=== PATIENT | male | born 1980 | race Caucasian/White ===

== ENCOUNTER 2023-04-17 13:14 | Emergency (ER) | payer SELFPAY ==
[2023-04-17 13:20] VITALS: BP 140/96; PULSE 94; RESP 18; TEMP 36.6; O2SAT 96; BMI 48.3
--- NOTE | 2023-04-17 13:26 | ED.EXTPRO1 ---
HPI - Extremity Problem General Chief complaint: Extremity Injury, Lower Stated complaint: LOWER EXTREMITY PAIN RIGHT FOOT Time Seen by Provider: 04/17/23 13:25 Source: patient Mode of arrival: walk-in Limitations: no limitations History of Present Illness HPI Narrative: 42-year-old male presents for left foot pain for the past couple of days without injury. He took Advil 5 hours ago. He states that he has a history of gout. Denies swelling, temp or sensation changes Related Data Previous Rx's Medication Instructions Recorded prednisone 20 mg tablet See Rx Instructions .Route 04/17/23 .COMPLEX #18 tabs Allergies Allergy/AdvReac Type Severity Reaction Status Date / Time No Known Drug Allergies Allergy Verified 04/17/23 13:20 Review of Systems ROS Status of ROS 10 or more systems reviewed and unremarkable except as noted in history and below Exam Narrative Exam Narrative: General: A&Ox3, no distress, talking in full an complete sentences skin: warm, dry, intact head: normocephalic, atraumatic eyes: EOMI nose: nares patent neck: supple, trachea midline respiratory: non-labored extremities: FROM x 4, strength +5/5, no swelling, tender to the plantar aspect to the proximal metatarsals neuro: A&Ox3 psych: appropriate mood and affect, cooperative Constitutional Vital Signs, click to edit/add: Last Vital Signs Temp 97.9 F 04/17/23 13:20 Pulse 94 H 04/17/23 13:20 Resp 18 04/17/23 13:20 BP 140/96 H 04/17/23 13:20 Pulse Ox 96 04/17/23 13:20 O2 Del Method Room Air 04/17/23 13:20 Course Vital Signs Vital signs: Vital Signs Temperature 97.9 F 04/17/23 13:20 Pulse Rate 94 H 04/17/23 13:20 Respiratory Rate 18 04/17/23 13:20 Blood Pressure 140/96 H 04/17/23 13:20 Pulse Oximetry 96 04/17/23 13:20 Oxygen Delivery Method Room Air 04/17/23 13:20 Temperature 97.9 F 04/17/23 13:20 Pulse Rate 94 H 04/17/23 13:20 Respiratory Rate 18 04/17/23 13:20 Blood Pressure 140/96 H 04/17/23 13:20 Pulse Oximetry 96 04/17/23 13:20 Oxygen Delivery Method Room Air 04/17/23 13:20 MDM - Extremity (Nontraumatic) MDM Narrative Medical decision making narrative: No injury and likely inflammatory and with his history of gout we will give him a prednisone taper and medicate with Toradol today. He denies having any kidney issues or diabetes. He is to follow-up with family doctor. afebrile, not tachycardic, not tachypneic, not hypoxic, non toxic appearing and ambulating at baseline and hemodynamically stable to be d/c. eucated on SE of meds. answered all questions. pt in agreement with tx. educated when to return to ER. Discharge Plan Discharge Chief Complaint: Extremity Injury, Lower Clinical Impression: Acute pain of left foot Patient Disposition: Home, Self-Care Time of Disposition Decision: 13:26 Condition: Good Mode of Transportation: Private Vehicle Prescriptions / Home Meds: New prednisone 20 mg tablet See Rx Instructions .ROUTE .COMPLEX Qty: 18 0RF Rx Instructions: take 3 PO x 3 days then 2 PO x 3 days then 1 PO x 3 days Instructions: Arthralgia (ED) Stand Alone Forms: Portal Instructions Referrals: Alley Cruz [Primary Care Provider] - 1 week
[2023-04-17] MEDS: KETOROLAC TROMETHAMINE 30 MG/ML VIAL 15 MG IM (13:35)
== END 2023-04-17 13:37 | disposition home or self-care (01) ==
PROVIDERS: Emergency Provider Emergency Medicine; PCP Nurse Practitioner
DX: M79.672 Pain in left foot (principal)
CPT/HCPCS: 96372; 99284

== ENCOUNTER 2023-04-30 20:54 | Emergency (ER) | payer SELFPAY ==
[2023-04-30 21:09] VITALS: BP 160/90; PULSE 90; RESP 18; TEMP 36.5; O2SAT 97; BMI 54.8
--- NOTE | 2023-04-30 21:19 | ED_ITS ---
HPI - Extremity Injury (Lower) General Chief Complaint: Extremity Problem, Nontraumatic Stated Complaint: RT FOOT SWELLING/PAIN Time Seen by Provider: 04/30/23 21:17 History of Present Illness HPI Narrative: Patient To the emergency department complaining of right foot pain and swelling. Patient states his foot is throbbing. He had the symptoms intermittently for months. He was given steroid and he finished it last week and now the pain has returned. Patient has a history of gout.He denies any fever, chills, cough, chest pain, shortness of breath. He denies any paresthesias, or weakness. States this feels just like his gout. Related Data Home Medications Medication Instructions Recorded Confirmed bumetanide 2 mg tablet 2 mg PO DAILY 04/30/23 04/30/23 carvedilol 3.125 mg tablet 3.125 mg PO Q12H 04/30/23 04/30/23 losartan 100 mg tablet 100 mg PO DAILY 04/30/23 04/30/23 spironolactone 50 mg tablet 50 mg PO DAILY 04/30/23 04/30/23 Previous Rx's Medication Instructions Recorded colchicine (gout) 0.6 mg capsule 0.6 mg PO DAILY #7 caps 04/30/23 hydrocodone 5 mg-acetaminophen 325 1 tab PO Q6H PRN pain 5 days #5 04/30/23 mg tablet tabs methylprednisolone 4 mg tablets in 4 mg PO DAILY #21 ea 04/30/23 a dose pack (Medrol (Corey)) Allergies Allergy/AdvReac Type Severity Reaction Status Date / Time No Known Drug Allergies Allergy Verified 04/30/23 21:12 Review of Systems ROS Status of ROS 10 or more systems reviewed and unremarkable except as noted in history and below [employer] [facility] Social History Smoking status: Current every day smoker Exam Narrative Exam Narrative: Nurses notes and vital signs reviewed and patient is not hypoxic. General: Nontoxic, Well-appearing and in no apparent distress. Skin: Warm, dry, no pallor noted. No Rash Head: Normocephalic, atraumatic. Neck: Supple, non-tender. Eye: Pupils are equal, round and EOMI. No scleral icterus. Ears, Nose, Mouth, and Throat: TM clear, no posterior oropharynx erythema or nasal mucosal hypertrophy, uvula is mid-line Oral mucosa is moist Cardiovascular: Regular Rate and Rhythm without murmur, gallop or rub. Respiratory: No accessory muscle use or respiratory distress. Lungs are clear to auscultation, no wheezing, rales or rhonchi Chest Wall: no tenderness Back: No midline thoracic or lumbar vertebral tenderness. No CVA tenderness Musculoskeletal: normal ROM, no calf or popliteal tenderness,+2 bilateral ankle and foot edema noted. DT +2, tp +2, capillary refill is brisk. GI: obese, ,Abdomen is soft, non-distended. Normal bowel sounds. No masses appreciated. No tenderness to palpation. No rebound, guarding, or rigidity noted. Neurological: A&O x4. No cranial nerve dysfunction observed. No truncal ataxia. Moves all extremities. Sensation intact. Psychiatric: Cooperative and interactive. Normal mood and affect. Constitutional Vital Signs, click to edit/add: Last Vital Signs Temp 97.7 F 04/30/23 21:09 Pulse 90 04/30/23 21:09 Resp 18 04/30/23 21:09 BP 160/90 H 04/30/23 21:09 Pulse Ox 97 04/30/23 21:09 O2 Del Method Room Air 04/30/23 21:09 Course Vital Signs Vital signs: Vital Signs Temperature 97.7 F 04/30/23 21:09 Pulse Rate 90 04/30/23 21:09 Respiratory Rate 18 04/30/23 21:09 Blood Pressure 160/90 H 04/30/23 21:09 Pulse Oximetry 97 04/30/23 21:09 Oxygen Delivery Method Room Air 04/30/23 21:09 Temperature 97.7 F 04/30/23 21:09 Pulse Rate 90 04/30/23 21:09 Respiratory Rate 18 04/30/23 21:09 Blood Pressure 160/90 H 04/30/23 21:09 Pulse Oximetry 97 04/30/23 21:09 Oxygen Delivery Method Room Air 04/30/23 21:09 MDM - Extremity Injury (Lower) MDM Narrative Medical decision making narrative: Previous records reviewed. Discussed with the patient steroid, colchicine, and NSAIDs for pain control. Oarrs was checked and is appropriate.The patient was given a prescription for [place]. At this time the patient is without objective evidence of an acute process requiring hospitalization or inpatient management. The patient has remained hemodynamically stable. No additional indication for emergent studies at this time. I answered all questions. Discussed discharge instructions including standard anticipatory guidance and what should prompt a return to the emergency department, including if they get worse are not getting better or develops any new or concerning symptoms. I've given them specific time frame in which to follow-up, and who to follow-up with. The patient demonstrates understanding. Patient is nontoxic and stable for discharge with outpatient follow-up. This note was created with the assistance of a speech recognition program. Although the intention is to generate documents that actually reflects the content of the visit, no guarantees can be provided that every mistake has been identified and corrected by editing. Discharge Plan Discharge Chief Complaint: Extremity Problem, Nontraumatic Clinical Impression: Gout attack Patient Disposition: Home, Self-Care Time of Disposition Decision: 21:36 Condition: Good Mode of Transportation: Private Vehicle Prescriptions / Home Meds: New methylprednisolone [Medrol (Corey)] 4 mg tablets,dose pack 4 mg PO DAILY Qty: 21 0RF colchicine (gout) 0.6 mg capsule 0.6 mg PO DAILY Qty: 7 0RF hydrocodone-acetaminophen 5-325 mg tablet 1 tab PO Q6H PRN (Reason: pain) 5 Days Qty: 5 0RF No Action bumetanide 2 mg tablet 2 mg PO DAILY carvedilol 3.125 mg tablet 3.125 mg PO Q12H losartan 100 mg tablet 100 mg PO DAILY spironolactone 50 mg tablet 50 mg PO DAILY Instructions: Gout (ED) Stand Alone Forms: Portal Instructions Referrals: Alley Cruz [Primary Care Provider] - 1 week Discharge Date/Time: 04/30/23 22:02
[2023-04-30] MEDS: COLCHICINE 0.6 MG TABLET PO (21:50)
[2023-04-30] MEDS: PREDNISONE 20 MG TABLET 60 MG PO (21:51)
== END 2023-04-30 22:02 | disposition home or self-care (01) ==
PROVIDERS: Emergency Provider Emergency Medicine; PCP Nurse Practitioner
DX: M10.071 Idiopathic gout, right ankle and foot (principal); Z79.899 Other long term (current) drug therapy; F17.210 Nicotine dependence, cigarettes, uncomplicated
CPT/HCPCS: 99283

== ENCOUNTER 2023-08-01 17:17 | Emergency (ER) | payer SELFPAY ==
[2023-08-01 17:25] VITALS: BP 126/82; PULSE 93; RESP 20; TEMP 36.6; O2SAT 97; BMI 56.0
--- NOTE | 2023-08-01 17:31 | XR_ITS ---
The [address] [address] Patient Name: RAFAEL WINKLER MRN: [id number] date: 1980 Sex: M Assigned Patient Location: ER Current Patient Location: ER Accession/Order Number: [id number] Exam Date: 08/01/2023 17:50 Report Date: 08/01/2023 18:32 At the request of: JARVIS CELIS Procedure: XR knee RT 3V EXAM: XR knee RT 3V HISTORY: atraumatic pain COMPARISON: None. TECHNIQUE: 3 views of the right knee. FINDINGS: Bones: No acute fracture or aggressive appearing bony lesion. Joints: Normal alignment. There is small to moderate joint effusion. No significant degenerative findings. Soft tissues: Unremarkable. XR/XR knee RT 3V IMPRESSION: small to moderate joint effusion. Electronically authenticated by: BROWN FRANCOIS Date: 08/01/2023 18:32
--- NOTE | 2023-08-01 17:32 | ED.EXTPRO1 ---
HPI - Extremity Problem General Chief complaint: Extremity Problem, Nontraumatic Stated complaint: Lower Extremity Pain Time Seen by Provider: 08/01/23 17:22 Source: patient Mode of arrival: Wheelchair Limitations: no limitations History of Present Illness HPI Narrative: 43-year-old male presents for right knee pain. It's been hurting for a few days. He thinks it might be due to compensation because his left knee was hurting before this and he thinks he may been walking on it in an unusual fashion. There is no direct injury to the right knee. He points to the anterior surface. His left knee is feeling much better now. Related Data Home Medications Medication Instructions Recorded Confirmed bumetanide 2 mg tablet 2 mg PO DAILY 04/30/23 04/30/23 carvedilol 3.125 mg tablet 3.125 mg PO Q12H 04/30/23 04/30/23 losartan 100 mg tablet 100 mg PO DAILY 04/30/23 04/30/23 spironolactone 50 mg tablet 50 mg PO DAILY 04/30/23 04/30/23 Previous Rx's Medication Instructions Recorded colchicine 0.6 mg capsule 0.6 mg PO DAILY #7 caps 04/30/23 hydrocodone 5 mg-acetaminophen 325 1 tab PO Q6H PRN pain 5 days #5 04/30/23 mg tablet tabs methylprednisolone 4 mg tablets in 4 mg PO DAILY #21 ea 04/30/23 a dose pack (Medrol (Corey)) ibuprofen 800 mg tablet 800 mg PO Q8H PRN pain #20 tabs 08/01/23 Allergies Allergy/AdvReac Type Severity Reaction Status Date / Time No Known Drug Allergies Allergy Verified 04/30/23 21:12 Review of Systems ROS Narrative A ten point review of systems is negative except as noted above. PFSH PFS Social History Smoking status: Current every day smoker Exam Narrative Exam Narrative: Nurses note and vital signs reviewed and patient is not hypoxic. General: The patient appears well and in no apparent distress. Patient is sitting on the edge of the cart Skin: Warm, dry, no pallor noted. There is no rash noted. Head: Normocephalic, atraumatic Eye: Normal conjunctiva, no drainage Ears, Nose, Mouth, and Throat: oral mucosa is moist. Nares patent. Cardiovascular: Regular Rate and Rhythm Respiratory: Patient is in no distress, no accessory muscle use, lungs are clear to auscultation, no wheezing, rales or rhonchi Back: non-tender GI: obese and nontender Musculoskeletal: the right knee is not bruised or swollen or erythematous and the knee joint is stable. Neurological: A&O, normal speech Psychiatric: Cooperative Constitutional Vital Signs, click to edit/add: Last Vital Signs Temp 97.8 F 08/01/23 17:25 Pulse 93 H 08/01/23 17:25 Resp 20 08/01/23 17:25 BP 126/82 08/01/23 17:25 Pulse Ox 97 08/01/23 17:25 O2 Del Method Room Air 08/01/23 17:25 Course Vital Signs Vital signs: Vital Signs Temperature 97.8 F 08/01/23 17:25 Pulse Rate 93 H 08/01/23 17:25 Respiratory Rate 20 08/01/23 17:25 Blood Pressure 126/82 08/01/23 17:25 Pulse Oximetry 97 08/01/23 17:25 Oxygen Delivery Method Room Air 08/01/23 17:25 Temperature 97.8 F 08/01/23 17:25 Pulse Rate 93 H 08/01/23 17:25 Respiratory Rate 20 08/01/23 17:25 Blood Pressure 126/82 08/01/23 17:25 Pulse Oximetry 97 08/01/23 17:25 Oxygen Delivery Method Room Air 08/01/23 17:25 MDM - Extremity (Nontraumatic) MDM Narrative Medical decision making narrative: x-ray findings are discussed with the patient and he is referred to orthopedics. Scar wrap applied, application checked by me and found to be appropriate, he is neurovascular intact. Treatment diagnosis and follow-up were discussed with the patient. Differential Diagnosis Differential diagnosis: Likely other (knee sprain, arthritis, fracture) Imaging Data knee x-ray: Radiologist's impression: Procedure: XR knee RT 3V EXAM: XR knee RT 3V HISTORY: atraumatic pain COMPARISON: None. TECHNIQUE: 3 views of the right knee. FINDINGS: Bones: No acute fracture or aggressive appearing bony lesion. Joints: Normal alignment. There is small to moderate joint effusion. No significant degenerative findings. Soft tissues: Unremarkable. IMPRESSION: small to moderate joint effusion. Electronically authenticated by: BROWN FRANCOIS Date: 08/01/2023 18:32 Discharge Plan Discharge Chief Complaint: Extremity Problem, Nontraumatic Clinical Impression: Acute pain of right knee Patient Disposition: Home, Self-Care Time of Disposition Decision: 18:41 Condition: Good Mode of Transportation: Private Vehicle Prescriptions / Home Meds: New ibuprofen 800 mg tablet 800 mg PO Q8H PRN (Reason: pain) Qty: 20 0RF No Action bumetanide 2 mg tablet 2 mg PO DAILY carvedilol 3.125 mg tablet 3.125 mg PO Q12H losartan 100 mg tablet 100 mg PO DAILY spironolactone 50 mg tablet 50 mg PO DAILY methylprednisolone [Medrol (Corey)] 4 mg tablets,dose pack 4 mg PO DAILY Qty: 21 0RF colchicine 0.6 mg capsule 0.6 mg PO DAILY Qty: 7 0RF hydrocodone-acetaminophen 5-325 mg tablet 1 tab PO Q6H PRN (Reason: pain) 5 Days Qty: 5 0RF Instructions: Knee Pain (ED) Additional Instructions: Follow-up with Dr. Canales. Stand Alone Forms: Portal Instructions Referrals: Alley Cruz NP [Primary Care Provider] - 1 week
== END 2023-08-01 19:04 | disposition home or self-care (01) ==
PROVIDERS: Emergency Provider Emergency Medicine; PCP Nurse Practitioner
DX: M25.561 Pain in right knee (principal); Z79.899 Other long term (current) drug therapy; F17.200 Nicotine dependence, unspecified, uncomplicated; E66.9 Obesity, unspecified; M25.461 Effusion, right knee; Z68.43 Body mass index [BMI] 50.0-59.9, adult
CPT/HCPCS: 73562; 99283

== ENCOUNTER 2024-03-03 19:45 | Emergency (ER) | payer OTHER, SELFPAY ==
--- OUTSIDE RECORDS SUMMARY | 2024-03-03 19:56 | XMS_ITS | CCD ---
Author Organization [facility] Care Team Providers Care Dice Spotter Name Role Phone DR RADHA LANDEROS Admitting Unavailable LETI, DR GARCIA Consulting Unavailable LETI, DR GARCIA Attending Unavailable AICHHOLZ, VENDING SUPERVISOR ELIAZAR Primary Care Unavailable AICHHOLZ, VENDING SUPERVISOR ELIAZAR Admitting Unavailable AICHHOLZ, VENDING SUPERVISOR ELIAZAR Primary Care Unavailable AICHHOLZ, VENDING SUPERVISOR ELIAZAR Consulting Unavailable AICHHOLZ, VENDING SUPERVISOR ELIAZAR Attending Unavailable WILLEM, DR RACQUEL Luis Consulting Unavailable AICHHOLZ, VENDING SUPERVISOR ELIAZAR Primary Care Unavailable SURI, DR JEANNETTE Fuchs Admitting Unavailable SURI, DR JEANNETTE Fuchs Attending Unavailable SURI, DR JEANNETTE Fuchs Procedure Practitioner Unavaila cristina MCCORD, DR JEANNETTE Fuchs Consulting Unavailable PAPITO, DR HERON Milligan Consulting Unavailabl e SAM, KENNETH Consulting Unavailable STRAWSER, ELIAZAR Consulting Unavailable SHAZIA WELLINGTON Consulting Unavailable DIANNA SCHULTZ Consulting Unavailable LAMAR, LUCERO Consulting Unavailable SISTER, GOPI Consulting Unavailable JACK MCCORMACK Consulting Unavailable Problems Problem Classification Problem Date Documented Da te Episodic/Chronic Congestive heart failure; nonhypertensive (5 sources) Unspecified diastolic (congestive) heart failure; Translations: [Acute diastolic (congestive) heart failure] Onset: 07-19-2022 Chronic Fluid and electrolyte disorders (1 source) Hypokalemia; Translations: [HYPOKALEMIA] Onset: 09-13-2022 Episodic Hypertension with complications and secondary hypertension (4 sources) Hypertensive heart disease with heart failure; Translations: [Hypertensive emergency] Onset: 07-12-2022 Chronic Mycoses (1 source) Tinea unguium; Translations: [TINEA UNGUIUM] Onset: 09-13-2022 Episodic Nutritional deficiencies (1 source) Mild protein-calorie malnutrition; Translations: [MILD PROTEIN-CALORIE MALNUTRITION] Onset: 09-13-2022 Chronic Other aftercare (1 source) 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; 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 ASPIRIN] Onset: 09-26-2022 Episodic Other aftercare (1 source) 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; Translations: [OTH MCC CURRENT DRUG THERAPY] Onset: 09-26-2022 Episodic Other connective tissue disease (3 sources) Other specified soft tissue disorders; Translations: [OTHER SPEC SOFT TISSUE DISORDERS] Onset: 09-24-2022 Episodic Other diseases of veins and lymphatics (1 source) Other specified disorders of veins; Translations: [OTHER SPECIFIED DISORDERS OF VEINS] Onset: 09-13-2022 Episodic Other male genital disorders (1 source) Other specified disorders of the male genital organs; Translations: [OTHER SPEC D/O MALE GENITAL ORGANS] Onset: 09-13-2022 Episodic Other male genital disorders (1 source) Hydrocele, unspecified; Translations: [HYDROCELE UNSPECIFIED] Onset: 09-13-2022 Episodic Other nutritional; endocrine; and metabolic disorders (1 source) Morbid (severe) obesity due to excess calories; Translations: [MORBID SEVERE OBES D/T EXCESS LUCIE] Onset: 09-26-2022 Chronic Other nutritional; endocrine; and metabolic disorders (1 source) Body mass index (BMI) 50.0-59.9, adult; Translations: [BODY MASS INDEX BMI 50.0-59.9 ADULT] Onset: 09-26-2022 Chronic Other nutritional; endocrine; and metabolic disorders (1 source) Morbid (severe) obesity with alveolar hypoventilation; Translations: [MORBID SEV OBESITY ALVEOLR HYPOVENT] Onset: 09-13-2022 Chronic Other nutritional; endocrine; and metabolic disorders (1 source) Body mass index (BMI) 60.0-69.9, adult; Translations: [BODY MASS INDEX BMI 60.0-69.9 ADULT] Onset: 09-13-2022 Chronic Other skin disorders (1 source) Xerosis cutis; Translations: [XEROSIS CUTIS] Onset: 09-13-2022 Episodic Pulmonary heart disease (1 source) Pulmonary hypertension, unspecified; Translations: [PULMONARY HYPERTENSION UNSPECIFIED] Onset: 09-13-2022 Chronic Residual codes; unclassified (1 source) Obstructive sleep apnea (adult) (pediatric); Translations: [OBSTRUCTIVE SLEEP APNEA] Onset: 09-26-2022 Chronic Residual codes; unclassified (1 source) Patient's other noncompliance with medication regimen; Translations: [PT OTH NONCOMPLIANCE W/ MED REGIMEN] Onset: 09-13-2022 Episodic Respiratory failure; insufficiency; arrest (adult) (2 sources) Chronic respiratory failure with hypoxia; Translations: [Dependence on supplemental oxygen] Onset: 09-13-2022 Chronic Screening and history of mental health and substance abuse codes (1 source) Personal history of nicotine dependence; Translations: [PERSONAL HISTORY OF NICOTINE DEPEND] Onset: 09-26-2022 Episodic Skin and subcutaneous tissue infections (3 sources) Cellulitis of left lower limb; Translations: [Cutaneous abscess of left lower limb] Onset: 09-13-2022 Episodic Substance-related disorders (1 source) Nicotine dependence, cigarettes, uncomplicated; Translations: [NICOTINE DEPEND CIGARETTES UNCOMP] Onset: 09-13-2022 Chronic Unclassified (1 source) PT NONCOMP OTH MED TX/REG UNS REASN; Translations: [PT NONCOMP OTH MED TX/REG UNS REASN] Onset: 09-13-2022 Results Test Name Value Interpretation Reference Range Facil ity PROF CHEM 8 (BAS METB)on Anion gap [Moles/Vol] 8.8 mmol/L Normal [facility] Comment on above: Performed By: #### C VDTBH #### [facility] [address] [place] [address] Dr. Gloria Gonzalez Calcium [Mass/Vol] 10.1 mg/dL Normal 8.5-10.1 [facility] Comment on above: Performed By: #### C VDTBH #### [facility] [address] [place] [address] Dr. Gloria Gonzalez Chloride [Moles/Vol] 97 mmol/L Critically low 98-107 [facility] Comment on above: Performed By: #### C VDTBH #### [facility] [address] [place] [address] Dr. Gloria Gonzalez CO2 [Moles/Vol] 35.4 mmol/L Critically high 21.0-32.0 [facility] Comment on above: Performed By: #### C VDTBH #### [facility] [address] [place] [address] Dr. Gloria Gonzalez Creatinine [Mass/Vol] 0.98 mg/dL Normal 0.70-1.30 [facility] Comment on above: Performed By: #### C VDTBH #### [facility] [address] [place] [address] Dr. Gloria Gonzalez EGFR-AF MACANESE >60 Normal >=60 [facility] Comment on above: Performed By: #### C VDTBH #### [facility] [address] [place] [address] Dr. Gloria Gonzalez EGFR-NON AF MACANESE >60 Normal >=60 [facility] Comment on above: Performed By: #### C VDTBH #### [facility] [address] [place] [address] Dr. Gloria Gonzalez Glucose [Mass/Vol] 102 mg/dL Normal 74-106 [facility] Comment on above: Performed By: #### C VDTBH #### [facility] [address] [place] [address] Dr. Gloria Gonzalez Potassium [Moles/Vol] 4.2 mmol/L Normal 3.5-5.1 [facility] Comment on above: Performed By: #### C VDTBH #### [facility] [address] [place] [address] Dr. Gloria Gonzalez Sodium [Moles/Vol] 137 mmol/L Normal 136-145 [facility] Comment on above: Performed By: #### C VDTBH #### [facility] [address] [place] [address] Dr. Gloria Gonzalez Urea nitrogen [Mass/Vol] 24.0 mg/dL Critically high 7.0-18.0 [facility] Comment on above: Performed By: #### C VDTBH #### [facility] [address] [place] [address] Dr. Gloria Gonzalez Urea nitrogen/Creatinine [Mass ratio] 24.5 mg/mg Normal [facility] Comment on above: Performed By: #### C VDTBH #### [facility] [address] [place] [address] Dr. Gloria Gonzalez CBC AUTO DIFFon 07-15-2022 BASO # 0.0 103/ul Normal 0.0-0.[address] [facility] Comment on above: Performed By: #### B GUEST SERVICE AIDE, HSTROPN #### [facility] [address] [place] [address] Dr. Gloria Gonzalez Basophils/100 WBC (Bld) 0.3 % Normal 0.2-2.0 [facility] Comment on above: Performed By: #### B GUEST SERVICE AIDE, HSTROPN #### [facility] [address] [place] [address] Dr. Gloria Gonzalez EO # 0.3 103/ul Normal 0.0-0.7 [facility] Comment on above: Performed By: #### B GUEST SERVICE AIDE, HSTROPN #### [facility] [address] [place] [address] Dr. Gloria Gonzalez Eosinophils/100 WBC (Bld) 3.1 % Normal 0.9-7.0 [facility] Comment on above: Performed By: #### B GUEST SERVICE AIDE, HSTROPN #### [facility] [address] [place] [address] Dr. Gloria Gonzalez Erythrocyte distribution width (RBC) [Ratio] 15.6 % Critically high 11.0-15.0 [facility] Comment on above: Performed By: #### B GUEST SERVICE AIDE, HSTROPN #### [facility] [address] [place] [address] Dr. Gloria Gonzalez Hematocrit (Bld) [Volume fraction] 54.8 % Critically high 42.0-54.0 [facility] Comment on above: Performed By: #### B GUEST SERVICE AIDE, HSTROPN #### [facility] [address] [place] [address] Dr. Gloria Gonzalez Hemoglobin (Bld) [Mass/Vol] 17.1 g/dL Normal 14.0-18.[address] [facility] Comment on above: Performed By: #### B GUEST SERVICE AIDE, HSTROPN #### [facility] [address] [place] [address] Dr. Gloria Gonzalez IG # 0.02 10e3/ul Normal 0.00-0.03 [facility] Comment on above: Performed By: #### B GUEST SERVICE AIDE, HSTROPN #### [facility] [address] [address] [address] Gloria Gonzalez IG % 0.2 % Normal 0.0-0.5 [facility] Comment on above: Performed By: #### B GUEST SERVICE AIDE, HSTROPN #### [facility] [address] [place] [address] Dr. Gloria Gonzalez LYMPH # 1.2 103/ul Normal 1.2-3.[address] [facility] Comment on above: Performed By: #### B GUEST SERVICE AIDE, HSTROPN #### [facility] [address] [place] [address] Dr. Gloria Gonzalez Lymphocytes/100 WBC (Bld) 11.9 % Critically low 20.5-60.0 [facility] Comment on above: Performed By: #### B GUEST SERVICE AIDE, HSTROPN #### [facility] [address] [place] [address] Dr. Gloria Gonzalez MANUAL DIFF REQ NO Normal [facility] Comment on above: Performed By: #### B GUEST SERVICE AIDE, HSTROPN #### [facility] [address] [place] [address] Dr. Gloria Gonzalez MCH (RBC) [Entitic mass] 28.8 pg Normal 25.9-34.0 [facility] Comment on above: Performed By: #### B GUEST SERVICE AIDE, HSTROPN #### [facility] [address] [place] [address] Dr. Gloria Gonzalez MCHC (RBC) [Mass/Vol] 31.2 g/dL Normal 29.9-35.2 [facility] Comment on above: Performed By: #### B GUEST SERVICE AIDE, HSTROPN #### [facility] [address] [place] [address] Dr. Gloria Gonzalez MCV (RBC) [Entitic vol] 92.4 fL Normal 80.0-94.0 [facility] Comment on above: Performed By: #### B GUEST SERVICE AIDE, HSTROPN #### [facility] [address] [place] [address] Dr. Gloira Gonzalez MONO # 1.3 103/ul Critically high 0.3-0.8 [facility] Comment on above: Performed By: #### B GUEST SERVICE AIDE, HSTROPN #### [facility] [address] [place] [address] Dr. Gloria Gonzalez Monocytes/100 WBC (Bld) 12.1 % Critically high 1.7-12.[address] [facility] Comment on above: Performed By: #### B GUEST SERVICE AIDE, HSTROPN #### [facility] [address] [place] [address] Dr. Gloria Gonzalez NEUT # 7.5 103/ul Critically high 1.4-6.5 [facility] Comment on above: Performed By: #### B GUEST SERVICE AIDE, HSTROPN #### [facility] [address] [place] [address] Dr. Gloria Gonzalez Neutrophils/100 WBC (Bld) 72.4 % Normal 43.0-75.[address] [facility] Comment on above: Performed By: #### B GUEST SERVICE AIDE, HSTROPN #### [facility] [address] [place] [address] Dr. Gloria Gonzalez Platelet mean volume (Bld) [Entitic vol] 9.9 fL Normal 9.5-13.[address] [facility] Comment on above: Performed By: #### B GUEST SERVICE AIDE, HSTROPN #### [facility] [address] [place] [address] Dr. Gloria Gonzalez PLT 181 103/ul Normal 150-[address] [facility] Comment on above: Performed By: #### B GUEST SERVICE AIDE, HSTROPN #### [facility] [address] [place] [address] Dr. Gloria Gonzalez RBC 5.93 106/ul Normal 4.70-6.[address] [facility] Comment on above: Performed By: #### B GUEST SERVICE AIDE, HSTROPN #### [facility] [address] [place] [address] Dr. Gloria Gonzalez WBC 10.4 103/ul Normal 4.0-11.[address] [facility] Comment on above: Performed By: #### B GUEST SERVICE AIDE, HSTROPN #### [facility] [address] [place] [address] Dr. Gloria Gonzalez CULTURE WOUNDon 07-15-2022 CULTURE WOUND Culture Observations : NO GROWTH OF ANAEROBES AT 72 HOURS. Isolate 1 Staphylococcus aureus Light growth of ORGANISM 1 Staphylococcus aureus ANTIBIOTIC M.I.C RX STATUS Beta-Lactamase Pos POS F Cefoxitin Screen Neg NEG F Benzylpenicillin >=0.5 R F Gentamicin <=0.5 S F Ciprofloxacin <=0.5 S F Levofloxacin <=0.12 S F Moxifloxacin <=0.25 S F Inducible Clindamycin Resistance Neg NEG F Erythromycin <=0.25 S F Clindamycin <=0.25 S F Quinupristin/Dalfopris tin <=0.25 S F Linezolid 2 S F Vancomycin 1 S F Tetracycline <=1 S F Rifampicin <=0.5 S F Trimethoprim/Sulfameth oxazole <=10 S F Oxacillin <=0.25 S F Normal [facility] Comment on above: Performed By: #### B GUEST SERVICE AIDE, HSTROPN #### [facility] [address] [place] [address] Dr. Gloria Gonzalez PROF 14(COMP METB)on 022 Albumin [Mass/Vol] 2.8 g/dL Critically low 3.4-5.0 [facility] Comment on above: Performed By: #### C VDTBH #### [facility] [address] [place] [address] Dr. Gloria Gonzalez Albumin/Globulin [Mass ratio] 0.6 {ratio} Normal [facility] Comment on above: Performed By: #### C VDTBH #### [facility] [address] [place] [address] Dr. Gloria Gonzalez ALP [Catalytic activity/Vol] 86 U/L Normal 46-116 [facility] Comment on above: Performed By: #### C VDTBH #### [facility] [address] [place] [address] Dr. Gloria Gonzalez ALT [Catalytic activity/Vol] 16 U/L Normal 16-63 [facility] Comment on above: Performed By: #### C VDTBH #### [facility] [address] [address] [address] Gloria Gonzalez Anion gap [Moles/Vol] 1.4 mmol/L Normal [facility] Comment on above: Performed By: #### C VDTBH #### [facility] [address] [address] [address] Gloria Gonzalez AST [Catalytic activity/Vol] 22 U/L Normal 15-37 [facility] Comment on above: Performed By: #### C VDTBH #### [facility] [address] [place] [address] Dr. Gloria Gonzalez Bilirubin [Mass/Vol] 1.2 mg/dL Critically high 0.2-1.0 [facility] Comment on above: Performed By: #### C VDTBH #### [facility] [address] [place] [address] Dr. Gloria Gonzalez Calcium [Mass/Vol] 8.9 mg/dL Normal 8.5-10.1 [facility] Comment on above: Performed By: #### C VDTBH #### [facility] [address] [place] [address] Dr. Gloria Gonzalez Chloride [Moles/Vol] 95 mmol/L Critically low 98-107 [facility] Comment on above: Performed By: #### C VDTBH #### [facility] [address] [place] [address] Dr. Gloria Gonzalez CO2 [Moles/Vol] 41.1 mmol/L Critically high 21.0-32.0 [facility] Comment on above: Performed By: #### C VDTBH #### [facility] [address] [place] [address] Dr. Gloria Gonzalez Creatinine [Mass/Vol] 0.92 mg/dL Normal 0.70-1.30 [facility] Comment on above: Performed By: #### C VDTBH #### [facility] [address] [place] [address] Dr. Gloria Gonzalez EGFR-AF MACANESE >60 Normal >=60 [facility] Comment on above: Performed By: #### C VDTBH #### [facility] [address] [address] [address] Gloria Gonzalez EGFR-NON AF MACANESE >60 Normal >=60 [facility] Comment on above: Performed By: #### C VDTBH #### [facility] [address] [address] [address] Gloria Gonzalez Globulin (S) [Mass/Vol] 5.0 g/dL Normal [facility] Comment on above: Performed By: #### C VDTBH #### [facility] [address] [address] [address] Gloria Gonzalez Glucose [Mass/Vol] 97 mg/dL Normal 74-106 [facility] Comment on above: Performed By: #### C VDTBH #### [facility] [address] [address] [address] Gloria Gonzalez Potassium [Moles/Vol] 3.5 mmol/L Normal 3.5-5.1 [facility] Comment on above: Performed By: #### C VDTBH #### [facility] [address] [address] [address] Gloria Gonzalez Protein [Mass/Vol] 7.8 g/dL Normal 6.4-8.2 [facility] Comment on above: Performed By: #### C VDTBH #### [facility] [address] [address] [address] Gloria Gonzalez Sodium [Moles/Vol] 134 mmol/L Critically low 136-145 [facility] Comment on above: Performed By: #### C VDTBH #### [facility] [address] [address] [address] Gloria Gonzalez Urea nitrogen [Mass/Vol] 18.0 mg/dL Normal 7.0-18.0 [facility] Comment on above: Performed By: #### C VDTBH #### [facility] [address] [address] [address] Gloria Gonzalez Urea nitrogen/Creatinine [Mass ratio] 19.6 mg/mg Normal [facility] Comment on above: Performed By: #### C VDTBH #### [facility] [address] [place] [address] Dr. Gloria Gonzalez CBC AUTO DIFFon 07-14-2022 BASO # 0.0 103/ul Normal 0.0-0.1 [facility] Comment on above: Performed By: #### C BC #### [facility] [address] [place] [address] Dr. Gloria Gonzalez Basophils/100 WBC (Bld) 0.2 % Normal 0.2-2.0 [facility] Comment on above: Performed By: #### C BC #### [facility] [address] [place] [address] Dr. Gloria Gonzalez EO # 0.2 103/ul Normal 0.0-0.7 [facility] Comment on above: Performed By: #### C BC #### [facility] [address] [place] [address] Dr. Gloria Gonzalez Eosinophils/100 WBC (Bld) 2.2 % Normal 0.9-7.0 [facility] Comment on above: Performed By: #### C BC #### [facility] [address] [place] [address] Dr. Gloria Gonzalez Erythrocyte distribution width (RBC) [Ratio] 15.5 % Critically high 11.0-15.0 [facility] Comment on above: Performed By: #### C BC #### [facility] [address] [place] [address] Dr. Gloria Gonzalez Hematocrit (Bld) [Volume fraction] 57.2 % Critically high 42.0-54.0 [facility] Comment on above: Performed By: #### C BC #### [facility] [address] [place] [address] Dr. Gloria Gonzalez Hemoglobin (Bld) [Mass/Vol] 17.3 g/dL Normal 14.0-18.0 [facility] Comment on above: Performed By: #### C BC #### [facility] [address] [place] [address] Dr. Gloria Gonzalez IG # 0.02 10e3/ul Normal 0.00-0.03 [facility] Comment on above: Performed By: #### C BC #### [facility] [address] [place] [address] Dr. Gloria Gonzalez IG % 0.2 % Normal 0.0-0.5 [facility] Comment on above: Performed By: #### C BC #### [facility] [address] [place] [address] Dr. Gloria Gonzalez LYMPH # 0.9 103/ul Critically low 1.2-3.8 [facility] Comment on above: Performed By: #### C BC #### [facility] [address] [place] [address] Dr. Gloria Gonzalez Lymphocytes/100 WBC (Bld) 10.8 % Critically low 20.5-60.0 [facility] Comment on above: Performed By: #### C BC #### [facility] [address] [place] [address] Dr. Gloria Gonzalez MANUAL DIFF REQ NO Normal [facility] Comment on above: Performed By: #### C BC #### [facility] [address] [place] [address] Dr. Gloria Gonzalez MCH (RBC) [Entitic mass] 28.4 pg Normal 25.9-34.0 [facility] Comment on above: Performed By: #### C BC #### [facility] [address] [place] [address] Dr. Gloria Gonzalez MCHC (RBC) [Mass/Vol] 30.2 g/dL Normal 29.9-35.2 [facility] Comment on above: Performed By: #### C BC #### [facility] [address] [place] [address] Dr. Gloria Gonzalez MCV (RBC) [Entitic vol] 93.9 fL Normal 80.0-94.0 [facility] Comment on above: Performed By: #### C BC #### [facility] [address] [place] [address] Dr. Gloria Gonzalez MONO # 0.8 103/ul Normal 0.3-0.8 [facility] Comment on above: Performed By: #### C BC #### [facility] [address] [address] [address] Gloria Gonzalez Monocytes/100 WBC (Bld) 9.6 % Normal 1.7-12.0 [facility] Comment on above: Performed By: #### C BC #### [facility] [address] [address] [address] Gloria Gonzalez NEUT # 6.7 103/ul Critically high 1.4-6.5 [facility] Comment on above: Performed By: #### C BC #### [facility] [address] [address] [address] Gloria Gonzalez Neutrophils/100 WBC (Bld) 77.0 % Critically high 43.0-75.0 [facility] Comment on above: Performed By: #### C BC #### [facility] [address] [place] [address] Dr. Gloria Gonzalez Platelet mean volume (Bld) [Entitic vol] 10.0 fL Normal 9.5-13.5 [facility] Comment on above: Performed By: #### C BC #### [facility] [address] [place] [address] Dr. Gloria Gonzalez PLT 179 103/ul Normal 150-450 [facility] Comment on above: Performed By: #### C BC #### [facility] [address] [place] [address] Dr. Gloria Gonzalez RBC 6.09 106/ul Normal 4.70-6.[address] [facility] Comment on above: Performed By: #### C BC #### [facility] [address] [place] [address] Dr. Gloria Gonzalez WBC 8.7 103/ul Normal 4.0-11.0 [facility] Comment on above: Performed By: #### C BC #### [facility] [address] [place] [address] Dr. Gloria Gonzalez PROF 14(COMP METB)on 022 Albumin [Mass/Vol] 3.0 g/dL Critically low 3.4-5.0 [facility] Comment on above: Performed By: #### C VDTBH #### [facility] [address] [address] [address] Gloria Gonzalez Albumin/Globulin [Mass ratio] 0.6 {ratio} Normal [facility] Comment on above: Performed By: #### C VDTBH #### [facility] [address] [address] [address] Gloria Gonzalez ALP [Catalytic activity/Vol] 92 U/L Normal 46-116 [facility] Comment on above: Performed By: #### C VDTBH #### [facility] Laboratory [address] [address] [address] Gloria Gonzalez ALT [Catalytic activity/Vol] 13 U/L Critically low 16-63 [facility] Comment on above: Performed By: #### C VDTBH #### [facility] [address] [place] [address] Dr. Gloria Gonzalez Anion gap [Moles/Vol] 2.0 mmol/L Normal [facility] Comment on above: Performed By: #### C VDTBH #### [facility] [address] [place] [address] Dr. Gloria Gonzalez AST [Catalytic activity/Vol] 18 U/L Normal 15-37 [facility] Comment on above: Performed By: #### C VDTBH #### [facility] [address] [place] [address] Dr. Gloria Gonzalez Bilirubin [Mass/Vol] 1.2 mg/dL Critically high 0.2-1.0 [facility] Comment on above: Performed By: #### C VDTBH #### [facility] [address] [place] [address] Dr. Gloria Gonzalez Calcium [Mass/Vol] 8.9 mg/dL Normal 8.5-10.1 [facility] Comment on above: Performed By: #### C VDTBH #### [facility] [address] [place] [address] Dr. Gloria Gonzalez Chloride [Moles/Vol] 96 mmol/L Critically low 98-107 [facility] Comment on above: Performed By: #### C VDTBH #### [facility] [address] [address] [address] Gloria Gonzalez CO2 [Moles/Vol] 43.4 mmol/L Critically high 21.0-32.0 [facility] Comment on above: Performed By: #### C VDTBH #### [facility] [address] [address] [address] Gloria Gonzalez Creatinine [Mass/Vol] 0.86 mg/dL Normal 0.70-1.30 [facility] Comment on above: Performed By: #### C VDTBH #### [facility] [address] [address] [address] Gloria Gonzalez EGFR-AF MACANESE >60 Normal >=60 [facility] Comment on above: Performed By: #### C VDTBH #### [facility] [address] [place] [address] Dr. Gloria Gonzalez EGFR-NON AF MACANESE >60 Normal >=60 [facility] Comment on above: Performed By: #### C VDTBH #### [facility] [address] [place] [address] Dr. Gloria Gonzalez Globulin (S) [Mass/Vol] 5.0 g/dL Normal [facility] Comment on above: Performed By: #### C VDTBH #### [facility] [address] [place] [address] Dr. Gloria Gonzalez Glucose [Mass/Vol] 108 mg/dL Critically high 74-106 [facility] Comment on above: Performed By: #### C VDTBH #### [facility] [address] [address] [address] Gloria Gonzalez Potassium [Moles/Vol] 3.4 mmol/L Critically low 3.5-5.1 [facility] Comment on above: Performed By: #### C VDTBH #### [facility] [address] [address] [address] Gloria Gonzalez Protein [Mass/Vol] 8.0 g/dL Normal 6.4-8.2 [facility] Comment on above: Performed By: #### C VDTBH #### [facility] [address] [place] [address] Dr. Gloria Gonzalez Sodium [Moles/Vol] 138 mmol/L Normal 136-145 [facility] Comment on above: Performed By: #### C VDTBH #### [facility] [address] [place] [address] Dr. Gloria Gonzalez Urea nitrogen [Mass/Vol] 12.0 mg/dL Normal 7.0-18.0 [facility] Comment on above: Performed By: #### C VDTBH #### [facility] [address] [place] [address] Dr. Gloria Gonzalez Urea nitrogen/Creatinine [Mass ratio] 14.0 mg/mg Normal [facility] Comment on above: Performed By: #### C VDTBH #### [facility] [address] [place] [address] Dr. Gloria Gonzalez CBC AUTO DIFFon 07-13-2022 BASO # 0.0 103/ul Normal 0.0-0.1 [facility] Comment on above: Performed By: #### C VDTBH #### [facility] [address] [place] [address] Dr. Gloria Gonzalez Basophils/100 WBC (Bld) 0.4 % Normal 0.2-2.0 [facility] Comment on above: Performed By: #### C VDTBH #### [facility] [address] [place] [address] Dr. Gloria Gonzalez EO # 0.2 103/ul Normal 0.0-0.7 [facility] Comment on above: Performed By: #### C VDTBH #### [facility] [address] [place] [address] Dr. Gloria Gonzalez Eosinophils/100 WBC (Bld) 2.2 % Normal 0.9-7.0 [facility] Comment on above: Performed By: #### C VDTBH #### [facility] [address] [place] [address] Dr. Gloria Gonzalez Erythrocyte distribution width (RBC) [Ratio] 15.9 % Critically high 11.0-15.0 [facility] Comment on above: Performed By: #### C VDTBH #### [facility] [address] [place] [address] Dr. Gloria Gonzalez Hematocrit (Bld) [Volume fraction] 55.7 % Critically high 42.0-54.0 [facility] Comment on above: Performed By: #### C VDTBH #### [facility] [address] [place] [address] Dr. Gloria Gonzalez Hemoglobin (Bld) [Mass/Vol] 17.2 g/dL Normal 14.0-18.0 [facility] Comment on above: Performed By: #### C VDTBH #### [facility] [address] [place] [address] Dr. Gloria Gonzalez IG # 0.02 10e3/ul Normal 0.00-0.03 [facility] Comment on above: Performed By: #### C VDTBH #### [facility] [address] [place] [address] Dr. Gloria Gonzalez IG % 0.2 % Normal 0.0-0.5 [facility] Comment on above: Performed By: #### C VDTBH #### [facility] [address] [place] [address] Dr. Gloria Gonzalez LYMPH # 1.1 103/ul Critically low 1.2-3.8 [facility] Comment on above: Performed By: #### C VDTBH #### [facility] [address] [place] [address] Dr. Gloria Gonzalez Lymphocytes/100 WBC (Bld) 11.0 % Critically low 20.5-60.0 [facility] Comment on above: Performed By: #### C VDTBH #### [facility] [address] [place] [address] Dr. Gloria Gonzalez MANUAL DIFF REQ NO Normal [facility] Comment on above: Performed By: #### C VDTBH #### [facility] [address] [place] [address] Dr. Gloria Gonzalez MCH (RBC) [Entitic mass] 28.9 pg Normal 25.9-34.0 [facility] Comment on above: Performed By: #### C VDTBH #### [facility] [address] [place] [address] Dr. Gloria Gonzalez MCHC (RBC) [Mass/Vol] 30.9 g/dL Normal 29.9-35.2 [facility] Comment on above: Performed By: #### C VDTBH #### [facility] [address] [place] [address] Dr. Gloria Gonzalez MCV (RBC) [Entitic vol] 93.6 fL Normal 80.0-94.0 [facility] Comment on above: Performed By: #### C VDTBH #### [facility] [address] [place] [address] Dr. Gloria Gonzalez MONO # 1.1 103/ul Critically high 0.3-0.8 [facility] Comment on above: Performed By: #### C VDTBH #### [facility] [address] [place] [address] Dr. Gloria Gonzalez Monocytes/100 WBC (Bld) 11.0 % Normal 1.7-12.0 [facility] Comment on above: Performed By: #### C VDTBH #### [facility] [address] [place] [address] Dr. Gloria Gonzalez NEUT # 7.2 103/ul Critically high 1.4-6.5 [facility] Comment on above: Performed By: #### C VDTBH #### [facility] [address] [place] [address] Dr. Gloria Gonzalez Neutrophils/100 WBC (Bld) 75.2 % Critically high 43.0-75.0 [facility] Comment on above: Performed By: #### C VDTBH #### [facility] [address] [place] [address] Dr. Gloria Gonzalez Platelet mean volume (Bld) [Entitic vol] 9.9 fL Normal 9.5-13.5 [facility] Comment on above: Performed By: #### C VDTBH #### [facility] [address] [place] [address] Dr. Gloria Gonzalez PLT 160 103/ul Normal 150-450 [facility] Comment on above: Performed By: #### C VDTBH #### [facility] [address] [place] [address] Dr. Gloria Gonzalez RBC 5.95 106/ul Normal 4.70-6.10 [facility] Comment on above: Performed By: #### C VDTBH #### [facility] [address] [place] [address] Dr. Gloria Gonzalez WBC 9.6 103/ul Normal 4.0-11.0 [facility] Comment on above: Performed By: #### C VDTBH #### [facility] [address] [place] [address] Dr. Gloria Gonzalez PROF 14(COMP METB)on 022 Albumin [Mass/Vol] 2.9 g/dL Critically low 3.4-5.0 [facility] Comment on above: Performed By: #### C MP #### [facility] [address] [place] [address] Dr. Gloria Gonzalez Albumin/Globulin [Mass ratio] 0.6 {ratio} Normal [facility] Comment on above: Performed By: #### C MP #### [facility] [address] [place] [address] Dr. Gloria Gonzalez ALP [Catalytic activity/Vol] 85 U/L Normal 46-116 [facility] Comment on above: Performed By: #### C MP #### [facility] [address] [place] [address] Dr. Gloria Gonzalez ALT [Catalytic activity/Vol] 15 U/L Critically low 16-63 [facility] Comment on above: Performed By: #### C MP #### [facility] [address] [place] [address] Dr. Gloria Gonzalez Anion gap [Moles/Vol] 4.5 mmol/L Normal [facility] Comment on above: Performed By: #### C MP #### [facility] [address] [place] [address] Dr. Gloria Gonzalez AST [Catalytic activity/Vol] 20 U/L Normal 15-37 [facility] Comment on above: Performed By: #### C MP #### [facility] [address] [address] [address] Gloria Gonzalez Bilirubin [Mass/Vol] 0.9 mg/dL Normal 0.2-1.0 [facility] Comment on above: Performed By: #### C MP #### [facility] [address] [address] [address] Gloria Gonzalez Calcium [Mass/Vol] 8.7 mg/dL Normal 8.5-10.1 [facility] Comment on above: Performed By: #### C MP #### [facility] [address] [address] [address] Gloria Gonzalez Chloride [Moles/Vol] 100 mmol/L Normal 98-107 [facility] Comment on above: Performed By: #### C MP #### [facility] [address] [address] [address] Gloria Gonzalez CO2 [Moles/Vol] 39.0 mmol/L Critically high 21.0-32.0 [facility] Comment on above: Performed By: #### C MP #### [facility] [address] [address] [address] Gloria Gonzalez Creatinine [Mass/Vol] 0.81 mg/dL Normal 0.70-1.30 [facility] Comment on above: Performed By: #### C MP #### [facility] [address] [address] [address] Gloria Gonzalez EGFR-AF MACANESE >60 Normal >=60 [facility] Comment on above: Performed By: #### C MP #### [facility] [address] [address] [address] Gloria Gonzalez EGFR-NON AF MACANESE >60 Normal >=60 [facility] Comment on above: Performed By: #### C MP #### [facility] [address] [address] [address] Gloria Gonzalez Globulin (S) [Mass/Vol] 4.5 g/dL Normal [facility] Comment on above: Performed By: #### C MP #### [facility] [address] [address] [address] Gloria Gonzalez Glucose [Mass/Vol] 102 mg/dL Normal 74-106 [facility] Comment on above: Performed By: #### C MP #### [facility] [address] [place] [address] Dr. Gloria Gonzalez Potassium [Moles/Vol] 3.5 mmol/L Normal 3.5-5.1 [facility] Comment on above: Performed By: #### C MP #### [facility] [address] [place] [address] Dr. Gloria Gonzalez Protein [Mass/Vol] 7.4 g/dL Normal 6.4-8.2 [facility] Comment on above: Performed By: #### C MP #### [facility] [address] [place] [address] Dr. Gloria Gonzalez Sodium [Moles/Vol] 140 mmol/L Normal 136-145 [facility] Comment on above: Performed By: #### C MP #### [facility] [address] [place] [address] Dr. Gloria Gonzalez Urea nitrogen [Mass/Vol] 13.0 mg/dL Normal 7.0-18.0 [facility] Comment on above: Performed By: #### C MP #### [facility] [address] [place] [address] Dr. Gloria Gonzalez Urea nitrogen/Creatinine [Mass ratio] 16.0 mg/mg Normal [facility] Comment on above: Performed By: #### C MP #### [facility] [address] [place] [address] Dr. Gloria Gonzalez BNPon 07-12-2022 Natriuretic peptide B (Bld) [Mass/Vol] 760.0 pg/mL Critically high <=450.[address] [facility] Comment on above: Performed By: #### B GUEST SERVICE AIDE, BMP, LIPID #### [facility] [address] [place] [address] Dr. Gloria Gonzalez CBC AUTO DIFFon 07-12-2022 BASO # 0.0 103/ul Normal 0.0-0.1 [facility] Comment on above: Performed By: #### B GUEST SERVICE AIDE, HSTROPN #### [facility] [address] [place] [address] Dr. Gloria Gonzalez Basophils/100 WBC (Bld) 0.2 % Normal 0.2-2.0 [facility] Comment on above: Performed By: #### B GUEST SERVICE AIDE, HSTROPN #### [facility] [address] [place] [address] Dr. Gloria Gonzalez EO # 0.2 103/ul Normal 0.0-0.7 [facility] Comment on above: Performed By: #### B GUEST SERVICE AIDE, HSTROPN #### [facility] [address] [place] [address] Dr. Gloria Gonzalez Eosinophils/100 WBC (Bld) 2.0 % Normal 0.9-7.0 [facility] Comment on above: Performed By: #### B GUEST SERVICE AIDE, HSTROPN #### [facility] [address] [place] [address] Dr. Gloria Gonzalez Erythrocyte distribution width (RBC) [Ratio] 15.6 % Critically high 11.0-15.0 [facility] Comment on above: Performed By: #### B GUEST SERVICE AIDE, HSTROPN #### [facility] [address] [place] [address] Dr. Gloria Gonzalez Hematocrit (Bld) [Volume fraction] 56.2 % Critically high 42.0-54.0 [facility] Comment on above: Performed By: #### B GUEST SERVICE AIDE, HSTROPN #### [facility] [address] [place] [address] Dr. Gloria Gonzalez Hemoglobin (Bld) [Mass/Vol] 17.1 g/dL Normal 14.0-18.[address] [facility] Comment on above: Performed By: #### B GUEST SERVICE AIDE, HSTROPN #### [facility] [address] [place] [address] Dr. Gloria Gonzalez IG # 0.03 10e3/ul Normal 0.00-0.03 [facility] Comment on above: Performed By: #### B GUEST SERVICE AIDE, HSTROPN #### [facility] [address] [address] [address] Gloria Gonzalez IG % 0.3 % Normal 0.0-0.[address] [facility] Comment on above: Performed By: #### B GUEST SERVICE AIDE, HSTROPN #### [facility] [address] [place] [address] Dr. Gloria Gonzalez LYMPH # 1.3 103/ul Normal 1.2-3.[address] [facility] Comment on above: Performed By: #### B GUEST SERVICE AIDE, HSTROPN #### [facility] [address] [place] [address] Dr. Gloria Gonzalez Lymphocytes/100 WBC (Bld) 14.9 % Critically low 20.5-60.[address] [facility] Comment on above: Performed By: #### B GUEST SERVICE AIDE, HSTROPN #### [facility] [address] [place] [address] Dr. Gloria Gonzalez MANUAL DIFF REQ NO Normal [facility] Comment on above: Performed By: #### B GUEST SERVICE AIDE, HSTROPN #### [facility] [address] [place] [address] Dr. Gloria Gonzalez MCH (RBC) [Entitic mass] 28.9 pg Normal 25.9-34.[address] [facility] Comment on above: Performed By: #### B GUEST SERVICE AIDE, HSTROPN #### [facility] [address] [place] [address] Dr. Gloria Gonzalez MCHC (RBC) [Mass/Vol] 30.4 g/dL Normal 29.9-35.[address] [facility] Comment on above: Performed By: #### B GUEST SERVICE AIDE, HSTROPN #### [facility] [address] [place] [address] Dr. Gloria Gonzalez MCV (RBC) [Entitic vol] 95.1 fL Critically high 80.0-94.[address] [facility] Comment on above: Performed By: #### B GUEST SERVICE AIDE, HSTROPN #### [facility] [address] [place] [address] Dr. Gloria Gonzalez MONO # 0.9 103/ul Critically high 0.3-0.8 [facility] Comment on above: Performed By: #### B GUEST SERVICE AIDE, HSTROPN #### [facility] [address] [place] [address] Dr. Gloria Gonzalez Monocytes/100 WBC (Bld) 9.7 % Normal 1.7-12.[address] [facility] Comment on above: Performed By: #### B GUEST SERVICE AIDE, HSTROPN #### [facility] [address] [place] [address] Dr. Gloria Gonzalez NEUT # 6.4 103/ul Normal 1.4-6.[address] [facility] Comment on above: Performed By: #### B GUEST SERVICE AIDE, HSTROPN #### [facility] [address] [place] [address] Dr. Gloria Gonzalez Neutrophils/100 WBC (Bld) 72.9 % Normal 43.0-75.[address] [facility] Comment on above: Performed By: #### B GUEST SERVICE AIDE, HSTROPN #### [facility] [address] [place] [address] Dr. Gloria Gonzalez Platelet mean volume (Bld) [Entitic vol] 10.1 fL Normal 9.5-13.[address] [facility] Comment on above: Performed By: #### B GUEST SERVICE AIDE, HSTROPN #### [facility] [address] [place] [address] Dr. Gloria Gonzalez PLT 176 103/ul Normal 150-[address] [facility] Comment on above: Performed By: #### B GUEST SERVICE AIDE, HSTROPN #### [facility] [address] [place] [address] Dr. Gloria Gonzalez RBC 5.91 106/ul Normal 4.70-6.[address] [facility] Comment on above: Performed By: #### B GUEST SERVICE AIDE, HSTROPN #### [facility] [address] [place] [address] Dr. Gloria Gonzalez WBC 8.8 103/ul Normal 4.0-11.[address] [facility] Comment on above: Performed By: #### B GUEST SERVICE AIDE, HSTROPN #### [facility] [address] [place] [address] ABD/PELVIS WO CONon 07-12 CT ABD/PELVIS WO CON EXAMINATION: CT ABD/PELVIS WO CON, 07/11/2022 10:09 PM EST HISTORY: Pain COMPARISON: None. TECHNIQUE: CT scan of the abdomen and pelvis was performed without IV contrast. Multiplanar reformats were generated. CT dose reduction technique was used, including Automated Exposure Control. FINDINGS: Exam is limited by lack of contrast. Exam is also limited by patient body habitus. Lower thorax: Mild lingular atelectasis. No acute pulmonary infiltrate, pleural or pericardial effusion. The heart is mildly enlarged. Liver: Mild diminished attenuation suggesting hepatic steatosis, otherwise unremarkable. Biliary: The gallbladder is unremarkable. Spleen: Unremarkable Pancreas: Unremarkable. Adrenals: Unremarkable. Kidneys and bladder: No calculus, hydronephrosis or finding to suggest a cyst or mass in the unenhanced kidneys. Unremarkable bladder. GI Tract: No evidence of obstruction. Appendix appears within normal limits. Lymph Nodes: Multiple mildly enlarged nodes in the inguinal regions and bilateral iliac chains. Mesentery/peritoneum: No free fluid or free air. Retroperitoneum: No mass or fluid collection. Vasculature: No visible abdominal aortic or iliac artery aneurysm. Pelvis: No mass visible. Unremarkable prostate. Bones/Soft Tissues: Mild degenerative changes of the spine and hips. No clearly acute bony abnormality. Mild skin thickening over the visualized abdomen with some subcutaneous stranding, correlate for possible cellulitis. Scrotal wall edema. IMPRESSION: Limited unenhanced study shows no acute inflammatory or obstructive process in the abdomen or pelvis. Possible cellulitis over the abdomen. Scrotal wall edema. Multiple mildly enlarged nodes in the inguinal regions and bilateral iliac chains, may be reactive. Electronically authenticated by: JACK MCCORMACK Date: 2022-07-11 23:[address] [facility] Covid-19 PCR (CVDTBH)on 06-28 SARS-CoV-2 (COVID-19) RNA SADA+probe Ql (Unsp spec) Not detected Normal NOT DETECTED [facility] Comment on above: Result Comment: When diagnostic testing is negative, the possibility of a false negative should be considered in the context of a patient's recent exposures and the presence of clinical signs and symptoms consistent with SARS-CoV-2. This test is not yet approved or cleared by the [place] FDA. When there are no FDA-approved or cleared tests available, and other criteria are met, FDA can make tests available under an emergency access mechanism called an Emergency Use Authorization (EUA). The EUA for this test is supported by the [place] of Health and Human Service's declaration that circumstances exist to justify the emergency use of in vitro diagnostics for the detection and/or diagnosis of the virus that causes COVID-19. This EUA will remain in effect for the duration of the COVID-19 declaration justifying emergency of IVDs, unless it is terminated or revoked by the FDA (after which the test may no longer be used). Performed By: #### [facility] #### [facility] [address] [place] [address] Dr. Gloria Gonzalez ECHOCARDIO M/2D COMPLETEon 1 09-11-2021 ECHOCARDIO M/2D COMPLETE Patient: RAFAEL WINKLER Exam Date: 07/12/2022 : 1980 Gender:M Ordering : DR JEANNETTE MCCORD . Admission #: [id number] Family : LUMA OCONNELL [facility] Order #: [id number] CLICK HERE TO VIEW EXAM ECHOCARDIOGRAM REPORT PROCEDURE: CARDIO PULMONARY ECHOCARDIO M/2D COMP INDICATIONS: Uncontrolled hypertension, Elevated BNP COMPARISON: None. DESCRIPTION: COMPLETE ECHOCARDIOGRAM Real-time transthoracic echocardiography with 2D, M-mode, spectral and color flow Doppler performed. QUALITY: Technical quality was limited with poor sound transmission due to body habitus. LEFT VENTRICLE: Normal chamber size. Moderate to severe concentric left ventricular hypertrophy. Systolic function is difficult to assess due to poor sound transmission but appears normal. The septum is abnormal in motion, possibly due to bundle branch block. LV EF: Normal left ventricular ejection fraction, (55%). DIASTOLIC: Grade II diastolic dysfunction. ATRIAL SEPTUM: LEFT ATRIUM: Normal chamber size. RIGHT ATRIUM: Moderate dilatation. RIGHT VENTRICLE: Moderate dilatation. Moderately decreased right ventricular systolic function. TRICUSPID VALVE: Normal mobility and thickness. No stenosis with mild regurgitation. Moderate pulmonary hypertension. RVSP 51mmHg MITRAL VALVE: Normal mobility and thickness. No mitral valve prolapse. No evidence of mitral valve stenosis. No mitral regurgitation. AORTIC VALVE: Normal trileaflet appearance. No visible sclerosis. Normal leaflet mobility. No evidence of aortic valve stenosis. No aortic regurgitation. AORTIC ROOT: Normal diameter and appearance. PULMONIC VALVE: Grossly normal. No stenosis. Trivial regurgitation. PERICARDIUM: No evidence of pericardial effusion. IVC: Severe dilatation, measuring 3.2 cm with no inspiratory collapse. PLEURA: CONCLUSION: 1. Moderate to severe concentric left ventricular hypertrophy. Normal left ventricular systolic function. LVEF is 55%. 2. Grade 2 diastolic dysfunction. 3. Moderately dilated right ventricle with moderately reduced systolic function. 4. Moderately dilated right atrium. 5. No significant valvular dysfunction. 6. Moderately elevated right-sided pressures. Adult Echocardiography Procedure Report Left Ventricle LVEDD (3.7 - 5.6 cm): 4.94 cm LVESD (2.2 - 4.0 cm): 3.61 cm LVIVS thickness (0.6 - 1.2 cm): 2.20 cm LVPW thickness (0.5 - 1.0 cm): 1.70 cm e': 0.10 m/s E - e': 9.19 LVOT Max Gradient: 2.18 mm[Hg] Peak Velocity (LVOT): 0.74 m/s LVOT Diameter 2.36 cm Left Ventricular Ejection Fraction: 55% Left Atrium LA Volume Index (2D A2C): 174.08 ml, 174.08 ml Left Atrium Systolic Dimension: 5.68 cm Mitral Valve MV E to A Ratio: 1.31, 1.41 Mitral Valve A-Wave Peak Velocity: 0.70 m/s, 0.68 m/s Mitral Valve E-Wave Peak Velocity: 0.92 m/s, 0.96 m/s Right Ventricle RV Internal Diastolic Dimension: 5.24 cm, 6.48 cm Aorta AO Root Diam: 3.18 cm Aortic Valve AoV Area (Peak Matt): 2.74 cm2, 2.74 cm2 Peak Velocity(Antegrade Flow): 1.18 m/s Peak Gradient(Antegrade Flow): 5.59 mm[Hg] Tricuspid Valve Peak Velocity (Regurgitant Flow): 1.65 m/s, 3.01 m/s, 2.76 m/s Peak Velocity: 0.93 m/s Pulmonic Valve Mean Gradient: 2.63 mm[Hg] Mean Velocity: 0.77 m/s Peak Velocity: 1.06 m/s, 0.99 m/s Peak Gradient: 4.49 mm[Hg], 3.90 mm[Hg] Right Atrium Right Atrium Systolic Pressure: 167.07 ml, 167.07 ml Dictated by: Alex Nicolas M.D. on 07/13/2022 at 19:51 Approved by: Alex Nicolas M.D. on 07/13/2022 at 20:00 Normal [facility] LIPID PROFILEon 07-12-2022 CHOL-HDL RATIO NORM SEE BELOW Normal [facility] Comment on above: Result Comment: 3.3 - 4.4 LOW RISK 4.4 - 7.1 AVERAGE RISK 7.1 - 11.0 MODERATE RISK >11.0 HIGH RISK Performed By: #### B GUEST SERVICE AIDE, BMP, LIPID #### [facility] [address] [address] [address] Gloria Gonzalez Cholesterol [Mass/Vol] 119 mg/dL Normal <=200 [facility] Comment on above: Performed By: #### B GUEST SERVICE AIDE, BMP, LIPID #### [facility] [address] [address] [address] Gloria Gonzalez Cholesterol in HDL [Mass/Vol] 46 mg/dL Normal 40-60 [facility] Comment on above: Performed By: #### B GUEST SERVICE AIDE, BMP, LIPID #### [facility] [address] [address] [address] Gloria Gonzalez Cholesterol in LDL [Mass/Vol] 59.2 mg/dL Normal [facility] Comment on above: Performed By: #### B GUEST SERVICE AIDE, BMP, LIPID #### [facility] [address] [place], [place] [address] Dr. Gloria Gonzalez Cholesterol.total/C holesterol in HDL [Mass ratio] 2.6 {ratio} Normal [facility] Comment on above: Performed By: #### B GUEST SERVICE AIDE, BMP, LIPID #### [facility] [address] [place], [place] [address] Dr. Gloria Gonzalez HDL NORMAL > or = 60 mg/dl - LO W CARDIOVASCULAR RISK <40 mg/dl - HIGH CARDIOVASCULAR RISK Normal [facility] Comment on above: Performed By: #### B GUEST SERVICE AIDE, BMP, LIPID #### [facility] [address] [place], [place] [address] Dr. Gloria Gonzalez LDL CALC NORMAL SEE BELOW Normal [facility] Comment on above: Result Comment: <100 mg/dl OPTIMAL 100 - 129 mg/dl NEAR OR ABOVE OPTIMAL 130 - 159 mg/dl BORDERLINE HIGH 160 - 189 mg/dl HIGH >190 mg/dl VERY HIGH Performed By: #### B GUEST SERVICE AIDE, BMP, LIPID #### [facility] [address] [address] [address] Gloria Gonzalez Triglyceride [Mass/Vol] 69 mg/dL Normal <=150 [facility] Comment on above: Performed By: #### B GUEST SERVICE AIDE, BMP, LIPID #### [facility] [address] [address] [address] Gloria Gonzalez VLDL CALC 13.8 mg/dL Normal [facility] Comment on above: Performed By: #### B GUEST SERVICE AIDE, BMP, LIPID #### [facility] [address] [address] [address] Gloria Gonzalez PROF CHEM 8 (BAS METB)on Anion gap [Moles/Vol] 5.0 mmol/L Normal [facility] Comment on above: Performed By: #### B GUEST SERVICE AIDE, BMP, LIPID #### [facility] [address] [address] [address] Gloria Gonzalez Calcium [Mass/Vol] 8.7 mg/dL Normal 8.5-10.1 [facility] Comment on above: Performed By: #### B GUEST SERVICE AIDE, BMP, LIPID #### [facility] [address] [address] [address] Gloria Gonzalez Chloride [Moles/Vol] 104 mmol/L Normal 98-107 [facility] Comment on above: Performed By: #### B GUEST SERVICE AIDE, BMP, LIPID #### [facility] [address] [address] [address] Gloria Gonzalez CO2 [Moles/Vol] 35.1 mmol/L Critically high 21.0-32.0 [facility] Comment on above: Performed By: #### B GUEST SERVICE AIDE, BMP, LIPID #### [facility] [address] [address] [address] Gloria Gonzalez Creatinine [Mass/Vol] 0.77 mg/dL Normal 0.70-1.30 [facility] Comment on above: Performed By: #### B GUEST SERVICE AIDE, BMP, LIPID #### [facility] [address] [address] [address] Gloria Gonzalez EGFR-AF MACANESE >60 Normal >=60 [facility] Comment on above: Performed By: #### B GUEST SERVICE AIDE, BMP, LIPID #### [facility] [address] [address] [address] Gloria Gonzalez EGFR-NON AF MACANESE >60 Normal >=60 [facility] Comment on above: Performed By: #### B GUEST SERVICE AIDE, BMP, LIPID #### [facility] [address] [address] [address] Gloria Gonzalez Glucose [Mass/Vol] 124 mg/dL Critically high 74-106 [facility] Comment on above: Performed By: #### B GUEST SERVICE AIDE, BMP, LIPID #### [facility] [address] [place] [address] Dr. Gloria Gonzalez Potassium [Moles/Vol] 4.1 mmol/L Normal 3.5-5.1 [facility] Comment on above: Performed By: #### B GUEST SERVICE AIDE, BMP, LIPID #### [facility] [address] [address] [address] Gloria Gonzalez Sodium [Moles/Vol] 140 mmol/L Normal 136-145 [facility] Comment on above: Performed By: #### B GUEST SERVICE AIDE, BMP, LIPID #### [facility] [address] [place] [address] Dr. Gloria Gonzalez Urea nitrogen [Mass/Vol] 12.0 mg/dL Normal 7.0-18.0 [facility] Comment on above: Performed By: #### B GUEST SERVICE AIDE, BMP, LIPID #### [facility] [address] [address] [address] Gloria Gonzalez Urea nitrogen/Creatinine [Mass ratio] 15.6 mg/mg Normal [facility] Comment on above: Performed By: #### B GUEST SERVICE AIDE, BMP, LIPID #### [facility] [address] [address] [address] Gloria Gonzalez BNPon 07-11-2022 Natriuretic peptide B (Bld) [Mass/Vol] 858.0 pg/mL Critically high <=450.0 [facility] Comment on above: Performed By: #### B GUEST SERVICE AIDE, HSTROPN #### [facility] [address] [place] [address] Dr. Gloria Gonzalez CBC AUTO DIFFon 07-11-2022 BASO # 0.0 103/ul Normal 0.0-0.1 [facility] Comment on above: Performed By: #### C BC #### [facility] [address] [place] [address] Dr. Gloria Gonzalez Basophils/100 WBC (Bld) 0.4 % Normal 0.2-2.[address] [facility] Comment on above: Performed By: #### C BC #### [facility] [address] [place] [address] Dr. Gloria Gonzalez EO # 0.2 103/ul Normal 0.0-0.7 [facility] Comment on above: Performed By: #### C BC #### [facility] [address] [place] [address] Dr. Gloria Gonzalez Eosinophils/100 WBC (Bld) 2.3 % Normal 0.9-7.0 [facility] Comment on above: Performed By: #### C BC #### [facility] [address] [place] [address] Dr. Gloria Gonzalez Erythrocyte distribution width (RBC) [Ratio] 15.9 % Critically high 11.0-15.0 [facility] Comment on above: Performed By: #### C BC #### [facility] [address] [place] [address] Dr. Gloria Gonzalez Hematocrit (Bld) [Volume fraction] 57.5 % Critically high 42.0-54.[address] [facility] Comment on above: Performed By: #### C BC #### [facility] [address] [place] [address] Dr. Gloria Gonzalez Hemoglobin (Bld) [Mass/Vol] 17.8 g/dL Normal 14.0-18.[address] [facility] Comment on above: Performed By: #### C BC #### [facility] [address] [place] [address] Dr. Gloria Gonzalez IG # 0.02 10e3/ul Normal 0.00-0.03 [facility] Comment on above: Performed By: #### C BC #### [facility] [address] [place] [address] Dr. Gloria Gonzalez IG % 0.2 % Normal 0.0-0.5 [facility] Comment on above: Performed By: #### C BC #### [facility] [address] [place] [address] Dr. Gloria Gonzalez LYMPH # 2.0 103/ul Normal 1.2-3.8 [facility] Comment on above: Performed By: #### C BC #### [facility] [address] [place] [address] Dr. Gloria Gonzalez Lymphocytes/100 WBC (Bld) 21.2 % Normal 20.5-60.0 [facility] Comment on above: Performed By: #### C BC #### [facility] [address] [place] [address] Dr. Gloria Gonzalez MANUAL DIFF REQ NO Normal [facility] Comment on above: Performed By: #### C BC #### [facility] [address] [place] [address] Dr. Gloria Gonzalez MCH (RBC) [Entitic mass] 28.7 pg Normal 25.9-34.0 [facility] Comment on above: Performed By: #### C BC #### [facility] [address] [place] [address] Dr. Gloria Gonzalez MCHC (RBC) [Mass/Vol] 31.0 g/dL Normal 29.9-35.[address] [facility] Comment on above: Performed By: #### C BC #### [facility] [address] [place] [address] Dr. Gloria Gonzalez MCV (RBC) [Entitic vol] 92.7 fL Normal 80.0-94.0 [facility] Comment on above: Performed By: #### C BC #### [facility] [address] [place] [address] Dr. Gloria Gonzalez MONO # 0.8 103/ul Normal 0.3-0.8 [facility] Comment on above: Performed By: #### C BC #### [facility] [address] [place] [address] Dr. Gloria Gonzalez Monocytes/100 WBC (Bld) 8.9 % Normal 1.7-12.0 [facility] Comment on above: Performed By: #### C BC #### [facility] [address] [place] [address] Dr. Gloria Gonzalez NEUT # 6.2 103/ul Normal 1.4-6.5 [facility] Comment on above: Performed By: #### C BC #### [facility] [address] [place] [address] Dr. Gloria Gonzalez Neutrophils/100 WBC (Bld) 67.0 % Normal 43.0-75.0 [facility] Comment on above: Performed By: #### C BC #### [facility] [address] [place] [address] Dr. Gloria Gonzalez Platelet mean volume (Bld) [Entitic vol] 10.6 fL Normal 9.5-13.[address] [facility] Comment on above: Performed By: #### C BC #### [facility] [address] [place] [address] Dr. Gloria Gonzalez PLT 179 103/ul Normal 150-[address] [facility] Comment on above: Performed By: #### C BC #### [facility] [address] [place] [address] Dr. Gloria Gonzalez RBC 6.20 106/ul Critically high 4.70-6.10 [facility] Comment on above: Performed By: #### C BC #### [facility] [address] [place] [address] Dr. Gloria Gonzalez WBC 9.3 103/ul Normal 4.0-11.[address] [facility] Comment on above: Performed By: #### C BC #### [facility] [address] [place] [address] Dr. Gloria Gonzalez CULTURE BLOODon 07-11-2022 Microscopic examination of blood, culture Culture Observations: NO GROWTH AT 5 DAYS. Normal [facility] Comment on above: Performed By: #### B GUEST SERVICE AIDE, HSTROPN #### [facility] [address] [place] [address] Dr. Gloria Gonzalez Microscopic examination of blood, culture Culture Observations: NO GROWTH AT 5 DAYS. Normal [facility] Comment on above: Performed By: #### B GUEST SERVICE AIDE, HSTROPN #### [facility] [address] [place] [address] Dr. Gloria Gonzalez LACTATE/LACTIC ACIDon 2021 Lactate [Moles/Vol] 0.8 mmol/L Normal 0.4-1.9 [facility] Comment on above: Performed By: #### L ACT #### [facility] [address] [place] [address] Dr. Gloria Gonzalez PROF 14(COMP METB)on 022 Albumin [Mass/Vol] 3.1 g/dL Critically low 3.4-5.0 [facility] Comment on above: Performed By: #### C VDTBH #### [facility] [address] [place] [address] Dr. Gloria Gonzalez Albumin/Globulin [Mass ratio] 0.8 {ratio} [facility] Comment on above: Performed By: #### C VDTBH #### [facility] [address] [place] [address] Dr. Gloria Gonzalez ALP [Catalytic activity/Vol] 97 U/L Normal 46-116 [facility] Comment on above: Performed By: #### C VDTBH #### [facility] [address] [place] [address] Dr. Gloria Gonzalez ALT [Catalytic activity/Vol] 20 U/L Normal 16-63 [facility] Comment on above: Performed By: #### C VDTBH #### [facility] [address] [place] [address] Dr. Gloria Gonzalez Anion gap [Moles/Vol] 6.3 mmol/L [facility] Comment on above: Performed By: #### C VDTBH #### [facility] [address] [place], [place] [id number] Dr. Gloria Gonzalez AST [Catalytic activity/Vol] 19 U/L Normal 15-37 [facility] Comment on above: Performed By: #### C VDTBH #### [facility] [address] [place] [address] Dr. Gloria Gonzalez Bilirubin [Mass/Vol] 0.5 mg/dL Normal 0.2-1.0 [facility] Comment on above: Performed By: #### C VDTBH #### [facility] [address] [place] [address] Dr. Gloria Gonzalez Calcium [Mass/Vol] 9.0 mg/dL Normal 8.5-10.1 [facility] Comment on above: Performed By: #### C VDTBH #### [facility] [address] [place] [address] Dr. Gloria Gonzalez Chloride [Moles/Vol] 104 mmol/L Normal 98-107 [facility] Comment on above: Performed By: #### C VDTBH #### [facility] [address] [place] [address] Dr. Gloria Gonzalez CO2 [Moles/Vol] 33.9 mmol/L Critically high 21.0-32.0 [facility] Comment on above: Performed By: #### C VDTBH #### [facility] [address] [place] [address] Dr. Gloria Gonzalez Creatinine [Mass/Vol] 0.77 mg/dL Normal 0.70-1.[address] [facility] Comment on above: Performed By: #### C VDTBH #### [facility] [address] [place] [address] Dr. Gloria Gonzalez EGFR-AF MACANESE >60 Normal >=60 [facility] Comment on above: Performed By: #### C VDTBH #### [facility] [address] [place] [address] Dr. Gloria Gonzalez EGFR-NON AF MACANESE >60 Normal >=60 [facility] Comment on above: Performed By: #### C VDTBH #### [facility] [address] [place] [address] Dr. Gloria Gonzalez Globulin (S) [Mass/Vol] 4.1 g/dL Normal [facility] Comment on above: Performed By: #### C VDTBH #### [facility] [address] [address] [address] Gloria Gonzalez Glucose [Mass/Vol] 85 mg/dL Normal 74-106 [facility] Comment on above: Performed By: #### C VDTBH #### [facility] [address] [place] [address] Dr. Gloria Gonzalez Potassium [Moles/Vol] 4.2 mmol/L Normal 3.5-5.1 [facility] Comment on above: Performed By: #### C VDTBH #### [facility] [address] [place] [address] Dr. Gloria Gonzalez Protein [Mass/Vol] 7.2 g/dL Normal 6.4-8.2 [facility] Comment on above: Performed By: #### C VDTBH #### [facility] [address] [place] [address] Dr. Gloria Gonzalez Sodium [Moles/Vol] 140 mmol/L Normal 136-145 [facility] Comment on above: Performed By: #### C VDTBH #### [facility] [address] [place] [address] Dr. Gloria Gonzalez Urea nitrogen [Mass/Vol] 13.0 mg/dL Normal 7.0-18.0 [facility] Comment on above: Performed By: #### C VDTBH #### [facility] [address] [place] [address] Dr. Gloria Gonzalez Urea nitrogen/Creatinine [Mass ratio] 16.9 mg/mg Normal [facility] Comment on above: Performed By: #### C VDTBH #### [facility] [address] [place] [address] Dr. Golria Gonzalez TROPONIN, HIGH SENSITIVITYon 07-11-2022 HSTROP 31.8 pg/mL Normal 4.0-76.[address] [facility] Comment on above: Result Comment: CUT- OFF POINTS HAVE BEEN ESTABLISHED BASED ON THE FOURTH UNIVERSAL DEFINITIONS OF MYOCARDIAL INFARCTION. THE UPPER REFERENCE LIMIT (URL) OF TROPONIN, DEFINED THE 99TH PERCENTILE OF cTnI DISTRIBUTION IN A REFERENCE POPULATION, HAS BEEN CONFIRMED THE DECISION THRESHOLD FOR NM DIAGNOSIS. Performed By: #### B GREG, HSTROPN #### [facility] [address] [address] [address] Gloria Gonzalez US SCROTUM W VASCULAR ORGANo n 07-11-2022 US SCROTUM W VASCULAR ORGAN EXAM TYPE: US SCROTUM W VASCULAR ORGAN INDICATION:Pain TECHNIQUE: Multiple images are obtained in the transverse and longitudinal dimensions. Color, cage scale, and Doppler imaging has been performed COMPARISON: None. FINDINGS: The testicles are homogeneous in echotexture and symmetric in size. The right testicle measures 4.0 x 3.0 x 2.9 cm. The left testicle measures 4.4 x 2.9 x 2.4 cm. There are no intra-or extratesticular masses. Doppler interrogation demonstrates normal vascular flow in the testes bilaterally. The epididymides are normal bilaterally. There are small bilateral hydroceles.. There is scrotal wall edema. There are small to moderate bilateral varicoceles measuring up to 3 mm. IMPRESSION: 1. Significant scrotal wall edema. 2. Small bilateral hydroceles. 3. Small to moderate bilateral varicoceles measuring up to 3 mm. Electronically authenticated by: ELIAZAR FRIEDMAN Date: 2022-07-11 21:03 Normal [facility] XR CHEST 1 Von 07-11-2022 XR CHEST 1 V EXAM: XR CHEST 1 V HISTORY: SHORTNESS OF BREATH COMPARISON: None. TECHNIQUE: Portable chest FINDINGS: Poor inspiratory effort. No focal consolidation or infiltrate. No pneumothorax or pleural effusion. Questionable cardiac enlargement. The hilar and mediastinal contours are unremarkable IMPRESSION: Questionable cardiomegaly Electronically authenticated by: DIANNA SCHULTZ Date: 2022-07-11 21:07 Normal [facility] Encounters Encounter Date Encounter Type Care Provider Facility Start: 09-24-2022 End: 09-24-[address] RADHA LANDEROS Facility:[facility] Start: 07-19-2022 End: 07-20-2022 ambulatory LUMA OCONNELL Facility:[facility] Start: 07-12-2022 End: 07-15-2022 Evaluation and management of inpatient DR RACQUEL BANGURA Facility:[facility] Procedures Date Procedure Procedure Detail Performing Clinician Start: 07-13-2022 Insertion of Infusio n Device into Right Basilic Vein, Percutaneous Approach DR RADHA LANDEROS Payers Date Payer Category Payer Unknown [id number] 1980 Unknown [id number] 1981 Unknown [id number] 1958 Unknown [id number] Consultation note 07-12-2022 Note Date & Type Note Facility 07-12-2022 Note CARDIOLOGY CONSULTAT ION CONSULTATION DATE: 07/12/2022 REASON FOR CONSULTATION: Acute heart failure. HISTORY OF PRESENT ILLNESS: Mr. Kang is a 42-year-old gentleman with a history of morbid obesity, COPD, who initially came to the hospital with evidence of scrotal swelling and was noted to have scrotal edema, and also noted to be, at that time, evaluated and seemed to be concerning for hypoxemia. He was, at that time, revealing evidence of heart failure and was started on Bumex drip. 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 He is noted to have sleep apnea and uses a CPAP machine. Initial workup in the lab revealed evidence of normal white count with a creatinine that was normal. Total BNP was noted to be 760; however, on admission it was noted to be 858. EKG performed showed evidence of sinus rhythm with lead 1 and AVL being negative. No other acute evidence of ischemia seen. Echocardiogram done on 07/12/2022 showed evidence of LVH with EF of 55% with greater diastolic dysfunction and a moderately dilated right atrium with a moderately reduced systolic function on the RV side, with the RVSP noted to be 51 mm/Hg. REVIEW OF SYSTEMS: Other than what is mentioned here, he denied fatigue, but has fever and noted redness of the lower extremities and pain in the lower extremities, with evidence of scrotal swelling. He also complains of shortness of breath but denied any chest pain. SOCIAL HISTORY: He denies any recreational drug history. FAMILY HISTORY: No significant family history reported. EXAMINATION: Vital signs as per records. Examination revealed a very morbidly obese gentleman with evidence of JVD that is elevated. Typically, he complains of . Extraocular movements are intact. CV examination showed S1, S2 with a possible S3. No appreciable murmur. Chest examination revealed bilateral lungs to be equal with possible crackles in the basal areas. Abdomen was obese with no obvious tenderness. Extremities revealed chronic evidence of venous congestion with pitting edema seen. Neurologically, patient had movements in all extremities with no evidence of any cranial nerve deficits. ASSESSMENT: 1. Acute decompensated heart failure. 2. Hypertensive emergency. 3. Anasarca. 4. Scrotal swelling. 5. Sleep apnea. PLAN: Patient does have evidence of uncontrolled hypertension with associated acute decompensated heart failure. This could be manifestation of hypertension crisis and I would aim for control of blood pressure, as well as continue with diuresis as you have done, with Bumex dream. The aim would be to export him to achieve euvolemia and this could be very likely an evidence of acute heart failure with preserved ejection fraction. Once euvolemia is achieved, it will be worthwhile for the patient to continue with good blood pressure control. If he continues to have baseline shortness of breath, we would like to have a right heart cath as an outpatient to establish the cause for his elevated RV pressures. 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 [facility] Summary Purpose Family History No Family History Records Found Advance Directives No Advanced Directives Records Found Additional Source Comments (unrecognized sect ion and content) No Status Records Found INFORMATION SOURCE (unrecogn ized section and content) DATE CREATED AUTHOR 10/12/2022 [facility] FOR RECORDS PERTAINING TO PATIENTS WHO ARE OR HAVE BEEN ENROLLED IN A CHEMICAL DEPENDENCY/SUBSTANCEABUSE PROGRAM, SOME INFORMATION MAY BE OMITTED. This clinical summary was aggregated from multiple sources. Caution should be exercised in using it in the provision of clinical care. This summary normalizes information from multiple sources, and as a consequence, information in this document may materially change the coding, format and clinical context of patient data. In addition, data may be omitted in some cases. CLINICAL DECISIONS SHOULD BE BASED ON THE PRIMARY CLINICAL RECORDS. [facility] [facility]. provides no warranty or guarantee of the accuracy or completeness of information in this document.
[2024-03-03 20:01] VITALS: BP 152/80; PULSE 98; TEMP 36.9; O2SAT 94; BMI 54.8
--- NOTE | 2024-03-03 20:10 | XR_ITS ---
The [address] [address] Patient Name: RAFAEL WINKLER MRN: [id number] date: 1980 Sex: M Assigned Patient Location: ER Current Patient Location: ER Accession/Order Number: [id number] Exam Date: 03/03/2024 21:04 Report Date: 03/03/2024 22:02 At the request of: JARVIS CELIS Procedure: XR ankle RT min 3V XR ankle RT min 3V, XR foot RT min 3V 03/03/2024 9:04 PM EDT CLINICAL INDICATION: Atraumatic pain COMPARISON: Right foot radiographs 02/12/2020 TECHNIQUE: 3 views of the right ankle. 3 views of the right foot. FINDINGS: Right ankle The bones are intact. Ossific densities are seen adjacent to both lateral malleoli suggesting remote injury. No acute dislocation. There are degenerative changes of the joints. There is bimalleolar soft tissue swelling. Right foot The bones are intact. The alignment is anatomic. There are moderate to severe degenerative changes of the joints of the midfoot. The soft tissues are grossly unremarkable. XR/XR ankle RT min 3V IMPRESSION: No acute osseous abnormality of the right foot or right ankle. Bimalleolar soft tissue swelling. Electronically authenticated by: CARLOS HART Date: 03/03/2024 22:02
--- NOTE | 2024-03-03 20:10 | XR_ITS ---
The [address] [address] Patient Name: RAFAEL WINKLER MRN: [id number] date: 1980 Sex: M Assigned Patient Location: ER Current Patient Location: ER Accession/Order Number: [id number] Exam Date: 03/03/2024 21:04 Report Date: 03/03/2024 22:02 At the request of: JARVIS CELIS Procedure: XR foot RT min 3V XR ankle RT min 3V, XR foot RT min 3V 03/03/2024 9:04 PM EDT CLINICAL INDICATION: Atraumatic pain COMPARISON: Right foot radiographs 02/12/2020 TECHNIQUE: 3 views of the right ankle. 3 views of the right foot. FINDINGS: Right ankle The bones are intact. Ossific densities are seen adjacent to both lateral malleoli suggesting remote injury. No acute dislocation. There are degenerative changes of the joints. There is bimalleolar soft tissue swelling. Right foot The bones are intact. The alignment is anatomic. There are moderate to severe degenerative changes of the joints of the midfoot. The soft tissues are grossly unremarkable. XR/XR foot RT min 3V IMPRESSION: No acute osseous abnormality of the right foot or right ankle. Bimalleolar soft tissue swelling. Electronically authenticated by: CARLOS HART Date: 03/03/2024 22:02
--- NOTE | 2024-03-03 20:11 | ED_ITS ---
HPI - Extremity Problem General Chief complaint: Extremity Problem, Nontraumatic Stated complaint: Lower Extremity Pain, Left ankle/foot Time Seen by Provider: 03/03/24 19:47 Source: patient Mode of arrival: Wheelchair Limitations: no limitations History of Present Illness HPI Narrative: 43-year-old male presents to the emergency department for a chief complaint of right foot and ankle pain. He has had for 4 days and there is been no trauma. He thinks it might be gout. No other joints been hurting and he has not had a fever. The pain is moderate and worse when he steps on it. Related Data Home Medications ?Medication ?Instructions ?Recorded ?Confirmed bumetanide 2 mg tablet 2 mg PO DAILY 04/30/23 04/30/23 carvedilol 3.125 mg tablet 3.125 mg PO Q12H 04/30/23 04/30/23 losartan 100 mg tablet 100 mg PO DAILY 04/30/23 04/30/23 spironolactone 50 mg tablet 50 mg PO DAILY 04/30/23 04/30/23 Previous Rx's ?Medication ?Instructions ?Recorded colchicine 0.6 mg capsule 0.6 mg PO DAILY #7 caps 04/30/23 hydrocodone 5 mg-acetaminophen 325 1 tab PO Q6H PRN pain 5 days #5 04/30/23 mg tablet tabs methylprednisolone 4 mg tablets in 4 mg PO DAILY #21 ea 04/30/23 a dose pack (Medrol (Corey)) ibuprofen 800 mg tablet 800 mg PO Q8H PRN pain #20 tabs 08/01/23 hydrocodone 5 mg-acetaminophen 325 1 tab PO Q6H PRN pain 5 days #20 03/03/24 mg tablet tabs indomethacin 25 mg capsule See Rx Instructions .Route 03/03/24 .COMPLEX 24 hours #30 caps Allergies Allergy/AdvReac Type Severity Reaction Status Date / Time No Known Drug Allergies Allergy Verified 03/03/24 20:04 Review of Systems ROS Narrative A ten point review of systems is negative except as noted above. PFSH PFSH Social History Smoking status: Current every day smoker Exam Narrative Exam Narrative: Nurses note and vital signs reviewed and patient is not hypoxic. General: The patient is sitting in a wheelchair. Skin: Warm, dry, no pallor noted. There is no rash noted. Head: Normocephalic, atraumatic Eye: Normal conjunctiva, no drainage Ears, Nose, Mouth, and Throat: oral mucosa is moist. Nares patent. Cardiovascular: Regular Rate and Rhythm Respiratory: Patient is in no distress, no accessory muscle use, lungs are clear to auscultation, no wheezing, rales or rhonchi GI: Obese, nontender Musculoskeletal: The right foot and ankle is examined. It is not warm to touch and there is no bruise or rash. I am not certain whether it swollen or not due to his obesity. No calf tenderness or swelling or discomfort. Neurological: Awake and alert Psychiatric: Cooperative Constitutional Vital Signs, click to edit/add: Last Vital Signs Temp 98.5 F 03/03/24 20:01 Pulse 98 H 03/03/24 20:01 Resp 20 03/03/24 20:01 BP 152/80 H 03/03/24 20:01 Pulse Ox 94 L 03/03/24 20:01 O2 Del Method Room Air 03/03/24 20:01 Course Vital Signs Vital signs: Vital Signs Temperature 98.5 F 03/03/24 20:01 Pulse Rate 98 H 03/03/24 20:01 Respiratory Rate 20 03/03/24 20:01 Blood Pressure 152/80 H 03/03/24 20:01 Pulse Oximetry 94 L 03/03/24 20:01 Oxygen Delivery Method Room Air 03/03/24 20:01 Temperature 98.5 F 03/03/24 20:01 Pulse Rate 98 H 03/03/24 20:01 Respiratory Rate 20 03/03/24 20:01 Blood Pressure 152/80 H 03/03/24 20:01 Pulse Oximetry 94 L 03/03/24 20:01 Oxygen Delivery Method Room Air 03/03/24 20:01 MDM - Extremity (Nontraumatic) MDM Narrative Medical decision making narrative: X-rays show no acute findings per radiologist. I suspect that this is gout. He was given IM Toradol and prescribed [place] and Indocin and will follow-up with po joe. Treatment diagnosis and follow-up were discussed with the patient. I have no clinical suspicion of cellulitis or DVT. Differential Diagnosis Differential diagnosis: Likely other (Gout, arthritis, cellulitis) Imaging Data Foot and ankle x-rays: Radiologist's impression: ITS Impressions Ankle X-Ray 03/03/24 20:10 IMPRESSION: No acute osseous abnormality of the right foot or right ankle. Bimalleolar soft tissue swelling. Electronically authenticated by: CARLOS HART Date: 03/03/2024 22:02 Foot X-Ray 03/03/24 20:10 IMPRESSION: No acute osseous abnormality of the right foot or right ankle. Bimalleolar soft tissue swelling. Electronically authenticated by: CARLOS HART Date: 03/03/2024 22:02 Discharge Plan Discharge Stand Alone Forms: Portal Instructions Chief Complaint: Extremity Problem, Nontraumatic Clinical Impression: Gout Patient Disposition: Home, Self-Care Time of Disposition Decision: 22:14 Condition: Good Mode of Transportation: Private Vehicle Prescriptions / Home Meds: New hydrocodone-acetaminophen 5-325 mg tablet 1 tab PO Q6H PRN (Reason: pain) 5 Days Qty: 20 0RF indomethacin 25 mg capsule See Rx Instructions .ROUTE .COMPLEX 1 Days Qty: 30 0RF Rx Instructions: 2 p.o. every 8 hours for 3 days then 1 p.o. every 8 hours for 3 days then 1 p.o. every 8 hours as needed No Action bumetanide 2 mg tablet 2 mg PO DAILY carvedilol 3.125 mg tablet 3.125 mg PO Q12H losartan 100 mg tablet 100 mg PO DAILY spironolactone 50 mg tablet 50 mg PO DAILY methylprednisolone [Medrol (Corey)] 4 mg tablets,dose pack 4 mg PO DAILY Qty: 21 0RF colchicine 0.6 mg capsule 0.6 mg PO DAILY Qty: 7 0RF hydrocodone-acetaminophen 5-325 mg tablet 1 tab PO Q6H PRN (Reason: pain) 5 Days Qty: 5 0RF ibuprofen 800 mg tablet 800 mg PO Q8H PRN (Reason: pain) Qty: 20 0RF Print Language: Slovenian Instructions: Low Purine Diet (ED), Gout (ED) Additional Instructions: Follow-up with zachary Harding in the morning Referrals: Alley Cruz NP [Primary Care Provider] - 1 week Ryan Jung DPM [Physician] - 1 week
--- NOTE | 2024-03-03 20:33 | PC.NURSE ---
Pain to top of right foot and outer ankle, no open areas, skin intact.
[2024-03-03] MEDS: KETOROLAC TROMETHAMINE 60 MG/2 ML VIAL IM (22:40)
== END 2024-03-03 22:55 | disposition home or self-care (01) ==
PROVIDERS: Emergency Provider Emergency Medicine; PCP Nurse Practitioner
DX: M10.9 Gout, unspecified (principal); F17.200 Nicotine dependence, unspecified, uncomplicated; E66.9 Obesity, unspecified; Z68.43 Body mass index [BMI] 50.0-59.9, adult
CPT/HCPCS: 73610; 73630; 96372; 99285; J1885

== ENCOUNTER 2024-05-14 19:50 | Inpatient (IN) | payer OTHER, SELFPAY ==
[2024-05-14] VITALS (24 sets, daily range): BP systolic 141–145; BP diastolic 85–91; PULSE 18–104; TEMP 36.7–37.3; O2SAT 90–99; BMI 60.9; BMI 60.1
--- OUTSIDE RECORDS SUMMARY | 2024-05-14 19:57 | XMS_ITS | CCD ---
Author Organization [facility] Care Team Providers Care Mid Level Game Designer Name Role Phone DR RADHA LANDEROS Admitting Unavailable LETI, DR GARCIA Consulting Unavailable LETI, DR GARCIA Attending Unavailable AICHHOLZ, CARD GAME OPERATOR ELIAZAR Primary Care Unavailable AICHHOLZ, CARD GAME OPERATOR ELIAZAR Admitting Unavailable AICHHOLZ, CARD GAME OPERATOR ELIAZAR Primary Care Unavailable AICHHOLZ, CARD GAME OPERATOR ELIAZAR Consulting Unavailable AICHHOLZ, CARD GAME OPERATOR ELIAZAR Attending Unavailable WILLEM, DR RACQUEL Luis Consulting Unavailable AICHHOLZ, CARD GAME OPERATOR ELIAZAR Primary Care Unavailable SURI, DR JEANNETTE [...] Onset: 09-13-2022 Chronic Other aftercare (1 source) correction (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; Translations: [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 Gloria Gonzalez Calcium [Mass/Vol] 10.1 mg/dL Normal 8.5-10.1 [facility] Comment on above: Performed By: #### C VDTBH #### [facility] [address] [place] [address] Dr. Gloria Gonzalez Chloride [Moles/Vol] 97 mmol/L Critically low 98-107 [facility] Comment on above: Performed By: #### C VDTBH #### [facility] [address] [place] [address] Dr. Gloria Gonzalez CO2 [Moles/Vol] 35.4 mmol/L Critically high 21.0-32.0 [facility] Comment on above: Performed By: #### C VDTBH #### [facility] [address] [place] [address] Dr. Gloria Gonzalez Creatinine [Mass/Vol] 0.98 mg/dL Normal 0.70-1.30 [facility] Comment on above: Performed By: #### C VDTBH #### [facility] [address] [place] [address] Dr. Gloria Gonzalez EGFR-AF NAMIBIAN >60 Normal >=60 [facility] Comment on above: Performed By: #### C VDTBH #### [facility] [address] [place] [address] Dr. Gloria Gonzalez EGFR-NON AF NAMIBIAN >60 Normal >=60 [facility] Comment on above: Performed By: #### C VDTBH #### [facility] [address] [place] [address] Dr. Gloria Gonzalez Glucose [Mass/Vol] 102 mg/dL Normal 74-106 [facility] Comment on above: Performed By: #### C VDTBH #### [facility] [address] [place] [address] Dr. Gloria Gonzalez Potassium [Moles/Vol] 4.2 mmol/L Normal 3.5-5.1 [facility] Comment on above: Performed By: #### C VDTBH #### [facility] [address] [place] [address] Dr. Gloria Gonzalez Sodium [Moles/Vol] 137 mmol/L Normal 136-145 [facility] Comment on above: Performed By: #### C VDTBH #### [facility] [address] [place] [address] Dr. Gloria Gonzalez Urea nitrogen [Mass/Vol] 24.0 mg/dL Critically high 7.0-18.0 [facility] Comment on above: Performed By: #### C VDTBH #### [facility] [address] [place] [address] Dr. Gloria Gonzalez Urea nitrogen/Creatinine [Mass ratio] 24.5 mg/mg Normal [facility] Comment on above: Performed By: #### C VDTBH #### [facility] [address] [place] [address] Dr. Gloria Gonzalez CBC AUTO DIFFon 07-15-2022 BASO # 0.0 103/ul Normal 0.0-0.1 [facility] Comment on above: Performed By: #### B MANAGER ACUTE, HSTROPN #### [facility] [address] [place] [address] Dr. Gloria Gonzalez Basophils/100 WBC (Bld) 0.3 % Normal 0.2-2.0 [facility] Comment on above: Performed By: #### B MANAGER ACUTE, HSTROPN #### [facility] [address] [place] [address] Dr. Gloria Gonzalez EO # 0.3 103/ul Normal 0.0-0.7 [facility] Comment on above: Performed By: #### B MANAGER ACUTE, HSTROPN #### [facility] [address] [place] [address] Dr. Gloria Gonzalez Eosinophils/100 WBC (Bld) 3.1 % Normal 0.9-7.0 [facility] Comment on above: Performed By: #### B MANAGER ACUTE, HSTROPN #### [facility] [address] [place] [address] Dr. Gloria Gonzalez Erythrocyte distribution width (RBC) [Ratio] 15.6 % Critically high 11.0-15.0 [facility] Comment on above: Performed By: #### B MANAGER ACUTE, HSTROPN #### [facility] [address] [place] [address] Dr. lGoria Gonzalez Hematocrit (Bld) [Volume fraction] 54.8 % Critically high 42.0-54.0 [facility] Comment on above: Performed By: #### B MANAGER ACUTE, HSTROPN #### [facility] [address] [place] [address] Dr. Gloria Gonzalez Hemoglobin (Bld) [Mass/Vol] 17.1 g/dL Normal 14.0-18.0 [facility] Comment on above: Performed By: #### B MANAGER ACUTE, HSTROPN #### [facility] [address] [place] [address] Dr. Gloria Gonzalez IG # 0.02 10e3/ul Normal 0.00-0.03 [facility] Comment on above: Performed By: #### B MANAGER ACUTE, HSTROPN #### [facility] [address] [address] [address] Gloria Gonzalez IG % 0.2 % Normal 0.0-0.5 [facility] Comment on above: Performed By: #### B MANAGER ACUTE, HSTROPN #### [facility] [address] [place] [address] Dr. Gloria Gonzalez LYMPH # 1.2 103/ul Normal 1.2-3.8 [facility] Comment on above: Performed By: #### B MANAGER ACUTE, HSTROPN #### [facility] [address] [place] [address] Dr. Gloria Gonzalez Lymphocytes/100 WBC (Bld) 11.9 % Critically low 20.5-60.0 [facility] Comment on above: Performed By: #### B MANAGER ACUTE, HSTROPN #### [facility] [address] [place] [address] Dr. Gloria Gonzalez MANUAL DIFF REQ NO Normal [facility] Comment on above: Performed By: #### B MANAGER ACUTE, HSTROPN #### [facility] [address] [place] [address] Dr. Gloria Gonzalez MCH (RBC) [Entitic mass] 28.8 pg Normal 25.9-34.0 [facility] Comment on above: Performed By: #### B MANAGER ACUTE, HSTROPN #### [facility] [address] [place] [address] Dr. Gloria Gonzalez MCHC (RBC) [Mass/Vol] 31.2 g/dL Normal 29.9-35.2 [facility] Comment on above: Performed By: #### B MANAGER ACUTE, HSTROPN #### [facility] [address] [place] [address] Dr. Gloria Gonzalez MCV (RBC) [Entitic vol] 92.4 fL Normal 80.0-94.0 [facility] Comment on above: Performed By: #### B MANAGER ACUTE, HSTROPN #### [facility] [address] [place] [address] Dr. Gloria Gonzalez MONO # 1.3 103/ul Critically high 0.3-0.8 [facility] Comment on above: Performed By: #### B MANAGER ACUTE, HSTROPN #### [facility] [address] [place] [address] Dr. Gloria Gonzalez Monocytes/100 WBC (Bld) 12.1 % Critically high 1.7-12.0 [facility] Comment on above: Performed By: #### B MANAGER ACUTE, HSTROPN #### [facility] [address] [place] [address] Dr. Gloria Gonzalez NEUT # 7.5 103/ul Critically high 1.4-6.5 [facility] Comment on above: Performed By: #### B MANAGER ACUTE, HSTROPN #### [facility] [address] [place] [address] Dr. Gloria Gonzalez Neutrophils/100 WBC (Bld) 72.4 % Normal 43.0-75.0 [facility] Comment on above: Performed By: #### B MANAGER ACUTE, HSTROPN #### [facility] [address] [place] [address] Dr. Gloria Gonzalez Platelet mean volume (Bld) [Entitic vol] 9.9 fL Normal 9.5-13.5 [facility] Comment on above: Performed By: #### B MANAGER ACUTE, HSTROPN #### [facility] [address] [place] [address] Dr. Gloria Gonzalez PLT 181 103/ul Normal 150-450 [facility] Comment on above: Performed By: #### B MANAGER ACUTE, HSTROPN #### [facility] [address] [place] [address] Dr. Gloria Gonzalez RBC 5.93 106/ul Normal 4.70-6.10 [facility] Comment on above: Performed By: #### B MANAGER ACUTE, HSTROPN #### [facility] [address] [place] [address] Dr. Gloria Gonzalez WBC 10.4 103/ul Normal 4.0-11.0 [facility] Comment on above: Performed By: #### B MANAGER ACUTE, HSTROPN #### [facility] [address] [place] [address] Dr. Gloria Gonzalez CULTURE WOUNDon 07-15-2022 CULTURE [...] F Oxacillin <=0.25 S F Normal [facility] Comment on above: Performed By: #### B MANAGER ACUTE, HSTROPN #### [facility] [address] [place] [address] Dr. Gloria Gonzalez PROF 14(COMP METB)on 022 Albumin [Mass/Vol] 2.8 g/dL Critically low 3.4-5.0 [facility] Comment on above: Performed By: #### C VDTBH #### [facility] [address] [place] [address] Dr. Gloria Gonzalez Albumin/Globulin [Mass ratio] 0.6 {ratio} Normal [facility] Comment on above: Performed By: #### C VDTBH #### [facility] [address] [place] [address] Dr. Gloria Gonzalez ALP [Catalytic activity/Vol] 86 U/L Normal 46-116 [facility] Comment on above: Performed By: #### C VDTBH #### [facility] [address] [place] [address] Dr. Gloria Gonzalez ALT [Catalytic activity/Vol] 16 U/L Normal 16-63 [facility] Comment on above: Performed By: #### C VDTBH #### [facility] [address] [address] [address] Gloria Gonzalez Anion gap [Moles/Vol] 1.4 mmol/L Normal [facility] Comment on above: Performed By: #### C VDTBH #### [facility] [address] [address] [address] Gloria Gonzalez AST [Catalytic activity/Vol] 22 U/L Normal 15-37 [facility] Comment on above: Performed By: #### C VDTBH #### [facility] [address] [place] [address] Dr. Gloria Gonzalez Bilirubin [Mass/Vol] 1.2 mg/dL Critically high 0.2-1.0 [facility] Comment on above: Performed By: #### C VDTBH #### [facility] [address] [place] [address] Dr. Gloria Gonzalez Calcium [Mass/Vol] 8.9 mg/dL Normal 8.5-10.1 [facility] Comment on above: Performed By: #### C VDTBH #### [facility] [address] [place] [address] Dr. Gloria Gonzalez Chloride [Moles/Vol] 95 mmol/L Critically low 98-107 [facility] Comment on above: Performed By: #### C VDTBH #### [facility] [address] [place] [address] Dr. Gloria Gonzalez CO2 [Moles/Vol] 41.1 mmol/L Critically high 21.0-32.0 [facility] Comment on above: Performed By: #### C VDTBH #### [facility] [address] [place] [address] Dr. Gloria Gonzalez Creatinine [Mass/Vol] 0.92 mg/dL Normal 0.70-1.30 [facility] Comment on above: Performed By: #### C VDTBH #### [facility] [address] [place] [address] Dr. Gloria Gonzalez EGFR-AF NAMIBIAN >60 Normal >=60 [facility] Comment on above: Performed By: #### C VDTBH #### [facility] [address] [address] [address] Gloria Gonzalez EGFR-NON AF NAMIBIAN >60 Normal >=60 [facility] Comment on above: Performed By: #### C VDTBH #### [facility] [address] [address] [address] Gloria Gonzalez Globulin (S) [Mass/Vol] 5.0 g/dL Normal [facility] Comment on above: Performed By: #### C VDTBH #### [facility] [address] [address] [address] Gloria Gonzalez Glucose [Mass/Vol] 97 mg/dL Normal 74-106 [facility] Comment on above: Performed By: #### C VDTBH #### [facility] [address] [address] [address] Gloria Gonzalez Potassium [Moles/Vol] 3.5 mmol/L Normal 3.5-5.1 [facility] Comment on above: Performed By: #### C VDTBH #### [facility] [address] [address] [address] Gloria Gonzalez Protein [Mass/Vol] 7.8 g/dL Normal 6.4-8.2 [facility] Comment on above: Performed By: #### C VDTBH #### [facility] [address] [address] [address] Gloria Gonzalez Sodium [Moles/Vol] 134 mmol/L Critically low 136-145 [facility] Comment on above: Performed By: #### C VDTBH #### [facility] [address] [address] [address] Gloria Gonzalez Urea nitrogen [Mass/Vol] 18.0 mg/dL Normal 7.0-18.0 [facility] Comment on above: Performed By: #### C VDTBH #### [facility] [address] [address] [address] Gloria Gonzalez Urea nitrogen/Creatinine [Mass ratio] 19.6 mg/mg Normal [facility] Comment on above: Performed By: #### C VDTBH #### [facility] [address] [place] [address] Dr. Gloria Gonzalez CBC AUTO DIFFon 07-14-2022 BASO # 0.0 103/ul Normal 0.0-0.1 [facility] Comment on above: Performed By: #### C BC #### [facility] [address] [place] [address] Dr. Gloria Gonzalez Basophils/100 WBC (Bld) 0.2 % Normal 0.2-2.0 [facility] Comment on above: Performed By: #### C BC #### [facility] [address] [place] [address] Dr. Gloria Gonzalez EO # 0.2 103/ul Normal 0.0-0.7 [facility] Comment on above: Performed By: #### C BC #### [facility] [address] [place] [address] Dr. Gloria Gonzalez Eosinophils/100 WBC (Bld) 2.2 % Normal 0.9-7.0 [facility] Comment on above: Performed By: #### C BC #### [facility] [address] [place] [address] Dr. Gloria Gonzalez Erythrocyte distribution width (RBC) [Ratio] 15.5 % Critically high 11.0-15.0 [facility] Comment on above: Performed By: #### C BC #### [facility] [address] [place] [address] Dr. Gloria Gonzalez Hematocrit (Bld) [Volume fraction] 57.2 % Critically high 42.0-54.0 [facility] Comment on above: Performed By: #### C BC #### [facility] [address] [place] [address] Dr. Gloria Gonzalez Hemoglobin (Bld) [Mass/Vol] 17.3 g/dL Normal 14.0-18.0 [facility] Comment on above: Performed By: #### C BC #### [facility] [address] [place] [address] Dr. Gloria Gonzalez IG # 0.02 10e3/ul Normal 0.00-0.03 [facility] Comment on above: Performed By: #### C BC #### [facility] [address] [place] [address] Dr. Gloria Gonzalez IG % 0.2 % Normal 0.0-0.5 [facility] Comment on above: Performed By: #### C BC #### [facility] [address] [place] [address] Dr. Gloria Gonzalez LYMPH # 0.9 103/ul Critically low 1.2-3.8 [facility] Comment on above: Performed By: #### C BC #### [facility] [address] [place] [address] Dr. Gloria Gonzalez Lymphocytes/100 WBC (Bld) 10.8 % Critically low 20.5-60.0 [facility] Comment on above: Performed By: #### C BC #### [facility] [address] [place] [address] Dr. Gloria Gonzalez MANUAL DIFF REQ NO Normal [facility] Comment on above: Performed By: #### C BC #### [facility] [address] [place] [address] Dr. Glorai Gonzalez MCH (RBC) [Entitic mass] 28.4 pg Normal 25.9-34.0 [facility] Comment on above: Performed By: #### C BC #### [facility] [address] [place] [address] Dr. Gloria Gonzalez MCHC (RBC) [Mass/Vol] 30.2 g/dL Normal 29.9-35.2 [facility] Comment on above: Performed By: #### C BC #### [facility] [address] [place] [address] Dr. Gloria Gonzalez MCV (RBC) [Entitic vol] 93.9 fL Normal 80.0-94.0 [facility] Comment on above: Performed By: #### C BC #### [facility] [address] [place] [address] Dr. Gloria Gonzalez MONO # 0.8 103/ul Normal 0.3-0.8 [facility] Comment on above: Performed By: #### C BC #### [facility] [address] [address] [address] Gloria Gonzalez Monocytes/100 WBC (Bld) 9.6 % Normal 1.7-12.0 [facility] Comment on above: Performed By: #### C BC #### [facility] [address] [address] [address] Gloria Gonzalez NEUT # 6.7 103/ul Critically high 1.4-6.5 [facility] Comment on above: Performed By: #### C BC #### [facility] [address] [address] [address] Gloria Gonzalez Neutrophils/100 WBC (Bld) 77.0 % Critically high 43.0-75.0 [facility] Comment on above: Performed By: #### C BC #### [facility] [address] [place] [address] Dr. Gloria Gonzalez Platelet mean volume (Bld) [Entitic vol] 10.0 fL Normal 9.5-13.5 [facility] Comment on above: Performed By: #### C BC #### [facility] [address] [place] [address] Dr. Gloria Gonzalez PLT 179 103/ul Normal 150-450 [facility] Comment on above: Performed By: #### C BC #### [facility] [address] [place] [address] Dr. Gloria Gonzalez RBC 6.09 106/ul Normal 4.70-6.10 [facility] Comment on above: Performed By: #### C BC #### [facility] [address] [place] [address] Dr. Gloria Gonzalez WBC 8.7 103/ul Normal 4.0-11.0 [facility] Comment on above: Performed By: #### C BC #### [facility] [address] [place] [address] Dr. Gloria Gonzalez PROF 14(COMP METB)on 022 Albumin [Mass/Vol] 3.0 g/dL Critically low 3.4-5.0 [facility] Comment on above: Performed By: #### C VDTBH #### [facility] [address] [address] [address] Gloria Gonzalez Albumin/Globulin [Mass ratio] 0.6 {ratio} Normal [facility] Comment on above: Performed By: #### C VDTBH #### [facility] [address] [address] [address] Gloria Gonzalez ALP [Catalytic activity/Vol] 92 U/L Normal 46-116 [facility] Comment on above: Performed By: #### C VDTBH #### [facility] [address] [address] [address] Gloria Gonzalez ALT [Catalytic activity/Vol] 13 U/L Critically low 16-63 [facility] Comment on above: Performed By: #### C VDTBH #### [facility] [address] [place] [address] Dr. Gloria Gonzalez Anion gap [Moles/Vol] 2.0 mmol/L Normal [facility] Comment on above: Performed By: #### C VDTBH #### [facility] [address] [place] [address] Dr. Gloria Gonzalez AST [Catalytic activity/Vol] 18 U/L Normal 15-37 [facility] Comment on above: Performed By: #### C VDTBH #### [facility] [address] [place] [address] Dr. Gloria Gonzalez Bilirubin [Mass/Vol] 1.2 mg/dL Critically high 0.2-1.0 [facility] Comment on above: Performed By: #### C VDTBH #### [facility] [address] [place] [address] Dr. Gloria Gonzalez Calcium [Mass/Vol] 8.9 mg/dL Normal 8.5-10.1 [facility] Comment on above: Performed By: #### C VDTBH #### [facility] [address] [place] [address] Dr. Gloria Gonzalez Chloride [Moles/Vol] 96 mmol/L Critically low 98-107 [facility] Comment on above: Performed By: #### C VDTBH #### [facility] [address] [address] [address] Gloria Gonzalez CO2 [Moles/Vol] 43.4 mmol/L Critically high 21.0-32.0 [facility] Comment on above: Performed By: #### C VDTBH #### [facility] [address] [address] [address] Gloria Gonzalez Creatinine [Mass/Vol] 0.86 mg/dL Normal 0.70-1.30 [facility] Comment on above: Performed By: #### C VDTBH #### [facility] [address] [address] [address] Gloria Gonzalez EGFR-AF NAMIBIAN >60 Normal >=60 [facility] Comment on above: Performed By: #### C VDTBH #### [facility] [address] [place] [address] Dr. Gloria Gonzalez EGFR-NON AF NAMIBIAN >60 Normal >=60 [facility] Comment on above: Performed By: #### C VDTBH #### [facility] [address] [place] [address] Dr. Gloria Gonzalez Globulin (S) [Mass/Vol] 5.0 g/dL Normal [facility] Comment on above: Performed By: #### C VDTBH #### [facility] [address] [place] [address] Dr. Gloria Gonzalez Glucose [Mass/Vol] 108 mg/dL Critically high 74-106 [facility] Comment on above: Performed By: #### C VDTBH #### [facility] [address] [address] [address] Gloria Gonzalez Potassium [Moles/Vol] 3.4 mmol/L Critically low 3.5-5.1 [facility] Comment on above: Performed By: #### C VDTBH #### [facility] [address] [address] [address] Gloria Gonzalez Protein [Mass/Vol] 8.0 g/dL Normal 6.4-8.2 [facility] Comment on above: Performed By: #### C VDTBH #### [facility] [address] [place] [address] Dr. Gloria Gonzalez Sodium [Moles/Vol] 138 mmol/L Normal 136-145 [facility] Comment on above: Performed By: #### C VDTBH #### [facility] [address] [place] [address] Dr. Gloria Gonzalez Urea nitrogen [Mass/Vol] 12.0 mg/dL Normal 7.0-18.0 [facility] Comment on above: Performed By: #### C VDTBH #### [facility] [address] [place] [address] Dr. Gloria Gonzalez Urea nitrogen/Creatinine [Mass ratio] 14.0 mg/mg Normal [facility] Comment on above: Performed By: #### C VDTBH #### [facility] [address] [place] [address] Dr. Gloria Gonzalez CBC AUTO DIFFon 07-13-2022 BASO # 0.0 103/ul Normal 0.0-0.1 [facility] Comment on above: Performed By: #### C VDTBH #### [facility] [address] [place] [address] Dr. Gloria Gonzalez Basophils/100 WBC (Bld) 0.4 % Normal 0.2-2.0 [facility] Comment on above: Performed By: #### C VDTBH #### [facility] [address] [place] [address] Dr. Gloria Gonzalez EO # 0.2 103/ul Normal 0.0-0.7 [facility] Comment on above: Performed By: #### C VDTBH #### [facility] [address] [place] [address] Dr. Gloria Gonzalez Eosinophils/100 WBC (Bld) 2.2 % Normal 0.9-7.0 [facility] Comment on above: Performed By: #### C VDTBH #### [facility] [address] [place] [address] Dr. Gloria Gonzalez Erythrocyte distribution width (RBC) [Ratio] 15.9 % Critically high 11.0-15.0 [facility] Comment on above: Performed By: #### C VDTBH #### [facility] [address] [place] [address] Dr. Gloria Gonzalez Hematocrit (Bld) [Volume fraction] 55.7 % Critically high 42.0-54.0 [facility] [facility] Comment on above: Performed By: #### C VDTBH #### [facility] [address] [place] [address] Dr. Gloria Gonzalez Hemoglobin (Bld) [Mass/Vol] 17.2 g/dL Normal 14.0-18.0 [facility] Comment on above: Performed By: #### C VDTBH #### [facility] [address] [place] [address] Dr. Gloria Gonzalez IG # 0.02 10e3/ul Normal 0.00-0.03 [facility] Comment on above: Performed By: #### C VDTBH #### [facility] [address] [place] [address] Dr. Gloria Gonzalez IG % 0.2 % Normal 0.0-0.5 [facility] Comment on above: Performed By: #### C VDTBH #### [facility] [address] [place] [address] Dr. Gloria Gonzalez LYMPH # 1.1 103/ul Critically low 1.2-3.8 [facility] Comment on above: Performed By: #### C VDTBH #### [facility] [address] [place] [address] Dr. Gloria Gonzalez Lymphocytes/100 WBC (Bld) 11.0 % Critically low 20.5-60.0 [facility] Comment on above: Performed By: #### C VDTBH #### [facility] [address] [place] [address] Dr. Gloria Gonzalez MANUAL DIFF REQ NO Normal [facility] Comment on above: Performed By: #### C VDTBH #### [facility] [address] [place] [address] Dr. Gloria Gonzalez MCH (RBC) [Entitic mass] 28.9 pg Normal 25.9-34.0 [facility] Comment on above: Performed By: #### C VDTBH #### [facility] [address] [place] [address] Dr. Gloria Gonzalez MCHC (RBC) [Mass/Vol] 30.9 g/dL Normal 29.9-35.2 [facility] Comment on above: Performed By: #### C VDTBH #### [facility] [address] [place] [address] Dr. Gloria Gonzalez MCV (RBC) [Entitic vol] 93.6 fL Normal 80.0-94.0 [facility] Comment on above: Performed By: #### C VDTBH #### [facility] [address] [place] [address] Dr. Gloria Gonzalez MONO # 1.1 103/ul Critically high 0.3-0.8 [facility] Comment on above: Performed By: #### C VDTBH #### [facility] [address] [place] [address] Dr. Gloria Gonzalez Monocytes/100 WBC (Bld) 11.0 % Normal 1.7-12.0 [facility] Comment on above: Performed By: #### C VDTBH #### [facility] [address] [place] [address] Dr. Gloria Gonzalez NEUT # 7.2 103/ul Critically high 1.4-6.5 [facility] Comment on above: Performed By: #### C VDTBH #### [facility] [address] [place] [address] Dr. Gloria Gonzalez Neutrophils/100 WBC (Bld) 75.2 % Critically high 43.0-75.0 [facility] Comment on above: Performed By: #### C VDTBH #### [facility] [address] [place] [address] Dr. Gloria Gonzalez Platelet mean volume (Bld) [Entitic vol] 9.9 fL Normal 9.5-13.5 [facility] Comment on above: Performed By: #### C VDTBH #### [facility] [address] [place] [address] Dr. Gloria Gonzalez PLT 160 103/ul Normal 150-450 [facility] Comment on above: Performed By: #### C VDTBH #### [facility] [address] [place] [address] Dr. Gloria Gonzalez RBC 5.95 106/ul Normal 4.70-6.10 [facility] Comment on above: Performed By: #### C VDTBH #### [facility] [address] [place] [address] Dr. Gloria Gonzalez WBC 9.6 103/ul Normal 4.0-11.0 [facility] Comment on above: Performed By: #### C VDTBH #### [facility] [address] [place] [address] Dr. Gloria Gonzalez PROF 14(COMP METB)on 022 Albumin [Mass/Vol] 2.9 g/dL Critically low 3.4-5.0 [facility] Comment on above: Performed By: #### C MP #### [facility] [address] [place] [address] Dr. Gloria Gonzalez Albumin/Globulin [Mass ratio] 0.6 {ratio} Normal [facility] Comment on above: Performed By: #### C MP #### [facility] [address] [place] [address] Dr. Gloria Gonzalez ALP [Catalytic activity/Vol] 85 U/L Normal 46-116 [facility] Comment on above: Performed By: #### C MP #### [facility] [address] [place] [address] Dr. Gloria Gonzalez ALT [Catalytic activity/Vol] 15 U/L Critically low 16-63 [facility] Comment on above: Performed By: #### C MP #### [facility] [address] [place] [address] Dr. Gloria Gonzalez Anion gap [Moles/Vol] 4.5 mmol/L Normal [facility] Comment on above: Performed By: #### C MP #### [facility] [address] [place] [address] Dr. Gloria Gonzalez AST [Catalytic activity/Vol] 20 U/L Normal 15-37 [facility] Comment on above: Performed By: #### C MP #### [facility] [address] [address] [address] Gloria Gonzalez Bilirubin [Mass/Vol] 0.9 mg/dL Normal 0.2-1.0 [facility] Comment on above: Performed By: #### C MP #### [facility] [address] [address] [address] Gloria Gonzalez Calcium [Mass/Vol] 8.7 mg/dL Normal 8.5-10.1 [facility] Comment on above: Performed By: #### C MP #### [facility] [address] [address] [address] Gloria Gonzalez Chloride [Moles/Vol] 100 mmol/L Normal 98-107 [facility] Comment on above: Performed By: #### C MP #### [facility] [address] [address] [address] Gloria Gonzalez CO2 [Moles/Vol] 39.0 mmol/L Critically high 21.0-32.0 [facility] Comment on above: Performed By: #### C MP #### [facility] [address] [address] [address] Gloria Gonzalez Creatinine [Mass/Vol] 0.81 mg/dL Normal 0.70-1.30 [facility] Comment on above: Performed By: #### C MP #### [facility] [address] [address] [address] Gloria Gonzalez EGFR-AF NAMIBIAN >60 Normal >=60 [facility] Comment on above: Performed By: #### C MP #### [facility] [address] [address] [address] Gloria Gonzalez EGFR-NON AF NAMIBIAN >60 Normal >=60 [facility] Comment on above: Performed By: #### C MP #### [facility] [address] [address] [address] Gloria Gonzalez Globulin (S) [Mass/Vol] 4.5 g/dL Normal [facility] Comment on above: Performed By: #### C MP #### [facility] [address] [address] [address] Gloria Gonzalez Glucose [Mass/Vol] 102 mg/dL Normal 74-106 [facility] Comment on above: Performed By: #### C MP #### [facility] [address] [place] [address] Dr. Gloria Gonzalez Potassium [Moles/Vol] 3.5 mmol/L Normal 3.5-5.1 [facility] Comment on above: Performed By: #### C MP #### [facility] [address] [place] [address] Dr. Gloria Gonzalez Protein [Mass/Vol] 7.4 g/dL Normal 6.4-8.2 [facility] Comment on above: Performed By: #### C MP #### [facility] [address] [place] [address] Dr. Gloria Gonzalez Sodium [Moles/Vol] 140 mmol/L Normal 136-145 [facility] Comment on above: Performed By: #### C MP #### [facility] [address] [place] [address] Dr. Gloria Gonzalez Urea nitrogen [Mass/Vol] 13.0 mg/dL Normal 7.0-18.0 [facility] Comment on above: Performed By: #### C MP #### [facility] [address] [place] [address] Dr. Gloria Gonzalez Urea nitrogen/Creatinine [Mass ratio] 16.0 mg/mg Normal [facility] Comment on above: Performed By: #### C MP #### [facility] [address] [place] [address] Dr. Gloria Gonzalez BNPon 07-12-2022 Natriuretic peptide B (Bld) [Mass/Vol] 760.0 pg/mL Critically high <=450.0 [facility] Comment on above: Performed By: #### B MANAGER ACUTE, BMP, LIPID #### [facility] [address] [place] [address] Dr. Gloria Gonzalez CBC AUTO DIFFon 07-12-2022 BASO # 0.0 103/ul Normal 0.0-0.1 [facility] Comment on above: Performed By: #### B MANAGER ACUTE, HSTROPN #### [facility] [address] [place] [address] Dr. Gloria Gonzalez Basophils/100 WBC (Bld) 0.2 % Normal 0.2-2.0 [facility] Comment on above: Performed By: #### B MANAGER ACUTE, HSTROPN #### [facility] [address] [place] [address] Dr. Gloria Gonzalez EO # 0.2 103/ul Normal 0.0-0.7 [facility] Comment on above: Performed By: #### B MANAGER ACUTE, HSTROPN #### [facility] [address] [place] [address] Dr. Gloria Gonzalez Eosinophils/100 WBC (Bld) 2.0 % Normal 0.9-7.0 [facility] Comment on above: Performed By: #### B MANAGER ACUTE, HSTROPN #### [facility] [address] [place] [address] Dr. Gloria Gonzalez Erythrocyte distribution width (RBC) [Ratio] 15.6 % Critically high 11.0-15.0 [facility] Comment on above: Performed By: #### B MANAGER ACUTE, HSTROPN #### [facility] [address] [place] [address] Dr. Gloria Gonzalez Hematocrit (Bld) [Volume fraction] 56.2 % Critically high 42.0-54.0 [facility] Comment on above: Performed By: #### B MANAGER ACUTE, HSTROPN #### [facility] [address] [place] [address] Dr. Gloria Gonzalez Hemoglobin (Bld) [Mass/Vol] 17.1 g/dL Normal 14.0-18.0 [facility] Comment on above: Performed By: #### B MANAGER ACUTE, HSTROPN #### [facility] [address] [place] [address] Dr. Gloria Gonzalez IG # 0.03 10e3/ul Normal 0.00-0.03 [facility] Comment on above: Performed By: #### B MANAGER ACUTE, HSTROPN #### [facility] [address] [address] [address] Gloria Gonzalez IG % 0.3 % Normal 0.0-0.5 [facility] Comment on above: Performed By: #### B MANAGER ACUTE, HSTROPN #### [facility] [address] [place] [address] Dr. Gloria Gonzalez LYMPH # 1.3 103/ul Normal 1.2-3.8 [facility] Comment on above: Performed By: #### B MANAGER ACUTE, HSTROPN #### [facility] [address] [place] [address] Dr. Gloria Gonzalez Lymphocytes/100 WBC (Bld) 14.9 % Critically low 20.5-60.0 [facility] Comment on above: Performed By: #### B MANAGER ACUTE, HSTROPN #### [facility] [address] [place] [address] Dr. Gloria Gonzalez MANUAL DIFF REQ NO Normal [facility] Comment on above: Performed By: #### B MANAGER ACUTE, HSTROPN #### [facility] [address] [place] [address] Dr. Gloria Gonzalez MCH (RBC) [Entitic mass] 28.9 pg Normal 25.9-34.0 [facility] Comment on above: Performed By: #### B MANAGER ACUTE, HSTROPN #### [facility] [address] [place] [address] Dr. Gloria Gonzalez MCHC (RBC) [Mass/Vol] 30.4 g/dL Normal 29.9-35.2 [facility] Comment on above: Performed By: #### B MANAGER ACUTE, HSTROPN #### [facility] [address] [place] [address] Dr. Gloria Gonzalez MCV (RBC) [Entitic vol] 95.1 fL Critically high 80.0-94.0 [facility] Comment on above: Performed By: #### B MANAGER ACUTE, HSTROPN #### [facility] [address] [place] [address] Dr. Gloria Gonzalez MONO # 0.9 103/ul Critically high 0.3-0.8 [facility] Comment on above: Performed By: #### B MANAGER ACUTE, HSTROPN #### [facility] [address] [place] [address] Dr. Gloria Gonzalez Monocytes/100 WBC (Bld) 9.7 % Normal 1.7-12.0 [facility] Comment on above: Performed By: #### B MANAGER ACUTE, HSTROPN #### [facility] [address] [place] [address] Dr. Gloria Gonzalez NEUT # 6.4 103/ul Normal 1.4-6.5 [facility] Comment on above: Performed By: #### B MANAGER ACUTE, HSTROPN #### [facility] [address] [place] [address] Dr. Gloria Gonzalez Neutrophils/100 WBC (Bld) 72.9 % Normal 43.0-75.0 [facility] Comment on above: Performed By: #### B MANAGER ACUTE, HSTROPN #### [facility] [address] [place] [address] Dr. Gloria Gonzalez Platelet mean volume (Bld) [Entitic vol] 10.1 fL Normal 9.5-13.5 [facility] Comment on above: Performed By: #### B MANAGER ACUTE, HSTROPN #### [facility] [address] [place] [address] Dr. Gloria Gonzalez PLT 176 103/ul Normal 150-450 [facility] Comment on above: Performed By: #### B MANAGER ACUTE, HSTROPN #### [facility] [address] [place] [address] Dr. Gloria Gonzalez RBC 5.91 106/ul Normal 4.70-6.10 [facility] Comment on above: Performed By: #### B MANAGER ACUTE, HSTROPN #### [facility] [address] [place] [address] Dr. Gloria Gonzalez WBC 8.8 103/ul Normal 4.0-11.0 [facility] Comment on above: Performed By: #### B MANAGER ACUTE, HSTROPN #### [facility] [address] [place] [address] ABD/PELVIS WO CONon [...] JACK MCCORMACK Date: 2022-07-11 23:48 Normal [facility] Covid-19 PCR (CVDTBH)on 06-28 SARS-CoV-2 (COVID-19) RNA SADA+probe Ql (Unsp spec) Not detected Normal NOT DETECTED [facility] Comment on above: Result Comment: When [...] for this test is supported by the Medical Territory Manager of Health and Human Service's declaration that [...] longer be used). Performed By: #### C [facility] #### [facility] [address] [place] [address] Dr. Gloria Gonzalez ECHOCARDIO M/2D COMPLETEon 1 09-11-2021 ECHOCARDIO M/2D COMPLETE Patient: RAFAEL WINKLER Exam Date: 07/12/2022 : 1980 Gender:M Ordering : DR JEANNETTE MCCORD . Admission #: [id number] Family : LUMA OCONNELL [facility] Order #: [id number] CLICK HERE TO VIEW EXAM ECHOCARDIOGRAM REPORT [...] Nicolas M.D. on 07/13/2022 at 20:00 Normal [facility] LIPID PROFILEon 07-12-2022 CHOL-HDL RATIO NORM SEE BELOW Normal [facility] Comment on above: Result Comment: 3.3 - 4.4 LOW RISK 4.4 - 7.1 AVERAGE RISK 7.1 - 11.0 MODERATE RISK >11.0 HIGH RISK Performed By: #### B MANAGER ACUTE, BMP, LIPID #### [facility] [address] [address] [address] Gloria Gonzalez Cholesterol [Mass/Vol] 119 mg/dL Normal <=200 [facility] Comment on above: Performed By: #### B MANAGER ACUTE, BMP, LIPID #### [facility] [address] [address] [address] Gloria Gonzalez Cholesterol in HDL [Mass/Vol] 46 mg/dL Normal 40-60 [facility] Comment on above: Performed By: #### B MANAGER ACUTE, BMP, LIPID #### [facility] [address] [address] [address] Gloria Gonzalez Cholesterol in LDL [Mass/Vol] 59.2 mg/dL Normal [facility] Comment on above: Performed By: #### B MANAGER ACUTE, BMP, LIPID #### [facility] [address] [place], [place] [address] Dr. Gloria Gonzalez Cholesterol.total/C holesterol in HDL [Mass ratio] 2.6 {ratio} Normal [facility] Comment on above: Performed By: #### B MANAGER ACUTE, BMP, LIPID #### [facility] [address] [place], [place] [address] Dr. Gloria Gonzalez HDL NORMAL > or = 60 mg/dl - LO W CARDIOVASCULAR RISK <40 mg/dl - HIGH CARDIOVASCULAR RISK Normal [facility] Comment on above: Performed By: #### B MANAGER ACUTE, BMP, LIPID #### [facility] [address] [place], [place] [address] Dr. Gloria Gonzalez LDL CALC NORMAL SEE BELOW Normal [facility] Comment on above: Result Comment: <100 mg/dl OPTIMAL 100 - 129 mg/dl NEAR OR ABOVE OPTIMAL 130 - 159 mg/dl BORDERLINE HIGH 160 - 189 mg/dl HIGH >190 mg/dl VERY HIGH Performed By: #### B MANAGER ACUTE, BMP, LIPID #### [facility] [address] [address] [address] Gloria Gonzalez Triglyceride [Mass/Vol] 69 mg/dL Normal <=150 [facility] Comment on above: Performed By: #### B MANAGER ACUTE, BMP, LIPID #### [facility] [address] [address] [address] Gloria Gonzalez VLDL CALC 13.8 mg/dL Normal [facility] Comment on above: Performed By: #### B MANAGER ACUTE, BMP, LIPID #### [facility] [address] [address] [address] Gloria Gonzalez PROF CHEM 8 (BAS METB)on Anion gap [Moles/Vol] 5.0 mmol/L Normal [facility] Comment on above: Performed By: #### B MANAGER ACUTE, BMP, LIPID #### [facility] [address] [address] [address] Gloria Gonzalez Calcium [Mass/Vol] 8.7 mg/dL Normal 8.5-10.1 [facility] Comment on above: Performed By: #### B MANAGER ACUTE, BMP, LIPID #### [facility] [address] [address] [address] Gloria Gonzalez Chloride [Moles/Vol] 104 mmol/L Normal 98-107 [facility] Comment on above: Performed By: #### B MANAGER ACUTE, BMP, LIPID #### [facility] [address] [address] [address] Gloria Gonzalez CO2 [Moles/Vol] 35.1 mmol/L Critically high 21.0-32.0 [facility] Comment on above: Performed By: #### B MANAGER ACUTE, BMP, LIPID #### [facility] [address] [address] [address] Gloria Gonzalez Creatinine [Mass/Vol] 0.77 mg/dL Normal 0.70-1.30 [facility] Comment on above: Performed By: #### B MANAGER ACUTE, BMP, LIPID #### [facility] [address] [address] [address] Gloria Gonzalez EGFR-AF NAMIBIAN >60 Normal >=60 [facility] Comment on above: Performed By: #### B MANAGER ACUTE, BMP, LIPID #### [facility] [address] [address] [address] Gloria Gonzalez EGFR-NON AF NAMIBIAN >60 Normal >=60 [facility] Comment on above: Performed By: #### B MANAGER ACUTE, BMP, LIPID #### [facility] [address] [address] [address] Gloria Gonzalez Glucose [Mass/Vol] 124 mg/dL Critically high 74-106 [facility] Comment on above: Performed By: #### B MANAGER ACUTE, BMP, LIPID #### [facility] [address] [place] [address] Dr. Gloria Gonzalez Potassium [Moles/Vol] 4.1 mmol/L Normal 3.5-5.1 [facility] Comment on above: Performed By: #### B MANAGER ACUTE, BMP, LIPID #### [facility] [address] [address] [address] Gloria Gonzalez Sodium [Moles/Vol] 140 mmol/L Normal 136-145 [facility] Comment on above: Performed By: #### B MANAGER ACUTE, BMP, LIPID #### [facility] [address] [place] [address] Dr. Gloria Gonzalez Urea nitrogen [Mass/Vol] 12.0 mg/dL Normal 7.0-18.0 [facility] Comment on above: Performed By: #### B MANAGER ACUTE, BMP, LIPID #### [facility] [address] [address] [address] Gloria Gonzalez Urea nitrogen/Creatinine [Mass ratio] 15.6 mg/mg Normal [facility] Comment on above: Performed By: #### B MANAGER ACUTE, BMP, LIPID #### [facility] [address] [address] [address] Gloria Gonzalez BNPon 07-11-2022 Natriuretic peptide B (Bld) [Mass/Vol] 858.0 pg/mL Critically high <=450.0 [facility] Comment on above: Performed By: #### B MANAGER ACUTE, HSTROPN #### [facility] [address] [place] [address] Dr. Gloria Gonzalez CBC AUTO DIFFon 07-11-2022 BASO # 0.0 103/ul Normal 0.0-0.1 [facility] Comment on above: Performed By: #### C BC #### [facility] [address] [place] [address] Dr. Gloria Gonzalez Basophils/100 WBC (Bld) 0.4 % Normal 0.2-2.0 [facility] Comment on above: Performed By: #### C BC #### [facility] [address] [place] [address] Dr. Gloria Gonzalez EO # 0.2 103/ul Normal 0.0-0.7 [facility] Comment on above: Performed By: #### C BC #### [facility] [address] [place] [address] Dr. Gloria Gonzalez Eosinophils/100 WBC (Bld) 2.3 % Normal 0.9-7.0 [facility] Comment on above: Performed By: #### C BC #### [facility] [address] [place] [address] Dr. Gloria Gonzalez Erythrocyte distribution width (RBC) [Ratio] 15.9 % Critically high 11.0-15.0 [facility] Comment on above: Performed By: #### C BC #### [facility] [address] [place] [address] Dr. Gloria Gonzalez Hematocrit (Bld) [Volume fraction] 57.5 % Critically high 42.0-54.0 [facility] Comment on above: Performed By: #### C BC #### [facility] [address] [place] [address] Dr. Gloria Gonzalez Hemoglobin (Bld) [Mass/Vol] 17.8 g/dL Normal 14.0-18.0 [facility] Comment on above: Performed By: #### C BC #### [facility] [address] [place] [address] Dr. Gloria Gonzalez IG # 0.02 10e3/ul Normal 0.00-0.03 [facility] Comment on above: Performed By: #### C BC #### [facility] [address] [place] [address] Dr. Gloria Gonzalez IG % 0.2 % Normal 0.0-0.5 [facility] Comment on above: Performed By: #### C BC #### [facility] [address] [place] [address] Dr. Gloria Gonzalez LYMPH # 2.0 103/ul Normal 1.2-3.8 [facility] Comment on above: Performed By: #### C BC #### [facility] [address] [place] [address] Dr. Gloria Gonzalez Lymphocytes/100 WBC (Bld) 21.2 % Normal 20.5-60.0 [facility] Comment on above: Performed By: #### C BC #### [facility] [address] [place] [address] Dr. Gloria Gonzalez MANUAL DIFF REQ NO Normal [facility] Comment on above: Performed By: #### C BC #### [facility] [address] [place] [address] Dr. Gloria Gonzalez MCH (RBC) [Entitic mass] 28.7 pg Normal 25.9-34.0 [facility] Comment on above: Performed By: #### C BC #### [facility] [address] [place] [address] Dr. Gloria Gonzalez MCHC (RBC) [Mass/Vol] 31.0 g/dL Normal 29.9-35.2 [facility] Comment on above: Performed By: #### C BC #### [facility] [address] [place] [address] Dr. Gloria Gonzalez MCV (RBC) [Entitic vol] 92.7 fL Normal 80.0-94.0 [facility] Comment on above: Performed By: #### C BC #### [facility] [address] [place] [address] Dr. Gloria Gonzalez MONO # 0.8 103/ul Normal 0.3-0.8 [facility] Comment on above: Performed By: #### C BC #### [facility] [address] [place] [address] Dr. Gloria Gonzalez Monocytes/100 WBC (Bld) 8.9 % Normal 1.7-12.0 [facility] Comment on above: Performed By: #### C BC #### [facility] [address] [place] [address] Dr. Gloria Gonzalez NEUT # 6.2 103/ul Normal 1.4-6.5 [facility] Comment on above: Performed By: #### C BC #### [facility] [address] [place] [address] Dr. Gloria Gonzalez Neutrophils/100 WBC (Bld) 67.0 % Normal 43.0-75.0 [facility] Comment on above: Performed By: #### C BC #### [facility] [address] [place] [address] Dr. Gloria Gonzalez Platelet mean volume (Bld) [Entitic vol] 10.6 fL Normal 9.5-13.5 [facility] Comment on above: Performed By: #### C BC #### [facility] [address] [place] [address] Dr. Gloria Gonzalez PLT 179 103/ul Normal 150-450 [facility] Comment on above: Performed By: #### C BC #### [facility] [address] [place] [address] Dr. Gloria Gonzalez RBC 6.20 106/ul Critically high 4.70-6.10 [facility] Comment on above: Performed By: #### C BC #### [facility] [address] [place] [address] Dr. Gloria Gonzalez WBC 9.3 103/ul Normal 4.0-11.0 [facility] Comment on above: Performed By: #### C BC #### [facility] [address] [place] [address] Dr. Gloria Gonzalez CULTURE BLOODon 07-11-2022 Microscopic examination of blood, culture Culture Observations: NO GROWTH AT 5 DAYS. Normal [facility] Comment on above: Performed By: #### B MANAGER ACUTE, HSTROPN #### [facility] [address] [place] [address] Dr. Gloria Gonzalez Microscopic examination of blood, culture Culture Observations: NO GROWTH AT 5 DAYS. Normal [facility] Comment on above: Performed By: #### B MANAGER ACUTE, HSTROPN #### [facility] [address] [place] [address] Dr. Gloria Gonzalez LACTATE/LACTIC ACIDon 2021 Lactate [Moles/Vol] 0.8 mmol/L Normal 0.4-1.[address] [facility] Comment on above: Performed By: #### L ACT #### [facility] [address] [place] [address] Dr. Gloria Gonzalez PROF 14(COMP METB)on 022 Albumin [Mass/Vol] 3.1 g/dL Critically low 3.4-5.0 [facility] Comment on above: Performed By: #### C VDTBH #### [facility] [address] [place] [address] Dr. Gloria Gonzalez Albumin/Globulin [Mass ratio] 0.8 {ratio} [facility] Comment on above: Performed By: #### C VDTBH #### [facility] [address] [place] [address] Dr. Gloria Gonzalez ALP [Catalytic activity/Vol] 97 U/L Normal 46-116 [facility] Comment on above: Performed By: #### C VDTBH #### [facility] [address] [place] [address] Dr. Gloria Gonzalez ALT [Catalytic activity/Vol] 20 U/L Normal 16-63 [facility] Comment on above: Performed By: #### C VDTBH #### [facility] [address] [place] [address] Dr. Gloria Gonzalez Anion gap [Moles/Vol] 6.3 mmol/L [facility] Comment on above: Performed By: #### C VDTBH #### [facility] [address] [place], [place] [id number] Dr. Gloria Gonzalez AST [Catalytic activity/Vol] 19 U/L Normal 15-37 [facility] Comment on above: Performed By: #### C VDTBH #### [facility] [address] [place] [address] Dr. Gloria Gonzalez Bilirubin [Mass/Vol] 0.5 mg/dL Normal 0.2-1.0 [facility] Comment on above: Performed By: #### C VDTBH #### [facility] [address] [place] [address] Dr. Gloria Gonzalez Calcium [Mass/Vol] 9.0 mg/dL Normal 8.5-10.1 [facility] Comment on above: Performed By: #### C VDTBH #### [facility] [address] [place] [address] Dr. Gloria Gonzalez Chloride [Moles/Vol] 104 mmol/L Normal 98-107 [facility] Comment on above: Performed By: #### C VDTBH #### [facility] [address] [place] [address] Dr. Gloria Gonzalez CO2 [Moles/Vol] 33.9 mmol/L Critically high 21.0-32.0 [facility] Comment on above: Performed By: #### C VDTBH #### [facility] [address] [place] [address] Dr. Gloria Gonzalez Creatinine [Mass/Vol] 0.77 mg/dL Normal 0.70-1.30 [facility] Comment on above: Performed By: #### C VDTBH #### [facility] [address] [place] [address] Dr. Gloria Gonzalez EGFR-AF NAMIBIAN >60 Normal >=60 [facility] Comment on above: Performed By: #### C VDTBH #### [facility] [address] [place] [address] Dr. Gloria Gonzalez EGFR-NON AF NAMIBIAN >60 Normal >=60 [facility] Comment on above: Performed By: #### C VDTBH #### [facility] [address] [place] [address] Dr. Gloria Gonzalez Globulin (S) [Mass/Vol] 4.1 g/dL Normal [facility] Comment on above: Performed By: #### C VDTBH #### [facility] [address] [address] [address] Gloria Gonzalez Glucose [Mass/Vol] 85 mg/dL Normal 74-106 [facility] Comment on above: Performed By: #### C VDTBH #### [facility] [address] [place] [address] Dr. Gloria Gonzalez Potassium [Moles/Vol] 4.2 mmol/L Normal 3.5-5.1 [facility] Comment on above: Performed By: #### C VDTBH #### [facility] [address] [place] [address] Dr. Gloria Gonzalez Protein [Mass/Vol] 7.2 g/dL Normal 6.4-8.2 [facility] Comment on above: Performed By: #### C VDTBH #### [facility] [address] [place] [address] Dr. Gloria Gonzalez Sodium [Moles/Vol] 140 mmol/L Normal 136-145 [facility] Comment on above: Performed By: #### C VDTBH #### [facility] [address] [place] [address] Dr. Gloria Gonzalez Urea nitrogen [Mass/Vol] 13.0 mg/dL Normal 7.0-18.0 [facility] Comment on above: Performed By: #### C VDTBH #### [facility] [address] [place] [address] Dr. Gloria Gonzalez Urea nitrogen/Creatinine [Mass ratio] 16.9 mg/mg Normal [facility] Comment on above: Performed By: #### C VDTBH #### [facility] [address] [place] [address] Dr. Gloria Gonzalez TROPONIN, HIGH SENSITIVITYon 07-11-2022 HSTROP 31.8 pg/mL Normal 4.0-76.1 [facility] Comment on above: Result Comment: CUT- OFF POINTS HAVE BEEN ESTABLISHED BASED ON THE FOURTH UNIVERSAL DEFINITIONS OF MYOCARDIAL INFARCTION. THE UPPER REFERENCE LIMIT (URL) OF TROPONIN, DEFINED THE 99TH PERCENTILE OF cTnI DISTRIBUTION IN A REFERENCE POPULATION, HAS BEEN CONFIRMED THE DECISION THRESHOLD FOR PR DIAGNOSIS. Performed By: #### B GREG, HSTROPN #### [facility] [address] [address] [address] Gloria Gonzalez US SCROTUM W VASCULAR [...] by: ELIAZAR FRIEDMAN Date: 2022-07-11 21:03 Normal [facility] XR CHEST 1 Von 07-11-2022 XR CHEST 1 V EXAM: XR CHEST 1 V HISTORY: SHORTNESS OF BREATH COMPARISON: None. TECHNIQUE: Portable chest FINDINGS: Poor inspiratory effort. No focal consolidation or infiltrate. No pneumothorax or pleural effusion. Questionable cardiac enlargement. The hilar and mediastinal contours are unremarkable IMPRESSION: Questionable cardiomegaly Electronically authenticated by: DIANNA SCHULTZ Date: 2022-07-11 21:07 Normal [facility] Encounters Encounter Date Encounter Type Care [...] LANDEROS Payers Date Payer Category Payer Unknown [id number] 1980 Unknown [id number] 1980 Unknown [id number] 1958 Unknown [id number] Consultation note 07-12-2022 Note Date & Type [...] He has previously not been evaluated by post framer and has no diagnosis of heart failure [...] continue to focus on weight loss for mcfp avoidance of cardiac issues. [facility] Summary Purpose Family History No Family History Records Found Advance Directives No Advanced Directives Records Found Additional Source Comments (unrecognized sect ion and content) No Status Records Found INFORMATION SOURCE (unrecogn ized section and content) DATE CREATED AUTHOR 10/12/2022 [facility] FOR RECORDS PERTAINING TO PATIENTS WHO ARE [...] BE BASED ON THE PRIMARY CLINICAL RECORDS. [facility]. provides no warranty or guarantee of the accuracy or completeness of information in this document.
--- NOTE | 2024-05-14 20:20 | ECG_ITS ---
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
--- NOTE | 2024-05-14 20:28 | XR_ITS ---
The [address] [address] Patient Name: RAFAEL WINKLER MRN: [id number] date: 1980 Sex: M Assigned Patient Location: ED.MAIN Current Patient Location: ER Accession/Order Number: [id number] Exam Date: 05/14/2024 21:16 Report Date: 05/14/2024 22:03 At the request of: KAYLEIGH MARKER Procedure: XR chest 2V EXAM: XR chest 2V HISTORY: SOB COMPARISON: Chest x-ray, 07/11/2022. TECHNIQUE: Frontal and lateral chest x-rays. FINDINGS: Moderate cardiopericardial enlargement is unchanged. The mediastinal contour and pulmonary vascularity appear within normal limits. There is patchy opacity in the right lower lung favoring right lower lobe pneumonia. The lungs are otherwise grossly clear. XR/XR chest 2V IMPRESSION: 1. Suspected mild right lower lobe pneumonia. The lungs are otherwise grossly clear. 2. Unchanged moderate cardiopericardial enlargement. Electronically authenticated by: SHAYY SERRANO Date: 05/14/2024 22:03
--- NOTE | 2024-05-14 20:35 | ED.SOB1 ---
HPI - SOB/Dyspnea General Chief Complaint: Shortness of Breath/Dyspnea Stated Complaint: EDEMA Time Seen by Provider: 05/14/24 20:08 Source: patient Mode of arrival: Wheelchair Limitations: no limitations History of Present Illness HPI Narrative: This 44-year-old male with a history of morbid obesity, gout and CHF presents for evaluation of fluid overload. He states he has swelling in both legs and his abdomen. He states when he stands for a period of time the fluid gathers behind his knees and he cannot bend his knees. He has some mild chills. He has a wound on the lateral aspect of his left lower leg that he states has been present for approximately 1 month and is not healing. He is not diabetic. He denies any chest pain but has shortness of breath which is worse with exertion. He states that his abdomen swells more at night especially when he is lying on 1 side of the other and the right side is usually more swollen than the left. He has not had any nausea or vomiting or diarrhea. He does take diuretics. He admits to tobacco use. He states he knows that he has gained weight but does not weigh himself routinely so he does not know how much he has gained. Related Data Home Medications ?Medication ?Instructions ?Recorded ?Confirmed bumetanide 2 mg tablet 2 mg PO DAILY 04/30/23 05/14/24 carvedilol 3.125 mg tablet 3.125 mg PO Q12H 04/30/23 05/14/24 losartan 100 mg tablet 100 mg PO DAILY 04/30/23 05/14/24 spironolactone 50 mg tablet 50 mg PO DAILY 04/30/23 05/14/24 albuterol sulfate 90 mcg/actuation inhalation Q6H PRN shortness of 05/14/24 aerosol inhaler breath or wheezing aspirin 81 mg tablet,delayed 81 mg PO DAILY 05/14/24 05/14/24 release Previous Rx's ?Medication ?Instructions ?Recorded colchicine 0.6 mg capsule 0.6 mg PO DAILY #7 caps 04/30/23 Allergies Allergy/AdvReac Type Severity Reaction Status Date / Time No Known Drug Allergies Allergy Verified 05/14/24 20:08 Review of Systems ROS Status of ROS 10 or more systems reviewed and unremarkable except as noted in history and below PFSH PFSH Social History Smoking status: Current every day smoker Little interest or pleasure in doing things: not at all Feeling down, depressed, or hopeless: not at all Exam Narrative Exam Narrative: Vital signs and Nursing Notes reviewed: Patient has a low-grade fever, pulse and respiratory rate are elevated, blood pressure is elevated at 145/85, was noted to be hypoxic on room air in the high 80s to low 90s General: Awake, alert, oriented, pleasant overweight adult male, he has exertional dyspnea HEENT: Normocephalic atraumatic, mucous membranes are moist and pink, eyes are clear, normal conjunctiva, vision is grossly intact, posterior pharynx is normal in appearance. Neck: Supple, no meningeal signs, no anterior or posterior cervical lymphadenopathy Chest: Bilateral expiratory wheezing and diminished lung sounds without rhonchi or rales CVS: Regular rate and rhythm S1-S2, no murmurs rubs or gallops, pulses are brisk and equal bilaterally ABD: Soft, nondistended, nontender, no rebound guarding or rigidity, bowel sounds are normal, no pulsatile masses appreciated Extremities: Pitting edema is present from the feet to the upper legs and on the abdominal wall. There is a small sore on the lateral aspect of the left leg that does not have any drainage or appear cellulitic, there is bruising of the second toe on the right foot. This is nontender. Skin: Lower extremity skin is erythematous, somewhat indurated with chronic skin changes on the lower extremities with hyperpigmentation and small sore on the lateral aspect of the left leg Neuro: No focal deficits Constitutional Vital Signs, click to edit/add: Last Vital Signs Temp 99.2 F 05/14/24 20:08 Pulse 18 L 05/14/24 22:56 Resp 90 H 05/14/24 22:56 BP 141/91 05/14/24 22:45 Pulse Ox 96 05/14/24 22:56 O2 Del Method Nasal Cannula 05/14/24 22:56 O2 Flow Rate 2 05/14/24 22:56 Course Vital Signs Vital signs: Vital Signs Temperature 99.2 F 05/14/24 20:08 Pulse Rate 98 H 05/14/24 20:08 Respiratory Rate 22 H 05/14/24 20:08 Blood Pressure 145/85 H 05/14/24 20:08 Temperature 99.2 F 05/14/24 20:08 Pulse Rate 18 L 05/14/24 22:56 Respiratory Rate 90 H 05/14/24 22:56 Blood Pressure 141/91 05/14/24 22:45 Pulse Oximetry 96 05/14/24 22:56 Oxygen Delivery Method Nasal Cannula 05/14/24 22:56 Oxygen Delivery Flow Rate 2 05/14/24 22:56 MDM - SOB/Dyspnea MDM Narrative Medical decision making narrative: This 44-year-old male with a history of congestive heart failure, morbid obesity and tobacco use presents for evaluation of generalized swelling and exertional shortness of breath. He has edema from his feet to his abdomen. He has exertional dyspnea. Upon arrival he was noted to be hypoxic and placed on supplemental oxygen. He denies any chest pain dizziness or syncope. He is on diuretics but states he does not feel they are working for him. He denies any fever but was noted to have a low-grade fever upon arrival. He has expiratory wheezing and diffusely diminished lung sounds without rhonchi or rales. EKG done upon arrival is a sinus rhythm with Q waves in 1 and aVL. An IV was placed and routine labs were ordered. He has a normal white count, hemoglobin is concentrated at 19.2. Platelet count is normal at 163. He has a normal troponin. BNP is elevated at 837. Electrolytes and lactic acid are normal. 2 view chest x-ray was ordered and shows cardiomegaly with a mild right lower lobe infiltrate concerning for pneumonia. He was medicated with 40 mg of IV Lasix for the fluid overload, IV Rocephin and Zithromax for the right lower lobe pneumonia. While sitting on the side of the bed in the emergency department the patient apparently fell asleep and fell striking his head on the wall. He was able to get himself up and get back in bed. He was evaluated both myself and the nursing staff at that time. He is neurologically intact. There is no sign of trauma on his head. Due to his shortness of breath, history of CHF with elevated BNP and now right lower lobe infiltrate on his chest x-ray with hypoxia he will be admitted. The case was discussed with the hospitalist that he is excepted for admission to [facility] status Medical Records Attestation: I reviewed the patient's medical records. Medical records narrative: The [address] [address] XRay Report Signed Patient: RAFAEL WINKLER MR#: [id number] : 1980 Acct:[id number] Age/Sex: 44 / M ADM Date: 05/14/24 Loc: ER Attending Dr: Ordering Physician: Angelic Vasquez Date of Service: 05/14/24 Procedure(s): XR chest 2V Accession Number(s): [id number] cc: Alley Cruz CORE WINDER MACHINE OPERATOR; Angelic Vasquez~ The [address] [id number] Patient Name: RAFAEL WINKLER MRN: [id number] date: 1980 Sex: M Assigned Patient Location: ED.MAIN Current Patient Location: ER Accession/Order Number: [id number] Exam Date: 05/14/2024 21:16 Report Date: 05/14/2024 22:03 At the request of: ANGELIC MARKER Procedure: XR chest 2V EXAM: XR chest 2V HISTORY: SOB COMPARISON: Chest x-ray, 07/11/2022. TECHNIQUE: Frontal and lateral chest x-rays. FINDINGS: Moderate cardiopericardial enlargement is unchanged. The mediastinal contour and pulmonary vascularity appear within normal limits. There is patchy opacity in the right lower lung favoring right lower lobe pneumonia. The lungs are otherwise grossly clear. XR/XR chest 2V IMPRESSION: 1. Suspected mild right lower lobe pneumonia. The lungs are otherwise grossly clear. 2. Unchanged moderate cardiopericardial enlargement. Electronically authenticated by: SHAYY SERRANO Date: 05/14/2024 22:03 Lab Data Labs: Lab Results 05/14/24 05/14/24 Range/Units 20:40 20:43 WBC 8.6 (4.0-11.0) 10^3/uL RBC 6.87 H (4.70-6.10) 10^6/uL Hgb 19.2 H (14.0-18.0) g/dL Hct 64.6 H (42.0-54.0) % MCV 94.0 (80.0-94.0) fL MCH 27.9 (25.9-34.0) pg MCHC 29.7 L (29.9-35.2) g/dL RDW 17.5 H (11.0-15.0) % Plt Count 163 (150-450) 10^3/uL MPV 10.5 (9.5-13.5) fL Neut % (Auto) 65.9 (43.0-75.0) % Lymph % (Auto) 22.1 (20.5-60.0) % Ramsey % (Auto) 10.3 (1.7-12.0) % Eos % (Auto) 1.2 (0.9-7.0) % Baso % (Auto) 0.3 (0.2-2.0) % Neut # (Auto) 5.7 (1.4-6.5) 10^3/uL Lymph # (Auto) 1.9 (1.2-3.8) 10^3/uL Ramsey # (Auto) 0.9 H (0.3-0.8) 10^3/uL Eos # (Auto) 0.1 (0.0-0.7) 10^3/uL Baso # (Auto) 0.0 (0.0-0.1) 10^3/uL Abs Immat Gran (auto) 0.02 (0.00-0.03) 10^3/uL Imm/Tot Granulo (auto) 0.2 (0.0-0.5) % Sodium 136 (136-145) mmol/L Potassium 4.1 (3.5-5.1) mmol/L Chloride 101 (98-107) mmol/L Carbon Dioxide 34.7 H (21.0-32.0) mmol/L Anion Gap 4.4 BUN 18.0 (7.0-18.0) mg/dL Creatinine 0.81 (0.70-1.30) mg/dL Est GFR ( Amer) >60 (>=60) Est GFR (Non-Af Amer) >60 (>=60) BUN/Creatinine Ratio 22.2 Glucose 87 (74-106) mg/dL Lactate 1.6 (0.4-2.0) mmol/L Calcium 9.1 (8.5-10.1) mg/dL Total Bilirubin 0.7 (0.2-1.0) mg/dL AST 23 (15-37) U/L ALT 22 (16-63) U/L Alkaline Phosphatase 78 (46-116) U/L Troponin I High Sens 28.4 (4.0-76.1) pg/mL NT-Pro-B Natriuret Pep 837.0 H* (<=450.0) pg/mL Total Protein 7.2 (6.4-8.2) g/dL Albumin 3.1 L (3.4-5.0) g/dL Globulin 4.1 g/dL Albumin/Globulin Ratio 0.8 SARS-CoV-2 Ag (CV2AG) Negative (NEGATIVE) ECG Data Attestation: I personally reviewed and interpreted this ECG as follows: (Sinus rhythm at 93 bpm, normal axis, Q waves noted in lead I, aVL, V1, possible right ventricular hypertrophy, possible left atrial enlargement, no acute ST segment elevation or T wave inversion) Discharge Plan Discharge Chief Complaint: Shortness of Breath/Dyspnea Clinical Impression: Fluid overload, RLL pneumonia, Congestive heart failure, Hypoxia Patient Disposition: Admitted as Observation Time of Disposition Decision: 23:04 Condition: Fair Prescriptions / Home Meds: No Action bumetanide 2 mg tablet 2 mg PO DAILY carvedilol 3.125 mg tablet 3.125 mg PO Q12H losartan 100 mg tablet 100 mg PO DAILY spironolactone 50 mg tablet 50 mg PO DAILY colchicine 0.6 mg capsule 0.6 mg PO DAILY Qty: 7 0RF aspirin 81 mg tablet,delayed release (DR/EC) 81 mg PO DAILY albuterol sulfate 90 mcg/actuation HFA aerosol inhaler INHALATION Q6H PRN (Reason: shortness of breath or wheezing) Print Language: Tanzanian Referrals: Alley Cruz NP [Primary Care Provider] - 1 week
[2024-05-14 20:55] LABS: Basophils Percent Auto 0.3 % (0.2-2.0); Eosinophils Absolute Auto 0.1 10^3/uL (0.0-0.7); Eosinophils Percent Auto 1.2 % (0.9-7.0); Hematocrit 64.6 % (42.0-54.0); Hemoglobin 19.2 g/dL (14.0-18.0); Immature Granulocytes Abs Auto 0.02 10^3/uL (0.00-0.03); Immature Granulocytes Pct Auto 0.2 % (0.0-0.5); Lymphocytes Absolute Auto 1.9 10^3/uL (1.2-3.8); Lymphocytes Percent Auto 22.1 % (20.5-60.0); Mean Corpuscular HGB Conc 29.7 g/dL (29.9-35.2); Mean Corpuscular Hemoglobin 27.9 pg (25.9-34.0); Mean Platelet Volume 10.5 fL (9.5-13.5); Monocytes Absolute Auto 0.9 10^3/uL (0.3-0.8); Monocytes Percent Auto 10.3 % (1.7-12.0); Neutrophils Absolute Auto 5.7 10^3/uL (1.4-6.5); Neutrophils Percent Auto 65.9 % (43.0-75.0); Platelet Count 163 10^3/uL (150-450); Red Blood Count 6.87 10^6/uL (4.70-6.10); Red Cell Distribution Width 17.5 % (11.0-15.0); White Blood Count 8.6 10^3/uL (4.0-11.0)
[2024-05-14 21:08] LABS: Internal Control Within Normal Limits; SARS-CoV-2 Ag NEGATIVE (NEGATIVE)
[2024-05-14 21:11] LABS: Alanine Aminotransferase 22 U/L (16-63); Albumin Globulin Ratio 0.8; Albumin Level 3.1 g/dL (3.4-5.0); Alkaline Phosphatase 78 U/L (46-116); Anion Gap 4.4; Aspartate Amino Transferase 23 U/L (15-37); BUN Creatinine Ratio 22.2; Bilirubin Total 0.7 mg/dL (0.2-1.0); Calcium 9.1 mg/dL (8.5-10.1); Carbon Dioxide 34.7 mmol/L (21.0-32.0); Chloride 101 mmol/L (98-107); Estimated GFR (African America >60 (>=60); Estimated GFR (Non-African Ame >60 (>=60); Globulin 4.1 g/dL; Glucose 87 mg/dL (74-106); Potassium 4.1 mmol/L (3.5-5.1); Sodium 136 mmol/L (136-145); Total Protein 7.2 g/dL (6.4-8.2)
[2024-05-14 21:15] LABS: Lactate/Lactic Acid 1.6 mmol/L (0.4-2.0)
[2024-05-14 21:18] LABS: Troponin I High Sensitivity 28.4 pg/mL (4.0-76.1)
[2024-05-14] MEDS: CEFTRIAXONE 1,000 MG in 0.9 % SODIUM CHLORIDE 50 ML 100 MG IV (22:40)
[2024-05-14] MEDS: FUROSEMIDE 40 MG/4 ML VIAL IVP (22:40)
[2024-05-14] MEDS: IPRATROPIUM/ALBUTEROL SULFATE 3 ML AMPUL.NEB IH (22:53)
[2024-05-14] MEDS: AZITHROMYCIN 500 MG in 0.9 % SODIUM CHLORIDE 250 ML 250 MG IV (23:13)
--- OUTSIDE RECORDS SUMMARY | 2024-05-14 23:27 | XMS_ITS | CCD ---
Author Organization [facility] Care Team Providers Care Film Waxer Name Role Phone DR RADHA LANDEROS Admitting Unavailable LETI, DR GARCIA Consulting Unavailable LETI, DR GARCIA Attending Unavailable AICHHOLZ, CANCER PROGRAM COORDINATOR ELIAZAR Primary Care Unavailable AICHHOLZ, CANCER PROGRAM COORDINATOR ELIAZAR Admitting Unavailable AICHHOLZ, CANCER PROGRAM COORDINATOR ELIAZAR Primary Care Unavailable AICHHOLZ, CANCER PROGRAM COORDINATOR ELIAZAR Consulting Unavailable AICHHOLZ, CANCER PROGRAM COORDINATOR ELIAZAR Attending Unavailable WILLEM, DR RACQUEL Luis Consulting Unavailable AICHHOLZ, CANCER PROGRAM COORDINATOR ELIAZAR Primary Care Unavailable SURI, DR JEANNETTE Fuchs Admitting Unavailable SURI, DR JEANNETTE Fuchs Attending Unavailable SURI, DR JAENNETTE Fuchs Procedure Practitioner Unavaila cristina MCCORD, DR [...] Onset: 09-13-2022 Chronic Other aftercare (1 source) retirement (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; 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 Gloria Gonzalez Calcium [Mass/Vol] 10.1 mg/dL Normal 8.5-10.1 [facility] Comment on above: Performed By: #### C VDTBH #### [facility] [address] [place] [address] Dr. Gloria Gonzalez Chloride [Moles/Vol] 97 mmol/L Critically low 98-107 [facility] Comment on above: Performed By: #### C VDTBH #### [facility] [address] [place] [address] Dr. Gloria Gonzalez CO2 [Moles/Vol] 35.4 mmol/L Critically high 21.0-32.0 [facility] Comment on above: Performed By: #### C VDTBH #### [facility] [address] [place] [address] Dr. Gloria Gonzalez Creatinine [Mass/Vol] 0.98 mg/dL Normal 0.70-1.30 [facility] Comment on above: Performed By: #### C VDTBH #### [facility] [address] [place] [address] Dr. Gloria Gonzalez EGFR-AF PANAMANIAN >60 Normal >=60 [facility] Comment on above: Performed By: #### C VDTBH #### [facility] [address] [place] [address] Dr. Gloria Gonzalez EGFR-NON AF PANAMANIAN >60 Normal >=60 [facility] Comment on above: Performed By: #### C VDTBH #### [facility] [address] [place] [address] Dr. Gloria Gonzalez Glucose [Mass/Vol] 102 mg/dL Normal 74-106 [facility] Comment on above: Performed By: #### C VDTBH #### [facility] [address] [place] [address] Dr. Gloria Gonzalez Potassium [Moles/Vol] 4.2 mmol/L Normal 3.5-5.1 [facility] Comment on above: Performed By: #### C VDTBH #### [facility] [address] [place] [address] Dr. Gloria Gonzalez Sodium [Moles/Vol] 137 mmol/L Normal 136-145 [facility] Comment on above: Performed By: #### C VDTBH #### [facility] [address] [place] [address] Dr. Gloria Gonzalez Urea nitrogen [Mass/Vol] 24.0 mg/dL Critically high 7.0-18.0 [facility] Comment on above: Performed By: #### C VDTBH #### [facility] [address] [place] [address] Dr. Gloria Gonzalez Urea nitrogen/Creatinine [Mass ratio] 24.5 mg/mg Normal [facility] Comment on above: Performed By: #### C VDTBH #### [facility] [address] [place] [address] Dr. Gloria Gonzalez CBC AUTO DIFFon 07-15-2022 BASO # 0.0 103/ul Normal 0.0-0.1 [facility] Comment on above: Performed By: #### B STAGE DIRECTOR, HSTROPN #### [facility] [address] [place] [address] Dr. Gloria Gonzalez Basophils/100 WBC (Bld) 0.3 % Normal 0.2-2.0 [facility] Comment on above: Performed By: #### B STAGE DIRECTOR, HSTROPN #### [facility] [address] [place] [address] Dr. Gloria Gonzalez EO # 0.3 103/ul Normal 0.0-0.7 [facility] Comment on above: Performed By: #### B STAGE DIRECTOR, HSTROPN #### [facility] [address] [place] [address] Dr. Gloria Gonzalez Eosinophils/100 WBC (Bld) 3.1 % Normal 0.9-7.0 [facility] Comment on above: Performed By: #### B STAGE DIRECTOR, HSTROPN #### [facility] [address] [place] [address] Dr. Gloria Gonzalez Erythrocyte distribution width (RBC) [Ratio] 15.6 % Critically high 11.0-15.0 [facility] Comment on above: Performed By: #### B STAGE DIRECTOR, HSTROPN #### [facility] [address] [place] [address] Dr. Gloria Gonzalez Hematocrit (Bld) [Volume fraction] 54.8 % Critically high 42.0-54.0 [facility] Comment on above: Performed By: #### B STAGE DIRECTOR, HSTROPN #### [facility] [address] [place] [address] Dr. Gloria Gonzalez Hemoglobin (Bld) [Mass/Vol] 17.1 g/dL Normal 14.0-18.0 [facility] Comment on above: Performed By: #### B STAGE DIRECTOR, HSTROPN #### [facility] [address] [place] [address] Dr. Gloria Gonzalez IG # 0.02 10e3/ul Normal 0.00-0.03 [facility] Comment on above: Performed By: #### B STAGE DIRECTOR, HSTROPN #### [facility] [address] [address] [address] Gloria Gonzalez IG % 0.2 % Normal 0.0-0.5 [facility] Comment on above: Performed By: #### B STAGE DIRECTOR, HSTROPN #### [facility] [address] [place] [address] Dr. Gloria Gonzalez LYMPH # 1.2 103/ul Normal 1.2-3.8 [facility] Comment on above: Performed By: #### B STAGE DIRECTOR, HSTROPN #### [facility] [address] [place] [address] Dr. Gloria Gonzalez Lymphocytes/100 WBC (Bld) 11.9 % Critically low 20.5-60.0 [facility] Comment on above: Performed By: #### B STAGE DIRECTOR, HSTROPN #### [facility] [address] [place] [address] Dr. Gloria Gonzalez MANUAL DIFF REQ NO Normal [facility] Comment on above: Performed By: #### B STAGE DIRECTOR, HSTROPN #### [facility] [address] [place] [address] Dr. Gloria Gonzalez MCH (RBC) [Entitic mass] 28.8 pg Normal 25.9-34.0 [facility] Comment on above: Performed By: #### B STAGE DIRECTOR, HSTROPN #### [facility] [address] [place] [address] Dr. Gloria Gonzalez MCHC (RBC) [Mass/Vol] 31.2 g/dL Normal 29.9-35.2 [facility] Comment on above: Performed By: #### B STAGE DIRECTOR, HSTROPN #### [facility] [address] [place] [address] Dr. Gloria Gonzalez MCV (RBC) [Entitic vol] 92.4 fL Normal 80.0-94.0 [facility] Comment on above: Performed By: #### B STAGE DIRECTOR, HSTROPN #### [facility] [address] [place] [address] Dr. Gloria Gonzalez MONO # 1.3 103/ul Critically high 0.3-0.8 [facility] Comment on above: Performed By: #### B STAGE DIRECTOR, HSTROPN #### [facility] [address] [place] [address] Dr. Gloria Gonzalez Monocytes/100 WBC (Bld) 12.1 % Critically high 1.7-12.0 [facility] Comment on above: Performed By: #### B STAGE DIRECTOR, HSTROPN #### [facility] [address] [place] [address] Dr. Gloria Gonzalez NEUT # 7.5 103/ul Critically high 1.4-6.5 [facility] Comment on above: Performed By: #### B STAGE DIRECTOR, HSTROPN #### [facility] [address] [place] [address] Dr. Gloria Gonzalez Neutrophils/100 WBC (Bld) 72.4 % Normal 43.0-75.0 [facility] Comment on above: Performed By: #### B STAGE DIRECTOR, HSTROPN #### [facility] [address] [place] [address] Dr. Gloria Gonzalez Platelet mean volume (Bld) [Entitic vol] 9.9 fL Normal 9.5-13.5 [facility] Comment on above: Performed By: #### B STAGE DIRECTOR, HSTROPN #### [facility] [address] [place] [address] Dr. Gloria Gonzalez PLT 181 103/ul Normal 150-450 [facility] Comment on above: Performed By: #### B STAGE DIRECTOR, HSTROPN #### [facility] [address] [place] [address] Dr. Gloria Gonzalez RBC 5.93 106/ul Normal 4.70-6.10 [facility] Comment on above: Performed By: #### B STAGE DIRECTOR, HSTROPN #### [facility] [address] [place] [address] Dr. Gloria Gonzalez WBC 10.4 103/ul Normal 4.0-11.0 [facility] Comment on above: Performed By: #### B STAGE DIRECTOR, HSTROPN #### [facility] [address] [place] [address] Dr. Gloria Gonzalez CULTURE WOUNDon 07-15-2022 CULTURE [...] F Oxacillin <=0.25 S F Normal [facility] Comment on above: Performed By: #### B STAGE DIRECTOR, HSTROPN #### [facility] [address] [place] [address] Dr. Gloria Gonzalez PROF 14(COMP METB)on 022 Albumin [Mass/Vol] 2.8 g/dL Critically low 3.4-5.0 [facility] Comment on above: Performed By: #### C VDTBH #### [facility] [address] [place] [address] Dr. Gloria Gonzalez Albumin/Globulin [Mass ratio] 0.6 {ratio} Normal [facility] Comment on above: Performed By: #### C VDTBH #### [facility] [address] [place] [address] Dr. Gloria Gonzalez ALP [Catalytic activity/Vol] 86 U/L Normal 46-116 [facility] Comment on above: Performed By: #### C VDTBH #### [facility] [address] [place] [address] Dr. Gloria Gonzalez ALT [Catalytic activity/Vol] 16 U/L Normal 16-63 [facility] Comment on above: Performed By: #### C VDTBH #### [facility] [address] [address] [address] Gloria Gonzalez Anion gap [Moles/Vol] 1.4 mmol/L Normal [facility] Comment on above: Performed By: #### C VDTBH #### [facility] [address] [address] [address] Gloria Gonzalez AST [Catalytic activity/Vol] 22 U/L Normal 15-37 [facility] Comment on above: Performed By: #### C VDTBH #### [facility] [address] [place] [address] Dr. Gloria Gonzalez Bilirubin [Mass/Vol] 1.2 mg/dL Critically high 0.2-1.0 [facility] Comment on above: Performed By: #### C VDTBH #### [facility] [address] [place] [address] Dr. Gloria Gonzalez Calcium [Mass/Vol] 8.9 mg/dL Normal 8.5-10.1 [facility] Comment on above: Performed By: #### C VDTBH #### [facility] [address] [place] [address] Dr. Gloria Gonzalez Chloride [Moles/Vol] 95 mmol/L Critically low 98-107 [facility] Comment on above: Performed By: #### C VDTBH #### [facility] [address] [place] [address] Dr. Gloria Gonzalez CO2 [Moles/Vol] 41.1 mmol/L Critically high 21.0-32.0 [facility] Comment on above: Performed By: #### C VDTBH #### [facility] [address] [place] [address] Dr. Gloria Gonzalez Creatinine [Mass/Vol] 0.92 mg/dL Normal 0.70-1.30 [facility] Comment on above: Performed By: #### C VDTBH #### [facility] [address] [place] [address] Dr. Gloria Gonzalez EGFR-AF PANAMANIAN >60 Normal >=60 [facility] Comment on above: Performed By: #### C VDTBH #### [facility] [address] [address] [address] Gloria Gonzalez EGFR-NON AF PANAMANIAN >60 Normal >=60 [facility] Comment on above: Performed By: #### C VDTBH #### [facility] [address] [address] [address] Gloria Gonzalez Globulin (S) [Mass/Vol] 5.0 g/dL Normal [facility] Comment on above: Performed By: #### C VDTBH #### [facility] [address] [address] [address] Gloria Gonzalez Glucose [Mass/Vol] 97 mg/dL Normal 74-106 [facility] Comment on above: Performed By: #### C VDTBH #### [facility] [address] [address] [address] Gloria Gonzalez Potassium [Moles/Vol] 3.5 mmol/L Normal 3.5-5.1 [facility] Comment on above: Performed By: #### C VDTBH #### [facility] [address] [address] [address] Gloria Gonzalez Protein [Mass/Vol] 7.8 g/dL Normal 6.4-8.2 [facility] Comment on above: Performed By: #### C VDTBH #### [facility] [address] [address] [address] Gloria Gonzalez Sodium [Moles/Vol] 134 mmol/L Critically low 136-145 [facility] Comment on above: Performed By: #### C VDTBH #### [facility] [address] [address] [address] Gloria Gonzalez Urea nitrogen [Mass/Vol] 18.0 mg/dL Normal 7.0-18.0 [facility] Comment on above: Performed By: #### C VDTBH #### [facility] [address] [address] [address] Gloria Gonzalez Urea nitrogen/Creatinine [Mass ratio] 19.6 mg/mg Normal [facility] Comment on above: Performed By: #### C VDTBH #### [facility] [address] [place] [address] Dr. Gloria Gonzalez CBC AUTO DIFFon 07-14-2022 BASO # 0.0 103/ul Normal 0.0-0.1 [facility] Comment on above: Performed By: #### C BC #### [facility] [address] [place] [address] Dr. Gloria Gonzalez Basophils/100 WBC (Bld) 0.2 % Normal 0.2-2.0 [facility] Comment on above: Performed By: #### C BC #### [facility] [address] [place] [address] Dr. Gloria Gonzalez EO # 0.2 103/ul Normal 0.0-0.7 [facility] Comment on above: Performed By: #### C BC #### [facility] [address] [place] [address] Dr. Gloria Gonzalez Eosinophils/100 WBC (Bld) 2.2 % Normal 0.9-7.0 [facility] Comment on above: Performed By: #### C BC #### [facility] [address] [place] [address] Dr. Gloria Gonzalez Erythrocyte distribution width (RBC) [Ratio] 15.5 % Critically high 11.0-15.0 [facility] Comment on above: Performed By: #### C BC #### [facility] [address] [place] [address] Dr. Gloria Gonzalez Hematocrit (Bld) [Volume fraction] 57.2 % Critically high 42.0-54.0 [facility] Comment on above: Performed By: #### C BC #### [facility] [address] [place] [address] Dr. Gloria Gonzalez Hemoglobin (Bld) [Mass/Vol] 17.3 g/dL Normal 14.0-18.0 [facility] Comment on above: Performed By: #### C BC #### [facility] [address] [place] [address] Dr. Gloria Gonzalez IG # 0.02 10e3/ul Normal 0.00-0.03 [facility] Comment on above: Performed By: #### C BC #### [facility] [address] [place] [address] Dr. Gloria Gonzalez IG % 0.2 % Normal 0.0-0.5 [facility] Comment on above: Performed By: #### C BC #### [facility] [address] [place] [address] Dr. Gloria Gonzalez LYMPH # 0.9 103/ul Critically low 1.2-3.8 [facility] Comment on above: Performed By: #### C BC #### [facility] [address] [place] [address] Dr. Gloria Gonzalez Lymphocytes/100 WBC (Bld) 10.8 % Critically low 20.5-60.0 [facility] Comment on above: Performed By: #### C BC #### [facility] [address] [place] [address] Dr. Gloria Gonzalez MANUAL DIFF REQ NO Normal [facility] Comment on above: Performed By: #### C BC #### [facility] [address] [place] [address] Dr. Gloria Gonzalez MCH (RBC) [Entitic mass] 28.4 pg Normal 25.9-34.0 [facility] Comment on above: Performed By: #### C BC #### [facility] [address] [place] [address] Dr. Gloria Gonzalez MCHC (RBC) [Mass/Vol] 30.2 g/dL Normal 29.9-35.2 [facility] Comment on above: Performed By: #### C BC #### [facility] [address] [place] [address] Dr. Gloria Gonzalez MCV (RBC) [Entitic vol] 93.9 fL Normal 80.0-94.0 [facility] Comment on above: Performed By: #### C BC #### [facility] [address] [place] [address] Dr. Gloria Gonzalez MONO # 0.8 103/ul Normal 0.3-0.8 [facility] Comment on above: Performed By: #### C BC #### [facility] [address] [address] [address] Gloria Gonzalez Monocytes/100 WBC (Bld) 9.6 % Normal 1.7-12.0 [facility] Comment on above: Performed By: #### C BC #### [facility] [address] [address] [address] Gloria Gonzalez NEUT # 6.7 103/ul Critically high 1.4-6.5 [facility] Comment on above: Performed By: #### C BC #### [facility] [address] [address] [address] Gloria Gonzalez Neutrophils/100 WBC (Bld) 77.0 % Critically high 43.0-75.0 [facility] Comment on above: Performed By: #### C BC #### [facility] [address] [place] [address] Dr. Gloria Gonzalez Platelet mean volume (Bld) [Entitic vol] 10.0 fL Normal 9.5-13.5 [facility] Comment on above: Performed By: #### C BC #### [facility] [address] [place] [address] Dr. Gloria Gonzalez PLT 179 103/ul Normal 150-450 [facility] Comment on above: Performed By: #### C BC #### [facility] [address] [place] [address] Dr. Gloria Gonzalez RBC 6.09 106/ul Normal 4.70-6.10 [facility] Comment on above: Performed By: #### C BC #### [facility] [address] [place] [address] Dr. Gloria Gonzalez WBC 8.7 103/ul Normal 4.0-11.0 [facility] Comment on above: Performed By: #### C BC #### [facility] [address] [place] [address] Dr. Gloria Gonzalze PROF 14(COMP METB)on 022 Albumin [Mass/Vol] 3.0 g/dL Critically low 3.4-5.0 [facility] Comment on above: Performed By: #### C VDTBH #### [facility] [address] [address] [address] Gloria Gonzalez Albumin/Globulin [Mass ratio] 0.6 {ratio} Normal [facility] Comment on above: Performed By: #### C VDTBH #### [facility] [address] [address] [address] Gloria Gonzalez ALP [Catalytic activity/Vol] 92 U/L Normal 46-116 [facility] Comment on above: Performed By: #### C VDTBH #### [facility] [address] [address] [address] Gloria Gonzalez ALT [Catalytic activity/Vol] 13 U/L Critically low 16-63 [facility] Comment on above: Performed By: #### C VDTBH #### [facility] [address] [place] [address] Dr. Gloria Gonzalez Anion gap [Moles/Vol] 2.0 mmol/L Normal [facility] Comment on above: Performed By: #### C VDTBH #### [facility] [address] [place] [address] Dr. Gloria Gonzalez AST [Catalytic activity/Vol] 18 U/L Normal 15-37 [facility] Comment on above: Performed By: #### C VDTBH #### [facility] [address] [place] [address] Dr. Gloria Gonzalez Bilirubin [Mass/Vol] 1.2 mg/dL Critically high 0.2-1.0 [facility] Comment on above: Performed By: #### C VDTBH #### [facility] [address] [place] [address] Dr. Gloria Gonzalez Calcium [Mass/Vol] 8.9 mg/dL Normal 8.5-10.1 [facility] Comment on above: Performed By: #### C VDTBH #### [facility] [address] [place] [address] Dr. Gloria Gonzalez Chloride [Moles/Vol] 96 mmol/L Critically low 98-107 [facility] Comment on above: Performed By: #### C VDTBH #### [facility] [address] [address] [address] Gloria Gonzalez CO2 [Moles/Vol] 43.4 mmol/L Critically high 21.0-32.0 [facility] Comment on above: Performed By: #### C VDTBH #### [facility] [address] [address] [address] Gloria Gonzalez Creatinine [Mass/Vol] 0.86 mg/dL Normal 0.70-1.30 [facility] Comment on above: Performed By: #### C VDTBH #### [facility] [address] [address] [address] Gloria Gonzalez EGFR-AF PANAMANIAN >60 Normal >=60 [facility] Comment on above: Performed By: #### C VDTBH #### [facility] [address] [place] [address] Dr. Gloria Gonzalez EGFR-NON AF PANAMANIAN >60 Normal >=60 [facility] Comment on above: Performed By: #### C VDTBH #### [facility] [address] [place] [address] Dr. Gloria Gonzalez Globulin (S) [Mass/Vol] 5.0 g/dL Normal [facility] Comment on above: Performed By: #### C VDTBH #### [facility] [address] [place] [address] Dr. Gloria Gonzalez Glucose [Mass/Vol] 108 mg/dL Critically high 74-106 [facility] Comment on above: Performed By: #### C VDTBH #### [facility] [address] [address] [address] Gloria Gonzalez Potassium [Moles/Vol] 3.4 mmol/L Critically low 3.5-5.1 [facility] Comment on above: Performed By: #### C VDTBH #### [facility] [address] [address] [address] Gloria Gonzalez Protein [Mass/Vol] 8.0 g/dL Normal 6.4-8.2 [facility] Comment on above: Performed By: #### C VDTBH #### [facility] [address] [place] [address] Dr. Gloria Gonzalez Sodium [Moles/Vol] 138 mmol/L Normal 136-145 [facility] Comment on above: Performed By: #### C VDTBH #### [facility] [address] [place] [address] Dr. Gloria Gonzalez Urea nitrogen [Mass/Vol] 12.0 mg/dL Normal 7.0-18.0 [facility] Comment on above: Performed By: #### C VDTBH #### [facility] [address] [place] [address] Dr. Gloria Gonzalez Urea nitrogen/Creatinine [Mass ratio] 14.0 mg/mg Normal [facility] Comment on above: Performed By: #### C VDTBH #### [facility] [address] [place] [address] Dr. Gloria Gonzalez CBC AUTO DIFFon 07-13-2022 BASO # 0.0 103/ul Normal 0.0-0.1 [facility] Comment on above: Performed By: #### C VDTBH #### [facility] [address] [place] [address] Dr. Gloria Gonzalez Basophils/100 WBC (Bld) 0.4 % Normal 0.2-2.0 [facility] Comment on above: Performed By: #### C VDTBH #### [facility] [address] [place] [address] Dr. Gloria Gonzalez EO # 0.2 103/ul Normal 0.0-0.7 [facility] Comment on above: Performed By: #### C VDTBH #### [facility] [address] [place] [address] Dr. Gloria Gonzalez Eosinophils/100 WBC (Bld) 2.2 % Normal 0.9-7.0 [facility] Comment on above: Performed By: #### C VDTBH #### [facility] [address] [place] [address] Dr. Gloria Gonzalez Erythrocyte distribution width (RBC) [Ratio] 15.9 % Critically high 11.0-15.0 [facility] Comment on above: Performed By: #### C VDTBH #### [facility] [address] [place] [address] Dr. Gloria Gonzalez Hematocrit (Bld) [Volume fraction] 55.7 % Critically high 42.0-54.0 [facility] Comment on above: Performed By: #### C VDTBH #### [facility] [address] [place] [address] Dr. Gloria Gonzalez Hemoglobin (Bld) [Mass/Vol] 17.2 g/dL Normal 14.0-18.0 [facility] Comment on above: Performed By: #### C VDTBH #### [facility] [address] [place] [address] Dr. Gloria Gonzalez IG # 0.02 10e3/ul Normal 0.00-0.03 [facility] Comment on above: Performed By: #### C VDTBH #### [facility] [address] [place] [address] Dr. Gloria Gonzalez IG % 0.2 % Normal 0.0-0.5 [facility] Comment on above: Performed By: #### C VDTBH #### [facility] [address] [place] [address] Dr. Gloria Gonzalez LYMPH # 1.1 103/ul Critically low 1.2-3.8 [facility] Comment on above: Performed By: #### C VDTBH #### [facility] [address] [place] [address] Dr. Gloria Gonzalez Lymphocytes/100 WBC (Bld) 11.0 % Critically low 20.5-60.0 [facility] Comment on above: Performed By: #### C VDTBH #### [facility] [address] [place] [address] Dr. Gloria Gonzalez MANUAL DIFF REQ NO Normal [facility] Comment on above: Performed By: #### C VDTBH #### [facility] [address] [place] [address] Dr. Gloria Gonzalez MCH (RBC) [Entitic mass] 28.9 pg Normal 25.9-34.0 [facility] Comment on above: Performed By: #### C VDTBH #### [facility] [address] [place] [address] Dr. Gloria Gonzalez MCHC (RBC) [Mass/Vol] 30.9 g/dL Normal 29.9-35.2 [facility] Comment on above: Performed By: #### C VDTBH #### [facility] [address] [place] [address] Dr. Gloria Gonzalez MCV (RBC) [Entitic vol] 93.6 fL Normal 80.0-94.0 [facility] Comment on above: Performed By: #### C VDTBH #### [facility] [address] [place] [address] Dr. Gloria Gonzalez MONO # 1.1 103/ul Critically high 0.3-0.8 [facility] Comment on above: Performed By: #### C VDTBH #### [facility] [address] [place] [address] Dr. Gloria Gonzalez Monocytes/100 WBC (Bld) 11.0 % Normal 1.7-12.0 [facility] Comment on above: Performed By: #### C VDTBH #### [facility] [address] [place] [address] Dr. Gloria Gonzalez NEUT # 7.2 103/ul Critically high 1.4-6.5 [facility] Comment on above: Performed By: #### C VDTBH #### [facility] [address] [place] [address] Dr. Gloria Gonzalez Neutrophils/100 WBC (Bld) 75.2 % Critically high 43.0-75.0 [facility] Comment on above: Performed By: #### C VDTBH #### [facility] [address] [place] [address] Dr. Gloria Gonzalez Platelet mean volume (Bld) [Entitic vol] 9.9 fL Normal 9.5-13.5 [facility] Comment on above: Performed By: #### C VDTBH #### [facility] [address] [place] [address] Dr. Gloria Gonzalez PLT 160 103/ul Normal 150-450 [facility] Comment on above: Performed By: #### C VDTBH #### [facility] [address] [place] [address] Dr. Gloria Gonzalez RBC 5.95 106/ul Normal 4.70-6.10 [facility] Comment on above: Performed By: #### C VDTBH #### [facility] [address] [place] [address] Dr. Gloria Gonzalez WBC 9.6 103/ul Normal 4.0-11.0 [facility] Comment on above: Performed By: #### C VDTBH #### [facility] [address] [place] [address] Dr. Gloria Gonzalez PROF 14(COMP METB)on 022 Albumin [Mass/Vol] 2.9 g/dL Critically low 3.4-5.0 [facility] Comment on above: Performed By: #### C MP #### [facility] [address] [place] [address] Dr. Gloria Gonzalez Albumin/Globulin [Mass ratio] 0.6 {ratio} Normal [facility] Comment on above: Performed By: #### C MP #### [facility] [address] [place] [address] Dr. Gloria Gonzalez ALP [Catalytic activity/Vol] 85 U/L Normal 46-116 [facility] Comment on above: Performed By: #### C MP #### [facility] [address] [place] [address] Dr. Gloria Gonzalez ALT [Catalytic activity/Vol] 15 U/L Critically low 16-63 [facility] Comment on above: Performed By: #### C MP #### [facility] [address] [place] [address] Dr. Gloria Gonzalez Anion gap [Moles/Vol] 4.5 mmol/L Normal [facility] Comment on above: Performed By: #### C MP #### [facility] [address] [place] [address] Dr. Gloria Gonzalez AST [Catalytic activity/Vol] 20 U/L Normal 15-37 [facility] Comment on above: Performed By: #### C MP #### [facility] [address] [address] [address] Gloria Goznalez Bilirubin [Mass/Vol] 0.9 mg/dL Normal 0.2-1.0 [facility] Comment on above: Performed By: #### C MP #### [facility] [address] [address] [address] Gloria Gonzalez Calcium [Mass/Vol] 8.7 mg/dL Normal 8.5-10.1 [facility] Comment on above: Performed By: #### C MP #### [facility] [address] [address] [address] Gloria Gonzalez Chloride [Moles/Vol] 100 mmol/L Normal 98-107 [facility] Comment on above: Performed By: #### C MP #### [facility] [address] [address] [address] Gloria Gonzalez CO2 [Moles/Vol] 39.0 mmol/L Critically high 21.0-32.0 [facility] Comment on above: Performed By: #### C MP #### [facility] [address] [address] [address] Gloria Gonzalez Creatinine [Mass/Vol] 0.81 mg/dL Normal 0.70-1.30 [facility] Comment on above: Performed By: #### C MP #### [facility] [address] [address] [address] Gloria Gonzalez EGFR-AF PANAMANIAN >60 Normal >=60 [facility] Comment on above: Performed By: #### C MP #### [facility] [address] [address] [address] Gloria Gonzalez EGFR-NON AF PANAMANIAN >60 Normal >=60 [facility] Comment on above: Performed By: #### C MP #### [facility] [address] [address] [address] Gloria Gonzalez Globulin (S) [Mass/Vol] 4.5 g/dL Normal [facility] Comment on above: Performed By: #### C MP #### [facility] [address] [address] [address] Gloria Gonzalez Glucose [Mass/Vol] 102 mg/dL Normal 74-106 [facility] Comment on above: Performed By: #### C MP #### [facility] [address] [place] [address] Dr. Gloria Gonzalez Potassium [Moles/Vol] 3.5 mmol/L Normal 3.5-5.1 [facility] Comment on above: Performed By: #### C MP #### [facility] [address] [place] [address] Dr. Gloria Gonzalez Protein [Mass/Vol] 7.4 g/dL Normal 6.4-8.2 [facility] Comment on above: Performed By: #### C MP #### [facility] [address] [place] [address] Dr. Gloria Gonzalez Sodium [Moles/Vol] 140 mmol/L Normal 136-145 [facility] Comment on above: Performed By: #### C MP #### [facility] [address] [place] [address] Dr. Gloria Gonzalez Urea nitrogen [Mass/Vol] 13.0 mg/dL Normal 7.0-18.0 [facility] Comment on above: Performed By: #### C MP #### [facility] [address] [place] [address] Dr. Gloria Gonzalez Urea nitrogen/Creatinine [Mass ratio] 16.0 mg/mg Normal [facility] Comment on above: Performed By: #### C MP #### [facility] [address] [place] [address] Dr. Gloria Gonzalez BNPon 07-12-2022 Natriuretic peptide B (Bld) [Mass/Vol] 760.0 pg/mL Critically high <=450.0 [facility] Comment on above: Performed By: #### B STAGE DIRECTOR, BMP, LIPID #### [facility] [address] [place] [address] Dr. Gloria Gonzalez CBC AUTO DIFFon 07-12-2022 BASO # 0.0 103/ul Normal 0.0-0.1 [facility] Comment on above: Performed By: #### B STAGE DIRECTOR, HSTROPN #### [facility] [address] [place] [address] Dr. Gloria Gonzalez Basophils/100 WBC (Bld) 0.2 % Normal 0.2-2.0 [facility] Comment on above: Performed By: #### B STAGE DIRECTOR, HSTROPN #### [facility] [address] [place] [address] Dr. Gloria Gonzalez EO # 0.2 103/ul Normal 0.0-0.7 [facility] Comment on above: Performed By: #### B STAGE DIRECTOR, HSTROPN #### [facility] [address] [place] [address] Dr. Gloria Gonzalez Eosinophils/100 WBC (Bld) 2.0 % Normal 0.9-7.0 [facility] Comment on above: Performed By: #### B STAGE DIRECTOR, HSTROPN #### [facility] [address] [place] [address] Dr. Gloria Gonzalez Erythrocyte distribution width (RBC) [Ratio] 15.6 % Critically high 11.0-15.0 [facility] Comment on above: Performed By: #### B STAGE DIRECTOR, HSTROPN #### [facility] [address] [place] [address] Dr. Gloria Gonzalez Hematocrit (Bld) [Volume fraction] 56.2 % Critically high 42.0-54.0 [facility] Comment on above: Performed By: #### B STAGE DIRECTOR, HSTROPN #### [facility] [address] [place] [address] Dr. Gloria Gonzalez Hemoglobin (Bld) [Mass/Vol] 17.1 g/dL Normal 14.0-18.0 [facility] Comment on above: Performed By: #### B STAGE DIRECTOR, HSTROPN #### [facility] [address] [place] [address] Dr. Gloria Gonzalez IG # 0.03 10e3/ul Normal 0.00-0.03 [facility] Comment on above: Performed By: #### B STAGE DIRECTOR, HSTROPN #### [facility] [address] [address] [address] Gloria Gonzalez IG % 0.3 % Normal 0.0-0.5 [facility] Comment on above: Performed By: #### B STAGE DIRECTOR, HSTROPN #### [facility] [address] [place] [address] Dr. Gloria Gonzalez LYMPH # 1.3 103/ul Normal 1.2-3.8 [facility] Comment on above: Performed By: #### B STAGE DIRECTOR, HSTROPN #### [facility] [address] [place] [address] Dr. Gloria Gonzalez Lymphocytes/100 WBC (Bld) 14.9 % Critically low 20.5-60.0 [facility] Comment on above: Performed By: #### B STAGE DIRECTOR, HSTROPN #### [facility] [address] [place] [address] Dr. Gloria Gonzalez MANUAL DIFF REQ NO Normal [facility] Comment on above: Performed By: #### B STAGE DIRECTOR, HSTROPN #### [facility] [address] [place] [address] Dr. Gloria Gonzalez MCH (RBC) [Entitic mass] 28.9 pg Normal 25.9-34.0 [facility] Comment on above: Performed By: #### B STAGE DIRECTOR, HSTROPN #### [facility] [address] [place] [address] Dr. Gloria Gonzalez MCHC (RBC) [Mass/Vol] 30.4 g/dL Normal 29.9-35.2 [facility] Comment on above: Performed By: #### B STAGE DIRECTOR, HSTROPN #### [facility] [address] [place] [address] Dr. Gloria Gonzalez MCV (RBC) [Entitic vol] 95.1 fL Critically high 80.0-94.0 [facility] Comment on above: Performed By: #### B STAGE DIRECTOR, HSTROPN #### [facility] [address] [place] [address] Dr. Gloria Gonzalez MONO # 0.9 103/ul Critically high 0.3-0.8 [facility] Comment on above: Performed By: #### B STAGE DIRECTOR, HSTROPN #### [facility] [address] [place] [address] Dr. Gloria Gonzalez Monocytes/100 WBC (Bld) 9.7 % Normal 1.7-12.0 [facility] Comment on above: Performed By: #### B STAGE DIRECTOR, HSTROPN #### [facility] [address] [place] [address] Dr. Gloria Gonzalez NEUT # 6.4 103/ul Normal 1.4-6.5 [facility] Comment on above: Performed By: #### B STAGE DIRECTOR, HSTROPN #### [facility] [address] [place] [address] Dr. Gloria Gonzalez Neutrophils/100 WBC (Bld) 72.9 % Normal 43.0-75.0 [facility] Comment on above: Performed By: #### B STAGE DIRECTOR, HSTROPN #### [facility] [address] [place] [address] Dr. Gloria Gonzalez Platelet mean volume (Bld) [Entitic vol] 10.1 fL Normal 9.5-13.5 [facility] Comment on above: Performed By: #### B STAGE DIRECTOR, HSTROPN #### [facility] [address] [place] [address] Dr. Gloria Gonzalez PLT 176 103/ul Normal 150-450 [facility] Comment on above: Performed By: #### B STAGE DIRECTOR, HSTROPN #### [facility] [address] [place] [address] Dr. Gloria Gonzalez RBC 5.91 106/ul Normal 4.70-6.10 [facility] Comment on above: Performed By: #### B STAGE DIRECTOR, HSTROPN #### [facility] [address] [place] [address] Dr. Gloria Gonzalez WBC 8.8 103/ul Normal 4.0-11.0 [facility] Comment on above: Performed By: #### B STAGE DIRECTOR, HSTROPN #### [facility] [address] [place] [address] ABD/PELVIS WO CONon [...] JACK MCCORMACK Date: 2022-07-11 23:48 Normal [facility] Covid-19 PCR (CVDTBH)on 06-28 SARS-CoV-2 (COVID-19) RNA SADA+probe Ql (Unsp spec) Not detected Normal NOT DETECTED [facility] Comment on above: Result Comment: [...] for this test is supported by the [employer] Operator of Health and Human Service's declaration that [...] longer be used). Performed By: #### C [facility] #### [facility] [address] [place] [address] Dr. Gloria Gonzalez ECHOCARDIO M/2D COMPLETEon 1 09-11-2021 ECHOCARDIO M/2D COMPLETE Patient: RAFAEL WINKLER Exam Date: 07/12/2022 : 1980 Gender:M Ordering : DR JEANNETTE MCCORD . Admission #: [id number] Family : [facility] Order #: [id number] CLICK HERE TO VIEW EXAM ECHOCARDIOGRAM REPORT [...] Nicolas M.D. on 07/13/2022 at 20:00 Normal [facility] LIPID PROFILEon 07-12-2022 CHOL-HDL RATIO NORM SEE BELOW Normal [facility] Comment on above: Result Comment: 3.3 - 4.4 LOW RISK 4.4 - 7.1 AVERAGE RISK 7.1 - 11.0 MODERATE RISK >11.0 HIGH RISK Performed By: #### B STAGE DIRECTOR, BMP, LIPID #### [facility] [address] [address] [address] Gloria Gonzalez Cholesterol [Mass/Vol] 119 mg/dL Normal <=200 [facility] Comment on above: Performed By: #### B STAGE DIRECTOR, BMP, LIPID #### [facility] [address] [address] [address] Gloria Gonzalez Cholesterol in HDL [Mass/Vol] 46 mg/dL Normal 40-60 [facility] Comment on above: Performed By: #### B STAGE DIRECTOR, BMP, LIPID #### [facility] [address] [address] [address] Gloria Gonzalez Cholesterol in LDL [Mass/Vol] 59.2 mg/dL Normal [facility] Comment on above: Performed By: #### B STAGE DIRECTOR, BMP, LIPID #### [facility] [address] [place], [place] [address] Dr. Gloria Gonzalez Cholesterol.total/C holesterol in HDL [Mass ratio] 2.6 {ratio} Normal [facility] Comment on above: Performed By: #### B STAGE DIRECTOR, BMP, LIPID #### [facility] [address] [place], [place] [address] Dr. Gloria Gonzalez HDL NORMAL > or = 60 mg/dl - LO W CARDIOVASCULAR RISK <40 mg/dl - HIGH CARDIOVASCULAR RISK Normal [facility] Comment on above: Performed By: #### B STAGE DIRECTOR, BMP, LIPID #### [facility] [address] [place], [place] [address] Dr. Gloria Gonzalez LDL CALC NORMAL SEE BELOW Normal [facility] Comment on above: Result Comment: <100 mg/dl OPTIMAL 100 - 129 mg/dl NEAR OR ABOVE OPTIMAL 130 - 159 mg/dl BORDERLINE HIGH 160 - 189 mg/dl HIGH >190 mg/dl VERY HIGH Performed By: #### B STAGE DIRECTOR, BMP, LIPID #### [facility] [address] [address] [address] Gloria Gonzalez Triglyceride [Mass/Vol] 69 mg/dL Normal <=150 [facility] Comment on above: Performed By: #### B STAGE DIRECTOR, BMP, LIPID #### [facility] [address] [address] [address] Gloria Gonzalez VLDL CALC 13.8 mg/dL Normal [facility] Comment on above: Performed By: #### B STAGE DIRECTOR, BMP, LIPID #### [facility] [address] [address] [address] Gloria Gonzalez PROF CHEM 8 (BAS METB)on Anion gap [Moles/Vol] 5.0 mmol/L Normal [facility] Comment on above: Performed By: #### B STAGE DIRECTOR, BMP, LIPID #### [facility] [address] [address] [address] Gloria Gonzalez Calcium [Mass/Vol] 8.7 mg/dL Normal 8.5-10.1 [facility] Comment on above: Performed By: #### B STAGE DIRECTOR, BMP, LIPID #### [facility] [address] [address] [address] Gloria Gonzalez Chloride [Moles/Vol] 104 mmol/L Normal 98-107 [facility] Comment on above: Performed By: #### B STAGE DIRECTOR, BMP, LIPID #### [facility] [address] [address] [address] Gloria Gonzalez CO2 [Moles/Vol] 35.1 mmol/L Critically high 21.0-32.0 [facility] Comment on above: Performed By: #### B STAGE DIRECTOR, BMP, LIPID #### [facility] [address] [address] [address] Gloria Gonzalez Creatinine [Mass/Vol] 0.77 mg/dL Normal 0.70-1.30 [facility] Comment on above: Performed By: #### B STAGE DIRECTOR, BMP, LIPID #### [facility] [address] [address] [address] Gloria Gonzalez EGFR-AF PANAMANIAN >60 Normal >=60 [facility] Comment on above: Performed By: #### B STAGE DIRECTOR, BMP, LIPID #### [facility] [address] [address] [address] Gloria Gonzalez EGFR-NON AF PANAMANIAN >60 Normal >=60 [facility] Comment on above: Performed By: #### B STAGE DIRECTOR, BMP, LIPID #### [facility] [address] [address] [address] Gloria Gonzalez Glucose [Mass/Vol] 124 mg/dL Critically high 74-106 [facility] Comment on above: Performed By: #### B STAGE DIRECTOR, BMP, LIPID #### [facility] [address] [place] [address] Dr. Gloria Gonzalez Potassium [Moles/Vol] 4.1 mmol/L Normal 3.5-5.1 [facility] Comment on above: Performed By: #### B STAGE DIRECTOR, BMP, LIPID #### [facility] [address] [address] [address] Gloria Gonzalez Sodium [Moles/Vol] 140 mmol/L Normal 136-145 [facility] Comment on above: Performed By: #### B STAGE DIRECTOR, BMP, LIPID #### [facility] [address] [place] [address] Dr. Gloria Gonzalez Urea nitrogen [Mass/Vol] 12.0 mg/dL Normal 7.0-18.0 [facility] Comment on above: Performed By: #### B STAGE DIRECTOR, BMP, LIPID #### [facility] [address] [address] [address] Gloria Gonzalez Urea nitrogen/Creatinine [Mass ratio] 15.6 mg/mg Normal [facility] Comment on above: Performed By: #### B STAGE DIRECTOR, BMP, LIPID #### [facility] [address] [address] [address] Gloria Gonzalez BNPon 07-11-2022 Natriuretic peptide B (Bld) [Mass/Vol] 858.0 pg/mL Critically high <=450.0 [facility] Comment on above: Performed By: #### B STAGE DIRECTOR, HSTROPN #### [facility] [address] [place] [address] Dr. Gloria Gonzalez CBC AUTO DIFFon 07-11-2022 BASO # 0.0 103/ul Normal 0.0-0.1 [facility] Comment on above: Performed By: #### C BC #### [facility] [address] [place] [address] Dr. Gloria Gonzalez Basophils/100 WBC (Bld) 0.4 % Normal 0.2-2.0 [facility] Comment on above: Performed By: #### C BC #### [facility] [address] [place] [address] Dr. Gloria Gonzalez EO # 0.2 103/ul Normal 0.0-0.7 [facility] Comment on above: Performed By: #### C BC #### [facility] [address] [place] [address] Dr. Gloria Gonzalez Eosinophils/100 WBC (Bld) 2.3 % Normal 0.9-7.0 [facility] Comment on above: Performed By: #### C BC #### [facility] [address] [place] [address] Dr. Gloria Gonzalez Erythrocyte distribution width (RBC) [Ratio] 15.9 % Critically high 11.0-15.0 [facility] Comment on above: Performed By: #### C BC #### [facility] [address] [place] [address] Dr. Gloria Gonzalez Hematocrit (Bld) [Volume fraction] 57.5 % Critically high 42.0-54.0 [facility] Comment on above: Performed By: #### C BC #### [facility] [address] [place] [address] Dr. Gloria Gonzalez Hemoglobin (Bld) [Mass/Vol] 17.8 g/dL Normal 14.0-18.0 [facility] Comment on above: Performed By: #### C BC #### [facility] [address] [place] [address] Dr. Gloria Gonzalez IG # 0.02 10e3/ul Normal 0.00-0.03 [facility] Comment on above: Performed By: #### C BC #### [facility] [address] [place] [address] Dr. Gloria Gonzalez IG % 0.2 % Normal 0.0-0.5 [facility] Comment on above: Performed By: #### C BC #### [facility] [address] [place] [address] Dr. Gloria Gonzalez LYMPH # 2.0 103/ul Normal 1.2-3.8 [facility] Comment on above: Performed By: #### C BC #### [facility] [address] [place] [address] Dr. Gloria Gonzalez Lymphocytes/100 WBC (Bld) 21.2 % Normal 20.5-60.0 [facility] Comment on above: Performed By: #### C BC #### [facility] [address] [place] [address] Dr. Gloria Gonzalez MANUAL DIFF REQ NO Normal [facility] Comment on above: Performed By: #### C BC #### [facility] [address] [place] [address] Dr. Gloria Gonzalez MCH (RBC) [Entitic mass] 28.7 pg Normal 25.9-34.0 [facility] Comment on above: Performed By: #### C BC #### [facility] [address] [place] [address] Dr. Gloria Gonzalez MCHC (RBC) [Mass/Vol] 31.0 g/dL Normal 29.9-35.2 [facility] Comment on above: Performed By: #### C BC #### [facility] [address] [place] [address] Dr. Gloria Gonzalez MCV (RBC) [Entitic vol] 92.7 fL Normal 80.0-94.0 [facility] Comment on above: Performed By: #### C BC #### [facility] [address] [place] [address] Dr. Gloria Gonzalez MONO # 0.8 103/ul Normal 0.3-0.8 [facility] Comment on above: Performed By: #### C BC #### [facility] [address] [place] [address] Dr. Gloria Gonzalez Monocytes/100 WBC (Bld) 8.9 % Normal 1.7-12.0 [facility] Comment on above: Performed By: #### C BC #### [facility] [address] [place] [address] Dr. Gloria Gonzalez NEUT # 6.2 103/ul Normal 1.4-6.5 [facility] Comment on above: Performed By: #### C BC #### [facility] [address] [place] [address] Dr. Gloria Gonzalez Neutrophils/100 WBC (Bld) 67.0 % Normal 43.0-75.0 [facility] Comment on above: Performed By: #### C BC #### [facility] [address] [place] [address] Dr. Gloria Gonzalez Platelet mean volume (Bld) [Entitic vol] 10.6 fL Normal 9.5-13.5 [facility] Comment on above: Performed By: #### C BC #### [facility] [address] [place] [address] Dr. Gloria Gonzalez PLT 179 103/ul Normal 150-450 [facility] Comment on above: Performed By: #### C BC #### [facility] [address] [place] [address] Dr. Gloria Gonzalez RBC 6.20 106/ul Critically high 4.70-6.10 [facility] Comment on above: Performed By: #### C BC #### [facility] [address] [place] [address] Dr. Gloria Gonzalez WBC 9.3 103/ul Normal 4.0-11.0 [facility] Comment on above: Performed By: #### C BC #### [facility] [address] [place] [address] Dr. Gloria Gonzalez CULTURE BLOODon 07-11-2022 Microscopic examination of blood, culture Culture Observations: NO GROWTH AT 5 DAYS. Normal [facility] Comment on above: Performed By: #### B STAGE DIRECTOR, HSTROPN #### [facility] [address] [place] [address] Dr. Gloria Gonzalez Microscopic examination of blood, culture Culture Observations: NO GROWTH AT 5 DAYS. Normal [facility] Comment on above: Performed By: #### B STAGE DIRECTOR, HSTROPN #### [facility] [address] [place] [address] Dr. Gloria Gonzalez LACTATE/LACTIC ACIDon 2021 Lactate [Moles/Vol] 0.8 mmol/L Normal 0.4-1.9 [facility] Comment on above: Performed By: #### L ACT #### [facility] [address] [place] [address] Dr. Gloria Gonzalez PROF 14(COMP METB)on 022 Albumin [Mass/Vol] 3.1 g/dL Critically low 3.4-5.0 [facility] Comment on above: Performed By: #### C VDTBH #### [facility] [address] [place] [address] Dr. Gloria Gonzalez Albumin/Globulin [Mass ratio] 0.8 {ratio} [facility] Comment on above: Performed By: #### C VDTBH #### [facility] [address] [place] [address] Dr. Gloria Gonzalez ALP [Catalytic activity/Vol] 97 U/L Normal 46-116 [facility] Comment on above: Performed By: #### C VDTBH #### [facility] [address] [place] [address] Dr. Gloria Gonzalez ALT [Catalytic activity/Vol] 20 U/L Normal 16-63 [facility] Comment on above: Performed By: #### C VDTBH #### [facility] [address] [place] [address] Dr. Gloria Gonzalez Anion gap [Moles/Vol] 6.3 mmol/L [facility] Comment on above: Performed By: #### C VDTBH #### [facility] [address] [place], [place] [id number] Dr. Gloria Gonzalez AST [Catalytic activity/Vol] 19 U/L Normal 15-37 [facility] Comment on above: Performed By: #### C VDTBH #### [facility] [address] [place] [address] Dr. Gloria Gonzalez Bilirubin [Mass/Vol] 0.5 mg/dL Normal 0.2-1.0 [facility] Comment on above: Performed By: #### C VDTBH #### [facility] [address] [place] [address] Dr. Gloria Gonzalez Calcium [Mass/Vol] 9.0 mg/dL Normal 8.5-10.1 [facility] Comment on above: Performed By: #### C VDTBH #### [facility] [address] [place] [address] Dr. Gloria Gonzalez Chloride [Moles/Vol] 104 mmol/L Normal 98-107 [facility] Comment on above: Performed By: #### C VDTBH #### [facility] [address] [place] [address] Dr. Gloria Gonzalez CO2 [Moles/Vol] 33.9 mmol/L Critically high 21.0-32.0 [facility] Comment on above: Performed By: #### C VDTBH #### [facility] [address] [place] [address] Dr. Gloria Gonzalez Creatinine [Mass/Vol] 0.77 mg/dL Normal 0.70-1.30 [facility] Comment on above: Performed By: #### C VDTBH #### [facility] [address] [place] [address] Dr. Gloria Gonzalez EGFR-AF PANAMANIAN >60 Normal >=60 [facility] Comment on above: Performed By: #### C VDTBH #### [facility] [address] [place] [address] Dr. Gloria Gonzalez EGFR-NON AF PANAMANIAN >60 Normal >=60 [facility] Comment on above: Performed By: #### C VDTBH #### [facility] [address] [place] [address] Dr. Gloria Gonzalez Globulin (S) [Mass/Vol] 4.1 g/dL Normal [facility] Comment on above: Performed By: #### C VDTBH #### [facility] [address] [address] [address] Gloria Gonzalez Glucose [Mass/Vol] 85 mg/dL Normal 74-106 [facility] Comment on above: Performed By: #### C VDTBH #### [facility] [address] [place] [address] Dr. Gloria Gonzalez Potassium [Moles/Vol] 4.2 mmol/L Normal 3.5-5.1 [facility] Comment on above: Performed By: #### C VDTBH #### [facility] [address] [place] [address] Dr. Gloria Gonzalez Protein [Mass/Vol] 7.2 g/dL Normal 6.4-8.2 [facility] Comment on above: Performed By: #### C VDTBH #### [facility] [address] [place] [address] Dr. Gloria Gonzalez Sodium [Moles/Vol] 140 mmol/L Normal 136-145 [facility] Comment on above: Performed By: #### C VDTBH #### [facility] [address] [place] [address] Dr. Gloria Gonzalez Urea nitrogen [Mass/Vol] 13.0 mg/dL Normal 7.0-18.0 [facility] Comment on above: Performed By: #### C VDTBH #### [facility] [address] [place] [address] Dr. Gloria Gonzalez Urea nitrogen/Creatinine [Mass ratio] 16.9 mg/mg Normal [facility] Comment on above: Performed By: #### C VDTBH #### [facility] [address] [place] [address] Dr. Gloria Gonzalez TROPONIN, HIGH SENSITIVITYon 07-11-2022 HSTROP 31.8 pg/mL Normal 4.0-76.1 [facility] Comment on above: Result Comment: CUT- OFF POINTS HAVE BEEN ESTABLISHED BASED ON THE FOURTH UNIVERSAL DEFINITIONS OF MYOCARDIAL INFARCTION. THE UPPER REFERENCE LIMIT (URL) OF TROPONIN, DEFINED THE 99TH PERCENTILE OF cTnI DISTRIBUTION IN A REFERENCE POPULATION, HAS BEEN CONFIRMED THE DECISION THRESHOLD FOR ME DIAGNOSIS. Performed By: #### B GREG, HSTROPN #### [facility] [address] [address] [address] Gloria Gonzalez US SCROTUM W VASCULAR [...] by: ELIAZAR FRIEDMAN Date: 2022-07-11 21:03 Normal [facility] XR CHEST 1 Von 07-11-2022 XR CHEST 1 V EXAM: XR CHEST 1 V HISTORY: SHORTNESS OF BREATH COMPARISON: None. TECHNIQUE: Portable chest FINDINGS: Poor inspiratory effort. No focal consolidation or infiltrate. No pneumothorax or pleural effusion. Questionable cardiac enlargement. 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 [facility] Summary Purpose Family History No Family History Records Found Advance Directives No Advanced Directives Records Found Additional Source Comments (unrecognized sect ion and content) No Status Records Found INFORMATION SOURCE (unrecogn ized section and content) DATE CREATED AUTHOR 10/12/2022 [facility] FOR RECORDS PERTAINING TO PATIENTS WHO [...] BE BASED ON THE PRIMARY CLINICAL RECORDS. [facility] [employer] [facility]. provides no warranty or guarantee of the accuracy or completeness of information in this document.
[2024-05-14] MEDS: ACETAMINOPHEN 325 MG TABLET 650 MG PO (23:59)
[2024-05-14] MEDS: CARVEDILOL 3.125 MG TABLET PO (23:59)
[2024-05-15] VITALS (29 sets, daily range): BP systolic 102–157; BP diastolic 72–130; PULSE 61–100; RESP 20; TEMP 36.2–36.6; O2SAT 54–98
--- NOTE | 2024-05-15 | CT_ITS ---
[address] [address] Patient Name: RAFAEL WINKLER MRN: [id number] date: 1980 Sex: M Assigned Patient Location: ICU Current Patient Location: ICU Accession/Order Number: [id number] Exam Date: 05/15/2024 18:22 Report Date: 05/15/2024 19:55 At the request of: UMU REYES Procedure: CT angio chest CTA CHEST. INDICATION: Pulmonary embolism. COMPARISON: None available. TECHNIQUE: CT pulmonary angiogram. Initially, limited axial non-contrast images through chest obtained to establish proper bolus timing. Subsequently, contrast enhanced axial CT images were obtained through the chest. Axial, sagittal and coronal reformatted maximum intensity projection images and / or 3D volume rendered images created. FINDINGS: PULMONARY ARTERIES: No intraluminal filling defects within the central pulmonary arteries to suggest pulmonary embolism.. Limited evaluation of the segmental and subsegmental branches due to suboptimal opacification. Normal RV:LV ratio (<1). AORTA: The thoracic aorta diameter is normal without aneurysm or dissection. LUNGS: Lungs are clear bilaterally. No pleural effusions.. No pneumothorax. LYMPH NODES: No enlarged mediastinal lymph nodes by CT criteria. HEART: Cardiomegaly. No pericardial effusion. UPPER ABDOMEN: Images of the upper abdomen demonstrate no abnormality. MUSCULOSKELETAL: No acute osseous abnormality. CT/CT angio chest IMPRESSION: 1. No central pulmonary embolism. Limited evaluation of the segmental and subsegmental branches. 2. No aortic aneurysm or dissection. 3. No pulmonary airspace disease. Electronically authenticated by: AMOL LYNCH Date: 05/15/2024 19:55
[2024-05-15] MEDS: BUMETANIDE 1 MG/4 ML VIAL IVP (05:19)
[2024-05-15] MEDS: IPRATROPIUM/ALBUTEROL SULFATE 3 ML AMPUL.NEB IH (05:36)
--- OUTSIDE RECORDS SUMMARY | 2024-05-15 05:57 | XMS_ITS | CCD ---
Author Organization [facility] Care Team Providers Care Assembler Finger Buffs Name Role Phone DR RADHA LANDEROS Admitting Unavailable LETI, DR GARCIA Consulting Unavailable LETI, DR GARCIA Attending Unavailable AICHHOLZ, DOOR CLOSER ELIAZAR Primary Care Unavailable AICHHOLZ, DOOR CLOSER ELIAZAR Admitting Unavailable AICHHOLZ, DOOR CLOSER ELIAZAR Primary Care Unavailable AICHHOLZ, DOOR CLOSER ELIAZAR Consulting Unavailable AICHHOLZ, DOOR CLOSER ELIAZAR Attending Unavailable WILLEM, DR RACQUEL Luis Consulting Unavailable AICHHOLZ, DOOR CLOSER ELIAZAR Primary Care Unavailable SURI, DR JEANNETTE [...] Onset: 09-13-2022 Chronic Other aftercare (1 source) nursing home (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; Translations: [VICE PRESIDENT OF MARKETING 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 Gloria Gonzalez Calcium [Mass/Vol] 10.1 mg/dL Normal 8.5-10.1 [facility] Comment on above: Performed By: #### C VDTBH #### [facility] [address] [place] [address] Dr. Gloria Gonzalez Chloride [Moles/Vol] 97 mmol/L Critically low 98-107 [facility] Comment on above: Performed By: #### C VDTBH #### [facility] [address] [place] [address] Dr. Gloria Gonzalez CO2 [Moles/Vol] 35.4 mmol/L Critically high 21.0-32.0 [facility] Comment on above: Performed By: #### C VDTBH #### [facility] [address] [place] [address] Dr. Gloria Gonzalez Creatinine [Mass/Vol] 0.98 mg/dL Normal 0.70-1.30 [facility] Comment on above: Performed By: #### C VDTBH #### [facility] [address] [place] [address] Dr. Gloria Gonzalez EGFR-AF SWISS >60 Normal >=60 [facility] Comment on above: Performed By: #### C VDTBH #### [facility] [address] [place] [address] Dr. Gloria Gonzalez EGFR-NON AF SWISS >60 Normal >=60 [facility] Comment on above: Performed By: #### C VDTBH #### [facility] [address] [place] [address] Dr. Gloria Gonzalez Glucose [Mass/Vol] 102 mg/dL Normal 74-106 [facility] Comment on above: Performed By: #### C VDTBH #### [facility] [address] [place] [address] Dr. Gloria Gonzalez Potassium [Moles/Vol] 4.2 mmol/L Normal 3.5-5.1 [facility] Comment on above: Performed By: #### C VDTBH #### [facility] [address] [place] [address] Dr. Gloria Gonzalez Sodium [Moles/Vol] 137 mmol/L Normal 136-145 [facility] Comment on above: Performed By: #### C VDTBH #### [facility] [address] [place] [address] Dr. Gloria Gonzalez Urea nitrogen [Mass/Vol] 24.0 mg/dL Critically high 7.0-18.0 [facility] Comment on above: Performed By: #### C VDTBH #### [facility] [address] [place] [address] Dr. Gloria Gonzalez Urea nitrogen/Creatinine [Mass ratio] 24.5 mg/mg Normal [facility] Comment on above: Performed By: #### C VDTBH #### [facility] [address] [place] [address] Dr. Gloria Gonzalez CBC AUTO DIFFon 07-15-2022 BASO # 0.0 103/ul Normal 0.0-0.1 [facility] Comment on above: Performed By: #### B CARDIAC CATHETERIZATION TECHNICIAN, HSTROPN #### [facility] [address] [place] [address] Dr. Gloria Gonzalez Basophils/100 WBC (Bld) 0.3 % Normal 0.2-2.0 [facility] Comment on above: Performed By: #### B CARDIAC CATHETERIZATION TECHNICIAN, HSTROPN #### [facility] [address] [place] [address] Dr. Gloria Gonzalez EO # 0.3 103/ul Normal 0.0-0.7 [facility] Comment on above: Performed By: #### B CARDIAC CATHETERIZATION TECHNICIAN, HSTROPN #### [facility] [address] [place] [address] Dr. Gloria Gonzalez Eosinophils/100 WBC (Bld) 3.1 % Normal 0.9-7.0 [facility] Comment on above: Performed By: #### B CARDIAC CATHETERIZATION TECHNICIAN, HSTROPN #### [facility] [address] [place] [address] Dr. Gloria Gonzalez Erythrocyte distribution width (RBC) [Ratio] 15.6 % Critically high 11.0-15.0 [facility] Comment on above: Performed By: #### B CARDIAC CATHETERIZATION TECHNICIAN, HSTROPN #### [facility] [address] [place] [address] Dr. Gloria Gonzalez Hematocrit (Bld) [Volume fraction] 54.8 % Critically high 42.0-54.0 [facility] Comment on above: Performed By: #### B CARDIAC CATHETERIZATION TECHNICIAN, HSTROPN #### [facility] [address] [place] [address] Dr. Gloria Gonzalez Hemoglobin (Bld) [Mass/Vol] 17.1 g/dL Normal 14.0-18.0 [facility] Comment on above: Performed By: #### B CARDIAC CATHETERIZATION TECHNICIAN, HSTROPN #### [facility] [address] [place] [address] Dr. Gloria Gonzalez IG # 0.02 10e3/ul Normal 0.00-0.03 [facility] Comment on above: Performed By: #### B CARDIAC CATHETERIZATION TECHNICIAN, HSTROPN #### [facility] [address] [address] [address] Gloria Gonzalez IG % 0.2 % Normal 0.0-0.5 [facility] Comment on above: Performed By: #### B CARDIAC CATHETERIZATION TECHNICIAN, HSTROPN #### [facility] [address] [place] [address] Dr. Gloria Gonzalez LYMPH # 1.2 103/ul Normal 1.2-3.8 [facility] Comment on above: Performed By: #### B CARDIAC CATHETERIZATION TECHNICIAN, HSTROPN #### [facility] [address] [place] [address] Dr. Gloria Gonzalez Lymphocytes/100 WBC (Bld) 11.9 % Critically low 20.5-60.0 [facility] Comment on above: Performed By: #### B CARDIAC CATHETERIZATION TECHNICIAN, HSTROPN #### [facility] [address] [place] [address] Dr. Gloria Gonzalez MANUAL DIFF REQ NO Normal [facility] Comment on above: Performed By: #### B CARDIAC CATHETERIZATION TECHNICIAN, HSTROPN #### [facility] [address] [place] [address] Dr. Gloria Gonzalez MCH (RBC) [Entitic mass] 28.8 pg Normal 25.9-34.0 [facility] Comment on above: Performed By: #### B CARDIAC CATHETERIZATION TECHNICIAN, HSTROPN #### [facility] [address] [place] [address] Dr. Gloria Gonzalez MCHC (RBC) [Mass/Vol] 31.2 g/dL Normal 29.9-35.2 [facility] Comment on above: Performed By: #### B CARDIAC CATHETERIZATION TECHNICIAN, HSTROPN #### [facility] [address] [place] [address] Dr. Gloria Gonzalez MCV (RBC) [Entitic vol] 92.4 fL Normal 80.0-94.0 [facility] Comment on above: Performed By: #### B CARDIAC CATHETERIZATION TECHNICIAN, HSTROPN #### [facility] [address] [place] [address] Dr. Gloria Gonzalez MONO # 1.3 103/ul Critically high 0.3-0.8 [facility] Comment on above: Performed By: #### B CARDIAC CATHETERIZATION TECHNICIAN, HSTROPN #### [facility] [address] [place] [address] Dr. Gloria Gonzalez Monocytes/100 WBC (Bld) 12.1 % Critically high 1.7-12.0 [facility] Comment on above: Performed By: #### B CARDIAC CATHETERIZATION TECHNICIAN, HSTROPN #### [facility] [address] [place] [address] Dr. Gloria Gonzalez NEUT # 7.5 103/ul Critically high 1.4-6.5 [facility] Comment on above: Performed By: #### B CARDIAC CATHETERIZATION TECHNICIAN, HSTROPN #### [facility] [address] [place] [address] Dr. Gloria Gonzalez Neutrophils/100 WBC (Bld) 72.4 % Normal 43.0-75.0 [facility] Comment on above: Performed By: #### B CARDIAC CATHETERIZATION TECHNICIAN, HSTROPN #### [facility] [address] [place] [address] Dr. Gloria Gonzalez Platelet mean volume (Bld) [Entitic vol] 9.9 fL Normal 9.5-13.5 [facility] Comment on above: Performed By: #### B CARDIAC CATHETERIZATION TECHNICIAN, HSTROPN #### [facility] [address] [place] [address] Dr. Gloria Gonzalez PLT 181 103/ul Normal 150-450 [facility] Comment on above: Performed By: #### B CARDIAC CATHETERIZATION TECHNICIAN, HSTROPN #### [facility] [address] [place] [address] Dr. Gloria Gonzalez RBC 5.93 106/ul Normal 4.70-6.10 [facility] Comment on above: Performed By: #### B CARDIAC CATHETERIZATION TECHNICIAN, HSTROPN #### [facility] [address] [place] [address] Dr. Gloria Gonzalez WBC 10.4 103/ul Normal 4.0-11.0 [facility] Comment on above: Performed By: #### B CARDIAC CATHETERIZATION TECHNICIAN, HSTROPN #### [facility] [address] [place] [address] Dr. Gloria Gonzalez CULTURE WOUNDon 07-15-2022 CULTURE [...] F Oxacillin <=0.25 S F Normal [facility] Comment on above: Performed By: #### B CARDIAC CATHETERIZATION TECHNICIAN, HSTROPN #### [facility] [address] [place] [address] Dr. Gloria Gonzalez PROF 14(COMP METB)on 022 Albumin [Mass/Vol] 2.8 g/dL Critically low 3.4-5.0 [facility] Comment on above: Performed By: #### C VDTBH #### [facility] [address] [place] [address] Dr. Gloria Gonzalez Albumin/Globulin [Mass ratio] 0.6 {ratio} Normal [facility] Comment on above: Performed By: #### C VDTBH #### [facility] [address] [place] [address] Dr. Gloria Gonzalez ALP [Catalytic activity/Vol] 86 U/L Normal 46-116 [facility] Comment on above: Performed By: #### C VDTBH #### [facility] [address] [place] [address] Dr. Gloria Gonzalez ALT [Catalytic activity/Vol] 16 U/L Normal 16-63 [facility] Comment on above: Performed By: #### C VDTBH #### [facility] [address] [address] [address] Gloria Gonzalez Anion gap [Moles/Vol] 1.4 mmol/L Normal [facility] Comment on above: Performed By: #### C VDTBH #### [facility] [address] [address] [address] Gloria Gonzalez AST [Catalytic activity/Vol] 22 U/L Normal 15-37 [facility] Comment on above: Performed By: #### C VDTBH #### [facility] [address] [place] [address] Dr. Gloria Gonzalez Bilirubin [Mass/Vol] 1.2 mg/dL Critically high 0.2-1.0 [facility] Comment on above: Performed By: #### C VDTBH #### [facility] [address] [place] [address] Dr. Gloria Gonzalez Calcium [Mass/Vol] 8.9 mg/dL Normal 8.5-10.1 [facility] Comment on above: Performed By: #### C VDTBH #### [facility] [address] [place] [address] Dr. Gloria Gonzalez Chloride [Moles/Vol] 95 mmol/L Critically low 98-107 [facility] Comment on above: Performed By: #### C VDTBH #### [facility] [address] [place] [address] Dr. Gloria Gonzalez CO2 [Moles/Vol] 41.1 mmol/L Critically high 21.0-32.0 [facility] Comment on above: Performed By: #### C VDTBH #### [facility] [address] [place] [address] Dr. Gloria Gonzalez Creatinine [Mass/Vol] 0.92 mg/dL Normal 0.70-1.30 [facility] Comment on above: Performed By: #### C VDTBH #### [facility] [address] [place] [address] Dr. Gloria Gonzalez EGFR-AF SWISS >60 Normal >=60 [facility] Comment on above: Performed By: #### C VDTBH #### [facility] [address] [address] [address] Gloria Gonzalez EGFR-NON AF SWISS >60 Normal >=60 [facility] Comment on above: Performed By: #### C VDTBH #### [facility] [address] [address] [address] Gloria Gonzalez Globulin (S) [Mass/Vol] 5.0 g/dL Normal [facility] Comment on above: Performed By: #### C VDTBH #### [facility] [address] [address] [address] Gloria Gonzalez Glucose [Mass/Vol] 97 mg/dL Normal 74-106 [facility] Comment on above: Performed By: #### C VDTBH #### [facility] [address] [address] [address] Gloria Gonzalez Potassium [Moles/Vol] 3.5 mmol/L Normal 3.5-5.1 [facility] Comment on above: Performed By: #### C VDTBH #### [facility] [address] [address] [address] Gloria Gonzalez Protein [Mass/Vol] 7.8 g/dL Normal 6.4-8.2 [facility] Comment on above: Performed By: #### C VDTBH #### [facility] [address] [address] [address] Gloria Gonzalez Sodium [Moles/Vol] 134 mmol/L Critically low 136-145 [facility] Comment on above: Performed By: #### C VDTBH #### [facility] [address] [address] [address] Gloria Gonzalez Urea nitrogen [Mass/Vol] 18.0 mg/dL Normal 7.0-18.0 [facility] Comment on above: Performed By: #### C VDTBH #### [facility] [address] [address] [address] Gloria Gonzalez Urea nitrogen/Creatinine [Mass ratio] 19.6 mg/mg Normal [facility] Comment on above: Performed By: #### C VDTBH #### [facility] [address] [place] [address] Dr. Gloria Gonzalez CBC AUTO DIFFon 07-14-2022 BASO # 0.0 103/ul Normal 0.0-0.1 [facility] Comment on above: Performed By: #### C BC #### [facility] [address] [place] [address] Dr. Gloria Gonzalez Basophils/100 WBC (Bld) 0.2 % Normal 0.2-2.0 [facility] Comment on above: Performed By: #### C BC #### [facility] [address] [place] [address] Dr. Gloria Gonzalez EO # 0.2 103/ul Normal 0.0-0.7 [facility] Comment on above: Performed By: #### C BC #### [facility] [address] [place] [address] Dr. Gloria Gonzalez Eosinophils/100 WBC (Bld) 2.2 % Normal 0.9-7.0 [facility] Comment on above: Performed By: #### C BC #### [facility] [address] [place] [address] Dr. Gloria Gonzalez Erythrocyte distribution width (RBC) [Ratio] 15.5 % Critically high 11.0-15.0 [facility] Comment on above: Performed By: #### C BC #### [facility] [address] [place] [address] Dr. Gloria Gonzalez Hematocrit (Bld) [Volume fraction] 57.2 % Critically high 42.0-54.0 [facility] Comment on above: Performed By: #### C BC #### [facility] [address] [place] [address] Dr. Gloria Gonzalez Hemoglobin (Bld) [Mass/Vol] 17.3 g/dL Normal 14.0-18.0 [facility] Comment on above: Performed By: #### C BC #### [facility] [address] [place] [address] Dr. Gloria Gonzalez IG # 0.02 10e3/ul Normal 0.00-0.03 [facility] Comment on above: Performed By: #### C BC #### [facility] [address] [place] [address] Dr. Gloria Gonzalez IG % 0.2 % Normal 0.0-0.5 [facility] Comment on above: Performed By: #### C BC #### [facility] [address] [place] [address] Dr. Gloria Gonzalez LYMPH # 0.9 103/ul Critically low 1.2-3.8 [facility] Comment on above: Performed By: #### C BC #### [facility] [address] [place] [address] Dr. Gloria Gonzalez Lymphocytes/100 WBC (Bld) 10.8 % Critically low 20.5-60.0 [facility] Comment on above: Performed By: #### C BC #### [facility] [address] [place] [address] Dr. Gloria Gonzalez MANUAL DIFF REQ NO Normal [facility] Comment on above: Performed By: #### C BC #### [facility] [address] [place] [address] Dr. Gloria Gonzalez MCH (RBC) [Entitic mass] 28.4 pg Normal 25.9-34.0 [facility] Comment on above: Performed By: #### C BC #### [facility] [address] [place] [address] Dr. Gloria Gonzalez MCHC (RBC) [Mass/Vol] 30.2 g/dL Normal 29.9-35.2 [facility] Comment on above: Performed By: #### C BC #### [facility] [address] [place] [address] Dr. Gloria Gonzalez MCV (RBC) [Entitic vol] 93.9 fL Normal 80.0-94.0 [facility] Comment on above: Performed By: #### C BC #### [facility] [address] [place] [address] Dr. Gloria Gonzalez MONO # 0.8 103/ul Normal 0.3-0.8 [facility] Comment on above: Performed By: #### C BC #### [facility] [address] [address] [address] Gloria Gonzalez Monocytes/100 WBC (Bld) 9.6 % Normal 1.7-12.0 [facility] Comment on above: Performed By: #### C BC #### [facility] [address] [address] [address] Gloria Gonzaelz NEUT # 6.7 103/ul Critically high 1.4-6.5 [facility] Comment on above: Performed By: #### C BC #### [facility] [address] [address] [address] Gloria Gonzalez Neutrophils/100 WBC (Bld) 77.0 % Critically high 43.0-75.0 [facility] Comment on above: Performed By: #### C BC #### [facility] [address] [place] [address] Dr. Gloria Gonzalez Platelet mean volume (Bld) [Entitic vol] 10.0 fL Normal 9.5-13.5 [facility] Comment on above: Performed By: #### C BC #### [facility] [address] [place] [address] Dr. Gloria Gonzalez PLT 179 103/ul Normal 150-450 [facility] Comment on above: Performed By: #### C BC #### [facility] [address] [place] [address] Dr. Gloria Gonzalez RBC 6.09 106/ul Normal 4.70-6.10 [facility] Comment on above: Performed By: #### C BC #### [facility] [address] [place] [address] Dr. Gloria Gonzalez WBC 8.7 103/ul Normal 4.0-11.0 [facility] Comment on above: Performed By: #### C BC #### [facility] [address] [place] [address] Dr. Gloria Gonzalez PROF 14(COMP METB)on 022 Albumin [Mass/Vol] 3.0 g/dL Critically low 3.4-5.0 [facility] Comment on above: Performed By: #### C VDTBH #### [facility] [address] [address] [address] Gloria Gonzalez Albumin/Globulin [Mass ratio] 0.6 {ratio} Normal [facility] Comment on above: Performed By: #### C VDTBH #### [facility] [address] [address] [address] Gloria Gonzalez ALP [Catalytic activity/Vol] 92 U/L Normal 46-116 [facility] Comment on above: Performed By: #### C VDTBH #### [facility] [address] [address] [address] Gloria Gonzalez ALT [Catalytic activity/Vol] 13 U/L Critically low 16-63 [facility] Comment on above: Performed By: #### C VDTBH #### [facility] [address] [place] [address] Dr. Gloria Gonzalez Anion gap [Moles/Vol] 2.0 mmol/L Normal [facility] Comment on above: Performed By: #### C VDTBH #### [facility] [address] [place] [address] Dr. Gloria Gonzalez AST [Catalytic activity/Vol] 18 U/L Normal 15-37 [facility] Comment on above: Performed By: #### C VDTBH #### [facility] [address] [place] [address] Dr. Gloria Gonzalez Bilirubin [Mass/Vol] 1.2 mg/dL Critically high 0.2-1.0 [facility] Comment on above: Performed By: #### C VDTBH #### [facility] [address] [place] [address] Dr. Gloria Gonzalez Calcium [Mass/Vol] 8.9 mg/dL Normal 8.5-10.1 [facility] Comment on above: Performed By: #### C VDTBH #### [facility] [address] [place] [address] Dr. Gloria Gonzalez Chloride [Moles/Vol] 96 mmol/L Critically low 98-107 [facility] Comment on above: Performed By: #### C VDTBH #### [facility] [address] [address] [address] Gloria Gonzalez CO2 [Moles/Vol] 43.4 mmol/L Critically high 21.0-32.0 [facility] Comment on above: Performed By: #### C VDTBH #### [facility] [address] [address] [address] Gloria Gonzalez Creatinine [Mass/Vol] 0.86 mg/dL Normal 0.70-1.30 [facility] Comment on above: Performed By: #### C VDTBH #### [facility] [address] [address] [address] Gloria Gonzalez EGFR-AF SWISS >60 Normal >=60 [facility] Comment on above: Performed By: #### C VDTBH #### [facility] [address] [place] [address] Dr. Gloria Gonzalez EGFR-NON AF SWISS >60 Normal >=60 [facility] Comment on above: Performed By: #### C VDTBH #### [facility] [address] [place] [address] Dr. Gloria Gonzalez Globulin (S) [Mass/Vol] 5.0 g/dL Normal [facility] Comment on above: Performed By: #### C VDTBH #### [facility] [address] [place] [address] Dr. Gloria Gonzalez Glucose [Mass/Vol] 108 mg/dL Critically high 74-106 [facility] Comment on above: Performed By: #### C VDTBH #### [facility] [address] [address] [address] Gloria Gonzalez Potassium [Moles/Vol] 3.4 mmol/L Critically low 3.5-5.1 [facility] Comment on above: Performed By: #### C VDTBH #### [facility] [address] [address] [address] Gloria Gonzalez Protein [Mass/Vol] 8.0 g/dL Normal 6.4-8.2 [facility] Comment on above: Performed By: #### C VDTBH #### [facility] [address] [place] [address] Dr. Gloria Gonzalez Sodium [Moles/Vol] 138 mmol/L Normal 136-145 [facility] Comment on above: Performed By: #### C VDTBH #### [facility] [address] [place] [address] Dr. Gloria Gonzalez Urea nitrogen [Mass/Vol] 12.0 mg/dL Normal 7.0-18.0 [facility] [facility] Comment on above: Performed By: #### C VDTBH #### [facility] [address] [place] [address] Dr. Gloria Gonzalez Urea nitrogen/Creatinine [Mass ratio] 14.0 mg/mg Normal [facility] Comment on above: Performed By: #### C VDTBH #### [facility] [address] [place] [address] Dr. Gloria Gonzalez CBC AUTO DIFFon 07-13-2022 BASO # 0.0 103/ul Normal 0.0-0.1 [facility] Comment on above: Performed By: #### C VDTBH #### [facility] [address] [place] [address] Dr. Gloria Gonzalez Basophils/100 WBC (Bld) 0.4 % Normal 0.2-2.0 [facility] Comment on above: Performed By: #### C VDTBH #### [facility] [address] [place] [address] Dr. Gloria Gonzalez EO # 0.2 103/ul Normal 0.0-0.7 [facility] Comment on above: Performed By: #### C VDTBH #### [facility] [address] [place] [address] Dr. Gloria Gonzalez Eosinophils/100 WBC (Bld) 2.2 % Normal 0.9-7.0 [facility] Comment on above: Performed By: #### C VDTBH #### [facility] [address] [place] [address] Dr. Gloria Gonzalez Erythrocyte distribution width (RBC) [Ratio] 15.9 % Critically high 11.0-15.0 [facility] Comment on above: Performed By: #### C VDTBH #### [facility] [address] [place] [address] Dr. Gloria Gonzalez Hematocrit (Bld) [Volume fraction] 55.7 % Critically high 42.0-54.0 [facility] Comment on above: Performed By: #### C VDTBH #### [facility] [address] [place] [address] Dr. Gloria Gonzalez Hemoglobin (Bld) [Mass/Vol] 17.2 g/dL Normal 14.0-18.0 [facility] Comment on above: Performed By: #### C VDTBH #### [facility] [address] [place] [address] Dr. Gloria Gonzalez IG # 0.02 10e3/ul Normal 0.00-0.03 [facility] Comment on above: Performed By: #### C VDTBH #### [facility] [address] [place] [address] Dr. Gloria Gonzalez IG % 0.2 % Normal 0.0-0.5 [facility] Comment on above: Performed By: #### C VDTBH #### [facility] [address] [place] [address] Dr. Gloria Gonzalez LYMPH # 1.1 103/ul Critically low 1.2-3.8 [facility] Comment on above: Performed By: #### C VDTBH #### [facility] [address] [place] [address] Dr. Gloria Gonzalez Lymphocytes/100 WBC (Bld) 11.0 % Critically low 20.5-60.0 [facility] Comment on above: Performed By: #### C VDTBH #### [facility] [address] [place] [address] Dr. Gloria Gonzalez MANUAL DIFF REQ NO Normal [facility] Comment on above: Performed By: #### C VDTBH #### [facility] [address] [place] [address] Dr. Gloria Gonzalez MCH (RBC) [Entitic mass] 28.9 pg Normal 25.9-34.0 [facility] Comment on above: Performed By: #### C VDTBH #### [facility] [address] [place] [address] Dr. Gloria Gonzalez MCHC (RBC) [Mass/Vol] 30.9 g/dL Normal 29.9-35.2 [facility] Comment on above: Performed By: #### C VDTBH #### [facility] [address] [place] [address] Dr. Gloria Gonzalez MCV (RBC) [Entitic vol] 93.6 fL Normal 80.0-94.0 [facility] Comment on above: Performed By: #### C VDTBH #### [facility] [address] [place] [address] Dr. Gloria Gonzalez MONO # 1.1 103/ul Critically high 0.3-0.8 [facility] Comment on above: Performed By: #### C VDTBH #### [facility] [address] [place] [address] Dr. Gloria Gonzalez Monocytes/100 WBC (Bld) 11.0 % Normal 1.7-12.0 [facility] Comment on above: Performed By: #### C VDTBH #### [facility] [address] [place] [address] Dr. Gloria Gonzalez NEUT # 7.2 103/ul Critically high 1.4-6.5 [facility] Comment on above: Performed By: #### C VDTBH #### [facility] [address] [place] [address] Dr. Gloria Gonzalez Neutrophils/100 WBC (Bld) 75.2 % Critically high 43.0-75.0 [facility] Comment on above: Performed By: #### C VDTBH #### [facility] [address] [place] [address] Dr. Gloria Gonzalez Platelet mean volume (Bld) [Entitic vol] 9.9 fL Normal 9.5-13.5 [facility] Comment on above: Performed By: #### C VDTBH #### [facility] [address] [place] [address] Dr. Gloria Gonzalez PLT 160 103/ul Normal 150-450 [facility] Comment on above: Performed By: #### C VDTBH #### [facility] [address] [place] [address] Dr. Gloria Gonzalez RBC 5.95 106/ul Normal 4.70-6.10 [facility] Comment on above: Performed By: #### C VDTBH #### [facility] [address] [place] [address] Dr. Gloria Gonzalez WBC 9.6 103/ul Normal 4.0-11.0 [facility] Comment on above: Performed By: #### C VDTBH #### [facility] [address] [place] [address] Dr. Gloria Gonzalez PROF 14(COMP METB)on 022 Albumin [Mass/Vol] 2.9 g/dL Critically low 3.4-5.0 [facility] Comment on above: Performed By: #### C MP #### [facility] [address] [place] [address] Dr. Gloria Gonzalez Albumin/Globulin [Mass ratio] 0.6 {ratio} Normal [facility] Comment on above: Performed By: #### C MP #### [facility] [address] [place] [address] Dr. Gloria Gonzalez ALP [Catalytic activity/Vol] 85 U/L Normal 46-116 [facility] Comment on above: Performed By: #### C MP #### [facility] [address] [place] [address] Dr. Gloria Gonzalez ALT [Catalytic activity/Vol] 15 U/L Critically low 16-63 [facility] Comment on above: Performed By: #### C MP #### [facility] [address] [place] [address] Dr. Gloria Gonzalez Anion gap [Moles/Vol] 4.5 mmol/L Normal [facility] Comment on above: Performed By: #### C MP #### [facility] [address] [place] [address] Dr. Gloria Gonzalez AST [Catalytic activity/Vol] 20 U/L Normal 15-37 [facility] Comment on above: Performed By: #### C MP #### [facility] [address] [address] [address] Gloria Gonzalez Bilirubin [Mass/Vol] 0.9 mg/dL Normal 0.2-1.0 [facility] Comment on above: Performed By: #### C MP #### [facility] [address] [address] [address] Gloria Gonzalez Calcium [Mass/Vol] 8.7 mg/dL Normal 8.5-10.1 [facility] Comment on above: Performed By: #### C MP #### [facility] [address] [address] [address] Gloria Gonzalez Chloride [Moles/Vol] 100 mmol/L Normal 98-107 [facility] Comment on above: Performed By: #### C MP #### [facility] [address] [address] [address] Gloria Gonzalez CO2 [Moles/Vol] 39.0 mmol/L Critically high 21.0-32.0 [facility] Comment on above: Performed By: #### C MP #### [facility] [address] [address] [address] Gloria Gonzalez Creatinine [Mass/Vol] 0.81 mg/dL Normal 0.70-1.30 [facility] Comment on above: Performed By: #### C MP #### [facility] [address] [address] [address] Gloria Gonzalez EGFR-AF SWISS >60 Normal >=60 [facility] Comment on above: Performed By: #### C MP #### [facility] [address] [address] [address] Gloria Gonzalez EGFR-NON AF SWISS >60 Normal >=60 [facility] Comment on above: Performed By: #### C MP #### [facility] [address] [address] [address] Gloria Gonzalez Globulin (S) [Mass/Vol] 4.5 g/dL Normal [facility] Comment on above: Performed By: #### C MP #### [facility] [address] [address] [address] Gloria Gonzalez Glucose [Mass/Vol] 102 mg/dL Normal 74-106 [facility] Comment on above: Performed By: #### C MP #### [facility] [address] [place] [address] Dr. Gloria Gonzalez Potassium [Moles/Vol] 3.5 mmol/L Normal 3.5-5.1 [facility] Comment on above: Performed By: #### C MP #### [facility] [address] [place] [address] Dr. Gloria Gonzalez Protein [Mass/Vol] 7.4 g/dL Normal 6.4-8.2 [facility] Comment on above: Performed By: #### C MP #### [facility] [address] [place] [address] Dr. Gloria Gonzalez Sodium [Moles/Vol] 140 mmol/L Normal 136-145 [facility] Comment on above: Performed By: #### C MP #### [facility] [address] [place] [address] Dr. Gloria Gonzalez Urea nitrogen [Mass/Vol] 13.0 mg/dL Normal 7.0-18.0 [facility] Comment on above: Performed By: #### C MP #### [facility] [address] [place] [address] Dr. Gloria Gonzalez Urea nitrogen/Creatinine [Mass ratio] 16.0 mg/mg Normal [facility] Comment on above: Performed By: #### C MP #### [facility] [address] [place] [address] Dr. Gloria Gonzalez BNPon 07-12-2022 Natriuretic peptide B (Bld) [Mass/Vol] 760.0 pg/mL Critically high <=450.0 [facility] Comment on above: Performed By: #### B CARDIAC CATHETERIZATION TECHNICIAN, BMP, LIPID #### [facility] [address] [place] [address] Dr. Gloria Gonzalez CBC AUTO DIFFon 07-12-2022 BASO # 0.0 103/ul Normal 0.0-0.1 [facility] Comment on above: Performed By: #### B CARDIAC CATHETERIZATION TECHNICIAN, HSTROPN #### [facility] [address] [place] [address] Dr. Gloria Gonzalez Basophils/100 WBC (Bld) 0.2 % Normal 0.2-2.0 [facility] Comment on above: Performed By: #### B CARDIAC CATHETERIZATION TECHNICIAN, HSTROPN #### [facility] [address] [place] [address] Dr. Gloria Gonzalez EO # 0.2 103/ul Normal 0.0-0.7 [facility] Comment on above: Performed By: #### B CARDIAC CATHETERIZATION TECHNICIAN, HSTROPN #### [facility] [address] [place] [address] Dr. Gloria Gonzalez Eosinophils/100 WBC (Bld) 2.0 % Normal 0.9-7.0 [facility] Comment on above: Performed By: #### B CARDIAC CATHETERIZATION TECHNICIAN, HSTROPN #### [facility] [address] [place] [address] Dr. Gloria Gonzalez Erythrocyte distribution width (RBC) [Ratio] 15.6 % Critically high 11.0-15.0 [facility] Comment on above: Performed By: #### B CARDIAC CATHETERIZATION TECHNICIAN, HSTROPN #### [facility] [address] [place] [address] Dr. Gloria Gonzalez Hematocrit (Bld) [Volume fraction] 56.2 % Critically high 42.0-54.0 [facility] Comment on above: Performed By: #### B CARDIAC CATHETERIZATION TECHNICIAN, HSTROPN #### [facility] [address] [place] [address] Dr. Gloria Gonzalez Hemoglobin (Bld) [Mass/Vol] 17.1 g/dL Normal 14.0-18.0 [facility] Comment on above: Performed By: #### B CARDIAC CATHETERIZATION TECHNICIAN, HSTROPN #### [facility] [address] [place] [address] Dr. Gloria Gonzalez IG # 0.03 10e3/ul Normal 0.00-0.03 [facility] Comment on above: Performed By: #### B CARDIAC CATHETERIZATION TECHNICIAN, HSTROPN #### [facility] [address] [address] [address] Gloria Gonzalez IG % 0.3 % Normal 0.0-0.5 [facility] Comment on above: Performed By: #### B CARDIAC CATHETERIZATION TECHNICIAN, HSTROPN #### [facility] [address] [place] [address] Dr. Gloria Gonzalez LYMPH # 1.3 103/ul Normal 1.2-3.8 [facility] Comment on above: Performed By: #### B CARDIAC CATHETERIZATION TECHNICIAN, HSTROPN #### [facility] [address] [place] [address] Dr. Gloria Gonzalez Lymphocytes/100 WBC (Bld) 14.9 % Critically low 20.5-60.0 [facility] Comment on above: Performed By: #### B CARDIAC CATHETERIZATION TECHNICIAN, HSTROPN #### [facility] [address] [place] [address] Dr. Gloria Gonzalez MANUAL DIFF REQ NO Normal [facility] Comment on above: Performed By: #### B CARDIAC CATHETERIZATION TECHNICIAN, HSTROPN #### [facility] [address] [place] [address] Dr. Gloria Gonzalez MCH (RBC) [Entitic mass] 28.9 pg Normal 25.9-34.0 [facility] Comment on above: Performed By: #### B CARDIAC CATHETERIZATION TECHNICIAN, HSTROPN #### [facility] [address] [place] [address] Dr. Gloria Gonzalez MCHC (RBC) [Mass/Vol] 30.4 g/dL Normal 29.9-35.2 [facility] Comment on above: Performed By: #### B CARDIAC CATHETERIZATION TECHNICIAN, HSTROPN #### [facility] [address] [place] [address] Dr. Gloria Gonzalez MCV (RBC) [Entitic vol] 95.1 fL Critically high 80.0-94.0 [facility] Comment on above: Performed By: #### B CARDIAC CATHETERIZATION TECHNICIAN, HSTROPN #### [facility] [address] [place] [address] Dr. Gloria Gonzalez MONO # 0.9 103/ul Critically high 0.3-0.8 [facility] Comment on above: Performed By: #### B CARDIAC CATHETERIZATION TECHNICIAN, HSTROPN #### [facility] [address] [place] [address] Dr. Gloria Gonzalez Monocytes/100 WBC (Bld) 9.7 % Normal 1.7-12.0 [facility] Comment on above: Performed By: #### B CARDIAC CATHETERIZATION TECHNICIAN, HSTROPN #### [facility] [address] [place] [address] Dr. Gloria Gonzalez NEUT # 6.4 103/ul Normal 1.4-6.5 [facility] Comment on above: Performed By: #### B CARDIAC CATHETERIZATION TECHNICIAN, HSTROPN #### [facility] [address] [place] [address] Dr. Gloria Gonzalez Neutrophils/100 WBC (Bld) 72.9 % Normal 43.0-75.0 [facility] Comment on above: Performed By: #### B CARDIAC CATHETERIZATION TECHNICIAN, HSTROPN #### [facility] [address] [place] [address] Dr. Gloria Gonzalez Platelet mean volume (Bld) [Entitic vol] 10.1 fL Normal 9.5-13.5 [facility] Comment on above: Performed By: #### B CARDIAC CATHETERIZATION TECHNICIAN, HSTROPN #### [facility] [address] [place] [address] Dr. Gloria Gonzalez PLT 176 103/ul Normal 150-450 [facility] Comment on above: Performed By: #### B CARDIAC CATHETERIZATION TECHNICIAN, HSTROPN #### [facility] [address] [place] [address] Dr. Gloria Gonzalez RBC 5.91 106/ul Normal 4.70-6.10 [facility] Comment on above: Performed By: #### B CARDIAC CATHETERIZATION TECHNICIAN, HSTROPN #### [facility] [address] [place] [address] Dr. Gloria Gonzalez WBC 8.8 103/ul Normal 4.0-11.0 [facility] Comment on above: Performed By: #### B CARDIAC CATHETERIZATION TECHNICIAN, HSTROPN #### [facility] [address] [place] [address] ABD/PELVIS WO CONon [...] JACK MCCORMACK Date: 2022-07-11 23:48 Normal [facility] Covid-19 PCR (CVDTBH)on 06-28 SARS-CoV-2 (COVID-19) RNA SADA+probe Ql (Unsp spec) Not detected Normal NOT DETECTED [facility] Comment on above: Result Comment: When diagnostic [...] for this test is supported by the Heel Scourer of Health and Human Service's declaration that [...] longer be used). Performed By: #### C [facility] #### [facility] [address] [place] [address] Dr. Gloria Gonzalez ECHOCARDIO M/2D COMPLETEon 1 09-11-2021 ECHOCARDIO M/2D COMPLETE Patient: RAFAEL WINKLER Exam Date: 07/12/2022 : 1980 Gender:M Ordering : DR JEANNETTE MCCORD . Admission #: [id number] Family : LUMA [facility]CONNELL [facility] Order #: [id number] CLICK HERE TO VIEW EXAM ECHOCARDIOGRAM REPORT [...] Nicolas M.D. on 07/13/2022 at 20:00 Normal [facility] LIPID PROFILEon 07-12-2022 CHOL-HDL RATIO NORM SEE BELOW Normal [facility] Comment on above: Result Comment: 3.3 - 4.4 LOW RISK 4.4 - 7.1 AVERAGE RISK 7.1 - 11.0 MODERATE RISK >11.0 HIGH RISK Performed By: #### B CARDIAC CATHETERIZATION TECHNICIAN, BMP, LIPID #### [facility] [address] [address] [address] Gloria Gonzalez Cholesterol [Mass/Vol] 119 mg/dL Normal <=200 [facility] Comment on above: Performed By: #### B CARDIAC CATHETERIZATION TECHNICIAN, BMP, LIPID #### [facility] [address] [address] [address] Gloria Gonzalez Cholesterol in HDL [Mass/Vol] 46 mg/dL Normal 40-60 [facility] Comment on above: Performed By: #### B CARDIAC CATHETERIZATION TECHNICIAN, BMP, LIPID #### [facility] [address] [address] [address] Gloria Gonzalez Cholesterol in LDL [Mass/Vol] 59.2 mg/dL Normal [facility] Comment on above: Performed By: #### B CARDIAC CATHETERIZATION TECHNICIAN, BMP, LIPID #### [facility] [address] [place], [place] [address] Dr. Gloria Gonzalez Cholesterol.total/C holesterol in HDL [Mass ratio] 2.6 {ratio} Normal [facility] Comment on above: Performed By: #### B CARDIAC CATHETERIZATION TECHNICIAN, BMP, LIPID #### [facility] [address] [place], [place] [address] Dr. Gloria Gonzalez HDL NORMAL > or = 60 mg/dl - LO W CARDIOVASCULAR RISK <40 mg/dl - HIGH CARDIOVASCULAR RISK Normal [facility] Comment on above: Performed By: #### B CARDIAC CATHETERIZATION TECHNICIAN, BMP, LIPID #### [facility] [address] [place], [place] [address] Dr. Gloria Gonzalez LDL CALC NORMAL SEE BELOW Normal [facility] Comment on above: Result Comment: <100 mg/dl OPTIMAL 100 - 129 mg/dl NEAR OR ABOVE OPTIMAL 130 - 159 mg/dl BORDERLINE HIGH 160 - 189 mg/dl HIGH >190 mg/dl VERY HIGH Performed By: #### B CARDIAC CATHETERIZATION TECHNICIAN, BMP, LIPID #### [facility] [address] [address] [address] Gloria Gonzalez Triglyceride [Mass/Vol] 69 mg/dL Normal <=150 [facility] Comment on above: Performed By: #### B CARDIAC CATHETERIZATION TECHNICIAN, BMP, LIPID #### [facility] [address] [address] [address] Glorai oGnzalez VLDL CALC 13.8 mg/dL Normal [facility] Comment on above: Performed By: #### B CARDIAC CATHETERIZATION TECHNICIAN, BMP, LIPID #### [facility] [address] [address] [address] Gloria Gonzalez PROF CHEM 8 (BAS METB)on Anion gap [Moles/Vol] 5.0 mmol/L Normal [facility] Comment on above: Performed By: #### B CARDIAC CATHETERIZATION TECHNICIAN, BMP, LIPID #### [facility] [address] [address] [address] Gloria Gonzalez Calcium [Mass/Vol] 8.7 mg/dL Normal 8.5-10.1 [facility] Comment on above: Performed By: #### B CARDIAC CATHETERIZATION TECHNICIAN, BMP, LIPID #### [facility] [address] [address] [address] Gloria Gonzalez Chloride [Moles/Vol] 104 mmol/L Normal 98-107 [facility] Comment on above: Performed By: #### B CARDIAC CATHETERIZATION TECHNICIAN, BMP, LIPID #### [facility] [address] [address] [address] Gloria Gonzalez CO2 [Moles/Vol] 35.1 mmol/L Critically high 21.0-32.0 [facility] Comment on above: Performed By: #### B CARDIAC CATHETERIZATION TECHNICIAN, BMP, LIPID #### [facility] [address] [address] [address] Gloria Gonzalez Creatinine [Mass/Vol] 0.77 mg/dL Normal 0.70-1.30 [facility] Comment on above: Performed By: #### B CARDIAC CATHETERIZATION TECHNICIAN, BMP, LIPID #### [facility] [address] [address] [address] Gloria Gonzalez EGFR-AF SWISS >60 Normal >=60 [facility] Comment on above: Performed By: #### B CARDIAC CATHETERIZATION TECHNICIAN, BMP, LIPID #### [facility] [address] [address] [address] Gloria Gonzalez EGFR-NON AF SWISS >60 Normal >=60 [facility] Comment on above: Performed By: #### B CARDIAC CATHETERIZATION TECHNICIAN, BMP, LIPID #### [facility] [address] [address] [address] Gloria Gonzalez Glucose [Mass/Vol] 124 mg/dL Critically high 74-106 [facility] Comment on above: Performed By: #### B CARDIAC CATHETERIZATION TECHNICIAN, BMP, LIPID #### [facility] [address] [place] [address] Dr. Gloria Gonzalez Potassium [Moles/Vol] 4.1 mmol/L Normal 3.5-5.1 [facility] Comment on above: Performed By: #### B CARDIAC CATHETERIZATION TECHNICIAN, BMP, LIPID #### [facility] [address] [address] [address] Gloria Gonzalez Sodium [Moles/Vol] 140 mmol/L Normal 136-145 [facility] Comment on above: Performed By: #### B CARDIAC CATHETERIZATION TECHNICIAN, BMP, LIPID #### [facility] [address] [place] [address] Dr. Gloria Gonzalez Urea nitrogen [Mass/Vol] 12.0 mg/dL Normal 7.0-18.0 [facility] Comment on above: Performed By: #### B CARDIAC CATHETERIZATION TECHNICIAN, BMP, LIPID #### [facility] [address] [address] [address] Gloria Gonzalez Urea nitrogen/Creatinine [Mass ratio] 15.6 mg/mg Normal [facility] Comment on above: Performed By: #### B CARDIAC CATHETERIZATION TECHNICIAN, BMP, LIPID #### [facility] [address] [address] [address] Gloria Gonzalez BNPon 07-11-2022 Natriuretic peptide B (Bld) [Mass/Vol] 858.0 pg/mL Critically high <=450.0 [facility] Comment on above: Performed By: #### B CARDIAC CATHETERIZATION TECHNICIAN, HSTROPN #### [facility] [address] [place] [address] Dr. Gloria Gonzalez CBC AUTO DIFFon 07-11-2022 BASO # 0.0 103/ul Normal 0.0-0.1 [facility] Comment on above: Performed By: #### C BC #### [facility] [address] [place] [address] Dr. Gloria Gonzalez Basophils/100 WBC (Bld) 0.4 % Normal 0.2-2.0 [facility] Comment on above: Performed By: #### C BC #### [facility] [address] [place] [address] Dr. Gloria Gonzalez EO # 0.2 103/ul Normal 0.0-0.7 [facility] Comment on above: Performed By: #### C BC #### [facility] [address] [place] [address] Dr. Gloria Gonzalez Eosinophils/100 WBC (Bld) 2.3 % Normal 0.9-7.0 [facility] Comment on above: Performed By: #### C BC #### [facility] [address] [place] [address] Dr. Gloria Gonzalez Erythrocyte distribution width (RBC) [Ratio] 15.9 % Critically high 11.0-15.0 [facility] Comment on above: Performed By: #### C BC #### [facility] [address] [place] [address] Dr. Gloria Gonzalez Hematocrit (Bld) [Volume fraction] 57.5 % Critically high 42.0-54.0 [facility] Comment on above: Performed By: #### C BC #### [facility] [address] [place] [address] Dr. Gloria Gonzalez Hemoglobin (Bld) [Mass/Vol] 17.8 g/dL Normal 14.0-18.0 [facility] Comment on above: Performed By: #### C BC #### [facility] [address] [place] [address] Dr. Gloria Gonzalez IG # 0.02 10e3/ul Normal 0.00-0.03 [facility] Comment on above: Performed By: #### C BC #### [facility] [address] [place] [address] Dr. Gloria Gonzalez IG % 0.2 % Normal 0.0-0.5 [facility] Comment on above: Performed By: #### C BC #### [facility] [address] [place] [address] Dr. Gloria Gonzalez LYMPH # 2.0 103/ul Normal 1.2-3.8 [facility] Comment on above: Performed By: #### C BC #### [facility] [address] [place] [address] Dr. Gloria Gonzalez Lymphocytes/100 WBC (Bld) 21.2 % Normal 20.5-60.0 [facility] Comment on above: Performed By: #### C BC #### [facility] [address] [place] [address] Dr. Gloria Gonzalez MANUAL DIFF REQ NO Normal [facility] Comment on above: Performed By: #### C BC #### [facility] [address] [place] [address] Dr. Gloria Gonzalez MCH (RBC) [Entitic mass] 28.7 pg Normal 25.9-34.0 [facility] Comment on above: Performed By: #### C BC #### [facility] [address] [place] [address] Dr. Gloria Gonzalez MCHC (RBC) [Mass/Vol] 31.0 g/dL Normal 29.9-35.2 [facility] Comment on above: Performed By: #### C BC #### [facility] [address] [place] [address] Dr. Gloria Gnozalez MCV (RBC) [Entitic vol] 92.7 fL Normal 80.0-94.0 [facility] Comment on above: Performed By: #### C BC #### [facility] [address] [place] [address] Dr. Gloria Gonzalez MONO # 0.8 103/ul Normal 0.3-0.8 [facility] Comment on above: Performed By: #### C BC #### [facility] [address] [place] [address] Dr. Gloria Gonzalez Monocytes/100 WBC (Bld) 8.9 % Normal 1.7-12.0 [facility] Comment on above: Performed By: #### C BC #### [facility] [address] [place] [address] Dr. Gloria Gonzalez NEUT # 6.2 103/ul Normal 1.4-6.5 [facility] Comment on above: Performed By: #### C BC #### [facility] [address] [place] [address] Dr. Gloria Gonzalez Neutrophils/100 WBC (Bld) 67.0 % Normal 43.0-75.0 [facility] Comment on above: Performed By: #### C BC #### [facility] [address] [place] [address] Dr. Gloria Gonzalez Platelet mean volume (Bld) [Entitic vol] 10.6 fL Normal 9.5-13.5 [facility] Comment on above: Performed By: #### C BC #### [facility] [address] [place] [address] Dr. Gloria Gonzalez PLT 179 103/ul Normal 150-450 [facility] Comment on above: Performed By: #### C BC #### [facility] [address] [place] [address] Dr. Gloria Gonzalez RBC 6.20 106/ul Critically high 4.70-6.10 [facility] Comment on above: Performed By: #### C BC #### [facility] [address] [place] [address] Dr. Gloria Gonzalez WBC 9.3 103/ul Normal 4.0-11.0 [facility] Comment on above: Performed By: #### C BC #### [facility] [address] [place] [address] Dr. Gloria Gonzalez CULTURE BLOODon 07-11-2022 Microscopic examination of blood, culture Culture Observations: NO GROWTH AT 5 DAYS. Normal [facility] Comment on above: Performed By: #### B CARDIAC CATHETERIZATION TECHNICIAN, HSTROPN #### [facility] [address] [place] [address] Dr. Gloria Gonzalez Microscopic examination of blood, culture Culture Observations: NO GROWTH AT 5 DAYS. Normal [facility] Comment on above: Performed By: #### B CARDIAC CATHETERIZATION TECHNICIAN, HSTROPN #### [facility] [address] [place] [address] Dr. Gloria Gonzalez LACTATE/LACTIC ACIDon 2021 Lactate [Moles/Vol] 0.8 mmol/L Normal 0.4-1.9 [facility] Comment on above: Performed By: #### L ACT #### [facility] [address] [place] [address] Dr. Gloria Gonzalez PROF 14(COMP METB)on 022 Albumin [Mass/Vol] 3.1 g/dL Critically low 3.4-5.0 [facility] Comment on above: Performed By: #### C VDTBH #### [facility] [address] [place] [address] Dr. Gloria Gonzalez Albumin/Globulin [Mass ratio] 0.8 {ratio} [facility] Comment on above: Performed By: #### C VDTBH #### [facility] [address] [place] [address] Dr. Gloria Gonzalez ALP [Catalytic activity/Vol] 97 U/L Normal 46-116 [facility] Comment on above: Performed By: #### C VDTBH #### [facility] [address] [place] [address] Dr. Gloria Gonzalez ALT [Catalytic activity/Vol] 20 U/L Normal 16-63 [facility] Comment on above: Performed By: #### C VDTBH #### [facility] [address] [place] [address] Dr. Gloria Gonzalez Anion gap [Moles/Vol] 6.3 mmol/L [facility] Comment on above: Performed By: #### C VDTBH #### [facility] [address] [place], [place] [id number] Dr. Gloria Gonzalez AST [Catalytic activity/Vol] 19 U/L Normal 15-37 [facility] Comment on above: Performed By: #### C VDTBH #### [facility] [address] [place] [address] Dr. Gloria Gonzalez Bilirubin [Mass/Vol] 0.5 mg/dL Normal 0.2-1.0 [facility] Comment on above: Performed By: #### C VDTBH #### [facility] [address] [place] [address] Dr. Gloria Gonzalez Calcium [Mass/Vol] 9.0 mg/dL Normal 8.5-10.1 [facility] Comment on above: Performed By: #### C VDTBH #### [facility] [address] [place] [address] Dr. Gloria Gonzalez Chloride [Moles/Vol] 104 mmol/L Normal 98-107 [facility] Comment on above: Performed By: #### C VDTBH #### [facility] [address] [place] [address] Dr. Gloria Gonzalez CO2 [Moles/Vol] 33.9 mmol/L Critically high 21.0-32.0 [facility] Comment on above: Performed By: #### C VDTBH #### [facility] [address] [place] [address] Dr. Gloria Gonzalez Creatinine [Mass/Vol] 0.77 mg/dL Normal 0.70-1.30 [facility] Comment on above: Performed By: #### C VDTBH #### [facility] [address] [place] [address] Dr. Gloria Gonzalez EGFR-AF SWISS >60 Normal >=60 [facility] Comment on above: Performed By: #### C VDTBH #### [facility] [address] [place] [address] Dr. Gloria Gonzalez EGFR-NON AF SWISS >60 Normal >=60 [facility] Comment on above: Performed By: #### C VDTBH #### [facility] [address] [place] [address] Dr. Gloria Gonzalez Globulin (S) [Mass/Vol] 4.1 g/dL Normal [facility] Comment on above: Performed By: #### C VDTBH #### [facility] [address] [address] [address] Gloria Gonzalez Glucose [Mass/Vol] 85 mg/dL Normal 74-106 [facility] Comment on above: Performed By: #### C VDTBH #### [facility] [address] [place] [address] Dr. Gloria Gonzalez Potassium [Moles/Vol] 4.2 mmol/L Normal 3.5-5.1 [facility] Comment on above: Performed By: #### C VDTBH #### [facility] [address] [place] [address] Dr. Gloria Gonzalez Protein [Mass/Vol] 7.2 g/dL Normal 6.4-8.2 [facility] Comment on above: Performed By: #### C VDTBH #### [facility] [address] [place] [address] Dr. Gloria Gonzalez Sodium [Moles/Vol] 140 mmol/L Normal 136-145 [facility] Comment on above: Performed By: #### C VDTBH #### [facility] [address] [place] [address] Dr. Gloria Gonzalez Urea nitrogen [Mass/Vol] 13.0 mg/dL Normal 7.0-18.0 [facility] Comment on above: Performed By: #### C VDTBH #### [facility] [address] [place] [address] Dr. Gloria Gonzalez Urea nitrogen/Creatinine [Mass ratio] 16.9 mg/mg Normal [facility] Comment on above: Performed By: #### C VDTBH #### [facility] [address] [place] [address] Dr. Gloria Gonzalez TROPONIN, HIGH SENSITIVITYon 07-11-2022 HSTROP 31.8 pg/mL Normal 4.0-76.1 [facility] Comment on above: Result Comment: CUT- OFF POINTS HAVE BEEN ESTABLISHED BASED ON THE FOURTH UNIVERSAL DEFINITIONS OF MYOCARDIAL INFARCTION. THE UPPER REFERENCE LIMIT (URL) OF TROPONIN, DEFINED THE 99TH PERCENTILE OF cTnI DISTRIBUTION IN A REFERENCE POPULATION, HAS BEEN CONFIRMED THE DECISION THRESHOLD FOR SD DIAGNOSIS. Performed By: #### B GREG, HSTROPN #### [facility] [address] [address] [address] Gloria Gonzalez US SCROTUM W VASCULAR [...] by: ELIAZAR FRIEDMAN Date: 2022-07-11 21:03 Normal [facility] XR CHEST 1 Von 07-11-2022 XR CHEST 1 V EXAM: XR CHEST 1 V HISTORY: SHORTNESS OF BREATH COMPARISON: None. TECHNIQUE: Portable chest FINDINGS: Poor inspiratory effort. No focal consolidation or infiltrate. No pneumothorax or pleural effusion. Questionable cardiac enlargement. The hilar and mediastinal contours are unremarkable IMPRESSION: Questionable cardiomegaly Electronically authenticated by: DIANNA SCHULTZ Date: 2022-07-11 21:07 Normal [facility] Encounters Encounter Date Encounter Type Care [...] [place] Payers Date Payer Category Payer Unknown [id number] [id number] [id number] 1980 Unknown [id number] [id number] [id number] 1980 Unknown [id number] [id number] [id number] 1958 Unknown [id number] Consultation note 07-12-2022 Note Date & Type [...] He has previously not been evaluated by corporate lawyer and has no diagnosis of heart failure [...] continue to focus on weight loss for senior care avoidance of cardiac issues. [facility] Summary Purpose Family History No Family History Records Found Advance Directives No Advanced Directives Records Found Additional Source Comments (unrecognized sect ion and content) No Status Records Found INFORMATION SOURCE (unrecogn ized section and content) DATE CREATED AUTHOR 10/12/2022 [facility] FOR RECORDS PERTAINING TO PATIENTS WHO [...] BE BASED ON THE PRIMARY CLINICAL RECORDS. [facility] provides no warranty or guarantee of the accuracy or completeness of information in this document.
[2024-05-15 06:26] LABS: Basophils Percent Auto 0.4 % (0.2-2.0); Eosinophils Absolute Auto 0.1 10^3/uL (0.0-0.7); Eosinophils Percent Auto 1.3 % (0.9-7.0); Hematocrit 65.6 % (42.0-54.0); Hemoglobin 19.4 g/dL (14.0-18.0); Immature Granulocytes Abs Auto 0.01 10^3/uL (0.00-0.03); Immature Granulocytes Pct Auto 0.1 % (0.0-0.5); Lymphocytes Absolute Auto 1.5 10^3/uL (1.2-3.8); Lymphocytes Percent Auto 17.8 % (20.5-60.0); Mean Corpuscular HGB Conc 29.6 g/dL (29.9-35.2); Mean Corpuscular Hemoglobin 28.1 pg (25.9-34.0); Mean Corpuscular Volume 95.1 fL (80.0-94.0); Mean Platelet Volume 10.3 fL (9.5-13.5); Monocytes Absolute Auto 0.8 10^3/uL (0.3-0.8); Monocytes Percent Auto 9.6 % (1.7-12.0); Neutrophils Percent Auto 70.8 % (43.0-75.0); Platelet Count 149 10^3/uL (150-450); Red Cell Distribution Width 17.5 % (11.0-15.0); White Blood Count 8.5 10^3/uL (4.0-11.0); pH VBG 7.278 (7.330-7.430)
[2024-05-15 06:27] LABS: PCO2 VBG 73.4 mmHg (40.0-52.0)
[2024-05-15 07:00] LABS: Alanine Aminotransferase 28 U/L (16-63); Albumin Globulin Ratio 0.8; Albumin Level 3.3 g/dL (3.4-5.0); Alkaline Phosphatase 81 U/L (46-116); Anion Gap 10.1; Aspartate Amino Transferase 25 U/L (15-37); BUN Creatinine Ratio 18.8; Bilirubin Total 0.8 mg/dL (0.2-1.0); Calcium 9.1 mg/dL (8.5-10.1); Carbon Dioxide 32.9 mmol/L (21.0-32.0); Chloride 101 mmol/L (98-107); Estimated GFR (African America >60 (>=60); Estimated GFR (Non-African Ame >60 (>=60); Globulin 4.3 g/dL; Glucose 103 mg/dL (74-106); Magnesium 1.9 mg/dL (1.8-2.4); Sodium 140 mmol/L (136-145); Total Protein 7.6 g/dL (6.4-8.2)
[2024-05-15 07:01] LABS: Troponin I High Sensitivity 21.4 pg/mL (4.0-76.1)
--- NOTE | 2024-05-15 08:55 | PM.HP ---
HPI H&P: HPI History of Present Illness Chief complaint: EDEMA FLUID OVERLOAD RLL PNEUMONIA Narrative: Patient is a 44 year old Morbidly obese white male with past medical history of HTN, CHF unknown type, Gout, Asthma, Sleep Apnea, Smoker who presented to the ER last night with increased swelling of both legs, abdomen, and increased shortness of breath with exertion. 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 He also notes a wound on his left lower ext that has not been healing since his swelling is worse. He does not see a certified athletic trainer but follows with his family doctor. ER Findings: EKG sinus rhythm with Q waves in 1 and aVL. white count normal, hemoglobin is concentrated at 19.2. Platelet count is normal at 163. He has a normal troponin. BNP is elevated at 837. Electrolytes and lactic acid are normal. 2 view chest x-ray was ordered and shows cardiomegaly with a mild right lower lobe infiltrate concerning for pneumonia. He was medicated with 40 mg of IV Lasix for the fluid overload, IV Rocephin and Zithromax for the right lower lobe pneumonia and admitted for further plan of care. At the time of Admission exam patient says it's hard for him to get comfortable from all the edema/swelling. He is amendable to trying BPAP if needed as his pulse ox dropped to the 50's with sleeping and is currently at 87% on 2 L NC when conversing. I have obtained an ABG this morning: PH 7.3, PCO2 76 PO2 71 Bicarb 37 on 4L, Also minimal output on IV bumex this morning. Discussed with patient starting BIPAP and Bumex drip. Opioid HPI Opioid Management Most Recent Pain and Opioid Data: Last Pain Scale 6 05/15/24 11:13 Last Pain Assessment 05/15/24 11:13 Last MAR Pain Assessment 05/15/24 11:12 Last ORT Total Score 1 05/14/24 23:47 Last ORT Risk Category Low Risk 05/14/24 23:47 Review of Systems ROS Narrative ROS: a complete review of systems were reviewed with patient and are positive as below or listed in History of Chief Complaint. General: no fever, chills, night sweats Head: no headache, trauma, visual changes, nausea or vomiting Skin: no reported rashes, itching or sores Eyes: no blurriness of vision Ears: no reported hearing loss, vertigo, earache, or tinnitus Throat: no sore throat, hoarseness, swelling of neck, or tongue pain Heart: no chest pain Lungs: shortness of breath no cough GI: no diarrhea or vomiting/nausea Urinary: no urinary urgency, frequency or pain Neuro: no numbness or tingling HEM: no bleeding issues or bruising ENDO: no thyroid problems Psych: no anxiety or depression PFSH [facility] Medical History (Updated 05/15/24 @ 11:43 by Linda Gann DO) Sleep apnea treated with nocturnal bilevel positive airway pressure (BPAP) ?G47.30 - Sleep apnea, unspecified (ICD-10) Primary hypertension ?I10 - Essential (primary) hypertension (ICD-10) Gout ?M10.9 - Gout, unspecified (ICD-10) Asthma ?J45.909 - Unspecified asthma, uncomplicated (ICD-10) COPD (chronic obstructive pulmonary disease) ?J44.9 - Chronic obstructive pulmonary disease, unspecified (ICD-10) Family History Other Family history of CHF (congestive heart failure) Family history of diabetes mellitus Family history of hypertension Family history of myocardial infarction Family history of stroke Social History Within the past year, how often did you have a drink containing alcohol: never Score interpretation: A score less than 4 is consistent with normal alcohol consumption. Smoking status: Current every day smoker Non-prescribed substance use: denies use Highest level of school completed/degree received: high school graduate Are you now , , , , never or living with a partner: never In a typical week, how many times do you talk on the telephone with family, friends, or neighbors: 3 or more times per week How often do you get together with friends or relatives: 3 or more times per week Little interest or pleasure in doing things: not at all Feeling down, depressed, or hopeless: not at all Do you think of yourself as: straight/heterosexual Gender Identity: male Meds Home Medications and Allergies Home Medications ?Medication ?Instructions ?Recorded ?Confirmed ?Type bumetanide 2 mg tablet 2 mg PO BID 04/30/23 05/15/24 History losartan 100 mg tablet 100 mg PO DAILY 04/30/23 05/14/24 History spironolactone 50 mg tablet 50 mg PO DAILY 04/30/23 05/14/24 History albuterol sulfate 90 mcg/actuation 2 puff inhalation Q6H PRN 05/14/24 05/14/24 History aerosol inhaler shortness of breath or wheezing aspirin 81 mg tablet,delayed 81 mg PO DAILY 05/14/24 05/14/24 History release carvedilol 6.25 mg tablet 6.25 mg PO BID 05/15/24 05/15/24 History Allergies Allergy/AdvReac Type Severity Reaction Status Date / Time No Known Drug Allergies Allergy Verified 05/14/24 20:08 Exam Narrative Exam Narrative: General: Patient is alert, and oriented to person, place and time with normal affect, Morbid obesity Skin: Stasis ertythema present on the left lower leg 1cm x 1cm abrasion with central opening, clear drainage Head: atraumatic, acephalic Eyes: PERRLA, no nystagmus present, conjunctiva clear, no scleral icterus Ears:normal gross auditory acuity Nose: symmetric, no discharge, no maxillary or frontal sinus tenderness Neck: no masses palpated, normal thyroid, very short neck Heart: Normal rate and rhythm, no murmurs/rubs/gallops Lungs: no audible wheezes, diminished breath sounds all lung antonio Abdomen: Normal audible bowel sounds, no distension, No palpable masses, no organomegaly, no rebound/guarding/ or rigidity; skin edema and erythema Musculoskeletal: +3 pitting edema/ bilateral lower extremities Neuro: CN II-X grossly intact Constitutional Vital Signs, click to edit/add: Last Vital Signs Temp 97.7 F 05/15/24 07:28 Pulse 94 H 05/15/24 07:28 Resp 18 05/15/24 07:28 BP 102/72 05/15/24 07:28 Pulse Ox 93 L 05/15/24 07:50 O2 Del Method Nasal Cannula 05/15/24 07:50 O2 Flow Rate 3 05/15/24 07:50 Results Labs Labs: Short CBC 05/14/24 05/15/24 Range/Units 20:43 05:33 WBC 8.6 8.5 (4.0-11.0) 10^3/uL Hgb 19.2 H 19.4 H (14.0-18.0) g/dL Hct 64.6 H 65.6 H (42.0-54.0) % Plt Count 163 149 L (150-450) 10^3/uL BMP 05/14/24 05/15/24 20:43 05:33 Sodium 136 140 Potassium 4.1 4.0 Chloride 101 101 Carbon Dioxide 34.7 H 32.9 H BUN 18.0 16.0 Creatinine 0.81 0.85 Glucose 87 103 Calcium 9.1 9.1 Liver Function 05/14/24 05/15/24 Range/Units 20:43 05:33 Total Bilirubin 0.7 0.8 (0.2-1.0) mg/dL AST 23 25 (15-37) U/L ALT 22 28 (16-63) U/L Alkaline Phosphatase 78 81 (46-116) U/L Albumin 3.1 L 3.3 L (3.4-5.0) g/dL ABG ABG results: 05/15/24 05:33 VBG pH 7.278 L VBG pCO2 73.4 H* Assessment and Plan Assessment and Plan (1) Acute respiratory failure with hypoxia and hypercapnia: Assessment and Plan: secondary to combined issues: ABG with severe hypoxia and elevated CO2 76. Patient has non compliance with BPAP and sleep apnea, also with morbid obesity and hypoventilation syndrome, and active Acute congestive heart failure with fluid overload and pulmonary edema seen on CXR along with probable RLL pneumonia. Will place patient on BPAP, supplemental oxygen as needed. Reassess ABG after BIPAP. Patient was transferred to ICU for higher level of care given need for BIPAP. (2) Congestive heart failure: Assessment and Plan: elevated ProBNP 837 with pulmonary edema and exam positive for significant pitting edema. Patient takes oral bumex. Started on IV bumex by night hospitalist, Not diuresing enough. Will place on Bumex drip. and keep on strict I&Os, fluid restriction 1.5L. Echocardiogram pending. Cardiology consulted, I appreciate their input. continue Coreg, Losartan, Spironolactone. Monitor renal function closely while on drip. Qualifiers: Heart failure chronicity: acute Heart failure type: unspecified Qualified Code(s): I50.9 - Heart failure, unspecified (3) RLL pneumonia: Assessment and Plan: as seen on Cxr. Will continue azithromycin and rocephin. Duonebs PRN. Does have history of asthma. will hold on steroids because of edema. Qualifiers: Pneumonia type: due to unspecified organism Qualified Code(s): J18.9 - Pneumonia, unspecified organism (4) Asthma: Assessment and Plan: continue duonebs PRN. Qualifiers: Asthma complication type: unspecified Asthma persistence: unspecified Asthma severity: unspecified severity Qualified Code(s): J45.909 - Unspecified asthma, uncomplicated (5) Gout: Assessment and Plan: no acute attacks at this time. Qualifiers: Chronicity: chronic Gout etiology: unspecified cause Gout site: multiple sites Qualified Code(s): M1A.09X0 - Idiopathic chronic gout, multiple sites, without tophus (tophi) (6) Primary hypertension: Assessment and Plan: continue home meds (7) Morbid obesity with BMI of 60.0-69.9, adult: Assessment and Plan: would benefit from weight loss reduction (8) Sleep apnea treated with nocturnal bilevel positive airway pressure (BPAP): Assessment and Plan: non compliant. Plan Patient is a full code Patient is on lovenox for DVT prophylaxis Patient is inpatient and will be transferred to ICU due to decompensation and close monitoring. Patient is expected to stay 2-3 days.
[2024-05-15] MEDS: LOSARTAN POTASSIUM 50 MG TABLET 100 MG PO (08:56)
[2024-05-15] MEDS: ASPIRIN 81 MG TABLET.DR PO (08:56)
[2024-05-15] MEDS: CARVEDILOL 6.25 MG TABLET PO ×2 (08:56→21:12)
[2024-05-15] MEDS: SPIRONOLACTONE 25 MG TABLET 50 MG PO (08:56)
[2024-05-15] MEDS: ENOXAPARIN SODIUM 60 MG/0.6 ML SYRINGE SUBQ ×2 (08:56→21:12)
--- NOTE | 2024-05-15 09:02 | CA_ITS ---
Patient Name: RAFAEL IWNKLER MR#: [id number] : 1980 Exam Date: 05/15/2024 Ordering Doctor: UMU REYES . ECHOCARDIOGRAM REPORT PROCEDURE: CA ECHO DOPPLER COMPLETE INDICATIONS: acute CHF, hypoxia COMPARISON: None. DESCRIPTION: COMPLETE ECHOCARDIOGRAM Real-time transthoracic echocardiography with 2D, M-mode, spectral and color flow Doppler performed. QUALITY: Technical quality was limited. LEFT VENTRICLE: Normal chamber size. Moderate concentric left ventricular hypertrophy. LV EF: Global left ventricular systolic function is normal; visually estimated ejection fraction is 60 to 65%. Abnormal septal motion consistent with right ventricular pressure and/or volume overload. DIASTOLIC: Unable to assess diastolic function ATRIAL SEPTUM: Inadequately seen. LEFT ATRIUM: Normal chamber size. RIGHT ATRIUM: Severe dilatation. RIGHT VENTRICLE: Severe dilatation. Severely decreased right ventricular systolic function. TRICUSPID VALVE: Normal mobility and thickness. No stenosis with trivial regurgitation. Unable to assess right-sided pressures due to lack of measurable tricuspid regurgitation. MITRAL VALVE: Normal mobility and thickness. No evidence of mitral valve stenosis. There is no mitral annular calcification. No mitral regurgitation. AORTIC VALVE: Grossly normal. Normal leaflet mobility. No evidence of aortic valve stenosis. No aortic regurgitation. AORTIC ROOT: Normal diameter and appearance. PULMONIC VALVE: Normal thickness and mobility. Trivial regurgitation. PERICARDIUM: No evidence of pericardial effusion. IVC: Not well visualized. CONCLUSION: 1. Global left ventricular systolic function is normal; visually estimated ejection fraction is 60 to 65% 2. Moderate left ventricular hypertrophy 3. The right ventricle is severely dilated with severely decreased systolic function 4. Severe right atrial dilatation 5. No significant valvular abnormalities Adult Echocardiography Procedure Report Left Ventricle LVEDD (3.7 - 5.6 cm): 5.57 cm LVESD (2.2 - 4.0 cm): 3.85 cm LVIVS thickness (0.6 - 1.2 cm): 1.45 cm LVPW thickness (0.5 - 1.0 cm): 1.42 cm e': 0.10 m/s E - e': 6.40 LVOT Max Gradient: 2.19 mm[Hg] LVOT Area (cm2): 0.74 m/s Peak Velocity (LVOT): 0.74 m/s Mean Velocity (LVOT): 0.50 m/s LVOT Diameter 2.17 cm Left Atrium Left Atrium Systolic Dimension: 4.18 cm Mitral Valve MV E to A Ratio: 1.03 Mitral Valve A-Wave Peak Velocity: 0.62 m/s Mitral Valve E-Wave Peak Velocity: 0.63 m/s Right Ventricle RV Internal Diastolic Dimension: 6.07 cm, 6.08 cm Aorta AO Root Diam: 3.51 cm Ascending Ao Diam: 3.36 cm Aortic Valve AoV Area (Peak Matt): 2.84 cm2, 2.84 cm2 AoV Area (VTI): 3.79 cm2, 3.79 cm2 Peak Velocity(Antegrade Flow): 0.97 m/s Peak Gradient(Antegrade Flow): 3.73 mm[Hg] Mean Velocity(Antegrade Flow): 0.69 m/s Mean Gradient(Antegrade Flow): 2.19 mm[Hg] Velocity Time Integral: 14.22 cm Tricuspid Valve Peak Velocity (Regurgitant Flow): 2.14 m/s, 2.64 m/s, 2.42 m/s Pulmonic Valve Peak Velocity: 1.00 m/s Peak Gradient: 4.49 mm[Hg], 3.57 mm[Hg] Right Atrium Right Atrium Systolic Pressure: 249.84 ml, 249.84 ml Dictated by: Heather Baugh M.D. on 05/16/2024 at 15:02 Approved by: Heather Baugh M.D. on 05/16/2024 at 15:11
--- NOTE | 2024-05-15 10:43 | CM.NOTE ---
Rounds made with Dr. Gann, at rest pt's lips appear purplish in color. RA oxygen sat 84%, pt back on 4L NC and oxygen sat within 2min back up to 89-90%. Dr. Gann discussed with pt importance of wearing oxygen and need to wear home BIPAP. Pt states he is only able to tolerate machine for a couple hours at a time. Plan of care discussed with pt including diagnosis, change in medications, need for ABG, and BIPAP. Pt verbalizes understanding. Pt with swelling and redness from feet up to lower abdomen. Pt does c/o tightness to bilat legs and through abdomen. Dr. Gann will start Bumex drip.
[2024-05-15 10:51] LABS: Allen Test POSITIVE (POSITIVE); Base Excess ABG 11.6 mmol/L (-2.0-2.0); HCO3 ABG 37.9 mmol/L (22.0-26.0); Liters per Minute 4; O2 Mode N/C; Oxygen Saturation ABG 92.6 %; PO2 ABG 71.5 mmHg (80.0-100.0); Puncture Site RR; pH ABG 7.307 (7.350-7.450)
[2024-05-15] MEDS: BUMETANIDE 10 MG in 0.9 % SODIUM CHLORIDE 160 ML 20 MG IV (11:07)
[2024-05-15] MEDS: ACETAMINOPHEN 325 MG TABLET 650 MG PO (11:12)
--- NOTE | 2024-05-15 12:31 | PC.NURSE ---
1215- Patient transferred to room 274 from med surg via wheelchair.
[2024-05-15] MEDS: NICOTINE 21 MG PATCH.TD24 TD (12:54)
--- NOTE | 2024-05-15 18:16 | P.CACN_ITS ---
History of Present Illness History of Present Illness Consult date: 05/15/24 Requesting physician: Linda Gann Consult reason: congestive heart failure Chief complaint: EDEMA FLUID OVERLOAD RLL PNEUMONIA Narrative: Patient is a 44 y/o M with known PMHx of morbid obesity, HFpEF, gout who presented to [facility] for c/o fluid retention. Hospitalist started him on a Bumex gtt today. Patient seen and examined at bedside. He currently feels at his baseline breathing hartman. He c/o BLE edema and abdominal swelling. Denies CP, dizziness/LH, palpitations. He states he is unsure in what time span he's gained weight, maybe the last few weeks and is unsure of the amount of weight gain. He does not monitor his fluid intake. He notes he is constantly taking in fluids, maybe over 2.5L a day. He doesn't add Na+ to foods and denies eating a lot of processed foods. He was taking bumex 2mg PO BID at home. His mother is also at the bedside. Review of Systems ROS Status of ROS 10 or more systems reviewed and unremark able except as noted in history and below Constitutional Reports: change in weight Musculoskeletal Reports: extremity swelling [facility] Medical History (Updated 05/15/24 @ 11:43 by Linda Gann DO) Sleep apnea treated with nocturnal bilevel positive airway pressure (BPAP) ?G47.30 - Sleep apnea, unspecified (ICD-10) Primary hypertension ?I10 - Essential (primary) hypertension (ICD-10) Gout ?M10.9 - Gout, unspecified (ICD-10) Asthma ?J45.909 - Unspecified asthma, uncomplicated (ICD-10) COPD (chronic obstructive pulmonary disease) ?J44.9 - Chronic obstructive pulmonary disease, unspecified (ICD-10) Family History Other Family history of CHF (congestive heart failure) Family history of diabetes mellitus Family history of hypertension Family history of myocardial infarction Family history of stroke Social History Within the past year, how often did you have a drink containing alcohol: never Score interpretation: A score less than 4 is consistent with normal alcohol consumption. Smoking status: Current every day smoker Non-prescribed substance use: denies use Highest level of school completed/degree received: high school graduate Are you now , , , , never or living with a partner: never In a typical week, how many times do you talk on the telephone with family, fr iends, or neighbors: 3 or more times per week How often do you get together with friends or relatives: 3 or more times per week Little interest or pleasure in doing things: not at all Feeling down, depressed, or hopeless: not at all Do you think of yourself as: straight/heterosexual Gender Identity: male Meds Home Medications and Allergies Home Medications ?Medication ?Instructions ?Recorded ?Confirmed ?Type bumetanide 2 mg tablet 2 mg PO BID 04/30/23 05/15/24 History losartan 100 mg tablet 100 mg PO DAILY 04/30/23 05/14/24 History spironolactone 50 mg tablet 50 mg PO DAILY 04/30/23 05/14/24 History albuterol sulfate 90 mcg/actuation 2 puff inhalation Q6H PRN 05/14/24 05/14/24 History aerosol inhaler shortness of breath or wheezing aspirin 81 mg tablet,delayed 81 mg PO DAILY 05/14/24 05/14/24 History release carvedilol 6.25 mg tablet 6.25 mg PO BID 05/15/24 05/15/24 History Allergies Allergy/AdvReac Type Severity Reaction Status Date / Time No Known Drug Allergies Allergy Verified 05/14/24 20:08 Exam Constitutional Vital Signs, click to edit/add: Last Vital Signs Temp 97.7 F 05/15/24 12:00 Pulse 79 05/15/24 17:53 Resp 20 05/15/24 14:30 BP 127/98 H 05/15/24 12:39 Pulse Ox 95 05/15/24 17:53 O2 Del Method Home BIPAP / CPAP 05/15/24 16:37 O2 Flow Rate 3 05/15/24 14:57 FiO2 40 05/15/24 16:37 Common normals: oriented x3 and alert HENMT Common normals: normocephalic and head/scalp atraumatic Eye Common normals: EOMs intact bilaterally and conjunctivae normal Respiratory Common normals: normal respiratory effort, no retractions and no use of accessory muscles Other: Clear upper lobes, diminished bilateral lower lobes Cardio Common normals: regular rate, regular rhythm, S1 normal heart sound, S2 normal heart sound and no murmurs Other: hard to assess JVD due to neck girth GI Common normals: non-tender Inspection: anasarca present Auscultation: normoactive bowel sounds Extremity Common normals: full ROM General: edema (BLE +3 pitting edema extending up legs to abdomen) Neuro Common normals: oriented x3, CN's II-XII intact bilaterally and moves all extremities Psych Attitude: calm and engaged Speech: normal speech Results Labs and Meds Lab results: Cardiac Enzymes 05/14/24 05/15/24 Range/Units 20:43 05:33 AST 23 25 (15-37) U/L CBC 05/14/24 05/15/24 Range/Units 20:43 05:33 WBC 8.6 8.5 (4.0-11.0) 10^3/uL RBC 6.87 H 6.90 H (4.70-6.10) 10^6/uL Hgb 19.2 H 19.4 H (14.0-18.0) g/dL Hct 64.6 H 65.6 H (42.0-54.0) % Plt Count 163 149 L (150-450) 10^3/uL Neut # (Auto) 5.7 6.0 (1.4-6.5) 10^3/uL Lymph # (Auto) 1.9 1.5 (1.2-3.8) 10^3/uL [place] # (Auto) 0.9 H 0.8 (0.3-0.8) 10^3/uL Eos # (Auto) 0.1 0.1 (0.0-0.7) 10^3/uL Baso # (Auto) 0.0 0.0 (0.0-0.1) 10^3/uL Comprehensive Metabolic Panel 05/14/24 05/15/24 Range/Units 20:43 05:33 Sodium 136 140 (136-145) mmol/L Potassium 4.1 4.0 (3.5-5.1) mmol/L Chloride 101 101 (98-107) mmol/L Carbon Dioxide 34.7 H 32.9 H (21.0-32.0) mmol/L BUN 18.0 16.0 (7.0-18.0) mg/dL Creatinine 0.81 0.85 (0.70-1.30) mg/dL Glucose 87 103 (74-106) mg/dL Calcium 9.1 9.1 (8.5-10.1) mg/dL AST 23 25 (15-37) U/L ALT 22 28 (16-63) U/L Alkaline Phosphatase 78 81 (46-116) U/L Total Protein 7.2 7.6 (6.4-8.2) g/dL Albumin 3.1 L 3.3 L (3.4-5.0) g/dL Intake and Output 05/15/24 05/15/24 05/15/24 07:59 15:59 23:59 Intake Total 250 / 300 720 / 720 Output Total 700 / 2800 3150 / 5350 2200 / 5350 Balance -450 / -2500 -2430 / -4630 -2200 / -4630 Intake: Oral 720 / 720 IV 250 / 300 Azithromycin 500 mg In 0.9 % 250 / 250 Sodium Chloride 250 ml @ 250 mls/hr IV ONCE ONE Rx#:[id number] Output: Urine 700 / 2800 3150 / 5350 2200 / 5350 Imaging and Cardiology Echo: pending Assessment and Plan Assessment and Plan (1) Acute respiratory failure with hypoxia and hypercapnia: (2) Congestive heart failure: Qualifiers: Heart failure chronicity: acute Heart failure type: unspecified Qualified Code(s): I50.9 - Heart failure, unspecified (3) RLL pneumonia: Qualifiers: Pneumonia type: due to unspecified organism Qualified Code(s): J18.9 - Pneumonia, unspecified organism (4) Asthma: Qualifiers: Asthma severity: unspecified severity Asthma persistence: unspecified Asthma complication type: unspecified Qualified Code(s): J45.909 - Unspecified asthma, uncomplicated (5) Gout: Qualifiers: Chronicity: chronic Gout etiology: unspecified cause Gout site: multiple sites Qualified Code(s): M1A.09X0 - Idiopathic chronic gout, multiple sites, without tophus (tophi) (6) Primary hypertension: (7) Morbid obesity with BMI of 60.0-69.9, adult: (8) Sleep apnea treated with nocturnal bilevel positive airway pressure (BPAP): Plan #Acute on chronic diastolic heart failure -NTproBNP on admission at 837 which is likely falsely low given his morbid obesity. He has significant fluid overload on exam with edema extending up to his abdomen/anasarca. -Agree with bumex gtt until he is more euvolemic. Closely monitor renal function and elytes every 12 hrs while on gtt. Maintain K >4 and mag >2. -Prior to discharge, recommend adding Farxiga 10mg or Jardiance 10mg daily to his HF regimen (which ever his insurance will cover). Discussed importance of good peritoneal care with patient and increased risk of genitourinary infections with SGLT2i. He states understanding. -Continue spironolactone 50mg daily. -Discussed with patient importance of monitoring fluid intake to 2L/day, daily weights and when to notify clinic. He states understanding. Patient will likely need higher dose of bumex at discharge as I worry about compliance with him. -Patient will need close follow-up with cardiology. He will need a 1 week heart failure follow-up. -ECHO done but results pending. Dr. Gann made me aware the pre-trimble report stated severe RA and LV enlargement. Will obtain a chest CTA to rule out PE. Likely severe RV enlargement secondary to his pulmonary issues. #Acute on chronic respiratory failure #Untreated MI -Recommend follow-up with pulmonary and sleep medicine #HTN -Controlled -Continue carvedilol, losartan Discussed plan with patient, patients mother, hospitalist Dr. Gann, and primary RN. Thank you for the consult. Please call with any questions or concerns. Jeanine Wilkins APRN-TURNING MACHINE OPERATOR [facility] Cardiovascular Medicine
[2024-05-15] MEDS: AZITHROMYCIN 500 MG in 0.9 % SODIUM CHLORIDE 250 ML 250 MG IV (21:12)
[2024-05-15] MEDS: CEFTRIAXONE 1,000 MG in 0.9 % SODIUM CHLORIDE 50 ML 100 MG IV (22:21)
[2024-05-15] MEDS: HYDROCODONE/ACET 5-325 MG TABLET 1 TAB PO (22:54)
[2024-05-16] VITALS (86 sets, daily range): BP systolic 72–155; BP diastolic 60–103; PULSE 72–112; RESP 20; TEMP 36.2–36.9; O2SAT 72–100
[2024-05-16 06:16] LABS: Basophils Percent Auto 0.3 % (0.2-2.0); Eosinophils Absolute Auto 0.2 10^3/uL (0.0-0.7); Eosinophils Percent Auto 1.5 % (0.9-7.0); Hematocrit 62.2 % (42.0-54.0); Hemoglobin 18.1 g/dL (14.0-18.0); Immature Granulocytes Abs Auto 0.02 10^3/uL (0.00-0.03); Immature Granulocytes Pct Auto 0.2 % (0.0-0.5); Lymphocytes Absolute Auto 1.8 10^3/uL (1.2-3.8); Lymphocytes Percent Auto 18.3 % (20.5-60.0); Mean Corpuscular HGB Conc 29.1 g/dL (29.9-35.2); Mean Corpuscular Hemoglobin 28.1 pg (25.9-34.0); Mean Corpuscular Volume 96.7 fL (80.0-94.0); Mean Platelet Volume 10.6 fL (9.5-13.5); Monocytes Absolute Auto 1.2 10^3/uL (0.3-0.8); Neutrophils Absolute Auto 6.6 10^3/uL (1.4-6.5); Neutrophils Percent Auto 67.7 % (43.0-75.0); Platelet Count 178 10^3/uL (150-450); Red Blood Count 6.43 10^6/uL (4.70-6.10); Red Cell Distribution Width 17.2 % (11.0-15.0); White Blood Count 9.7 10^3/uL (4.0-11.0)
[2024-05-16 06:25] LABS: Estimated Average Glucose 117 mg/dL; Glycohemoglobin A1C 5.7 % (4.5-6.2)
[2024-05-16 06:53] LABS: Alanine Aminotransferase 25 U/L (16-63); Albumin Globulin Ratio 0.7; Albumin Level 2.9 g/dL (3.4-5.0); Alkaline Phosphatase 75 U/L (46-116); Anion Gap 5.3; Aspartate Amino Transferase 23 U/L (15-37); BUN Creatinine Ratio 18.3; Bilirubin Total 0.9 mg/dL (0.2-1.0); Calcium 8.9 mg/dL (8.5-10.1); Chloride 98 mmol/L (98-107); Estimated GFR (African America >60 (>=60); Estimated GFR (Non-African Ame >60 (>=60); Globulin 4.1 g/dL; Glucose 95 mg/dL (74-106); Potassium 4.3 mmol/L (3.5-5.1); Sodium 139 mmol/L (136-145)
[2024-05-16 06:57] LABS: Cholesterol 117 mg/dL (<=200); HDL Cholesterol 38 mg/dL (40-60); Triglycerides 122 mg/dL (<=150); VLDL CHOLESTEROL 24.4 mg/dL
[2024-05-16 06:58] LABS: Chol HDL Ratio 3.1; Thyroid Stimulating Hormone 3.686 uIU/mL (0.358-3.740)
--- NOTE | 2024-05-16 07:57 | P.PN_ITS ---
Progress Note: Subjective Subjective Interval history: Patient wore the BIPAP all last night. Repeat ABG this morning shows worsening CO2 and worsening O2 indicating BIPAP settings are not sufficient, will be adjusted today. He has had 6L of urine output over the course of last 24 hours. He states shortness of breath is the same. Lower ext swelling still present and swelling still in the stomach. Increased cough today not productive. No fevers or chills. Did ask for breathing treatments yesterday as they are PRN. Discussed scheduling those today. BP low this morning 110/72. So held morning antihypertensives. Will monitor closely. No other reports or complaints. Cardiology ordered CTA of the chest and this was negative for PE, still awaiting official read from echocardiogram from yesterday. Exam Narrative Exam Narrative: General: Patient is alert, and oriented to person, place and time with normal affect, Morbid obesity Skin: Stasis erythema present on the left lower leg 1cm x 1cm abrasion with yaya tral opening, clear drainage Head: atraumatic, acephalic Eyes: PERRLA, no nystagmus present, conjunctiva clear, no scleral icterus Ears:normal gross auditory acuity Nose: symmetric, no discharge, no maxillary or frontal sinus tenderness Neck: no masses palpated, normal thyroid, very short neck Heart: Normal rate and rhythm, no murmurs/rubs/gallops Lungs: audible wheezes, diminished breath sounds all lung antonio Abdomen: Normal audible bowel sounds, no distension, No palpable masses, no organomegaly, no rebound/guarding/ or rigidity; skin edema and erythema over the lower abdomen Musculoskeletal: +2 pitting edema/ bilateral lower extremities Neuro: CN II-X grossly intact Constitutional Vital Signs, click to edit/add: Last Vital Signs Temp 97.2 F L 05/16/24 04:10 Pulse 76 05/16/24 06:03 Resp 10 L 05/16/24 04:10 BP 98/69 05/16/24 04:10 Pulse Ox 95 05/16/24 05:08 O2 Del Method BIPAP 05/16/24 04:10 O2 Flow Rate 3 05/15/24 19:53 FiO2 50 05/16/24 05:08 Progress Note: Objective Labs Labs: Short CBC 05/16/24 Range/Units 05:20 WBC 9.7 (4.0-11.0) 10^3/uL Hgb 18.1 H (14.0-18.0) g/dL Hct 62.2 H (42.0-54.0) % Plt Count 178 (150-450) 10^3/uL BMP 05/16/24 05:20 Sodium 139 Potassium 4.3 Chloride 98 Carbon Dioxide 40.0 H BUN 21.0 H Creatinine 1.15 Glucose 95 Calcium 8.9 Liver Function 05/16/24 Range/Units 05:20 Total Bilirubin 0.9 (0.2-1.0) mg/dL AST 23 (15-37) U/L ALT 25 (16-63) U/L Alkaline Phosphatase 75 (46-116) U/L Albumin 2.9 L (3.4-5.0) g/dL Progress Note: A&P Assessment and Plan (1) Acute respiratory failure with hypoxia and hypercapnia: Assessment and Plan: secondary to combined issues: ABG with severe hypoxia and elevated CO2. Patient has long history of non compliance with BPAP for sleep apnea, also with morbid obesity and hypoventilation syndrome, and active Acute congestive heart failure with fluid overload and pulmonary edema seen on CXR along with probable RLL pneumonia. continue BPAP, supplemental oxygen as needed, adjust settings today. Reassess ABG after BIPAP. Patient is in ICU for higher level of care given need for BIPAP. I have no pulmonary consultation options at [facility] and feel he needs transferred to higher level of care for this. (2) Congestive heart failure: Assessment and Plan: elevated ProBNP 837 with pulmonary edema and exam positive for significant pitting edema, anasarca. Patient takes oral bumex. Yesterday did Bumex drip and 6L output, continue to keep on strict I&Os, fluid restriction 1.5L. Echocardiogram pending. Cardiology consulted, I appreciate their input from yesterday but no in house office machine inspector today. continue Coreg, Losartan, Spironolactone. Monitor renal function closely while on drip. Given Albumin today and another Bumex drip today at lower rate. Monitor BP closely. Qualifiers: Heart failure chronicity: acute Heart failure type: unspecified Qualified Code(s): I50.9 - Heart failure, unspecified (3) RLL pneumonia: Assessment and Plan: seen on Cxr. Will continue azithromycin and rocephin. Duonebs scheduled q6 hours. Does have history of asthma. will hold on IV/oral steroids because of edema. Viral testing negative. Schedule pulmicort, Opep therapy. Qualifiers: Pneumonia type: due to unspecified organism Qualified Code(s): J18.9 - Pneumonia, unspecified organism (4) Asthma: Assessment and Plan: continue duonebs Qualifiers: Asthma complication type: unspecified Asthma persistence: unspecified Asthma severity: unspecified severity Qualified Code(s): J45.909 - Unspecified asthma, uncomplicated (5) Gout: Assessment and Plan: no acute attacks at this time Qualifiers: Chronicity: chronic Gout etiology: unspecified cause Gout site: multiple sites Qualified Code(s): M1A.09X0 - Idiopathic chronic gout, multiple sites, without tophus (tophi) (6) Primary hypertension: Assessment and Plan: continue home meds, hold for hypotension secondary to diuresis (7) Morbid obesity with BMI of 60.0-69.9, adult: Assessment and Plan: would benefit from weight loss reduction (8) Sleep apnea treated with nocturnal bilevel positive airway pressure (BPAP): Assessment and Plan: non compliant, repeat ABG this moring after being on BIPAP all night shows settings need adjusted. Plan Patient is a full code Patient is on lovenox for DVT prophylaxis Patient is inpatient and will be transferred to ICU due to decompensation and close monitoring. Patient is expected to stay 2-3 days. Will initiate transfer to [facility] for higher level of care, Cardiology and pulmonary consultations.
[2024-05-16] MEDS: ASPIRIN 81 MG TABLET.DR PO (08:50)
[2024-05-16] MEDS: ENOXAPARIN SODIUM 60 MG/0.6 ML SYRINGE SUBQ ×2 (08:50→20:53)
[2024-05-16] MEDS: SPIRONOLACTONE 25 MG TABLET 50 MG PO (08:50)
--- NOTE | 2024-05-16 09:00 | CM.NOTE ---
Rounds made with Dr. Gann, discussed with pt about continuing BIPAP and need for diuresis. Echo completed awaiting results. ABG's this AM, no discharge today. Consult for cardiology for further recommendations.
[2024-05-16 09:44] LABS: pH ABG 7.302 (7.350-7.450)
[2024-05-16 09:45] LABS: Allen Test POSITIVE (POSITIVE); Base Excess ABG 13.8 mmol/L (-2.0-2.0); HCO3 ABG 40.1 mmol/L (22.0-26.0); Liters per Minute 2; O2 Mode NC; Oxygen Saturation ABG 85.8 %; Puncture Site LR
[2024-05-16 09:47] LABS: ABG PCO2 81.2 mmHg (35.0-45.0); PO2 ABG 50.5 mmHg (80.0-100.0)
[2024-05-16] MEDS: ALBUMIN HUMAN 25 GM/100 ML PREMIX IV (10:14)
[2024-05-16] MEDS: BUMETANIDE 10 MG in 0.9 % SODIUM CHLORIDE 160 ML IV (11:11)
--- NOTE | 2024-05-16 11:16 | CM.NOTE ---
Discussed with pt about home BIPAP and importance of wearing the machine. Pt states he is struggling with the mask and doesn't tolerate machine. Pt was able to use hospital BIPAP and tolerate all night. Asked pt to bring in home machine to trial here at hospital. Pt will ask family member to bring in machine. Discussed also with pt importance of f/u appointments and preventative medicine to prevent further complications. Talked with Marcos Garcia in respiratory therapy about home machine. Marcos reached out to sleep lab and will get a different mask for pt, respiratory therapy will trial pt's home machine when pt has BIPAP brought to facility.
[2024-05-16] MEDS: BUDESONIDE 0.5 MG/2 ML AMPULE NEB IH ×2 (11:29→23:34)
[2024-05-16] MEDS: IPRATROPIUM/ALBUTEROL SULFATE 3 ML AMPUL.NEB IH ×3 (11:29→23:34)
--- NOTE | 2024-05-16 11:34 | SWNOTE1 ---
SW called [employer] and they were providing oxygen, but picked it up in 2022. They do still supply Bipap and it was given to him in 2020. She had to connect SW to respiratory therapist, SW waiting on hold.
--- NOTE | 2024-05-16 12:03 | SWNOTE1 ---
JACKIE called and spoke to Respiratory therapist from [employer]. He voiced that pt's account was put on hold back in October of 2023 due to an outstanding balance. He did have sleep study done here in [place] and Bipap was ordered by Adilene Limon. He got this back in 2020. He was able to provide settings which are a minimum of 10 and maximum pressure of 24. Starts on 4 and ramps up to 24 with a 30 min cycle. At this time [employer] [facility] [employer] can't provide any supplies or check out Bipap due to pt's acount being on hold. He voiced that pt can call billing and set up a payment plan and they can then assist with any issues with Bipap. JACKIE to let pt know.
[2024-05-16] MEDS: NICOTINE 21 MG PATCH.TD24 TD (12:49)
[2024-05-16] MEDS: HYDROCODONE/ACET 5-325 MG TABLET 1 TAB PO ×2 (13:51→23:03)
--- NOTE | 2024-05-16 13:56 | SWNOTE1 ---
SW provided pt with phone number for [employer] [facility] [employer] and advised pt that he should call and set up payment plan with them to get his account off hold. Therefore if he needs any different equipment or if they need to come look at his equipment, they will be able to.
[2024-05-16 20:13] LABS: Anion Gap 5.9; BUN Creatinine Ratio 16.5; Carbon Dioxide 39.8 mmol/L (21.0-32.0); Chloride 94 mmol/L (98-107); Estimated GFR (African America >60 (>=60); Estimated GFR (Non-African Ame >60 (>=60); Glucose 107 mg/dL (74-106); Magnesium 1.5 mg/dL (1.8-2.4); Potassium 3.7 mmol/L (3.5-5.1); Sodium 136 mmol/L (136-145)
[2024-05-16] MEDS: MAGNESIUM SULFATE IN WATER 2 GM/50 ML PREMIX IV (20:46)
[2024-05-16] MEDS: AZITHROMYCIN 500 MG in 0.9 % SODIUM CHLORIDE 250 ML 250 MG IV (22:05)
[2024-05-16] MEDS: CEFTRIAXONE 1,000 MG in 0.9 % SODIUM CHLORIDE 50 ML 100 MG IV (23:04)
[2024-05-17] VITALS (69 sets, daily range): BP systolic 105–132; BP diastolic 60–89; PULSE 78–108; RESP 20; TEMP 36.4–37.1; O2SAT 81–100; BMI 60.1
[2024-05-17] MEDS: IPRATROPIUM/ALBUTEROL SULFATE 3 ML AMPUL.NEB IH ×2 (05:42→10:33)
[2024-05-17 05:47] LABS: Basophils Percent Auto 0.3 % (0.2-2.0); Eosinophils Absolute Auto 0.2 10^3/uL (0.0-0.7); Hematocrit 61.8 % (42.0-54.0); Hemoglobin 18.6 g/dL (14.0-18.0); Immature Granulocytes Abs Auto 0.02 10^3/uL (0.00-0.03); Immature Granulocytes Pct Auto 0.2 % (0.0-0.5); Lymphocytes Absolute Auto 2.2 10^3/uL (1.2-3.8); Lymphocytes Percent Auto 23.2 % (20.5-60.0); Mean Corpuscular HGB Conc 30.1 g/dL (29.9-35.2); Mean Corpuscular Hemoglobin 27.8 pg (25.9-34.0); Mean Corpuscular Volume 92.2 fL (80.0-94.0); Mean Platelet Volume 10.8 fL (9.5-13.5); Monocytes Absolute Auto 1.2 10^3/uL (0.3-0.8); Monocytes Percent Auto 12.3 % (1.7-12.0); Platelet Count 178 10^3/uL (150-450); Red Cell Distribution Width 17.6 % (11.0-15.0); White Blood Count 9.7 10^3/uL (4.0-11.0)
[2024-05-17 05:52] LABS: pH ABG 7.368 (7.350-7.450)
[2024-05-17 05:53] LABS: Allen Test POSITIVE (POSITIVE); Base Excess ABG 17.9 mmol/L (-2.0-2.0); HCO3 ABG 43.2 mmol/L (22.0-26.0); Oxygen Saturation ABG 79.1 %
[2024-05-17 05:54] LABS: O2 Mode ROOM AIR
[2024-05-17 05:56] LABS: Puncture Site RR
[2024-05-17 05:57] LABS: ABG PCO2 75.2 mmHg (35.0-45.0); PO2 ABG 43.2 mmHg (80.0-100.0)
[2024-05-17 06:13] LABS: Alanine Aminotransferase 17 U/L (16-63); Albumin Globulin Ratio 0.8; Alkaline Phosphatase 70 U/L (46-116); Anion Gap 1.7; Aspartate Amino Transferase 18 U/L (15-37); BUN Creatinine Ratio 20.9; Bilirubin Total 1.2 mg/dL (0.2-1.0); Calcium 8.7 mg/dL (8.5-10.1); Carbon Dioxide 43.4 mmol/L (21.0-32.0); Chloride 95 mmol/L (98-107); Estimated GFR (African America >60 (>=60); Estimated GFR (Non-African Ame >60 (>=60); Globulin 3.8 g/dL; Glucose 89 mg/dL (74-106); Potassium 4.1 mmol/L (3.5-5.1); Sodium 136 mmol/L (136-145); Total Protein 6.8 g/dL (6.4-8.2)
--- NOTE | 2024-05-17 08:59 | P.DS_ITS ---
DS: Providers Provider Date of admission: 05/14/24 23:23 Primary care physician: Alley Cruz NP Admitting clinician: Linda Gann Consults: 05/15/24 11:30 Consult to Cardiology Routine Reason for consultation: acute CHF, bumex drip Has provider been notified: No Discharging clinician: Linda Gann DS: Diagnosis Discharge Diagnosis (1) Acute respiratory failure with hypoxia and hypercapnia: (2) Congestive heart failure: Qualifiers: Heart failure chronicity: acute Heart failure type: unspecified Qualified Code(s): I50.9 - Heart failure, unspecified (3) RLL pneumonia: Qualifiers: Pneumonia type: due to unspecified organism Qualified Code(s): J18.9 - Pneumonia, unspecified organism (4) Asthma: Qualifiers: Asthma complication type: unspecified Asthma persistence: unspecified Asthma severity: unspecified severity Qualified Code(s): J45.909 - Unspecified asthma, uncomplicated (5) Gout: Qualifiers: Chronicity: chronic Gout etiology: unspecified cause Gout site: multiple sites Qualified Code(s): M1A.09X0 - Idiopathic chronic gout, multiple sites, without tophus (tophi) (6) Primary hypertension: (7) Morbid obesity with BMI of 60.0-69.9, adult: (8) Sleep apnea treated with nocturnal bilevel positive airway pressure (BPAP): (9) Hypomagnesemia: (10) Tobacco abuse: DS: Summary Hospital Course Hospital Course: Patient is a 44 year old Morbidly obese white male with past medical history of HTN, CHF unknown type, Gout, Asthma, Sleep Apnea, Smoker who presented to the ER with increased swelling of both legs, abdomen, and increased shortness of breath with exertion. He reports compliance with medication, but noncompliance with CPAP, he said he tried it for a solid 7 months and would take it off early childhood associate every night. He also notes a wound on his left lower ext that has not been healing since his swelling is worse. He does not see a fuse coiler but follows with his family doctor. ER Findings: EKG sinus rhythm with Q waves in 1 and aVL. white count normal, hemoglobin is concentrated at 19.2. Platelet count is normal at 163. He has a normal troponin. BNP is elevated at 837. Electrolytes and lactic acid are normal. 2 view chest x-ray was ordered and shows cardiomegaly with a mild right lower lobe infiltrate concerning for pneumonia. He was medicated with 40 mg of IV Lasix for the fluid overload, IV Rocephin and Zithromax for the right lower lobe pneumonia and admitted for further plan of care. Shortly after admission exam, pulse ox dropped to the 50's with sleeping and is currently at 87% on 2 L NC when conversing. I obtained an ABG : PH 7.3, PCO2 76 PO2 71 Bicarb 37 on 4L, Also minimal output on IV bumex. I started patient on BIPAP and Bumex drip 05/15/24. Patient had good urinary output with about 6L net on the first day with bumex drip. His electrolytes and renal function remained stable. Clinically, there was not much change in his abdominal swelling and leg swelling and his shortness of breath. Echocardiogram was obtained that showed significant/severe dilated Right atrium and Right ventral along with elevated pulmonary pressures with fluid overload. I was able to get a cardiology consult on 05/15/24 but nothing was added or changed as they did not have echo results. CTA chest showed no pulmonary embolus or aorta abnormality, no PNA present. I placed him on a second Bumex drip with slower rate on 05/16/24 and he continued to net about 4 more Liters of fluid with a total of 10Liters out. His magnesium dropped to 1.5 and 2 Grams of IV magnesium was given, also he was having some hand cramps this seemed to help. We were able to get his sleep study results from over a year ago, a larger mask for BIPAP but even with setting changes overnight, Patient's ABG this morning was worse: PH 7.368, PO2 43, PCO2 75 bicarb 43. Cr. 0.86. He is still being treated for RLL pneumonia, still has a cough, with Azithromycin and rocephin. Getting Lovenox for DVT prophylaxis. With worsening ABG's, patient's continued severe right sided heart failure, pulmonary hypertension and lethargy today, I initiated transfer to a more local hospital, [facility] in [facility]. I reviewed the case with their cryogenics engineer and hospitalist and they agreed to accept the patient. He will be transferred today for higher level care, specialty consults. I will leave further treatment and further diuresis as their plan. Patient updated with transfer plans. Status at Discharge Functional status at discharge: bed bound Overall status at discharge: patient is not back to baseline Time Spent with Patient Time attestation: Total time spent providing and/or coordinating discharge services: Time spent: greater than 30 minutes Exam Narrative Exam Narrative: General: Patient is alert, and oriented to person, place and time with normal affect, Morbid obesity, falling asleep easily while i'm talking to him Skin: Stasis erythema present on the left lower leg 1cm x 1cm abrasion with central opening, clear drainage, edema extends from top of foot to just below the knees bilaterally Head: atraumatic, acephalic Eyes: PERRLA, no nystagmus present, conjunctiva clear, no scleral icterus Ears:normal gross auditory acuity Nose: symmetric, no discharge, no maxillary or frontal sinus tenderness Neck: no masses palpated, normal thyroid, very short neck Heart: Normal rate and rhythm, no murmurs/rubs/gallops Lungs: audible wheezes, diminished breath sounds all lung antonio Abdomen: Normal audible bowel sounds, no distension, No palpable masses, no organomegaly, no rebound/guarding/ or rigidity; skin edema and erythema over the lower abdomen Musculoskeletal: +2 pitting edema/ bilateral lower extremities Neuro: CN II-X grossly intact Constitutional Vital Signs, click to edit/add: Last Vital Signs Temp 98.6 F 05/17/24 08:00 Pulse 103 H 05/17/24 08:20 Resp 29 H 05/17/24 08:20 BP 105/60 05/17/24 08:10 Pulse Ox 90 L 05/17/24 08:20 O2 Del Method Nasal Cannula 05/17/24 06:51 O2 Flow Rate 3 05/17/24 08:00 FiO2 50 05/17/24 00:09 DS: Data Data Completed and Pending Labs on day of discharge: Labs from last 24 hours 05/17/24 05/17/24 05/16/24 05:35 05:30 19:12 WBC 9.7 RBC 6.70 H Hgb 18.6 H Hct 61.8 H MCV 92.2 MCH 27.8 MCHC 30.1 RDW 17.6 H Plt Count 178 MPV 10.8 Neut % (Auto) 62.0 Lymph % (Auto) 23.2 Reynolds % (Auto) 12.3 H Eos % (Auto) 2.0 Baso % (Auto) 0.3 Neut # (Auto) 6.0 Lymph # (Auto) 2.2 Reynolds # (Auto) 1.2 H Eos # (Auto) 0.2 Baso # (Auto) 0.0 Abs Immat Gran (auto) 0.02 Imm/Tot Granulo (auto) 0.2 Puncture Site Rr ABG pH 7.368 ABG pCO2 75.2 H* ABG pO2 43.2 L* ABG HCO3 43.2 H ABG O2 Saturation 79.1 ABG Base Excess 17.9 H Grayson Test Positive O2 Liters/Min Sodium 136 136 Potassium 4.1 3.7 Chloride 95 L 94 L Carbon Dioxide 43.4 H 39.8 H Anion Gap 1.7 5.9 BUN 18.0 18.0 Creatinine 0.86 1.09 Est GFR ( Amer) >60 >60 Est GFR (Non-Af Amer) >60 >60 BUN/Creatinine Ratio 20.9 16.5 Glucose 89 107 H Calcium 8.7 9.0 Magnesium 1.5 L Total Bilirubin 1.2 H AST 18 ALT 17 Alkaline Phosphatase 70 Total Protein 6.8 Albumin 3.0 L Globulin 3.8 Albumin/Globulin Ratio 0.8 05/16/24 09:38 WBC RBC Hgb Hct MCV MCH MCHC RDW Plt Count MPV Neut % (Auto) Lymph % (Auto) Reynolds % (Auto) Eos % (Auto) Baso % (Auto) Neut # (Auto) Lymph # (Auto) Reynolds # (Auto) Eos # (Auto) Baso # (Auto) Abs Immat Gran (auto) Imm/Tot Granulo (auto) Puncture Site Lr ABG pH 7.302 L ABG pCO2 81.2 H* ABG pO2 50.5 L* ABG HCO3 40.1 H ABG O2 Saturation 85.8 ABG Base Excess 13.8 H Grayson Test Positive O2 Liters/Min 2 Sodium Potassium Chloride Carbon Dioxide Anion Gap BUN Creatinine Est GFR ( Amer) Est GFR (Non-Af Amer) BUN/Creatinine Ratio Glucose Calcium Magnesium Total Bilirubin AST ALT Alkaline Phosphatase Total Protein Albumin Globulin Albumin/Globulin Ratio Discharge Plan Discharge Disposition: [facility] Condition: Fair Discharge location: [facility] for pulmology and Cardiac services.
--- NOTE | 2024-05-17 09:00 | XR_ITS ---
The [address] [address] Patient Name: RAFAEL WINKLER MRN: [id number] date: 1980 Sex: M Assigned Patient Location: ICU Current Patient Location: ICU Accession/Order Number: [id number] Exam Date: 05/17/2024 08:55 Report Date: 05/17/2024 09:28 At the request of: UMU REYES Procedure: XR chest 1V EXAM: XR chest 1V HISTORY: shortness of breath, hypoxia COMPARISON: 07/11/2022 TECHNIQUE: AP portable FINDINGS: LUNGS: No significant pulmonary parenchymal abnormalities. VASCULATURE: Moderately increased pulmonary vasculature. PLEURA: No pneumothorax, effusion, or pleural thickening. CARDIAC: Moderate stable cardiomegaly. MEDIASTINUM: No visible mass or adenopathy. BONES: No fracture or visible bone lesion. OTHER: Limited exam with underpenetration XR/XR chest 1V IMPRESSION: Pulmonary vascular congestion without definite interstitial pulmonary edema Electronically authenticated by: DIANNA BENJAMIN Date: 05/17/2024 09:28
[2024-05-17] MEDS: SPIRONOLACTONE 25 MG TABLET 50 MG PO (09:36)
[2024-05-17] MEDS: LOSARTAN POTASSIUM 50 MG TABLET 100 MG PO (09:36)
[2024-05-17] MEDS: ASPIRIN 81 MG TABLET.DR PO (09:36)
[2024-05-17] MEDS: ENOXAPARIN SODIUM 60 MG/0.6 ML SYRINGE SUBQ (09:37)
--- NOTE | 2024-05-17 10:32 | CM.NOTE ---
Rounds made with Dr. Gann. Dr. Gann discussed lab findings with Jack. Attempting to transfer to Tertiary Facility.
[2024-05-17] MEDS: BUDESONIDE 0.5 MG/2 ML AMPULE NEB IH (10:33)
--- NOTE | 2024-05-17 10:33 | SWNOTE1 ---
Plan is for pt to be transferred to [facility].
[2024-05-17] MEDS: NICOTINE 21 MG PATCH.TD24 TD (13:05)
[2024-05-17] MEDS: CARVEDILOL 6.25 MG TABLET PO (13:05)
[2024-05-17] MEDS: CYCLOBENZAPRINE HCL 10 MG TABLET PO (15:47)
== END 2024-05-17 16:38 | disposition short-term general hospital (02) | DRG 193 ==
LOC: ER 23:05 → MS 05-15 05:55 → ICU 05-15 12:12
PROVIDERS: Registered Nurse; Admitting Provider Family Medicine; Emergency Provider Emergency Medicine; PCP Nurse Practitioner; Visit Provider Family Medicine
DX: J18.9 Pneumonia, unspecified organism (principal); I50.33 Acute on chronic diastolic (congestive) heart failure; J96.02 Acute respiratory failure with hypercapnia; J96.01 Acute respiratory failure with hypoxia; Z68.44 Body mass index [BMI] 60.0-69.9, adult; E66.2 Morbid (severe) obesity with alveolar hypoventilation; I11.0 Hypertensive heart disease with heart failure; J45.909 Unspecified asthma, uncomplicated; M1A.09X0 Idiopathic chronic gout, multiple sites, without tophus (tophi); I27.20 Pulmonary hypertension, unspecified; E83.42 Hypomagnesemia; S80.812A Abrasion, left lower leg, initial encounter; Z20.822 Contact with and (suspected) exposure to COVID-19; F17.200 Nicotine dependence, unspecified, uncomplicated; Z91.199 Patient's noncompliance with other medical treatment and regimen due to unspecified reason; Z79.82 Long term (current) use of aspirin; Z79.899 Other long term (current) drug therapy
CPT/HCPCS: 36415; 36600; 71045; 71046; 71275; 80048; 80053; 80061; 82800; 82805; 83036; 83605; 83735; 83880; 84443; 84484; 85025; 87040; 87811; 93005; 93306; 94640; 94660; 94667; 94668; 94761; 96365; 96366; 96367; 96368; 96372; 96375; 96376; 99285; 99406; J0456; J0696; J1650; J1940; J3475; P9046; Q9967

== ENCOUNTER 2024-07-15 14:41 | Emergency (ER) | payer OTHER, SELFPAY ==
[2024-07-15] VITALS (20 sets, daily range): BP systolic 126–150; BP diastolic 72–100; PULSE 76–89; TEMP 36.6–36.9; O2SAT 93–99; BMI 56.7
--- NOTE | 2024-07-15 15:02 | ED_ITS ---
HPI - Chest Pain General Chief Complaint: Chest Pain Stated Complaint: CHEST PAIN Time Seen by Provider: 07/15/24 14:47 Source: patient Mode of arrival: walk-in Limitations: no limitations History of Present Illness HPI narrative: 44-year-old male presents to the emergency department for chest pain. It has been continuous since 10:00 this morning, about 5 hours ago. It feels like a slight pressure. It does not seem to radiate and he is not short of breath. No unusual activity. He was sitting at his desk doing paperwork when this started. Related Data Home Medications ?Medication ?Instructions ?Recorded ?Confirmed bumetanide 2 mg tablet 2 mg PO BID 04/30/23 07/15/24 losartan 100 mg tablet 100 mg PO DAILY 04/30/23 07/15/24 spironolactone 50 mg tablet 50 mg PO DAILY 04/30/23 07/15/24 albuterol sulfate 90 mcg/actuation 2 puff inhalation Q6H PRN 05/14/24 07/15/24 aerosol inhaler shortness of breath or wheezing aspirin 81 mg tablet,delayed 81 mg PO DAILY 05/14/24 07/15/24 release carvedilol 6.25 mg tablet 6.25 mg PO BID 05/15/24 07/15/24 Allergies Allergy/AdvReac Type Severity Reaction Status Date / Time No Known Drug Allergies Allergy Verified 07/15/24 14:49 Review of Systems ROS Narrative A ten point review of systems is negative except as noted above. [facility] Medical History (Updated 07/15/24 @ 17:09 by Jalen Reddy MD) Tobacco abuse ?Z72.0 - Tobacco use (ICD-10) Sleep apnea treated with nocturnal bilevel positive airway pressure (BPAP) ?G47.30 - Sleep apnea, unspecified (ICD-10) Primary hypertension ?I10 - Essential (primary) hypertension (ICD-10) Gout ?M10.9 - Gout, unspecified (ICD-10) Asthma ?J45.909 - Unspecified asthma, uncomplicated (ICD-10) COPD (chronic obstructive pulmonary disease) ?J44.9 - Chronic obstructive pulmonary disease, unspecified (ICD-10) Family History Other Family history of CHF (congestive heart failure) Family history of diabetes mellitus Family history of hypertension Family history of myocardial infarction Family history of stroke Social History Within the past year, how often did you have a drink containing alcohol: never Score interpretation: A score less than 4 is consistent with normal alcohol consumption. Smoking status: Current every day smoker Non-prescribed substance use: denies use Highest level of school completed/degree received: high school graduate Are you now , , , , never or living with a partner: never In a typical week, how many times do you talk on the telephone with family, friends, or neighbors: 3 or more times per week How often do you get together with friends or relatives: 3 or more times per week Little interest or pleasure in doing things: not at all Feeling down, depressed, or hopeless: not at all Do you think of yourself as: straight/heterosexual Gender Identity: male Exam Narrative Exam Narrative: Nurses note and vital signs reviewed and patient is not hypoxic. General: The patient appears well and in no apparent distress. Patient is resting comfortably on cart. Skin: Warm, dry, no pallor noted. There is no rash noted. Head: Normocephalic, atraumatic Eye: Normal conjunctiva, no drainage Ears, Nose, Mouth, and Throat: oral mucosa is moist. Nares patent. Cardiovascular: Regular Rate and Rhythm Respiratory: Patient is in no distress, no accessory muscle use, lungs are heidi ar to auscultation, no wheezing, rales or rhonchi Back: non-tender, no CVA tenderness bilaterally to percussion. GI: Soft and nontender Musculoskeletal: The patient has no evidence of calf tenderness, no pitting edema, symmetrical pulses noted bilaterally Neurological: A&O, normal speech Psychiatric: Cooperative Constitutional Vital Signs, click to edit/add: Last Vital Signs Temp 98.4 F 07/15/24 14:46 Pulse 79 07/15/24 16:20 Resp 15 07/15/24 16:20 BP 150/72 H 07/15/24 14:46 Pulse Ox 96 07/15/24 16:00 O2 Del Method Room Air 07/15/24 14:46 Course Vital Signs Vital signs: Vital Signs Temperature 98.4 F 07/15/24 14:46 Pulse Rate 88 07/15/24 14:46 Respiratory Rate 22 H 07/15/24 14:46 Blood Pressure 150/72 H 07/15/24 14:46 Pulse Oximetry 96 07/15/24 14:46 Oxygen Delivery Method Room Air 07/15/24 14:46 Temperature 98.4 F 07/15/24 14:46 Pulse Rate 79 07/15/24 16:20 Respiratory Rate 15 07/15/24 16:20 Blood Pressure 150/72 H 07/15/24 14:46 Pulse Oximetry 96 07/15/24 16:00 Oxygen Delivery Method Room Air 07/15/24 14:46 MDM - Chest Pain MDM Narrative Medical decision making narrative: The patient's workup is negative. Troponin is negative and he had already been having symptoms for 5 hours when he arrived. D-dimer was minimally elevated so CTA chest was performed and this also was negative. No evidence of PE or pneumonia or pleural effusion. He is able to be discharged home. Treatment diagnosis and follow-up were discussed with the patient. Differential Diagnosis Differential diagnosis: Likely pneumothorax, unstable angina pectoris, atypical chest pain, st elevation myocardial infarction, costochondritis, chest pain and other (Pulmonary embolism) Lab Data Attestation: I reviewed the patient's lab results. Labs: Lab Results 07/15/24 Range/Units 14:50 WBC 10.0 (4.0-11.0) 10^3/uL RBC 6.06 (4.70-6.10) 10^6/uL Hgb 16.9 (14.0-18.0) g/dL Hct 50.8 (42.0-54.0) % MCV 83.8 (80.0-94.0) fL MCH 27.9 (25.9-34.0) pg MCHC 33.3 (29.9-35.2) g/dL RDW 14.9 (11.0-15.0) % Plt Count 239 (150-450) 10^3/uL MPV 10.2 (9.5-13.5) fL Neut % (Auto) 52.4 (43.0-75.0) % Lymph % (Auto) 37.9 (20.5-60.0) % [place] % (Auto) 6.9 (1.7-12.0) % Eos % (Auto) 2.2 (0.9-7.0) % Baso % (Auto) 0.4 (0.2-2.0) % Neut # (Auto) 5.2 (1.4-6.5) 10^3/uL Lymph # (Auto) 3.8 (1.2-3.8) 10^3/uL [place] # (Auto) 0.7 (0.3-0.8) 10^3/uL Eos # (Auto) 0.2 (0.0-0.7) 10^3/uL Baso # (Auto) 0.0 (0.0-0.1) 10^3/uL Abs Immat Gran (auto) 0.02 (0.00-0.03) 10^3/uL Imm/Tot Granulo (auto) 0.2 (0.0-0.5) % D-Dimer 0.78 H* (<=0.59) mg/L FEU Sodium 139 (136-145) mmol/L Potassium 3.4 L (3.5-5.1) mmol/L Chloride 102 (98-107) mmol/L Carbon Dioxide 27.6 (21.0-32.0) mmol/L Anion Gap 12.8 BUN 16.0 (7.0-18.0) mg/dL Creatinine 0.99 (0.70-1.30) mg/dL Est GFR ( Amer) >60 (>=60 mL/min/1.73m^2) Est GFR (Non-Af Amer) >60 (>=60 mL/min/1.73m^2) BUN/Creatinine Ratio 16.2 Glucose 90 (74-106) mg/dL Calcium 9.4 (8.5-10.1) mg/dL Troponin I High Sens 8.6 (4.0-76.1) pg/mL Imaging Data Chest x-ray: Radiologist's impression: ITS Impressions Chest X-Ray 07/15/24 15:02 IMPRESSION: No acute process Electronically authenticated by: FLORENCIA BANGURA Date: 07/15/2024 17:03 Chest CTA 07/15/24 15:36 IMPRESSION: No CT findings to suggest pulmonary embolism. Electronically authenticated by: FLORENCIA BANGURA Date: 07/15/2024 17:01 ECG Data Attestation: I personally reviewed and interpreted this ECG as follows: (EKG on my interpretation shows normal sinus rhythm with rate of 84 no acute change) Heart Score History: Slightly/Non-Suspicious ECG: Normal Age: <45 years Risk Factors: 1 or 2 Risk Factors Troponin: <Normal Limit Total Heart Score Recommendations & Risks:: 1 Discharge Plan Discharge Chief Complaint: Chest Pain Clinical Impression: Chest pain Patient Disposition: Home, Self-Care Time of Disposition Decision: 17:09 Condition: Good Mode of Transportation: Private Vehicle Prescriptions / Home Meds: No Action bumetanide 2 mg tablet 2 mg PO BID losartan 100 mg tablet 100 mg PO DAILY spironolactone 50 mg tablet 50 mg PO DAILY aspirin 81 mg tablet,delayed release (DR/EC) 81 mg PO DAILY albuterol sulfate 90 mcg/actuation HFA aerosol inhaler 2 puff INHALATION Q6H PRN (Reason: shortness of breath or wheezing) carvedilol 6.25 mg tablet 6.25 mg PO BID Print Language: Bolivian Instructions: Chest Pain (ED) Referrals: Alley Cruz NP [Primary Care Provider] - 1 week
--- NOTE | 2024-07-15 15:02 | XR_ITS ---
The [address] [address] Patient Name: RAFAEL WINKLER MRN: [id number] date: 1980 Sex: M Assigned Patient Location: ER Current Patient Location: ER Accession/Order Number: [id number] Exam Date: 07/15/2024 16:06 Report Date: 07/15/2024 17:03 At the request of: JARVIS CELIS Procedure: XR chest 1V EXAM: XR chest 1V HISTORY: Chest pain COMPARISON: 05/17/2024. TECHNIQUE: AP portable FINDINGS: LUNGS: No significant pulmonary parenchymal abnormalities. VASCULATURE: Within normal limits. PLEURA: No pneumothorax, effusion, or pleural thickening. CARDIAC: Within normal limits. MEDIASTINUM: No visible mass or adenopathy. BONES: No fracture or visible bone lesion. XR/XR chest 1V IMPRESSION: No acute process Electronically authenticated by: FLORENCIA BANGURA Date: 07/15/2024 17:03
--- NOTE | 2024-07-15 15:02 | ECG_ITS ---
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
[2024-07-15 15:11] LABS: Basophils Percent Auto 0.4 % (0.2-2.0); Eosinophils Absolute Auto 0.2 10^3/uL (0.0-0.7); Eosinophils Percent Auto 2.2 % (0.9-7.0); Hematocrit 50.8 % (42.0-54.0); Hemoglobin 16.9 g/dL (14.0-18.0); Immature Granulocytes Abs Auto 0.02 10^3/uL (0.00-0.03); Immature Granulocytes Pct Auto 0.2 % (0.0-0.5); Lymphocytes Absolute Auto 3.8 10^3/uL (1.2-3.8); Lymphocytes Percent Auto 37.9 % (20.5-60.0); Mean Corpuscular HGB Conc 33.3 g/dL (29.9-35.2); Mean Corpuscular Hemoglobin 27.9 pg (25.9-34.0); Mean Corpuscular Volume 83.8 fL (80.0-94.0); Mean Platelet Volume 10.2 fL (9.5-13.5); Monocytes Absolute Auto 0.7 10^3/uL (0.3-0.8); Monocytes Percent Auto 6.9 % (1.7-12.0); Neutrophils Absolute Auto 5.2 10^3/uL (1.4-6.5); Neutrophils Percent Auto 52.4 % (43.0-75.0); Platelet Count 239 10^3/uL (150-450); Red Blood Count 6.06 10^6/uL (4.70-6.10); Red Cell Distribution Width 14.9 % (11.0-15.0)
[2024-07-15 15:29] LABS: Anion Gap 12.8; BUN Creatinine Ratio 16.2; Calcium 9.4 mg/dL (8.5-10.1); Carbon Dioxide 27.6 mmol/L (21.0-32.0); Chloride 102 mmol/L (98-107); Estimated GFR (African America >60 (>=60 mL/min/1.73m^2); Estimated GFR (Non-African Ame >60 (>=60 mL/min/1.73m^2); Glucose 90 mg/dL (74-106); Potassium 3.4 mmol/L (3.5-5.1); Sodium 139 mmol/L (136-145); Troponin I High Sensitivity 8.6 pg/mL (4.0-76.1)
[2024-07-15 15:36] LABS: D Dimer 0.78 mg/L FEU (<=0.59)
--- NOTE | 2024-07-15 15:36 | CT_ITS ---
The [address] [address] Patient Name: RAFAEL WINKLER MRN: [id number] date: 1980 Sex: M Assigned Patient Location: ER Current Patient Location: ER Accession/Order Number: [id number] Exam Date: 07/15/2024 16:12 Report Date: 07/15/2024 17:01 At the request of: JARVIS CELIS Procedure: CT angio chest EXAM: CT angio chest HISTORY: Pain, elevated dimer, rule out PE COMPARISON: 05/15/2024. TECHNIQUE: CT angiography of the chest was performed without IV contrast followed by IV contrast, including 3D post processing CTA image reconstruction. CT dose reduction technique was used, including Automated Exposure Control. FINDINGS: Diagnostic quality: Adequate There is no evidence for pulmonary embolism. The heart is not enlarged. There is no pericardial effusion. There are no abnormally enlarged hilar or mediastinal lymph nodes. Coronary arteries: Coronary calcifications appear absent. The central tracheobronchial tree is clear. The lungs are clear. Mild streaky atelectasis in the right middle lobe and lingula. There is no pleural effusion. No acute process identified in the visualized upper abdomen. No destructive osseous changes are seen. CT/CT angio chest IMPRESSION: No CT findings to suggest pulmonary embolism. Electronically authenticated by: FLORENCIA BANGURA Date: 07/15/2024 17:01
== END 2024-07-15 17:30 | disposition home or self-care (01) ==
PROVIDERS: Emergency Provider Emergency Medicine; PCP Nurse Practitioner
DX: R07.9 Chest pain, unspecified (principal); R79.89 Other specified abnormal findings of blood chemistry; F17.200 Nicotine dependence, unspecified, uncomplicated
CPT/HCPCS: 36415; 71045; 71275; 80048; 84484; 85025; 85378; 93005; 99285; Q9967

== ENCOUNTER 2024-11-06 19:36 | Emergency (ER) | payer OTHER, SELFPAY ==
[2024-11-06] VITALS (24 sets, daily range): BP systolic 115–162; BP diastolic 73–95; PULSE 66–84; TEMP 36.7; O2SAT 93–99; BMI 49.7
--- OUTSIDE RECORDS SUMMARY | 2024-11-06 19:43 | XMS_ITS | CCD ---
Author Organization [facility] Care Team Providers Care Dice Table Person Name Role Phone DR RADHA LANDEROS Admitting Unavailable LETI, DR GARCIA Consulting Unavailable LETI, DR GARCIA Attending Unavailable AICHHOLZ, LABORER LABORATORY ALLEY Primary Care Unavailable AICHHOLZ, LUMA ALLEY Admitting Unavailable AICHHOLZ, LABORER LABORATORY ALLEY Primary Care Unavailable AICHHOLZ, LABORER LABORATORY ALLEY Consulting Unavailable AICHHOLZ, LABORER LABORATORY ALLEY Attending Unavailable WILLEM, DR RACQUEL Luis Consulting Unavailable AICHHOLZ, LABORER LABORATORY ALLEY Primary Care Unavailable SURI, DR JEANNETTE Fuchs Admitting Unavailable SURI, DR JEANNETTE Fuchs Attending Unavailable SURI, DR JEANNETTE Fuchs Procedure Practitioner Unavaila cristina MCCORD, DR JEANNETTE Fuchs Consulting Unavailable PAPITO, DR HERON Milligan Consulting Unavaildaina e KENNETH POOL Consulting Unavailable IDALIA ALLEY Consulting Unavailable SHAZIA WELLINGTON Consulting Unavailable DIANNA SCHULTZ Consulting Unavailable LUCERO NEWTON Consulting Unavailable SISTER, GOPI Consulting Unavailable JACK MCCORMACK Consulting Unavailable Robert Doherty MD Primary Care Provider Aichholz LUMBER KILN OPERATOR, Alley Unavailable Alley Cruz Primary Care Unavailable Mariella Valderrama Consulting Unavailable Montrell Lima Admitting UnavailJavier Echavarria Attending Unavailable Ervin Calhoun Consulting Unavaila Shanice Arambula Consulting Unavailable Mark Reeves Consulting Unavailable Gerber Bond Consulting Unavailable Kenneth Pool Consulting Unavailable Liu Barraza Consulting Unavailable Zbigniew Mckee Consulting Un available Frank Baszbigniew Consulting Unavailable Tank Kumari Consulting Unavaila Amada Melton Consulting Unavailable ANTHONY ALLEY Attending Unavailable ALLEY CRUZ Attending Unavailable FABRICIO MEDEROS Attending Unavailable ALLEY CRUZ Referring Unavailable ALLEY CRUZ Attending Unavailable Medications Current Medications Medication Drug Class(es) Dates Sig (Normalized) Sig (Original) [id number] 200 actuat albuterol 0.09 mg/actuat metered dose inhaler (10 sources) beta2-Adrenergic Agonist Start: 07-19-2024 take 2 puff(s) by mouth every six hours as needed for wheezing albuterol HFA 90 mcg/act inhaler Indications: Mild intermittent asthma without complication (CMS/HCC) INHALE 2 PUFFS BY MOUTH EVERY 6 HOURS NEEDED for SHORTNESS OF BREATH or FOR WHEEZING 18 g 1 07/19/2024 Active Start: 03-20-2024 take 2 puff(s) by in halation every six hours for wheezing albuterol HFA 90 mcg/act inhaler Indications: Mild intermittent asthma without complication (CMS/HCC) Inhale 2 puffs every 6 (six) hours if needed for shortness of breath or wheezing 18 g 1 03/20/2024 Active amoxicillin 875 mg / clavulanate 125 mg oral tablet (2 sources) Penicillin-class Antibacterial Start: 08-29-2024 End: 09-08-2024 take 1 tablet by mouth in the morning amoxicillin-clavulanate (Augmentin) 875-125 MG tablet Indications: Acute non-recurrent maxillary sinusitis Take 1 tablet (875 mg) by mouth in the morning and 1 tablet (875 mg) before bedtime. Do all this for 10 days. Take w food. 20 tablet 08/29/2024 09/08/2024 Active aspirin 81 mg delayed release oral tablet (6 sources) Platelet Aggregation Inhibitor, Nonsteroidal Anti-inflammatory Drug take 1 tablet by mouth once daily aspirin 81 MG EC tablet Take 81 mg by mouth Daily Active bumetanide 2 mg oral tablet (14 sources) Loop Diuretic Start: 03-20-2024 End: 09-28-2024 take 1 tablet by mouth in the morning bumetanide (Bumex) 2 MG tablet Indications: Primary hypertension (CMS/HCC) , Chronic diastolic heart failure (CMS/HCC) Take 1 tablet (2 mg) by mouth in the morning and 1 tablet (2 mg) before bedtime. 60 tablet 2 08/29/2024 09/28/2024 Active carvedilol 6.25 mg oral tablet (14 sources) alpha-Adrenergic Mayra, beta-Adrenergic Mayra Start: 03-20-2024 End: 09-28-2024 take 1 tablet by mouth in the morning carvedilol (Coreg) 6.25 MG tablet Indications: Primary hypertension (CMS/HCC) Take 1 tablet (6.25 mg) by mouth in the morning and 1 tablet (6.25 mg) in the evening. Take with meals. 60 tablet 2 08/29/2024 09/28/2024 Active colchicine 0.6 mg oral tablet (10 sources) Start: 07-04-2024 take 1 tablet by mouth once colchicine 0.6 MG tablet Take 0.6 mg by mouth every 12 (twelve) hours if needed 07/04/2024 Active ibuprofen 200 mg oral tablet (6 sources) Nonsteroidal Anti-inflammatory Drug take 1 tablet by mouth every six hours ibuprofen 200 MG tablet Take 200 mg by mouth every 6 (six) hours Active predniSONE 20 mg oral tablet (1 source) Start: 09-09-2024 End: 09-14-2024 take 1 tablet by mouth in the morning predniSONE (Deltasone) 20 MG tablet Indications: Acute idiopathic gout of ankle, unspecified laterality Take 1 tablet (20 mg) by mouth in the morning and 1 tablet (20 mg) in the evening. Take with meals. Do all this for 5 days. 10 tablet 09/09/2024 09/14/2024 Active spironolactone 50 mg oral tablet (14 sources) Aldosterone Antagonist Start: 03-20-2024 End: 09-28-2024 take 1 tablet by mouth once daily spironolactone (Aldactone) 50 MG tablet Indications: Primary hypertension (CMS/HCC) , Chronic diastolic heart failure (CMS/HCC) Take 1 tablet (50 mg) by mouth Daily 30 tablet 2 08/29/2024 09/28/2024 Active Tirzepatide (Mounjaro) 2.5 MG/0.5ML solution auto-injector (5 sources) End: 08-29-2024 Tirzepatide (Mounjaro) 2.5 MG/0.5ML solution auto-injector Inject under the skin 08/29/2024 Discontinued (Cost of medication) Tirzepatide (Ledy njaro) 2.5 MG/0.5ML solution auto-injector Inject under the skin Active Completed/Discontinued Medications Medication Drug Class(es) Dates Sig (Normalized) Sig (Original) acetaminophen 325 mg / HYDROcodone bitartrate 5 mg oral tablet (4 sources) Opioid Agonist Start: 03-04-2024 End: 07-10-2024 take 1 tablet by mouth every six hours as needed for pain HYDROcodone-acetam inophen ([place]) 5-325 MG tablet TAKE 1 TABLET BY MOUTH EVERY 6 HOURS NEEDED FOR PAIN FOR 5 DAYS 03/04/2024 07/10/2024 Discontinued (Therapy completed) losartan potassium 100 mg oral tablet (3 sources) Angiotensin 2 Receptor Mayra Start: 03-20-2024 End: 07-10-2024 take 1 tablet by mouth once daily losartan (Cozaar) 100 MG tablet Indications: Primary hypertension (CMS/HCC) , Chronic diastolic heart failure (CMS/HCC) Take 1 tablet (100 mg) by mouth Daily 30 tablet 1 03/20/2024 07/10/2024 Discontinued (Therapy completed) Problems Active Problems Problem Classification Problem Date Documented Da te Episodic/Chronic Administrative/social admission (2 sources) Patient encounter status; Translations: [Dietary counseling and surveillance] 08-06-2024 Episodic Asthma (11 sources) Mild intermittent asthma; Translations: [Mild intermittent asthma, uncomplicated] Onset: 03-20-2024 03-20-2024 Chronic Chronic obstructive pulmonary disease and bronchiectasis (12 sources) Chronic obstructive lung disease; Translations: [Chronic obstructive pulmonary disease, unspecified] Onset: 07-10-2024 07-10-2024 Chronic Congestive heart failure; nonhypertensive (20 sources) Unspecified diastolic (congestive) heart failure; Translations: [Acute diastolic (congestive) heart failure] Onset: 07-19-2022 Chronic Diseases of white blood cells (11 sources) Leukocytosis; Translations: [Elevated white blood cell count, unspecified] Onset: 03-20-2024 03-20-2024 Chronic Essential hypertension (16 sources) Essential hypertension; Translations: [Essential (primary) hypertension] Onset: 08-02-2023 08-02-2023 Chronic Gout and other crystal arthropathies (20 sources) Gouty arthritis of multiple sites; Translations: [Idiopathic chronic gout, multiple sites, without tophus (tophi)] Onset: 08-17-2023 Resolved: 03-20-2024 03-20-2024 Chronic Hypertension with complications and secondary hypertension (4 sources) Hypertensive heart disease with heart failure; Translations: [Hypertensive emergency] Onset: 07-12-2022 Chronic Mycoses (1 source) Tinea unguium; Translations: [TINEA UNGUIUM] Onset: 09-13-2022 Episodic Nutritional deficiencies (17 sources) Mild protein-calorie malnutrition; Translations: [Vitamin D deficiency] Onset: 09-13-2022 07-10-2024 Chronic Other aftercare (1 source) 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 (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; Translations: [RECLAMATION WORKER CURRENT USE OF ASPIRIN] Onset: 09-26-2022 Episodic Other aftercare (1 source) Other fdc (current) drug therapy; Translations: [OTH RECLAMATION WORKER CURRENT DRUG THERAPY] Onset: 09-26-2022 Episodic Other connective tissue disease (3 sources) Other specified soft tissue disorders; Translations: [OTHER SPEC SOFT TISSUE DISORDERS] Onset: 09-24-2022 Episodic Other connective tissue disease (12 sources) Cramp; Translations: [Cramp and spasm] Onset: 07-10-2024 07-10-2024 Episodic Other diseases of veins and lymphatics [...] Chronic Other nutritional; endocrine; and metabolic disorders (2 sources) Morbid (severe) obesity with alveolar hypoventilation; Translations: [MORBID SEV OBESITY ALVEOLR HYPOVENT] Onset: 09-13-2022 Chronic Other nutritional; endocrine; and metabolic disorders (1 source) Body mass index (BMI) 60.0-69.9, adult; Translations: [BODY MASS INDEX BMI 60.0-69.9 ADULT] Onset: 09-13-2022 Chronic Other nutritional; endocrine; and metabolic disorders (15 sources) Obesity caused by energy imbalance; Translations: [Morbid (severe) obesity due to excess calories] Onset: 03-20-2024 03-20-2024 Chronic Other nutritional; endocrine; and metabolic disorders (15 sources) Body mass index 40+ - severely obese; Translations: [Body mass index (BMI) 50.0-59.9, adult] Onset: 03-20-2024 03-20-2024 Chronic Other nutritional; endocrine; and metabolic disorders (18 sources) Hypercalcemia; Translations: [Hypercalcemia] Onset: 07-10-2024 07-10-2024 Chronic Other nutritional; endocrine; and metabolic disorders (2 sources) Severe obesity; Translations: [Class 3 severe obesity due to excess calories without serious comorbidity with body mass index (BMI) of 50.0 to 59.9 in adult ([facility])] 08-06-2024 Chronic Other nutritional; endocrine; and metabolic disorders (1 source) Hypercalcemia; Translations: [Hypercalcemia] Onset: 05-17-2024 Chronic Other skin disorders (1 source) Xerosis cutis; Translations: [XEROSIS CUTIS] Onset: 09-13-2022 Episodic Other upper respiratory infections (5 sources) Acute maxillary sinusitis; Translations: [Acute maxillary sinusitis, unspecified] Onset: 08-29-2024 08-29-2024 Episodic Pulmonary heart disease (1 source) Pulmonary hypertension, unspecified; Translations: [PULMONARY HYPERTENSION UNSPECIFIED] Onset: 09-13-2022 Chronic Residual codes; unclassified (2 sources) Obstructive sleep apnea (adult) (pediatric); Translations: [OBSTRUCTIVE SLEEP APNEA] Onset: 09-26-2022 Chronic Residual codes; unclassified (15 sources) Obstructive sleep apnea syndrome; Translations: [Obstructive sleep apnea (adult) (pediatric)] Onset: 03-20-2024 03-20-2024 Chronic Residual codes; unclassified (1 source) Patient's other noncompliance with medication regimen; Translations: [PT OTH NONCOMPLIANCE W/ MED REGIMEN] Onset: 09-13-2022 Episodic Respiratory failure; insufficiency; arrest (adult) (3 sources) Chronic respiratory failure with hypoxia; Translations: [Dependence on supplemental oxygen] Onset: 09-13-2022 Chronic Screening and history of mental health and substance abuse codes (15 sources) Personal history of nicotine dependence; Translations: [Ex-smoker] Onset: 09-26-2022 07-10-2024 Episodic Skin and subcutaneous tissue infections (3 sources) Cellulitis of left lower limb; Translations: [Cutaneous abscess of left lower limb] Onset: 09-13-2022 Episodic Substance-related disorders (1 source) Nicotine dependence, cigarettes, uncomplicated; Translations: [NICOTINE DEPEND CIGARETTES UNCOMP] Onset: 09-13-2022 Chronic Unclassified (1 source) PT NONCOMP OTH MED TX/REG UNS REASN; Translations: [PT NONCOMP OTH MED TX/REG UNS REASN] Onset: 09-13-2022 Past or Other Problems Problem Classification Problem Date Documented Da te Episodic/Chronic Fluid and electrolyte disorders (2 sources) Hypokalemia; Translations: [Hypo-osmolality and hyponatremia] Onset: 09-13-2022 Episodic Other skin disorders (11 sources) Acanthosis nigricans; Translations: [Acanthosis nigricans] Onset: 03-20-2024 03-20-2024 Episodic Residual codes; unclassified (15 sources) Bilateral lower limb edema; Translations: [Localized edema] Onset: 03-20-2024 03-20-2024 Episodic Residual codes; unclassified (13 sources) Tobacco user; Translations: [Tobacco use] Onset: 03-20-2024 Resolved: 07-10-2024 07-10-2024 Episodic Results Test Name Value Interpretation Reference Range Facility Basic Metabolic Panelon 09 Anion gap [Moles/Vol] 12.4 mmol/L Normal 6.0-15.0 [facility] Comment on above: Performed By: #### B MP, MG #### [facility] [address] [place] [address] [place] Calcium [Mass/Vol] 10.2 mg/dL Normal 8.6-10.3 [facility] Comment on above: Performed By: #### B MP, MG #### [facility] [address] [place] [id number] [place] Chloride [Moles/Vol] 89 mmol/L Low 98-107 [facility] Comment on above: Performed By: #### B MP, MG #### [place] [address] [place] CO2 [Moles/Vol] 35.3 mmol/L High 21.0-31.0 [facility] Comment on above: Performed By: #### B MP, MG #### [place] [address] [place] Creatinine [Mass/Vol] 0.87 mg/dL Normal 0.70-1.30 [facility] Comment on above: Performed By: #### B MP, MG #### [place] [address] [place] Creatinine Clr Calc Pharmacy 216.24 Normal [facility] Comment on above: Result Comment: PERF ORMED BY: [place] [address] PATHOLOGIST AFTERNOON NANNY SUSANNA SHAH M.D. Performed By: #### B MP, MG #### [place] [address] [place] GFR/1.73 sq M.predicted MDRD (S/P/Bld) [Vol rate/Area] mL/min/{1.73_m2} Normal [facility] Comment on above: Performed By: #### B MP, MG #### [address] Glucose [Mass/Vol] 94 mg/dL Normal 70-100 [facility] Comment on above: Result Comment: [place] Glucose Reference Range is dependent on time and content of last meal. Glucose of more than 200 mg/dL in a nonstressed, ambulatory subject supports the diagnosis of Diabetes Mellitus. ADA recommended reference range Performed By: #### B MP, MG #### [address] Potassium [Moles/Vol] 3.7 mmol/L Normal 3.5-5.1 [facility] Comment on above: Performed By: #### B MP, MG #### [address] Sodium [Moles/Vol] 133 mmol/L Low 136-145 [facility] Comment on above: Performed By: #### B MP, MG #### [address] Urea nitrogen [Mass/Vol] 32 mg/dL High 7-25 [facility] Comment on above: Performed By: #### B MP, MG #### [address] Calcium, 24Hr Urineon 2023 Calcium, Urine 6.8 mg/dL Normal Not Estab. [facility] Comment on above: Order Comment: TV=31 05 URINE VOLUME (MILLILTERS): 3105 List any foods/meds the pt has taken (see Test/Proc Notes):: no Performed By: #### N A #### [address] Calcium, Urine 24 Hr 211 Normal 0-320 [facility] Comment on above: Order Comment: TV=31 05 URINE VOLUME (MILLILTERS): 3105 List any foods/meds the pt has taken (see Test/Proc Notes):: no Result Comment: Perf ormed at: [facility] [id number] Wallpaper Scraper: Horace Lacey PhD, Phone: [phone] PERFORMED BY: [place] [address] PATHOLOGIST AFTERNOON NANNY SUSANNA SHAH M.D. Performed By: #### N A #### [address] Stevan Time and Vol 24 hr uron 05-24-2024 Total Volume, Urine 3105 Normal [facility] Comment on above: Order Comment: URINE COLLECTION TIME (HRS): 24 URINE VOLUME (MILLILTERS): 3105 Result Comment: PERF ORMED BY: [place] [address] PATHOLOGIST AFTERNOON NANNY SUSANNA SHAH M.D. Performed By: #### B MP, MG #### [facility] [address] Urine Collection Time 24 Normal [facility] Comment on above: Order Comment: URINE COLLECTION TIME (HRS): 24 URINE VOLUME (MILLILTERS): 3105 Performed By: #### B MP, MG #### [address] Diff and CBCon 05-24-2024 Anisocytosis Ql (Bld) Moderate Normal [facility] Comment on above: Performed By: #### N A #### [address] Erythrocyte distribution width (RBC) [Ratio] 17.0 % High 12.0-14.8 [facility] Comment on above: Performed By: #### N A #### [address] Hematocrit (Bld) [Volume fraction] 59.8 % High 38.8-50.0 [facility] Comment on above: Performed By: #### N A #### [address] Hemoglobin (Bld) [Mass/Vol] 19.5 g/dL High 13.0-17.0 [facility] Comment on above: Performed By: #### N A #### [address] Large Platelets Slight Normal [facility] Comment on above: Result Comment: PERF ORMED BY: [place] [address] PATHOLOGIST AFTERNOON NANNY SUSANNA SHAH M.D. Performed By: #### N A #### [address] Lymphocytes/100 WBC (Bld) 9 % Low 18-42 [facility] Comment on above: Performed By: #### N A #### [address] MCH (RBC) [Entitic mass] 28.3 pg Normal 27.5-35.2 [facility] Comment on above: Performed By: #### N A #### [address] MCV (RBC) [Entitic vol] 86.6 fL Normal 83.5-101 [facility] Comment on above: Performed By: #### N A #### [address] Mean Corpuscular HGB Conc 32.7 g/dL Normal 32.5-35.6 [facility] Comment on above: Performed By: #### N A #### [address] Monocytes/100 WBC (Bld) 19 % High 2-11 [facility] Comment on above: Performed By: #### N A #### [address] Platelet Estimate Normal Normal Normal [facility] Comment on above: Performed By: #### N A #### [address] Platelet mean volume (Bld) [Entitic vol] 8.2 fL Normal 6.6-10.1 [facility] Comment on above: Result Comment: PERF ORMED BY: [place] [address] PATHOLOGIST AFTERNOON NANNY SUSANNA SHAH M.D. Performed By: #### N A #### [place] [address] [place] Platelets (Bld) [#/Vol] 201 10*3/uL Normal 150-450 [facility] Comment on above: Performed By: #### N A #### [address] RBC (Bld) [#/Vol] 6.90 10*6/uL High 3.90-5.60 [facility] Comment on above: Performed By: #### N A #### [address] Segmented neutrophils/100 WBC (Bld) 72 % High 50-70 [facility] Comment on above: Performed By: #### N A #### [address] WBC (Bld) [#/Vol] 10.2 10*3/uL Normal 4.1-10.5 [facility] Comment on above: Performed By: #### N A #### [address] 1,25 Dihydroxy Vit D Calcitr olon 05-23-2024 1,25 Dihydroxy Vit D Calcitrol 14.6 pg/mL Low 24.8-81.5 [facility] Comment on above: Result Comment: Perf ormed at: [facility] [address] [id number] Wallpaper Scraper: Jaycob Cook MD, Phone: [phone] PERFORMED BY: [place] [address] PATHOLOGIST AFTERNOON NANNY SUSANNA SHAH M.D. Performed By: #### B MP, MG #### [address] Basic Metabolic Panelon 04-29 Anion gap [Moles/Vol] 11.3 mmol/L Normal 6.0-15.0 [facility] Comment on above: Performed By: #### B MP, MG #### [address] Calcium [Mass/Vol] 10.4 mg/dL High 8.6-10.3 [facility] Comment on above: Performed By: #### B MP, MG #### [address] Chloride [Moles/Vol] 88 mmol/L Low 98-107 [facility] Comment on above: Performed By: #### B MP, MG #### [address] CO2 [Moles/Vol] 33.3 mmol/L High 21.0-31.0 [facility] Comment on above: Performed By: #### B MP, MG #### [address] Creatinine [Mass/Vol] 0.71 mg/dL Normal 0.70-1.30 [facility] Comment on above: Performed By: #### B MP, MG #### [address] Creatinine Clr Calc Pharmacy 263.60 Normal [facility] Comment on above: Result Comment: PERF ORMED BY: [place] [address] PATHOLOGIST AFTERNOON NANNY SUSANNA SHAH M.D. Performed By: #### B MP, MG #### [address] GFR/1.73 sq M.predicted MDRD (S/P/Bld) [Vol rate/Area] mL/min/{1.73_m2} Normal [facility] Comment on above: Performed By: #### B MP, MG #### [address] Glucose [Mass/Vol] 101 mg/dL High 70-100 [facility] Comment on above: Result Comment: [facility] Glucose Reference Range is dependent on time and content of last meal. Glucose of more than 200 mg/dL in a nonstressed, ambulatory subject supports the diagnosis of Diabetes Mellitus. ADA recommended reference range Performed By: #### B MP, MG #### [address] Potassium [Moles/Vol] 3.6 mmol/L Normal 3.5-5.1 [facility] Comment on above: Result Comment: Hemo lysis is present at a level that could interfere with the result. Contact lab if redraw is required Performed By: #### B MP, MG #### [address] Sodium [Moles/Vol] 129 mmol/L Low 136-145 [facility] Comment on above: Performed By: #### B MP, MG #### [place] [address] [place] Urea nitrogen [Mass/Vol] 36 mg/dL High 7-25 [facility] Comment on above: Performed By: #### B MP, MG #### [address] Diff and CBCon 05-23-2024 Anisocytosis Ql (Bld) Slight Normal [facility] Comment on above: Performed By: #### N A #### [address] Eosinophils/100 WBC (Bld) 1 % Normal 1-3 [facility] Comment on above: Performed By: #### N A #### [address] Erythrocyte distribution width (RBC) [Ratio] 16.8 % High 12.0-14.8 [facility] Comment on above: Performed By: #### N A #### [address] Hematocrit (Bld) [Volume fraction] 58.1 % High 38.8-50.0 [facility] Comment on above: Performed By: #### N A #### [address] Hemoglobin (Bld) [Mass/Vol] 18.9 g/dL High 13.0-17.0 [facility] Comment on above: Performed By: #### N A #### [address] Lymphocytes/100 WBC (Bld) 12 % Low 18-42 [facility] Comment on above: Performed By: #### N A #### [address] MCH (RBC) [Entitic mass] 28.4 pg Normal 27.5-35.2 [facility] Comment on above: Performed By: #### N A #### [address] MCV (RBC) [Entitic vol] 87.1 fL Normal 83.5-101 [facility] Comment on above: Performed By: #### N A #### [address] Mean Corpuscular HGB Conc 32.6 g/dL Normal 32.5-35.6 [facility] Comment on above: Performed By: #### N A #### [address] Microcytosis Slight Normal [facility] Comment on above: Performed By: #### N A #### [address] Monocytes/100 WBC (Bld) 11 % Normal 2-11 [facility] Comment on above: Performed By: #### N A #### [address] Platelet Estimate Normal Normal Normal [facility] Comment on above: Performed By: #### N A #### [address] Platelet mean volume (Bld) [Entitic vol] 8.2 fL Normal 6.6-10.1 [facility] Comment on above: Performed By: #### N A #### [address] Platelet Morphology Normal Normal Normal [facility] Comment on above: Result Comment: PERF ORMED BY: [place] [address] PATHOLOGIST AFTERNOON NANNY SUSANNA SHAH M.D. Performed By: #### N A #### [address] Platelets (Bld) [#/Vol] 190 10*3/uL Normal 150-450 [facility] Comment on above: Performed By: #### N A #### [address] RBC (Bld) [#/Vol] 6.67 10*6/uL High 3.90-5.60 [facility] Comment on above: Performed By: #### N A #### [address] Reactive Lymphocytes 4 % Normal 0-12 [facility] Comment on above: Performed By: #### N A #### [address] Segmented neutrophils/100 WBC (Bld) 72 % High 50-70 [facility] Comment on above: Performed By: #### N A #### [address] Stomatocytes Slight Normal [facility] Comment on above: Performed By: #### N A #### [address] WBC (Bld) [#/Vol] 10.0 10*3/uL Normal 4.1-10.5 [facility] Comment on above: Performed By: #### N A #### [address] Albumin Levelon 05-22-2024 Albumin [Mass/Vol] 3.8 g/dL Normal 3.5-5.7 [facility] Comment on above: Performed By: #### B MP, MG #### [address] Basic Metabolic Panelon 04-29 Anion gap [Moles/Vol] 15.4 mmol/L High 6.0-15.0 [facility] Comment on above: Performed By: #### B MP, MG #### [address] Calcium [Mass/Vol] 10.5 mg/dL High 8.6-10.3 [facility] Comment on above: Performed By: #### B MP, MG #### [address] Chloride [Moles/Vol] 85 mmol/L Low 98-107 [facility] Comment on above: Performed By: #### B MP, MG #### [address] CO2 [Moles/Vol] 31.6 mmol/L High 21.0-31.0 The [facility] Comment on above: Performed By: #### B MP, MG #### [place] [address] [place] Creatinine [Mass/Vol] 0.88 mg/dL Normal 0.70-1.30 [facility] Comment on above: Performed By: #### B MP, MG #### [facility] [address] [place] [address] [place] Creatinine Clr Calc Pharmacy 212.68 Normal [facility] Comment on above: Performed By: #### B MP, MG #### [facility] [address] [place] [address] [place] GFR/1.73 sq M.predicted MDRD (S/P/Bld) [Vol rate/Area] mL/min/{1.73_m2} Normal [facility] Comment on above: Performed By: #### B MP, MG #### [place] [address] [place] Glucose [Mass/Vol] 89 mg/dL Normal 70-100 [facility] Comment on above: Result Comment: [place] Glucose Reference Range is dependent on time and content of last meal. Glucose of more than 200 mg/dL in a nonstressed, ambulatory subject supports the diagnosis of Diabetes Mellitus. ADA recommended reference range Performed By: #### B MP, MG #### [address] Potassium [Moles/Vol] 4.0 mmol/L Normal 3.5-5.1 [facility] Comment on above: Performed By: #### B MP, MG #### [place] [address] [place] Sodium [Moles/Vol] 128 mmol/L Low 136-145 [facility] Comment on above: Performed By: #### B MP, MG #### [place] [address] [place] Urea nitrogen [Mass/Vol] 41 mg/dL High 7-25 [facility] Comment on above: Performed By: #### B MP, MG #### [address] [place] [address] [place] Diff and CBCon 05-22-2024 Anisocytosis Ql (Bld) Slight Normal [facility] Comment on above: Order Comment: REDRA W Performed By: #### D IFF CBC #### [facility] [address] [place] [id number] [place] Basophils/100 WBC (Bld) 0 % Normal 0-2 [facility] Comment on above: Order Comment: REDRA W Performed By: #### D IFF CBC #### [address] Eosinophils/100 WBC (Bld) 2 % Normal 1-3 [facility] Comment on above: Order Comment: REDRA W Performed By: #### D IFF CBC #### [address] Erythrocyte distribution width (RBC) [Ratio] 17.2 % High 12.0-14.8 [facility] Comment on above: Order Comment: REDRA W Performed By: #### D IFF CBC #### [address] Hematocrit (Bld) [Volume fraction] 59.9 % High 38.8-50.0 [facility] Comment on above: Order Comment: REDRA W Performed By: #### D IFF CBC #### [address] Hemoglobin (Bld) [Mass/Vol] 19.0 g/dL High 13.0-17.0 [facility] Comment on above: Order Comment: REDRA W Performed By: #### D IFF CBC #### [place] [id number] [place] Lymphocytes/100 WBC (Bld) 14 % Low 18-42 [facility] Comment on above: Order Comment: REDRA W Performed By: #### D IFF CBC #### [address] MCH (RBC) [Entitic mass] 28.2 pg Normal 27.5-35.2 [facility] Comment on above: Order Comment: REDRA W Performed By: #### D IFF CBC #### [facility] [address] MCV (RBC) [Entitic vol] 88.8 fL Normal 83.5-101 [facility] Comment on above: Order Comment: REDRA W Performed By: #### D IFF CBC #### [facility] [address] Mean Corpuscular HGB Conc 31.8 g/dL Low 32.5-35.6 [facility] Comment on above: Order Comment: REDRA W Performed By: #### D IFF CBC #### [address] Monocytes/100 WBC (Bld) 2 % Normal 2-11 [facility] Comment on above: Order Comment: REDRA W Performed By: #### D IFF CBC #### [address] Platelet Estimate Normal Normal Normal [facility] Comment on above: Order Comment: REDRA W Performed By: #### D IFF CBC #### [facility] [address] Platelet mean volume (Bld) [Entitic vol] 9.4 fL Normal 6.6-10.1 [facility] Comment on above: Order Comment: REDRA W Performed By: #### D IFF CBC #### [address] Platelet Morphology Normal Normal Normal [facility] Comment on above: Order Comment: REDRA W Result Comment: PERF ORMED BY: [place] [address] PATHOLOGIST AFTERNOON NANNY SUSANNA SHAH M.D. Performed By: #### D IFF CBC #### [address] Platelets (Bld) [#/Vol] 197 10*3/uL Significant change down 150-450 [facility] Comment on above: Order Comment: REDRA W Performed By: #### D IFF CBC #### [address] RBC (Bld) [#/Vol] 6.75 10*6/uL High 3.90-5.60 [facility] Comment on above: Order Comment: REDRA W Performed By: #### D IFF CBC #### [address] Segmented neutrophils/100 WBC (Bld) 82 % High 50-70 [facility] Comment on above: Order Comment: REDRA W Performed By: #### D IFF CBC #### [address] WBC (Bld) [#/Vol] 10.8 10*3/uL High 4.1-10.5 [facility] Comment on above: Order Comment: REDRA W Performed By: #### D IFF CBC #### [address] Magnesiumon 05-22-2024 Magnesium [Mass/Vol] 2.4 mg/dL Normal 1.9-2.7 [facility] Comment on above: Result Comment: PERF ORMED BY: [place] [address] PATHOLOGIST AFTERNOON NANNY SUSANNA SHAH M.D. Performed By: #### B MP, MG #### [address] Parathyroid Hormone Intacton 05-22-2024 Parathyroid Hormone Intact 30.2 pg/mL Normal 12- [facility] Comment on above: Result Comment: PERF ORMED BY: [place] [address] PATHOLOGIST AFTERNOON NANNY SUSANNA SHAH M.D. Performed By: #### B MP, MG #### [address] Redraw Sodiumon 05-22-2024 Sodium [Moles/Vol] 131 mmol/L Low 136-145 [facility] Comment on above: Result Comment: PERF ORMED BY: [address] [place] [id number] PATHOLOGIST AFTERNOON NANNY SUSANNA SHAH M.D. Performed By: #### B MP, MG #### [address] Vitamin D 25 Hydroxy Totalon 05-22-2024 Vitamin D 25 Hydroxy Total 12.5 ng/mL Low 30-100 [facility] Comment on above: Result Comment: Hemo lysis is present at a level that could interfere with the result. Contact lab if redraw is required VITAMIN D STATUS 25(OH)VITAMIN D RANGE (ng/mL) Deficient <20 Insufficient 20 to <30 Sufficient 30 to 100 Reference: Erika MF,Misty BOYCE, Vonnie WOODSON, et al. Evaluation,treatment, and prevention of vitamin D deficiency; an Endocrine Society clinical practice guideline. JCEM. 2010; 96(7):1911-30. PERFORMED BY: [place] [address] PATHOLOGIST AFTERNOON NANNY SUSANNA SHAH M.D. Performed By: #### B MP, MG #### [address] Basic Metabolic Panelon 04-29 Anion gap [Moles/Vol] 14.4 mmol/L Normal 6.0-15.0 [facility] Comment on above: Performed By: #### B MP, MG #### [place] [address] [place] Calcium [Mass/Vol] 10.1 mg/dL Normal 8.6-10.3 [facility] Comment on above: Performed By: #### B MP, MG #### [place] [id number] [place] Chloride [Moles/Vol] 77 mmol/L Low 98-107 [facility] Comment on above: Performed By: #### B MP, MG #### [place] [id number] [facility] CO2 [Moles/Vol] 36.6 mmol/L High 21.0-31.0 [facility] Comment on above: Performed By: #### B MP, MG #### [facility] [address] [place] [address] [place] Creatinine [Mass/Vol] 1.10 mg/dL Normal 0.70-1.30 [facility] Comment on above: Performed By: #### B MP, MG #### [facility] [address] [place] [address] [place] Creatinine Clr Calc Pharmacy 171.56 Normal [facility] Comment on above: Performed By: #### B MP, MG #### [facility] [address] [place] [address] [place] GFR/1.73 sq M.predicted MDRD (S/P/Bld) [Vol rate/Area] mL/min/{1.73_m2} Normal [facility] Comment on above: Performed By: #### B MP, MG #### [address] Glucose [Mass/Vol] 87 mg/dL Normal 70-100 [facility] Comment on above: Result Comment: [facility] Glucose Reference Range is dependent on time and content of last meal. Glucose of more than 200 mg/dL in a nonstressed, ambulatory subject supports the diagnosis of Diabetes Mellitus. ADA recommended reference range Performed By: #### B MP, MG #### [address] Potassium [Moles/Vol] 4.0 mmol/L Normal 3.5-5.1 [facility] Comment on above: Result Comment: Hemo lysis is present at a level that could interfere with the result. Contact lab if redraw is required Performed By: #### B MP, MG #### [place] [address] [place] Sodium [Moles/Vol] 124 mmol/L Invalid Interpretation Code 136-145 [facility] Comment on above: Result Comment: Crit ical Result Called to and read back by: JOSSE PUENTES at: 05/21/2024 07:21:17 by:MLG Performed By: #### B MP, MG #### [place] [address] Urea nitrogen [Mass/Vol] 39 mg/dL High 7-25 [facility] Comment on above: Performed By: #### B MP, MG #### [address] Diff and CBCon 05-21-2024 Erythrocyte distribution width (RBC) [Ratio] 17.0 % High 12.0-14.8 [facility] Comment on above: Performed By: #### D IFF CBC #### [address] Giant Platelet Tally 1 /100{WBC} Normal [facility] Comment on above: Performed By: #### D IFF CBC #### [address] Hematocrit (Bld) [Volume fraction] 60.6 % Off scale high 38.8-50.0 [facility] Comment on above: Result Comment: Crit ical value result called at 1051 on 05/21/24 Performed By: #### D IFF CBC #### [address] Hemoglobin (Bld) [Mass/Vol] 19.5 g/dL High 13.0-17.0 [facility] Comment on above: Performed By: #### D IFF CBC #### [address] Lymphocytes/100 WBC (Bld) 7 % Low 18-42 [facility] Comment on above: Performed By: #### D IFF CBC #### [address] MCH (RBC) [Entitic mass] 28.2 pg Normal 27.5-35.2 [facility] Comment on above: Performed By: #### D IFF CBC #### [address] MCV (RBC) [Entitic vol] 87.7 fL Normal 83.5-101 [facility] Comment on above: Performed By: #### D IFF CBC #### [address] Mean Corpuscular HGB Conc 32.2 g/dL Low 32.5-35.6 [facility] Comment on above: Performed By: #### D IFF CBC #### [address] Monocytes/100 WBC (Bld) 9 % Normal 2-11 [facility] Comment on above: Performed By: #### D IFF CBC #### [address] Platelet Estimate Decreased Normal Normal [facility] Comment on above: Performed By: #### D IFF CBC #### [address] Platelet mean volume (Bld) [Entitic vol] 8.6 fL Normal 6.6-10.1 [facility] Comment on above: Result Comment: PERF ORMED BY: [place] [address] PATHOLOGIST AFTERNOON NANNY SUSANNA SHAH M.D. Performed By: #### D IFF CBC #### [address] Platelet Morphology Normal Normal Normal [facility] Comment on above: Result Comment: PERF ORMED BY: [place] [address] PATHOLOGIST AFTERNOON NANNY SUSANNA SHAH M.D. Performed By: #### D IFF CBC #### [place] [address] [place] Platelets (Bld) [#/Vol] 140 10*3/uL Low 150-450 [facility] Comment on above: Performed By: #### D IFF CBC #### [place] [address] [place] RBC (Bld) [#/Vol] 6.91 10*6/uL High 3.90-5.60 [facility] Comment on above: Performed By: #### D IFF CBC #### [address] [place] [address] [place] RBC morphology finding Nom (Bld) Normal Normal Normal [facility] Comment on above: Performed By: #### D IFF CBC #### [facility] [address] [place] [address] Segmented neutrophils/100 WBC (Bld) 85 % High 50-70 [facility] Comment on above: Performed By: #### D IFF CBC #### [facility] [address] [place] [address] WBC (Bld) [#/Vol] 11.6 10*3/uL High 4.1-10.5 [facility] Comment on above: Performed By: #### D IFF CBC #### [facility] [address] [place] [address] ECG 12 lead ECGon 05-21-2024 ECG 12 lead ECG [facility] [place] [address] [place] [address] Electrocardiograph Report Signed Patient: Rafael Winkler MR#: [id number] 606 : 1980 Acct:[id number] Age/Sex: 44 / M ADM Date: 05/17/24 Loc: Room: [address] [place] [address] Type: ADM IN Attending Dr: Jesse Lomax MD Ordering Provider: Jesse Lomax MD Date of Service: 05/21/24 ECG/ECG 12 lead ECG: rhythm check Copies to: Test Reason : Blood Pressure : */* mmHG Vent. Rate : 78 BPM Atrial Rate : 78 BPM P-R Int : 208 ms QRS Dur : 134 ms QT Int : 396 ms P-R-T Axes : 50 108 27 degrees QTcB Int : 451 ms Normal sinus rhythm Right atrial enlargement Nonspecific intraventricular block Lateral infarct , age undetermined Abnormal ECG No previous ECGs available Confirmed by ASUNCION SCHUMACHER MD ([id number]) on 05/21/2024 9:46:40 AM Referred By: Electronically Signed By: ASUNCION SCHUMACHER MD Transcribed By: MUS Signed By Asuncion Schumacher MD 0 05/21/24945 Normal [facility] Magnesiumon 05-21-2024 Magnesium [Mass/Vol] 2.3 mg/dL Normal 1.9-2.7 [facility] Comment on above: Result Comment: PERF ORMED BY: [place] [address] PATHOLOGIST AFTERNOON NANNY SUSANNA SHAH M.D. Performed By: #### B MP, MG #### [address] Sodiumon 05-21-2024 Sodium [Moles/Vol] 129 mmol/L Low 136-145 [facility] Comment on above: Result Comment: PERF ORMED BY: [place] [address] PATHOLOGIST AFTERNOON NANNY SUSANNA SHAH M.D. Performed By: #### B MP, MG #### [address] Sodium [Moles/Vol] 125 mmol/L Low 136-145 [facility] Comment on above: Result Comment: PERF ORMED BY: [place] [address] PATHOLOGIST AFTERNOON NANNY SUSANNA SHAH M.D. Performed By: #### N A #### [address] US venous duplex LE BIon US venous duplex LE BI [facility] [place] [address] Ultrasound Report Signed Patient: Rafael Winkler MR#: [id number] 606 : 1980 Acct:[id number] Age/Sex: 44 / M ADM Date: 05/17/24 Loc: Room: [address] [place] [address] Type: ADM IN Attending Dr: Jesse Lomax MD Ordering Provider: Jesse Lomax MD Date of Service: 05/20/24 US/US venous duplex LE BI: ro dvt Copies to: Jesse Lomax MD BILATERAL LOWER EXTREMITY VENOUS DUPLEX INDICATION: Painful swollen legs PROCEDURE: Color-flow duplex scanning is used to interrogate the deep venous system of the right and left lower extremities. The common femoral vein, femoral vein and popliteal vein show good compressibility with normal proximal and distal augmentation. The posterior tibial and peroneal veins are compressible. US/US venous duplex LE BI IMPRESSION: NO EVIDENCE FOR DEEP VEIN THROMBOSIS OR PROXIMAL SUPERFICIAL THROMBOPHLEBITIS IN THE RIGHT OR LEFT LOWER EXTREMITY. Impression dictated by: Jimbo Jackson M.D.05/21/2024 9:15 AM Dictation Location: [place] [address] Tech: Chrissie Ibrahim Transcribed By: CHRISTINA 05/21/24914 Dictated By: Jimbo Jackson MD 05/21/24914 Signed By: 05/21/24914 Normal [facility] Basic Metabolic Panel 04-29 Anion gap [Moles/Vol] 19.8 mmol/L High 6.0-15.0 [facility] Comment on above: Performed By: #### B MP, MG #### [facility] [address] Calcium [Mass/Vol] 10.6 mg/dL High 8.6-10.3 [facility] Comment on above: Performed By: #### B MP, MG #### [facility] [address] Chloride [Moles/Vol] 77 mmol/L Low 98-107 [facility] Comment on above: Performed By: #### B MP, MG #### [facility] [address] [place] [id number] [facility] CO2 [Moles/Vol] 36.4 mmol/L High 21.0-31.0 [facility] Comment on above: Performed By: #### B MP, MG #### [facility] [address] [place] [id number] [place] Creatinine [Mass/Vol] 1.06 mg/dL Normal 0.70-1.30 [facility] Comment on above: Performed By: #### B MP, MG #### [facility] [address] [place] [id number] [place] Creatinine Clr Calc Pharmacy 179.97 Normal [facility] Comment on above: Performed By: #### B MP, MG #### [place] [address] [place] GFR/1.73 sq M.predicted MDRD (S/P/Bld) [Vol rate/Area] mL/min/{1.73_m2} Normal [facility] Comment on above: Performed By: #### B MP, MG #### [address] Glucose [Mass/Vol] 96 mg/dL Normal 70-100 [facility] Comment on above: Result Comment: [place] Glucose Reference Range is dependent on time and content of last meal. Glucose of more than 200 mg/dL in a nonstressed, ambulatory subject supports the diagnosis of Diabetes Mellitus. ADA recommended reference range Performed By: #### B MP, MG #### [address] Potassium [Moles/Vol] 3.2 mmol/L Low 3.5-5.1 [facility] Comment on above: Performed By: #### B MP, MG #### [place] [address] [place] Sodium [Moles/Vol] 130 mmol/L Low 136-145 [facility] Comment on above: Performed By: #### B MP, MG #### [address] Urea nitrogen [Mass/Vol] 31 mg/dL High 7-25 [facility] Comment on above: Performed By: #### B MP, MG #### [address] Magnesiumon 05-20-2024 Magnesium [Mass/Vol] 1.9 mg/dL Normal 1.9-2.7 [facility] Comment on above: Result Comment: PERF ORMED BY: [place] [address] PATHOLOGIST AFTERNOON NANNY SUSANNA SHAH M.D. Performed By: #### B MP, MG #### [place] [address] [place] Basic Metabolic Panelon 09-2 Anion gap [Moles/Vol] Not performed Normal 6.0-15.0 [facility] Comment on above: Performed By: #### B MP, MG #### [facility] [address] Calcium [Mass/Vol] 10.3 mg/dL Normal 8.6-10.3 [facility] Comment on above: Performed By: #### B MP, MG #### [facility] [address] [place] [address] [place] Chloride [Moles/Vol] 79 mmol/L Low 98-107 [facility] Comment on above: Performed By: #### B MP, MG #### [facility] [address] CO2 [Moles/Vol] mmol/L High 21.0-31.0 [facility] Comment on above: Performed By: #### B MP, MG #### [facility] [address] Creatinine [Mass/Vol] 1.05 mg/dL Normal 0.70-1.30 [facility] Comment on above: Performed By: #### B MP, MG #### [place] [address] [place] Creatinine Clr Calc Pharmacy 188.15 Normal [facility] Comment on above: Result Comment: PERF ORMED BY: [place] [address] PATHOLOGIST AFTERNOON NANNY SUSANNA SHAH M.D. Performed By: #### B MP, MG #### [place] [address] [place] GFR/1.73 sq M.predicted MDRD (S/P/Bld) [Vol rate/Area] mL/min/{1.73_m2} Normal [facility] Comment on above: Performed By: #### B MP, MG #### [place] [address] [place] Glucose [Mass/Vol] 100 mg/dL Normal 70-100 [facility] Comment on above: Result Comment: [place] Glucose Reference Range is dependent on time and content of last meal. Glucose of more than 200 mg/dL in a nonstressed, ambulatory subject supports the diagnosis of Diabetes Mellitus. ADA recommended reference range Performed By: #### B MP, MG #### [address] Potassium [Moles/Vol] 4.1 mmol/L Normal 3.5-5.1 [facility] Comment on above: Result Comment: Hemo lysis is present at a level that could interfere with the result. Contact lab if redraw is required Performed By: #### B MP, MG #### [address] Sodium [Moles/Vol] 132 mmol/L Low 136-145 [facility] Comment on above: Performed By: #### B MP, MG #### [address] Urea nitrogen [Mass/Vol] 24 mg/dL Normal 7-25 [facility] Comment on above: Performed By: #### B MP, MG #### [address] A1C with Estimated Average G tapann 05-18-2024 Glucose [Mass/Vol] 131 mg/dL Normal [facility] Comment on above: Result Comment: PERF ORMED BY: [place] [address] PATHOLOGIST AFTERNOON NANNY SUSANNA SHAH M.D. Performed By: #### B MP, MG #### [address] HbA1c (Bld) [Mass fraction] 6.2 % High 4.3-5.6 [facility] Comment on above: Result Comment: Incr eased risk for diabetes: 5.7 - 6.4 diabetes: >6.4 glycemic control for adults with diabetes: <7.0 Performed By: #### B MP, MG #### [address] B-Type Natriuretic Peptideon 05-18-2024 Natriuretic peptide B (Bld) [Mass/Vol] 111.0 pg/mL High 5-100 [facility] Comment on above: Result Comment: PERF ORMED BY: [place] [address] PATHOLOGIST AFTERNOON NANNY SUSANNA SHAH M.D. Performed By: #### M G, PHOS, CMP, HS TROP, BNP, A1C WTH eA, PTT, PT #### [address] Comprehensive Metabolic Pane gerhard 05-18-2024 Albumin [Mass/Vol] 3.6 g/dL Normal 3.5-5.7 [facility] Comment on above: Performed By: #### M G, PHOS, CMP, HS TROP, BNP, A1C WTH eA, PTT, PT #### [address] Albumin/Globulin [Mass ratio] 1.0 {ratio} Normal [facility] Comment on above: Performed By: #### M G, PHOS, CMP, HS TROP, BNP, A1C WTH eA, PTT, PT #### [address] ALP [Catalytic activity/Vol] 63 U/L Normal 34-104 [facility] Comment on above: Performed By: #### M G, PHOS, CMP, HS TROP, BNP, A1C WTH eA, PTT, PT #### [address] ALT [Catalytic activity/Vol] 12 U/L Normal 7-52 [facility] Comment on above: Performed By: #### M G, PHOS, CMP, HS TROP, BNP, A1C WTH eA, PTT, PT #### [address] Anion gap [Moles/Vol] 9.2 mmol/L Normal 6.0-15.0 [facility] Comment on above: Performed By: #### M G, PHOS, CMP, HS TROP, BNP, A1C WTH eA, PTT, PT #### [facility] [address] AST [Catalytic activity/Vol] 20 U/L Normal 13-39 [facility] [facility] Comment on above: Performed By: #### M G, PHOS, CMP, HS TROP, BNP, A1C WTH eA, PTT, PT #### [facility] [address] [id number] [place] Bilirubin [Mass/Vol] 1.7 mg/dL High 0.3-1.0 The [facility] Comment on above: Result Comment: Samp les from patients who have taken Naproxen have shown spurious elevation in Total Bilirubin levels. A metabolite of Naproxen, O-desmethylnaproxen, has been shown to interfere with the Jendrdayamiik-Grof method for measuring Total Bilirubin. Performed By: #### M G, PHOS, CMP, HS TROP, BNP, A1C WTH eA, PTT, PT #### [place] [address] [place] Calcium [Mass/Vol] 9.5 mg/dL Normal 8.6-10.3 The [facility] Comment on above: Performed By: #### M G, PHOS, CMP, HS TROP, BNP, A1C WTH eA, PTT, PT #### [facility] [address] [id number] [place] Chloride [Moles/Vol] 90 mmol/L Low 98-107 [facility] Comment on above: Performed By: #### M G, PHOS, CMP, HS TROP, BNP, A1C WTH eA, PTT, PT #### [place] [address] [place] CO2 [Moles/Vol] 39.9 mmol/L High 21.0-31.0 The [facility] Comment on above: Performed By: #### M G, PHOS, CMP, HS TROP, BNP, A1C WTH eA, PTT, PT #### [place] [id number] [facility] Creatinine [Mass/Vol] 0.80 mg/dL Normal 0.70-1.30 The [facility] Comment on above: Performed By: #### M G, PHOS, CMP, HS TROP, BNP, A1C WTH eA, PTT, PT #### [facility] [address] [place] [address] [place] Creatinine Clr Calc Pharmacy 250.58 Normal [facility] Comment on above: Performed By: #### M G, PHOS, CMP, HS TROP, BNP, A1C WTH eA, PTT, PT #### [facility] [address] [place] [address] [place] GFR/1.73 sq M.predicted MDRD (S/P/Bld) [Vol rate/Area] mL/min/{1.73_m2} Normal [facility] Comment on above: Performed By: #### M G, PHOS, CMP, HS TROP, BNP, A1C WTH eA, PTT, PT #### [facility] [address] [place] [address] [place] Globulin (S) [Mass/Vol] 3.5 g/dL Normal [facility] Comment on above: Performed By: #### M G, PHOS, CMP, HS TROP, BNP, A1C WTH eA, PTT, PT #### [facility] [address] [place] [address] [place] Glucose [Mass/Vol] 109 mg/dL High 70-100 The [facility] Comment on above: Result Comment: [place] Glucose Reference Range is dependent on time and content of last meal. Glucose of more than 200 mg/dL in a nonstressed, ambulatory subject supports the diagnosis of Diabetes Mellitus. ADA recommended reference range Performed By: #### M G, PHOS, CMP, HS TROP, BNP, A1C WTH eA, PTT, PT #### [facility] [address] Potassium [Moles/Vol] 4.1 mmol/L Normal 3.5-5.1 [facility] Comment on above: Performed By: #### M G, PHOS, CMP, HS TROP, BNP, A1C WTH eA, PTT, PT #### [facility] [address] [place] [address] [place] Protein [Mass/Vol] 7.1 g/dL Normal 6.4-8.9 The [facility] Comment on above: Performed By: #### M G, PHOS, CMP, HS TROP, BNP, A1C WTH eA, PTT, PT #### [address] Sodium [Moles/Vol] 135 mmol/L Low 136-145 [facility] Comment on above: Performed By: #### M G, PHOS, CMP, HS TROP, BNP, A1C WTH eA, PTT, PT #### [address] Urea nitrogen [Mass/Vol] 15 mg/dL Normal 7-25 [facility] Comment on above: Performed By: #### M G, PHOS, CMP, HS TROP, BNP, A1C WTH eA, PTT, PT #### [address] Magnesiumon 05-18-2024 Magnesium [Mass/Vol] 2.0 mg/dL Normal 1.9-2.7 [facility] Comment on above: Result Comment: PERF ORMED BY: [place] [address] PATHOLOGIST AFTERNOON NANNY SUSANNA SHAH M.D. Performed By: #### M G, PHOS, CMP, HS TROP, BNP, A1C WTH eA, PTT, PT #### [address] Partial Thromboplastin Timeo n 05-18-2024 aPTT Coag (Bld) [Time] 35.6 s Normal 25.1-36.5 [facility] Comment on above: Result Comment: A he matocrit value greater than 55% may lead to inaccurate results in coagulation testing. Patients having hematocrit values >55% require a special collection tube for coagulation studies. Please contact the laboratory at [phone] for redraw instructions. PERFORMED BY: [place] [address] PATHOLOGIST AFTERNOON NANNY SUSANNA SHAH M.D. Performed By: #### B MP, MG #### [address] [place] [address] [facility] Phosphoruson 05-18-2024 Phosphate [Mass/Vol] 3.4 mg/dL Normal 2.5-4.5 [facility] Comment on above: Performed By: #### M G, PHOS, CMP, HS TROP, BNP, A1C WTH eA, PTT, PT #### [address] Prothrombin Time INRon 05-18 INR Coag (PPP) [Relative time] 1.1 {INR} Normal [facility] Comment on above: Result Comment: INR Therapeutic Range A) Pre- and Peroperative OAT started two weeks before surgery. NOT HIP SURGERY: 1.5 - 2.5 HIP SURGERY: 2 - 3 B) Primary and secondary prevention of venous THROMBOSIS: 2 - 3 C) Active venous thrombosis, pulmonary embolism and prevention of recurrent venous thrombosis: 2 - 3 D) Prevention of arterial thromboembolism including patients with mechanical heart valves: 3 - 4.5 Performed By: #### B MP, MG #### [address] PT Coag (PPP) [Time] 13.2 s High 9.0-12.9 [facility] Comment on above: Result Comment: A he matocrit value greater than 55% may lead to inaccurate results in coagulation testing. Patients having hematocrit values >55% require a special collection tube for coagulation studies. Please contact the laboratory at [phone] for redraw instructions. Performed By: #### B MP, MG #### [address] Troponin I High Sensitivityo n 05-18-2024 Troponin I High Sensitivity 9.4 pg/mL Normal 0.0-20.0 [facility] Comment on above: Result Comment: PERF ORMED BY: [place] [address] PATHOLOGIST AFTERNOON NANNY SUSANNA SHAH M.D. Performed By: #### M G, PHOS, CMP, HS TROP, BNP, A1C WTH eA, PTT, PT #### [address] PROF CHEM 8 (BAS METB)on Anion gap [Moles/Vol] 8.8 mmol/L Normal [facility] Comment on above: Performed By: #### C VDTBH #### [facility] [address] [place] [address] Dr. Gloria Gonzalez Calcium [Mass/Vol] 10.1 mg/dL Normal 8.5-10.1 [facility] Comment on above: Performed By: #### C VDTBH #### [facility] [address] [place] [address] Dr. Gloria Gonzalez Chloride [Moles/Vol] 97 mmol/L Critically low 98-107 [facility] Comment on above: Performed By: #### C VDTBH #### [facility] [address] [place] [address] Dr. Gloria Gonzalez CO2 [Moles/Vol] 35.4 mmol/L Critically high 21.0-32.0 [facility] Comment on above: Performed By: #### C VDTBH #### [facility] [address] [place] [address] Dr. Gloria Gonzalez Creatinine [Mass/Vol] 0.98 mg/dL Normal 0.70-1.30 [facility] Comment on above: Performed By: #### C VDTBH #### [facility] [address] [place] [address] Dr. Gloria Gonzalez EGFR-AF IRAQI >60 Normal >=60 [facility] Comment on above: Performed By: #### C VDTBH #### [facility] [address] [place] [address] Dr. Gloria Gonzalez EGFR-NON AF IRAQI >60 Normal >=60 [facility] Comment on above: Performed By: #### C VDTBH #### [facility] [address] [place] [address] Dr. Gloria Gonzalez Glucose [Mass/Vol] 102 mg/dL Normal 74-106 [facility] Comment on above: Performed By: #### C VDTBH #### [facility] [address] [place] [address] Dr. Gloria Gonzalez Potassium [Moles/Vol] 4.2 mmol/L Normal 3.5-5.1 [facility] Comment on above: Performed By: #### C VDTBH #### [facility] [address] [place] [address] Dr. Gloria Gonzalez Sodium [Moles/Vol] 137 mmol/L Normal 136-145 [facility] Comment on above: Performed By: #### C VDTBH #### [facility] [address] [place] [address] Dr. Gloria Gonzalez Urea nitrogen [Mass/Vol] 24.0 mg/dL Critically high 7.0-18.0 [facility] Comment on above: Performed By: #### C VDTBH #### [facility] [address] [place] [address] Dr. Gloria Gonzalez Urea nitrogen/Creatinine [Mass ratio] 24.5 mg/mg Normal [facility] Comment on above: Performed By: #### C VDTBH #### [facility] [address] [place] [address] Dr. Gloria Gonzalez CBC AUTO DIFFon 07-15-2022 BASO # 0.0 103/ul Normal 0.0-0.1 [facility] Comment on above: Performed By: #### B LUMBER KILN OPERATOR, HSTROPN #### [facility] [address] [place] [address] Dr. Gloria Gonzalez Basophils/100 WBC (Bld) 0.3 % Normal 0.2-2.0 [facility] Comment on above: Performed By: #### B LUMBER KILN OPERATOR, HSTROPN #### [facility] [address] [place] [address] Dr. Gloria Gonzalez EO # 0.3 103/ul Normal 0.0-0.7 [facility] Comment on above: Performed By: #### B LUMBER KILN OPERATOR, HSTROPN #### [facility] [address] [place] [address] Dr. Gloria Gonzalez Eosinophils/100 WBC (Bld) 3.1 % Normal 0.9-7.0 [facility] Comment on above: Performed By: #### B LUMBER KILN OPERATOR, HSTROPN #### [facility] [address] [place] [address] Dr. Gloria Gonzalez Erythrocyte distribution width (RBC) [Ratio] 15.6 % Critically high 11.0-15.0 [facility] Comment on above: Performed By: #### B LUMBER KILN OPERATOR, HSTROPN #### [facility] [address] [place] [address] Dr. Gloria Gonzalez Hematocrit (Bld) [Volume fraction] 54.8 % Critically high 42.0-54.0 [facility] Comment on above: Performed By: #### B LUMBER KILN OPERATOR, HSTROPN #### [facility] [address] [place] [address] Dr. Gloria Gonzalez Hemoglobin (Bld) [Mass/Vol] 17.1 g/dL Normal 14.0-18.0 [facility] Comment on above: Performed By: #### B LUMBER KILN OPERATOR, HSTROPN #### [facility] [address] [place] [address] Dr. Gloria Gonzalez IG # 0.02 10e3/ul Normal 0.00-0.03 [facility] Comment on above: Performed By: #### B LUMBER KILN OPERATOR, HSTROPN #### [facility] [address] [place] [address] Dr. Gloria Gonzalez IG % 0.2 % Normal 0.0-0.5 [facility] Comment on above: Performed By: #### B LUMBER KILN OPERATOR, HSTROPN #### [facility] [address] [place] [address] Dr. Gloria Gonzalez LYMPH # 1.2 103/ul Normal 1.2-3.8 [facility] Comment on above: Performed By: #### B LUMBER KILN OPERATOR, HSTROPN #### [facility] [address] [place] [address] Dr. Gloria Gonzalez Lymphocytes/100 WBC (Bld) 11.9 % Critically low 20.5-60.0 [facility] Comment on above: Performed By: #### B LUMBER KILN OPERATOR, HSTROPN #### [facility] [address] [place] [address] Dr. Gloria Gonzalez MANUAL DIFF REQ NO Normal [facility] Comment on above: Performed By: #### B LUMBER KILN OPERATOR, HSTROPN #### [facility] [address] [place] [address] Dr. Gloria Gonzalez MCH (RBC) [Entitic mass] 28.8 pg Normal 25.9-34.0 [facility] Comment on above: Performed By: #### B LUMBER KILN OPERATOR, HSTROPN #### [facility] [address] [place] [address] Dr. Gloria Gonzalez MCHC (RBC) [Mass/Vol] 31.2 g/dL Normal 29.9-35.2 [facility] Comment on above: Performed By: #### B LUMBER KILN OPERATOR, HSTROPN #### [facility] [address] [place] [address] Dr. Gloria Gonzalez MCV (RBC) [Entitic vol] 92.4 fL Normal 80.0-94.0 [facility] Comment on above: Performed By: #### B LUMBER KILN OPERATOR, HSTROPN #### [facility] [address] [place] [address] Dr. Gloria Gonzalez MONO # 1.3 103/ul Critically high 0.3-0.8 [facility] Comment on above: Performed By: #### B LUMBER KILN OPERATOR, HSTROPN #### [facility] [address] [place] [address] Dr. Gloria Gonzalez Monocytes/100 WBC (Bld) 12.1 % Critically high 1.7-12.0 [facility] Comment on above: Performed By: #### B LUMBER KILN OPERATOR, HSTROPN #### [facility] [address] [place] [address] Dr. Gloria Gonzalez NEUT # 7.5 103/ul Critically high 1.4-6.5 [facility] Comment on above: Performed By: #### B LUMBER KILN OPERATOR, HSTROPN #### [facility] [address] [place] [address] Dr. Gloria Gonzalez Neutrophils/100 WBC (Bld) 72.4 % Normal 43.0-75.0 [facility] Comment on above: Performed By: #### B LUMBER KILN OPERATOR, HSTROPN #### [facility] [address] [address] [address] Gloria Gonzalez Platelet mean volume (Bld) [Entitic vol] 9.9 fL Normal 9.5-13.5 [facility] Comment on above: Performed By: #### B LUMBER KILN OPERATOR, HSTROPN #### [facility] [address] [address] [address] Gloria Gonzalez PLT 181 103/ul Normal 150-450 [facility] Comment on above: Performed By: #### B LUMBER KILN OPERATOR, HSTROPN #### [facility] [address] [address] [address] Gloria Gonzalez RBC 5.93 106/ul Normal 4.70-6.10 [facility] Comment on above: Performed By: #### B LUMBER KILN OPERATOR, HSTROPN #### [facility] [address] [address] [address] Gloria Gonzalez WBC 10.4 103/ul Normal 4.0-11.0 [facility] Comment on above: Performed By: #### B LUMBER KILN OPERATOR, HSTROPN #### [facility] [address] [address] [address] Gloria Gonzalez CULTURE WOUNDon 07-15-2022 CULTURE [...] <=0.25 S F Clindamycin <=0.25 S F Quinupristin/Dalfopri stin <=0.25 S F Linezolid 2 S F Vancomycin 1 S F Tetracycline <=1 S F Rifampicin <=0.5 S F Trimethoprim/Sulfamet hoxazole <=10 S F Oxacillin <=0.25 S F Normal [facility] Comment on above: Performed By: #### B LUMBER KILN OPERATOR, HSTROPN #### [facility] [address] [place] [address] Dr. Gloria Gonzalez PROF 14(COMP METB)on 022 Albumin [Mass/Vol] 2.8 g/dL Critically low 3.4-5.0 [facility] Comment on above: Performed By: #### C VDTBH #### [facility] [address] [place] [address] Dr. Gloria Gonzalez Albumin/Globulin [Mass ratio] 0.6 {ratio} Normal [facility] Comment on above: Performed By: #### C VDTBH #### [facility] [address] [place] [address] Dr. Gloria Gonzalez ALP [Catalytic activity/Vol] 86 U/L Normal 46-116 [facility] Comment on above: Performed By: #### C VDTBH #### [facility] [address] [place] [address] Dr. Gloria Gonzalez ALT [Catalytic activity/Vol] 16 U/L Normal 16-63 [facility] Comment on above: Performed By: #### C VDTBH #### [facility] [address] [place] [address] Dr. Gloria Gonzalez Anion gap [Moles/Vol] 1.4 mmol/L Normal [facility] Comment on above: Performed By: #### C VDTBH #### [facility] [address] [place] [address] Dr. Gloria Gonzalez AST [Catalytic activity/Vol] 22 U/L Normal 15-37 [facility] Comment on above: Performed By: #### C VDTBH #### [facility] [address] [place] [address] Dr. Gloria Gonzalez Bilirubin [Mass/Vol] 1.2 mg/dL Critically high 0.2-1.0 [facility] Comment on above: Performed By: #### C VDTBH #### [facility] [address] [place] [address] Dr. Gloria Gonzalez Calcium [Mass/Vol] 8.9 mg/dL Normal 8.5-10.1 [facility] Comment on above: Performed By: #### C VDTBH #### [facility] [address] [address] [address] Gloria Gonzalez Chloride [Moles/Vol] 95 mmol/L Critically low 98-107 [facility] Comment on above: Performed By: #### C VDTBH #### [facility] [address] [address] [address] Gloria Gonzalez CO2 [Moles/Vol] 41.1 mmol/L Critically high 21.0-32.0 [facility] Comment on above: Performed By: #### C VDTBH #### [facility] [address] [address] [address] Gloria Gonzalez Creatinine [Mass/Vol] 0.92 mg/dL Normal 0.70-1.30 [facility] Comment on above: Performed By: #### C VDTBH #### [facility] [address] [place] [address] Dr. Gloria Gonzalez EGFR-AF IRAQI >60 Normal >=60 [facility] Comment on above: Performed By: #### C VDTBH #### [facility] [address] [address] [address] Gloria Gonzalez EGFR-NON AF IRAQI >60 Normal >=60 [facility] Comment on above: Performed By: #### C VDTBH #### [facility] [address] [place] [address] Dr. Gloria Gonzalez Globulin (S) [Mass/Vol] 5.0 g/dL Normal [facility] Comment on above: Performed By: #### C VDTBH #### [facility] [address] [place] [address] Dr. Gloria Gonzalez Glucose [Mass/Vol] 97 mg/dL Normal 74-106 [facility] Comment on above: Performed By: #### C VDTBH #### [facility] [address] [place] [address] Dr. Gloria Gonzalez Potassium [Moles/Vol] 3.5 mmol/L Normal 3.5-5.1 [facility] Comment on above: Performed By: #### C VDTBH #### [facility] [address] [place] [address] Dr. Gloria Gonzalez Protein [Mass/Vol] 7.8 g/dL Normal 6.4-8.2 [facility] Comment on above: Performed By: #### C VDTBH #### [facility] [address] [place] [address] Dr. Gloria Gonzalez Sodium [Moles/Vol] 134 mmol/L Critically low 136-145 [facility] Comment on above: Performed By: #### C VDTBH #### [facility] [address] [place] [address] Dr. Gloria Gonzaelz Urea nitrogen [Mass/Vol] 18.0 mg/dL Normal 7.0-18.0 [facility] Comment on above: Performed By: #### C VDTBH #### [facility] [address] [place] [address] Dr. Gloria Gonzalez Urea nitrogen/Creatinine [Mass ratio] 19.6 mg/mg Normal [facility] Comment on above: Performed By: #### C VDTBH #### [facility] [address] [place] [address] Dr. Gloria Gonzalez CBC AUTO DIFFon 07-14-2022 BASO # 0.0 103/ul Normal 0.0-0.1 [facility] Comment on above: Performed By: #### C BC #### [facility] [address] [place] [address] Dr. Gloria Gonzalez Basophils/100 WBC (Bld) 0.2 % Normal 0.2-2.0 [facility] Comment on above: Performed By: #### C BC #### [facility] [address] [place] [address] Dr. Gloria Gonzalez EO # 0.2 103/ul Normal 0.0-0.7 [facility] Comment on above: Performed By: #### C BC #### [facility] [address] [place] [address] Dr. Gloria Gonzalez Eosinophils/100 WBC (Bld) 2.2 % Normal 0.9-7.0 [facility] Comment on above: Performed By: #### C BC #### [facility] [address] [place] [address] Dr. Gloria Gonzalez Erythrocyte distribution width (RBC) [Ratio] 15.5 % Critically high 11.0-15.0 [facility] Comment on above: Performed By: #### C BC #### [facility] [address] [place] [address] Dr. Gloria Gonzalez Hematocrit (Bld) [Volume fraction] 57.2 % Critically high 42.0-54.0 [facility] Comment on above: Performed By: #### C BC #### [facility] [address] [place] [address] Dr. Gloria Gonzalez Hemoglobin (Bld) [Mass/Vol] 17.3 g/dL Normal 14.0-18.0 [facility] Comment on above: Performed By: #### C BC #### [facility] [address] [place] [address] Dr. Gloria Gonzalez IG # 0.02 10e3/ul Normal 0.00-0.03 [facility] Comment on above: Performed By: #### C BC #### [facility] [address] [place] [address] Dr. Gloria Gonzalez IG % 0.2 % Normal 0.0-0.5 [facility] Comment on above: Performed By: #### C BC #### [facility] [address] [place] [address] Dr. Gloria Gonzalez LYMPH # 0.9 103/ul Critically low 1.2-3.8 [facility] Comment on above: Performed By: #### C BC #### [facility] [address] [place] [address] Dr. Gloria Gonzalez Lymphocytes/100 WBC (Bld) 10.8 % Critically low 20.5-60.0 [facility] Comment on above: Performed By: #### C BC #### [facility] [address] [place] [address] Dr. Gloria Gonzalez MANUAL DIFF REQ NO Normal [facility] Comment on above: Performed By: #### C BC #### [facility] [address] [address] [address] Gloria Gonzalez MCH (RBC) [Entitic mass] 28.4 pg Normal 25.9-34.0 [facility] Comment on above: Performed By: #### C BC #### [facility] [address] [address] [address] Gloria Gonzalez MCHC (RBC) [Mass/Vol] 30.2 g/dL Normal 29.9-35.2 [facility] Comment on above: Performed By: #### C BC #### [facility] [address] [address] [address] Gloria Gonzalez MCV (RBC) [Entitic vol] 93.9 fL Normal 80.0-94.0 [facility] Comment on above: Performed By: #### C BC #### [facility] [address] [place] [address] Dr. Gloria Gonzalez MONO # 0.8 103/ul Normal 0.3-0.8 [facility] Comment on above: Performed By: #### C BC #### [facility] [address] [address] [address] Gloria Gonzalez Monocytes/100 WBC (Bld) 9.6 % Normal 1.7-12.0 [facility] Comment on above: Performed By: #### C BC #### [facility] [address] [address] [address] Gloria Gonzalez NEUT # 6.7 103/ul Critically high 1.4-6.5 [facility] Comment on above: Performed By: #### C BC #### [facility] [address] [address] [address] Gloria Gonzalez Neutrophils/100 WBC (Bld) 77.0 % Critically high 43.0-75.0 [facility] Comment on above: Performed By: #### C BC #### [facility] [address] [place] [address] Dr. Gloria Gonzalez Platelet mean volume (Bld) [Entitic vol] 10.0 fL Normal 9.5-13.5 [facility] Comment on above: Performed By: #### C BC #### [facility] [address] [address] [address] Gloria Gonzalez PLT 179 103/ul Normal 150-450 [facility] Comment on above: Performed By: #### C BC #### [facility] [address] [place] [address] Dr. Gloria Gonzalez RBC 6.09 106/ul Normal 4.70-6.10 [facility] Comment on above: Performed By: #### C BC #### [facility] [address] [place] [address] Dr. Gloria Gonzalez WBC 8.7 103/ul Normal 4.0-11.0 [facility] Comment on above: Performed By: #### C BC #### [facility] [address] [place] [address] Dr. Gloria Gonzalez PROF 14(COMP METB)on 022 Albumin [Mass/Vol] 3.0 g/dL Critically low 3.4-5.0 [facility] Comment on above: Performed By: #### C VDTBH #### [facility] [address] [place] [address] Dr. Gloria Gonzalez Albumin/Globulin [Mass ratio] 0.6 {ratio} [facility] Comment on above: Performed By: #### C VDTBH #### [facility] [address] [place] [address] Dr. Gloria Gonzalez ALP [Catalytic activity/Vol] 92 U/L Normal 46-116 [facility] Comment on above: Performed By: #### C VDTBH #### [facility] [address] [place] [address] Dr. Gloria Gonzalez ALT [Catalytic activity/Vol] 13 U/L Critically low 16-63 [facility] Comment on above: Performed By: #### C VDTBH #### [facility] [address] [place] [address] Dr. Gloria Gonzalez Anion gap [Moles/Vol] 2.0 mmol/L Normal [facility] Comment on above: Performed By: #### C VDTBH #### [facility] [address] [address] [address] Gloria Gonzalez AST [Catalytic activity/Vol] 18 U/L Normal 15-37 [facility] Comment on above: Performed By: #### C VDTBH #### [facility] [address] [address] [address] Gloria Gonzalez Bilirubin [Mass/Vol] 1.2 mg/dL Critically high 0.2-1.0 [facility] Comment on above: Performed By: #### C VDTBH #### [facility] [address] [address] [address] Gloria Gonzalez Calcium [Mass/Vol] 8.9 mg/dL Normal 8.5-10.1 [facility] Comment on above: Performed By: #### C VDTBH #### [facility] [address] [place] [address] Dr. Gloria Gonzalez Chloride [Moles/Vol] 96 mmol/L Critically low 98-107 [facility] Comment on above: Performed By: #### C VDTBH #### [facility] [address] [place] [address] Dr. Gloria Gonzalez CO2 [Moles/Vol] 43.4 mmol/L Critically high 21.0-32.0 [facility] Comment on above: Performed By: #### C VDTBH #### [facility] [address] [place] [address] Dr. Gloria Gonzalez Creatinine [Mass/Vol] 0.86 mg/dL Normal 0.70-1.30 [facility] Comment on above: Performed By: #### C VDTBH #### [facility] [address] [place] [address] Dr. Gloria Gonzalez EGFR-AF IRAQI >60 Normal >=60 [facility] Comment on above: Performed By: #### C VDTBH #### [facility] [address] [place] [address] Dr. Gloria Gonzalez EGFR-NON AF IRAQI >60 Normal >=60 [facility] Comment on above: Performed By: #### C VDTBH #### [facility] [address] [address] [address] Gloria Gonzalez Globulin (S) [Mass/Vol] 5.0 g/dL Normal [facility] Comment on above: Performed By: #### C VDTBH #### [facility] [address] [address] [address] Gloria Gonzalez Glucose [Mass/Vol] 108 mg/dL Critically high 74-106 [facility] Comment on above: Performed By: #### C VDTBH #### [facility] [address] [address] [address] Gloria Gonzalez Potassium [Moles/Vol] 3.4 mmol/L Critically low 3.5-5.1 [facility] Comment on above: Performed By: #### C VDTBH #### [facility] [address] [place] [address] Dr. Gloria Gonzalez Protein [Mass/Vol] 8.0 g/dL Normal 6.4-8.2 [facility] Comment on above: Performed By: #### C VDTBH #### [facility] [address] [place] [address] Dr. Gloria Gonzalez Sodium [Moles/Vol] 138 mmol/L Normal 136-145 [facility] Comment on above: Performed By: #### C VDTBH #### [facility] [address] [place] [address] Dr. Gloria Gonzalez Urea nitrogen [Mass/Vol] 12.0 mg/dL Normal 7.0-18.0 [facility] Comment on above: Performed By: #### C VDTBH #### [facility] [address] [place] [address] Dr. Gloria Gonzalez Urea nitrogen/Creatinine [Mass ratio] 14.0 mg/mg Normal [facility] Comment on above: Performed By: #### C VDTBH #### [facility] [address] [place] [address] Dr. Gloria Gonzalez CBC AUTO DIFFon 07-13-2022 BASO # 0.0 103/ul Normal 0.0-0.1 [facility] Comment on above: Performed By: #### C VDTBH #### [facility] [address] [place] [address] Dr. Gloria Gonzalez Basophils/100 WBC (Bld) 0.4 % Normal 0.2-2.0 [facility] Comment on above: Performed By: #### C VDTBH #### [facility] [address] [place] [address] Dr. Gloria Gonzalez EO # 0.2 103/ul Normal 0.0-0.7 [facility] Comment on above: Performed By: #### C VDTBH #### [facility] [address] [place] [address] Dr. Gloria Gonzalez Eosinophils/100 WBC (Bld) 2.2 % Normal 0.9-7.0 [facility] Comment on above: Performed By: #### C VDTBH #### [facility] [address] [place] [address] Dr. Gloria Gonzalez Erythrocyte distribution width (RBC) [Ratio] 15.9 % Critically high 11.0-15.0 [facility] Comment on above: Performed By: #### C VDTBH #### [facility] [address] [place] [address] Dr. Gloria Gonzalez Hematocrit (Bld) [Volume fraction] 55.7 % Critically high 42.0-54.0 [facility] Comment on above: Performed By: #### C VDTBH #### [facility] [address] [place] [address] Dr. Gloria Gonzalez Hemoglobin (Bld) [Mass/Vol] 17.2 g/dL Normal 14.0-18.0 [facility] Comment on above: Performed By: #### C VDTBH #### [facility] [address] [place] [address] Dr. Gloria Gonzalez IG # 0.02 10e3/ul Normal 0.00-0.03 [facility] Comment on above: Performed By: #### C VDTBH #### [facility] [address] [place] [address] Dr. Gloria Gonzalez IG % 0.2 % Normal 0.0-0.5 [facility] Comment on above: Performed By: #### C VDTBH #### [facility] [address] [place] [address] Dr. Gloria Gonzalez LYMPH # 1.1 103/ul Critically low 1.2-3.8 [facility] Comment on above: Performed By: #### C VDTBH #### [facility] [address] [place] [address] Dr. Gloria Gonzalez Lymphocytes/100 WBC (Bld) 11.0 % Critically low 20.5-60.0 [facility] Comment on above: Performed By: #### C VDTBH #### [facility] [address] [place] [address] Dr. Gloria Gonzalez MANUAL DIFF REQ NO Normal [facility] Comment on above: Performed By: #### C VDTBH #### [facility] [address] [place] [address] Dr. Gloria Gonzalez MCH (RBC) [Entitic mass] 28.9 pg Normal 25.9-34.0 [facility] Comment on above: Performed By: #### C VDTBH #### [facility] [address] [place] [address] Dr. Gloria Gonzalez MCHC (RBC) [Mass/Vol] 30.9 g/dL Normal 29.9-35.2 [facility] Comment on above: Performed By: #### C VDTBH #### [facility] [address] [place] [address] Dr. Gloria Gonzalez MCV (RBC) [Entitic vol] 93.6 fL Normal 80.0-94.0 [facility] Comment on above: Performed By: #### C VDTBH #### [facility] [address] [place] [address] Dr. Gloria Gonzalez MONO # 1.1 103/ul Critically high 0.3-0.8 [facility] Comment on above: Performed By: #### C VDTBH #### [facility] [address] [place] [address] Dr. Gloria Gonzalez Monocytes/100 WBC (Bld) 11.0 % Normal 1.7-12.0 [facility] Comment on above: Performed By: #### C VDTBH #### [facility] [address] [place] [address] Dr. Gloria Gonzalez NEUT # 7.2 103/ul Critically high 1.4-6.5 [facility] Comment on above: Performed By: #### C VDTBH #### [facility] [address] [place] [address] Dr. Gloria Gonzalez Neutrophils/100 WBC (Bld) 75.2 % Critically high 43.0-75.0 [facility] Comment on above: Performed By: #### C VDTBH #### [facility] [address] [place] [address] Dr. Gloria Gonzalez Platelet mean volume (Bld) [Entitic vol] 9.9 fL Normal 9.5-13.5 [facility] Comment on above: Performed By: #### C VDTBH #### [facility] [address] [place] [address] Dr. Gloria Gonzalez PLT 160 103/ul Normal 150-450 [facility] Comment on above: Performed By: #### C VDTBH #### [facility] [address] [place] [address] Dr. Gloria Gonzalez RBC 5.95 106/ul Normal 4.70-6.10 [facility] Comment on above: Performed By: #### C VDTBH #### [facility] [address] [place] [address] Dr. Gloria Gonzalez WBC 9.6 103/ul Normal 4.0-11.0 [facility] Comment on above: Performed By: #### C VDTBH #### [facility] [address] [place] [address] Dr. Gloria Gonzalez PROF 14(COMP METB)on 022 Albumin [Mass/Vol] 2.9 g/dL Critically low 3.4-5.0 [facility] Comment on above: Performed By: #### C MP #### [facility] [address] [place] [address] Dr. Gloria Gonzalez Albumin/Globulin [Mass ratio] 0.6 {ratio} Normal [facility] Comment on above: Performed By: #### C MP #### [facility] [address] [place] [address] Dr. Gloria Gonzalez ALP [Catalytic activity/Vol] 85 U/L Normal 46-116 [facility] Comment on above: Performed By: #### C MP #### [facility] [address] [place] [address] Dr. Gloria Gonzalez ALT [Catalytic activity/Vol] 15 U/L Critically low 16-63 [facility] Comment on above: Performed By: #### C MP #### [facility] [address] [place] [address] Dr. Gloria Gonzalez Anion gap [Moles/Vol] 4.5 mmol/L Normal [facility] Comment on above: Performed By: #### C MP #### [facility] [address] [place] [address] Dr. Gloria Gonzalez AST [Catalytic activity/Vol] 20 U/L Normal 15-37 [facility] Comment on above: Performed By: #### C MP #### [facility] [address] [place] [address] Dr. Gloria Gonzalez Bilirubin [Mass/Vol] 0.9 mg/dL Normal 0.2-1.0 [facility] Comment on above: Performed By: #### C MP #### [facility] [address] [place] [address] Dr. Gloria Gonzalez Calcium [Mass/Vol] 8.7 mg/dL Normal 8.5-10.1 [facility] Comment on above: Performed By: #### C MP #### [facility] [address] [place] [address] Dr. Gloria Gonzalez Chloride [Moles/Vol] 100 mmol/L Normal 98-107 [facility] Comment on above: Performed By: #### C MP #### [facility] [address] [place] [address] Dr. Gloria Gonzalez CO2 [Moles/Vol] 39.0 mmol/L Critically high 21.0-32.0 [facility] Comment on above: Performed By: #### C MP #### [facility] [address] [address] [address] Gloria Gonzalez Creatinine [Mass/Vol] 0.81 mg/dL Normal 0.70-1.30 [facility] Comment on above: Performed By: #### C MP #### [facility] [address] [address] [address] Gloria Gonzalez EGFR-AF IRAQI >60 Normal >=60 [facility] Comment on above: Performed By: #### C MP #### [facility] [address] [address] [address] Gloria Gonzalez EGFR-NON AF IRAQI >60 Normal >=60 [facility] Comment on above: Performed By: #### C MP #### [facility] [address] [place] [address] Dr. Gloria Gonzalez Globulin (S) [Mass/Vol] 4.5 g/dL Normal [facility] Comment on above: Performed By: #### C MP #### [facility] [address] [address] [address] Gloria Gonzalez Glucose [Mass/Vol] 102 mg/dL Normal 74-106 [facility] Comment on above: Performed By: #### C MP #### [facility] [address] [place] [address] Dr. Gloria Gonzalez Potassium [Moles/Vol] 3.5 mmol/L Normal 3.5-5.1 [facility] Comment on above: Performed By: #### C MP #### [facility] [address] [place] [address] Dr. Gloria Gonzalez Protein [Mass/Vol] 7.4 g/dL Normal 6.4-8.2 [facility] Comment on above: Performed By: #### C MP #### [facility] [address] [address] [address] Gloria Gonzalez Sodium [Moles/Vol] 140 mmol/L Normal 136-145 [facility] Comment on above: Performed By: #### C MP #### [facility] [address] [place] [address] Dr. Gloria Gonzalez Urea nitrogen [Mass/Vol] 13.0 mg/dL Normal 7.0-18.0 [facility] Comment on above: Performed By: #### C MP #### [facility] [address] [place] [address] Dr. Gloria Gonzalez Urea nitrogen/Creatinine [Mass ratio] 16.0 mg/mg Normal [facility] Comment on above: Performed By: #### C MP #### [facility] [address] [place] [address] Dr. Gloria Gonzalez BNPon 07-12-2022 Natriuretic peptide B (Bld) [Mass/Vol] 760.0 pg/mL Critically high <=450.0 [facility] Comment on above: Performed By: #### B LUMBER KILN OPERATOR, BMP, LIPID #### [facility] [address] [place] [address] Dr. Gloria Gonzalez CBC AUTO DIFFon 07-12-2022 BASO # 0.0 103/ul Normal 0.0-0.1 [facility] Comment on above: Performed By: #### B LUMBER KILN OPERATOR, HSTROPN #### [facility] [address] [place] [address] Dr. Gloria Gonzalez Basophils/100 WBC (Bld) 0.2 % Normal 0.2-2.0 [facility] Comment on above: Performed By: #### B LUMBER KILN OPERATOR, HSTROPN #### [facility] [address] [place] [address] Dr. Gloria Gonzalez EO # 0.2 103/ul Normal 0.0-0.7 [facility] Comment on above: Performed By: #### B LUMBER KILN OPERATOR, HSTROPN #### [facility] [address] [place] [address] Dr. Gloria Gonzalez Eosinophils/100 WBC (Bld) 2.0 % Normal 0.9-7.0 [facility] Comment on above: Performed By: #### B LUMBER KILN OPERATOR, HSTROPN #### [facility] [address] [place] [address] Dr. Gloria Gonzalez Erythrocyte distribution width (RBC) [Ratio] 15.6 % Critically high 11.0-15.0 [facility] Comment on above: Performed By: #### B LUMBER KILN OPERATOR, HSTROPN #### [facility] [address] [address] [address] Gloria Gonzalez Hematocrit (Bld) [Volume fraction] 56.2 % Critically high 42.0-54.0 [facility] Comment on above: Performed By: #### B LUMBER KILN OPERATOR, HSTROPN #### [facility] [address] [address] [address] Gloria Gonzalez Hemoglobin (Bld) [Mass/Vol] 17.1 g/dL Normal 14.0-18.0 [facility] Comment on above: Performed By: #### B LUMBER KILN OPERATOR, HSTROPN #### [facility] [address] [place] [address] Dr. Gloria Gonzalez IG # 0.03 10e3/ul Normal 0.00-0.03 [facility] Comment on above: Performed By: #### B LUMBER KILN OPERATOR, HSTROPN #### [facility] [address] [address] [address] Gloria Gonzalez IG % 0.3 % Normal 0.0-0.5 [facility] Comment on above: Performed By: #### B LUMBER KILN OPERATOR, HSTROPN #### [facility] [address] [place] [address] Dr. Gloria Gonzalez LYMPH # 1.3 103/ul Normal 1.2-3.8 [facility] Comment on above: Performed By: #### B LUMBER KILN OPERATOR, HSTROPN #### [facility] [address] [address] [address] Gloria Gonzalez Lymphocytes/100 WBC (Bld) 14.9 % Critically low 20.5-60.0 [facility] Comment on above: Performed By: #### B LUMBER KILN OPERATOR, HSTROPN #### [facility] [address] [address] [address] Gloria Gonzaelz MANUAL DIFF REQ NO Normal [facility] Comment on above: Performed By: #### B LUMBER KILN OPERATOR, HSTROPN #### [facility] [address] [place] [address] Dr. Gloria Gonzalez MCH (RBC) [Entitic mass] 28.9 pg Normal 25.9-34.0 [facility] Comment on above: Performed By: #### B LUMBER KILN OPERATOR, HSTROPN #### [facility] [address] [place] [address] Dr. Gloria Gonzalez MCHC (RBC) [Mass/Vol] 30.4 g/dL Normal 29.9-35.2 [facility] Comment on above: Performed By: #### B LUMBER KILN OPERATOR, HSTROPN #### [facility] [address] [place] [address] Dr. Gloria Gonzalez MCV (RBC) [Entitic vol] 95.1 fL Critically high 80.0-94.0 [facility] Comment on above: Performed By: #### B LUMBER KILN OPERATOR, HSTROPN #### [facility] [address] [place] [address] Dr. Gloria Gonzalez MONO # 0.9 103/ul Critically high 0.3-0.8 [facility] Comment on above: Performed By: #### B LUMBER KILN OPERATOR, HSTROPN #### [facility] [address] [place] [address] Dr. Gloria Gonzalez Monocytes/100 WBC (Bld) 9.7 % Normal 1.7-12.0 [facility] Comment on above: Performed By: #### B LUMBER KILN OPERATOR, HSTROPN #### [facility] [address] [place] [address] Dr. Gloria Gonzalez NEUT # 6.4 103/ul Normal 1.4-6.5 [facility] Comment on above: Performed By: #### B LUMBER KILN OPERATOR, HSTROPN #### [facility] [address] [place] [address] Dr. Gloria Gonzalez Neutrophils/100 WBC (Bld) 72.9 % Normal 43.0-75.0 [facility] Comment on above: Performed By: #### B LUMBER KILN OPERATOR, HSTROPN #### [facility] [address] [address] [address] Gloria Gonzalez Platelet mean volume (Bld) [Entitic vol] 10.1 fL Normal 9.5-13.5 [facility] Comment on above: Performed By: #### B LUMBER KILN OPERATOR, HSTROPN #### [facility] [address] [place], [place] [address] Dr. Gloria Gonzalez PLT 176 103/ul Normal 150-450 [facility] Comment on above: Performed By: #### B LUMBER KILN OPERATOR, HSTROPN #### [facility] [address] [address] [address] Gloria Gonzalez RBC 5.91 106/ul Normal 4.70-6.10 [facility] Comment on above: Performed By: #### B LUMBER KILN OPERATOR, HSTROPN #### [facility] [address] [address] [address] Gloria Gonzalez WBC 8.8 103/ul Normal 4.0-11.0 [facility] Comment on above: Performed By: #### B LUMBER KILN OPERATOR, HSTROPN #### [facility] [address] [address] [address] ABD/PELVIS WO CONon [...] JACK MCCORMACK Date: 2022-07-11 23:48 Normal [facility] Covid-19 PCR (CVDTBH)on 06-28 SARS-CoV-2 (COVID-19) RNA SADA+probe Ql (Unsp spec) Not detected Normal NOT DETECTED [facility] Comment on above: Result Comment: When [...] for this test is supported by the Marketing Research Coordinator of Health and Human Service's declaration that [...] longer be used). Performed By: #### C [facility] #### [facility] [address] [place] [address] Dr. Gloria Gonzalez ECHOCARDIO M/2D COMPLETEon 1 09-11-2021 ECHOCARDIO M/2D COMPLETE Patient: RAFAEL WINKLER Exam Date: 07/12/2022 : 1980 Gender:M Ordering : DR JEANNETTE MCCROD . Admission #: [id number] Family : LUMA CRUZ [facility] Order #: [id number] CLICK HERE TO VIEW EXAM ECHOCARDIOGRAM REPORT [...] Nicolas M.D. on 07/13/2022 at 20:00 Normal [facility] LIPID PROFILEon 07-12-2022 CHOL-HDL RATIO NORM SEE BELOW Normal [facility] Comment on above: Result Comment: 3.3 - 4.4 LOW RISK 4.4 - 7.1 AVERAGE RISK 7.1 - 11.0 MODERATE RISK >11.0 HIGH RISK Performed By: #### B LUMBER KILN OPERATOR, BMP, LIPID #### [facility] [address] [address] [address] Gloria Gonzalez Cholesterol [Mass/Vol] 119 mg/dL Normal <=200 [facility] Comment on above: Performed By: #### B LUMBER KILN OPERATOR, BMP, LIPID #### [facility] [address] [place], [place] [address] Dr. Gloria Gonzalez Cholesterol in HDL [Mass/Vol] 46 mg/dL Normal 40-60 [facility] Comment on above: Performed By: #### B LUMBER KILN OPERATOR, BMP, LIPID #### [facility] [address] [address] [address] Gloria Gonzalez Cholesterol in LDL [Mass/Vol] 59.2 mg/dL Normal [facility] Comment on above: Performed By: #### B LUMBER KILN OPERATOR, BMP, LIPID #### [facility] [address] [address] [address] Gloria Gonzalez Cholesterol.total/C holesterol in HDL [Mass ratio] 2.6 {ratio} Normal [facility] Comment on above: Performed By: #### B LUMBER KILN OPERATOR, BMP, LIPID #### [facility] [address] [place] [address] Dr. Gloria Gonzalez HDL NORMAL > or = 60 mg/dl - LO W CARDIOVASCULAR RISK <40 mg/dl - HIGH CARDIOVASCULAR RISK Normal [facility] Comment on above: Performed By: #### B LUMBER KILN OPERATOR, BMP, LIPID #### [facility] [address] [place] [address] Dr. Gloria Gonzalez LDL CALC NORMAL SEE BELOW Normal [facility] Comment on above: Result Comment: <100 mg/dl OPTIMAL 100 - 129 mg/dl NEAR OR ABOVE OPTIMAL 130 - 159 mg/dl BORDERLINE HIGH 160 - 189 mg/dl HIGH >190 mg/dl VERY HIGH Performed By: #### B LUMBER KILN OPERATOR, BMP, LIPID #### [facility] [address] [address] [address] Gloria Gonzalez Triglyceride [Mass/Vol] 69 mg/dL Normal <=150 [facility] Comment on above: Performed By: #### B LUMBER KILN OPERATOR, BMP, LIPID #### [facility] [address] [address] [address] Gloria Gonzalez VLDL CALC 13.8 mg/dL Normal [facility] Comment on above: Performed By: #### B LUMBER KILN OPERATOR, BMP, LIPID #### [facility] [address] [address] [address] Gloria Gonzalez PROF CHEM 8 (BAS METB)on Anion gap [Moles/Vol] 5.0 mmol/L Normal [facility] Comment on above: Performed By: #### B LUMBER KILN OPERATOR, BMP, LIPID #### [facility] [address] [address] [address] Gloria Gonzalez Calcium [Mass/Vol] 8.7 mg/dL Normal 8.5-10.1 [facility] Comment on above: Performed By: #### B LUMBER KILN OPERATOR, BMP, LIPID #### [facility] [address] [address] [address] Gloria Gonzalez Chloride [Moles/Vol] 104 mmol/L Normal 98-107 [facility] Comment on above: Performed By: #### B LUMBER KILN OPERATOR, BMP, LIPID #### [facility] [address] [place] [address] Dr. Gloria Gonzalez CO2 [Moles/Vol] 35.1 mmol/L Critically high 21.0-32.0 [facility] Comment on above: Performed By: #### B LUMBER KILN OPERATOR, BMP, LIPID #### [facility] [address] [place] [address] Dr. Gloria Gonzalez Creatinine [Mass/Vol] 0.77 mg/dL Normal 0.70-1.30 [facility] Comment on above: Performed By: #### B LUMBER KILN OPERATOR, BMP, LIPID #### [facility] [address] [place] [address] Dr. Gloria Gonzalez EGFR-AF IRAQI >60 Normal >=60 [facility] Comment on above: Performed By: #### B LUMBER KILN OPERATOR, BMP, LIPID #### [facility] [address] [place] [address] Dr. Gloria Gonzalez EGFR-NON AF IRAQI >60 Normal >=60 [facility] Comment on above: Performed By: #### B LUMBER KILN OPERATOR, BMP, LIPID #### [facility] [address] [address] [address] Gloria Gonzalez Glucose [Mass/Vol] 124 mg/dL Critically high 74-106 [facility] Comment on above: Performed By: #### B LUMBER KILN OPERATOR, BMP, LIPID #### [facility] [address] [place] [address] Dr. Gloria Gonzalez Potassium [Moles/Vol] 4.1 mmol/L Normal 3.5-5.1 [facility] Comment on above: Performed By: #### B LUMBER KILN OPERATOR, BMP, LIPID #### [facility] [address] [place] [address] Dr. Gloria Gonzalez Sodium [Moles/Vol] 140 mmol/L Normal 136-145 [facility] Comment on above: Performed By: #### B LUMBER KILN OPERATOR, BMP, LIPID #### [facility] [address] [place] [address] Dr. Gloria Gonzalez Urea nitrogen [Mass/Vol] 12.0 mg/dL Normal 7.0-18.0 [facility] Comment on above: Performed By: #### B LUMBER KILN OPERATOR, BMP, LIPID #### [facility] [address] [place] [address] Dr. Gloria Gonzalez Urea nitrogen/Creatinine [Mass ratio] 15.6 mg/mg Normal [facility] Comment on above: Performed By: #### B LUMBER KILN OPERATOR, BMP, LIPID #### [facility] [address] [place] [address] Dr. Gloria Gonzalez BNPon 07-11-2022 Natriuretic peptide B (Bld) [Mass/Vol] 858.0 pg/mL Critically high <=450.0 [facility] Comment on above: Performed By: #### B LUMBER KILN OPERATOR, HSTROPN #### [facility] [address] [place] [address] Dr. Gloria Gonzalez CBC AUTO DIFFon 07-11-2022 BASO # 0.0 103/ul Normal 0.0-0.1 [facility] Comment on above: Performed By: #### C BC #### [facility] [address] [place] [address] Dr. Gloria Gonzalez Basophils/100 WBC (Bld) 0.4 % Normal 0.2-2.0 [facility] Comment on above: Performed By: #### C BC #### [facility] [address] [place] [address] Dr. Gloria Gonzalez EO # 0.2 103/ul Normal 0.0-0.7 [facility] Comment on above: Performed By: #### C BC #### [facility] [address] [place] [address] Dr. Gloria Gonzalez Eosinophils/100 WBC (Bld) 2.3 % Normal 0.9-7.0 [facility] Comment on above: Performed By: #### C BC #### [facility] [address] [place] [address] Dr. Gloria Gonzalez Erythrocyte distribution width (RBC) [Ratio] 15.9 % Critically high 11.0-15.0 [facility] Comment on above: Performed By: #### C BC #### [facility] [address] [place] [address] Dr. Gloria Gonzalez Hematocrit (Bld) [Volume fraction] 57.5 % Critically high 42.0-54.0 [facility] Comment on above: Performed By: #### C BC #### [facility] [address] [place] [address] Dr. Gloria Gonzalez Hemoglobin (Bld) [Mass/Vol] 17.8 g/dL Normal 14.0-18.0 [facility] Comment on above: Performed By: #### C BC #### [facility] [address] [place] [address] Dr. Gloria Gonzalez IG # 0.02 10e3/ul Normal 0.00-0.03 [facility] Comment on above: Performed By: #### C BC #### [facility] [address] [place] [address] Dr. Gloria Gonzalez IG % 0.2 % Normal 0.0-0.5 [facility] Comment on above: Performed By: #### C BC #### [facility] [address] [place] [address] Dr. Gloria Gonzalez LYMPH # 2.0 103/ul Normal 1.2-3.8 [facility] Comment on above: Performed By: #### C BC #### [facility] [address] [place] [address] Dr. Gloria Gonzalez Lymphocytes/100 WBC (Bld) 21.2 % Normal 20.5-60.0 [facility] Comment on above: Performed By: #### C BC #### [facility] [address] [place] [address] Dr. Gloria Gonzalez MANUAL DIFF REQ NO Normal [facility] Comment on above: Performed By: #### C BC #### [facility] [address] [place] [address] Dr. Gloria Gonzalez MCH (RBC) [Entitic mass] 28.7 pg Normal 25.9-34.0 [facility] Comment on above: Performed By: #### C BC #### [facility] [address] [place] [address] Dr. Gloria Gonzalez MCHC (RBC) [Mass/Vol] 31.0 g/dL Normal 29.9-35.2 [facility] Comment on above: Performed By: #### C BC #### [facility] [address] [place] [address] Dr. Gloria Gonzalez MCV (RBC) [Entitic vol] 92.7 fL Normal 80.0-94.0 [facility] Comment on above: Performed By: #### C BC #### [facility] [address] [place] [address] Dr. Gloria Gonzalez MONO # 0.8 103/ul Normal 0.3-0.8 [facility] Comment on above: Performed By: #### C BC #### [facility] [address] [place] [address] Dr. Gloria Gonzalez Monocytes/100 WBC (Bld) 8.9 % Normal 1.7-12.0 [facility] Comment on above: Performed By: #### C BC #### [facility] [address] [place] [address] Dr. Gloria Gonzalez NEUT # 6.2 103/ul Normal 1.4-6.5 [facility] Comment on above: Performed By: #### C BC #### [facility] [address] [place] [address] Dr. Gloria Gonzalez Neutrophils/100 WBC (Bld) 67.0 % Normal 43.0-75.0 [facility] Comment on above: Performed By: #### C BC #### [facility] [address] [place] [address] Dr. Gloria Gonzalez Platelet mean volume (Bld) [Entitic vol] 10.6 fL Normal 9.5-13.5 [facility] Comment on above: Performed By: #### C BC #### [facility] [address] [place] [address] Dr. Gloria Gonzalez PLT 179 103/ul Normal 150-450 [facility] Comment on above: Performed By: #### C BC #### [facility] [address] [place] [address] Dr. Gloria Gonzalez RBC 6.20 106/ul Critically high 4.70-6.10 [facility] Comment on above: Performed By: #### C BC #### [facility] [address] [place] [address] Dr. Gloria Gonzalez WBC 9.3 103/ul Normal 4.0-11.0 [facility] Comment on above: Performed By: #### C BC #### [facility] [address] [place] [address] Dr. Gloria Gonzalez CULTURE BLOODon 07-11-2022 Microscopic examination of blood, culture Culture Observations: NO GROWTH AT 5 DAYS. Normal [facility] Comment on above: Performed By: #### B LUMBER KILN OPERATOR, HSTROPN #### [facility] [address] [place] [address] Dr. Gloria Gonzalez Microscopic examination of blood, culture Culture Observations: NO GROWTH AT 5 DAYS. Normal [facility] Comment on above: Performed By: #### B LUMBER KILN OPERATOR, HSTROPN #### [facility] [address] [place] [address] Dr. Gloria Gonzalez LACTATE/LACTIC ACIDon 2021 Lactate [Moles/Vol] 0.8 mmol/L Normal 0.4-1.9 [facility] Comment on above: Performed By: #### L ACT #### [facility] [address] [place] [address] Dr. Gloria Gonzalez PROF 14(COMP METB)on Albumin [Mass/Vol] 3.1 g/dL Critically low 3.4-5.0 [facility] Comment on above: Performed By: #### C VDTBH #### [facility] [address] [address] [address] Gloria Gonzalez Albumin/Globulin [Mass ratio] 0.8 {ratio} Normal [facility] Comment on above: Performed By: #### C VDTBH #### [facility] [address] [address] [address] Gloria Gonzalez ALP [Catalytic activity/Vol] 97 U/L Normal 46-116 [facility] Comment on above: Performed By: #### C VDTBH #### [facility] [address] [address] [address] Gloria Gonzalez ALT [Catalytic activity/Vol] 20 U/L Normal 16-63 [facility] Comment on above: Performed By: #### C VDTBH #### [facility] [address] [place] [address] Dr. Gloria Gonzalez Anion gap [Moles/Vol] 6.3 mmol/L Normal [facility] Comment on above: Performed By: #### C VDTBH #### [facility] [address] [place] [address] Dr. Gloria Gonzalez AST [Catalytic activity/Vol] 19 U/L Normal 15-37 [facility] Comment on above: Performed By: #### C VDTBH #### [facility] [address] [place] [address] Dr. Gloria Gonzalez Bilirubin [Mass/Vol] 0.5 mg/dL Normal 0.2-1.0 [facility] Comment on above: Performed By: #### C VDTBH #### [facility] [address] [place] [address] Dr. Gloria Gonzalez Calcium [Mass/Vol] 9.0 mg/dL Normal 8.5-10.1 [facility] Comment on above: Performed By: #### C VDTBH #### [facility] [address] [address] [address] Gloria Gonzalez Chloride [Moles/Vol] 104 mmol/L Normal 98-107 [facility] Comment on above: Performed By: #### C VDTBH #### [facility] [address] [address] [address] Gloria Gonzalez CO2 [Moles/Vol] 33.9 mmol/L Critically high 21.0-32.0 [facility] Comment on above: Performed By: #### C VDTBH #### [facility] [address] [place] [address] Dr. Gloria Gonzalez Creatinine [Mass/Vol] 0.77 mg/dL Normal 0.70-1.30 [facility] Comment on above: Performed By: #### C VDTBH #### [facility] [address] [place] [address] Dr. Gloria Gonzalez EGFR-AF IRAQI >60 Normal >=60 [facility] Comment on above: Performed By: #### C VDTBH #### [facility] [address] [place] [address] Dr. Gloria Gonzalez EGFR-NON AF IRAQI >60 Normal >=60 [facility] Comment on above: Performed By: #### C VDTBH #### [facility] [address] [place] [address] Dr. Gloria Gonzalez Globulin (S) [Mass/Vol] 4.1 g/dL Normal [facility] Comment on above: Performed By: #### C VDTBH #### [facility] [address] [place] [address] Dr. Gloria Gonzalez Glucose [Mass/Vol] 85 mg/dL Normal 74-106 [facility] Comment on above: Performed By: #### C VDTBH #### [facility] [address] [place] [address] Dr. Gloria Gonzalez Potassium [Moles/Vol] 4.2 mmol/L Normal 3.5-5.1 [facility] Comment on above: Performed By: #### C VDTBH #### [facility] [address] [place] [address] Dr. Gloria Gonzalez Protein [Mass/Vol] 7.2 g/dL Normal 6.4-8.2 [facility] Comment on above: Performed By: #### C VDTBH #### [facility] [address] [address] [address] Gloria Gonzalez Sodium [Moles/Vol] 140 mmol/L Normal 136-145 [facility] Comment on above: Performed By: #### C VDTBH #### [facility] [address] [address] [address] Gloria Gonzalez Urea nitrogen [Mass/Vol] 13.0 mg/dL Normal 7.0-18.0 [facility] Comment on above: Performed By: #### C VDTBH #### [facility] [address] [address] [address] Gloria Gonzalez Urea nitrogen/Creatinine [Mass ratio] 16.9 mg/mg Normal [facility] Comment on above: Performed By: #### C VDTBH #### [facility] [address] [place] [address] Dr. Gloria Gonzalez TROPONIN, HIGH SENSITIVITYon 07-11-2022 HSTROP 31.8 pg/mL Normal 4.0-76.1 [facility] Comment on above: Result Comment: CUT- OFF POINTS HAVE BEEN ESTABLISHED BASED ON THE FOURTH UNIVERSAL DEFINITIONS OF MYOCARDIAL INFARCTION. THE UPPER REFERENCE LIMIT (URL) OF TROPONIN, DEFINED THE 99TH PERCENTILE OF cTnI DISTRIBUTION IN A REFERENCE POPULATION, HAS BEEN CONFIRMED THE DECISION THRESHOLD FOR [place] DIAGNOSIS. Performed By: #### B LUMBER KILN OPERATOR, HSTROPN #### [facility] [address] [place] [address] Dr. Gloria Gonzalez US SCROTUM W VASCULAR [...] up to 3 mm. Electronically authenticated by: ALLEY FRIEDMAN Date: 2022-07-11 21:03 Normal [facility] XR CHEST 1 Von 07-11-2022 XR CHEST 1 V EXAM: XR CHEST 1 V HISTORY: SHORTNESS OF BREATH COMPARISON: None. TECHNIQUE: Portable chest FINDINGS: Poor inspiratory effort. No focal consolidation or infiltrate. No pneumothorax or pleural effusion. Questionable cardiac enlargement. The hilar and mediastinal contours are unremarkable IMPRESSION: Questionable cardiomegaly Electronically authenticated by: DIANNA SCHULTZ Date: 2022-07-11 21:07 Normal [facility] Vital Signs Date Time Vital Sign Value Performing Clinician [place] ballard 08-29-2024 08:47-0500 Body mass index (BMI) [Ratio] 54.44 kg/m2 Alley Anthony LUMBER KILN OPERATOR Work Phone: [facility] 08-29-2024 08:47-0500 Body temperature 98.1 [degF] Alley Anthony LUMBER KILN OPERATOR Work Phone: [facility] 08-29-2024 08:47-0500 Body weight 192.32 kg Alley Hamshaunacem LUMBER KILN OPERATOR Work Phone: [facility] 08-29-2024 08:47-0500 Diastolic blood pressure 96 mm[Hg] Alley Anthony LUMBER KILN OPERATOR Work Phone: [facility] 08-29-2024 08:47-0500 Heart rate 79 /min Alley Anthony LUMBER KILN OPERATOR Work Phone: [facility] 08-29-2024 08:47-0500 Respiratory rate 20 /min Alley Anthony LUMBER KILN OPERATOR Work Phone: [facility] 08-29-2024 08:47-0500 SaO2% (BldA) [Mass fraction] 95 % Alley Anthony LUMBER KILN OPERATOR Work Phone: [facility] 08-29-2024 08:47-0500 Systolic blood pressure 126 mm[Hg] Alley Cruz LUMBER KILN OPERATOR Work Phone: [facility] 08-06-2024 10:44-0500 Body height 188 cm Fabricio Mederos MD Work Phone: [facility] 08-06-2024 10:44-0500 Body mass index (BMI) [Ratio] 56.11 kg/m2 Fabricio Mederos MD Work Phone: [facility] 08-06-2024 10:44-0500 Body weight 198.22 kg Fabricio Mederos MD Work Phone: [facility] 08-06-2024 10:44-0500 Diastolic blood pressure 70 mm[Hg] Fabricio Mederos MD Work Phone: [facility] 08-06-2024 10:44-0500 Heart rate 84 /min Fabricio Mederos MD Work Phone: [facility] 08-06-2024 10:44-0500 Respiratory rate 18 /min Fabricio Mederos MD Work Phone: [facility] 08-06-2024 10:44-0500 Systolic blood pressure 118 mm[Hg] Fabricio Mederos MD Work Phone: [facility] 07-10-2024 10:09-0500 Body height 193 cm Alley Cruz LUMBER KILN OPERATOR Work Phone: [facility] 07-10-2024 10:09-0500 Body mass index (BMI) [Ratio] 56.29 kg/m2 Alley Anthony LUMBER KILN OPERATOR Work Phone: [facility] 07-10-2024 10:09-0500 Body temperature 97.81 [degF] Alley Anthony LUMBER KILN OPERATOR Work Phone: [facility] 07-10-2024 10:09-0500 Body weight 209.74 kg Alley Anthony LUMBER KILN OPERATOR Work Phone: [facility] 07-10-2024 10:09-0500 Diastolic blood pressure 94 mm[Hg] Alley Anthony LUMBER KILN OPERATOR Work Phone: [facility] 07-10-2024 10:09-0500 Heart rate 71 /min Alley Alonsoz LUMBER KILN OPERATOR Work Phone: [facility] 07-10-2024 10:09-0500 Respiratory rate 20 /min Alley Alonsoz LUMBER KILN OPERATOR Work Phone: [facility] 07-10-2024 10:09-0500 SaO2% (BldA) [Mass fraction] 97 % Alley Anthony LUMBER KILN OPERATOR Work Phone: [facility] 07-10-2024 10:09-0500 Systolic blood pressure 138 mm[Hg] Alley Alonsoz LUMBER KILN OPERATOR Work Phone: [facility] Healthcare Encounters Encounter Date Encounter Type Care Provider Facility Start: 09-09-2024 End: 09-09-2024 Refill Alley Cruz LUMBER KILN OPERATOR Work Phone: [facility] Comment on above: Acute idiopathic gou t of ankle, unspecified laterality (Primary Dx) Start: 08-29-2024 End: 08-29-2024 Bamboo flowsheet Alley Cruz LUMBER KILN OPERATOR Work Phone: [facility] Start: 08-29-2024 End: 08-29-2024 Bamboo flowsheet Alley Anthony LUMBER KILN OPERATOR Work Phone: [facility] Start: 08-29-2024 End: 08-29-2024 ambulatory ALLEY ANTHONY Not Available Start: 08-29-2024 End: 08-29-2024 Office outpatient visit 25 minutes Alley Cruz LUMBER KILN OPERATOR Work Phone: [facility] Comment on above: Chronic diastolic (c ongestive) heart failure (CMS/HCC) (Primary Dx); Morbid (severe) obesity due to excess calories (CMS/HCC); Body mass index (BMI) 50.0-59.9, adult (CMS/HCC); MI (obstructive sleep apnea); Primary hypertension (CMS/HCC); Bilateral lower extremity edema; Vitamin D deficiency; Hypercalcemia; Former smoker; Acute non-recurrent maxillary sinusitis; Chronic diastolic heart failure (CMS/HCC) Start: 08-06-2024 End: 08-06-2024 Bamboo flowsheet Fabricio Mederos MD Work Phone: [facility] Start: 08-06-2024 End: 08-06-2024 Bamboo flowsheet Fabricio Mederos MD Work Phone: [facility] Start: 08-06-2024 End: 08-06-2024 ambulatory FABRICIO MEDEROS Not Available Start: 08-06-2024 End: 08-06-2024 Office outpatient new 45 minutes Fabricio Mederos MD Work Phone: [facility] Comment on above: Hypercalcemia (Prima ry Dx); Vitamin D deficiency; Encounter for dietary consultation; Class 3 severe obesity due to excess calories without serious comorbidity with body mass index (BMI) of 50.0 to 59.9 in adult ([facility]) Start: 07-10-2024 End: 07-10-2024 Bamboo flowsheet Alley Cruz NP Work Phone: [facility] Start: 07-10-2024 End: 07-10-2024 Bamboo flowsheet Alley Cruz NP Work Phone: [facility] Start: 07-10-2024 End: 07-10-2024 Office outpatient visit 25 minutes Alley Cruz NP Work Phone: [facility] Comment on above: Chronic diastolic (c ongestive) heart failure (CMS/HCC) (Primary Dx); Chronic obstructive pulmonary disease, unspecified (CMS/HCC); MI (obstructive sleep apnea); Primary hypertension (CMS/HCC); Bilateral lower extremity edema; Body mass index (BMI) 50.0-59.9, adult (CMS/HCC); Morbid (severe) obesity due to excess calories (CMS/HCC); Tobacco user; Vitamin D deficiency; Chronic diastolic heart failure (CMS/HCC); Former smoker; Chronic gout of multiple sites, unspecified cause; Muscle cramps; Hypercalcemia Start: 07-10-2024 End: 07-10-2024 ambulatory ALLEY CRUZ Not Available Start: 05-17-2024 End: 05-24-2024 Evaluation and management of inpatient Alley Cruz Facility:[facility] Start: 05-14-2024 End: 05-17-2024 Clinisync Result Encounter Generic External Data Provider [facility] External Department Unsolicited Start: 05-14-2024 End: 05-17-2024 Clinisync Result Encounter Generic External Data Provider [facility] External Department Unsolicited Start: 03-20-2024 End: 03-20-2024 ambulatory ALLEY CRUZ Not Available Start: 09-24-2022 End: 09-24-[address] RADHA LANDEROS Facility:[facility] Start: 07-19-2022 End: 07-20-2022 ambulatory [facility] [employer] ALLEY HMAUSSANImani Facility:[facility] Start: 07-12-2022 End: 07-15-2022 Evaluation and management of inpatient DR RACQUEL BANGURA Facility:[facility] Procedures Date Procedure Procedure Detail Performing Clinician Start: 05-14-2024 BLOOD CULTURE 1 Generic External Data Provider Start: 07-13-2022 Insertion of Infusio n Device into Right Basilic Vein, Percutaneous Approach DR RADHA LANDEROS Plan of Treatment Date Care Activity Detail Author Start: 11-26-2024 End: 11-26-2024 Patient encounter procedure 11/26/2024 8:40 AM EDT Office Visit [facility] [address] [place] [address] Alley Cruz NP [address] [place] [id number] [facility] Start: 09-17-2024 End: 09-17-2024 Patient encounter procedure 09/17/2024 10:40 AM EST Office Visit [facility] [address] [place] [id number] Fabricio Mederos MD [address] [place] [address] [facility] Start: 08-29-2024 End: 08-29-2024 Patient encounter procedure 08/29/2024 8:40 AM EST Office Visit [facility] [address] [place] [address] Alley Cruz, LUMBER KILN OPERATOR [address] [place] [address] [facility] Start: 08-06-2024 End: 08-06-2025 25-hydroxyvitamin D3 [Mass/volume] in Serum or Plasma Vitamin D 25 hydroxy Total Lab Routine Hypercalcemia Expected: 08/06/2024 (Approximate), Expires: 08/06/2025 [facility] Comment on above: Expected: 08/06/2024 (Approximate), Expires: 08/06/2025 Start: 08-06-2024 End: 08-06-2025 Magnesium [Mass/volume] in Serum or Plasma Magnesium Lab Routine Hypercalcemia Expected: 08/06/2024 (Approximate), Expires: 08/06/2025 [facility] Work Phone: Comment on above: Expected: 08/06/2024 (Approximate), Expires: 08/06/2025 Start: 08-06-2024 End: 08-06-2025 Parathyrin.intact and Calcium panel - Serum or Plasma PTH, intact and calcium Lab Routine Hypercalcemia Expected: 08/06/2024 (Approximate), Expires: 08/06/2025 [facility] Comment on above: Expected: 08/06/2024 (Approximate), Expires: 08/06/2025 Start: 08-06-2024 End: 08-06-2025 Protein electrophoresis, serum (SPEP) Protein electrophoresis, serum (SPEP) Lab Routine Hypercalcemia Expected: 08/06/2024 (Approximate), Expires: 08/06/2025 [facility] Comment on above: Expected: 08/06/2024 (Approximate), Expires: 08/06/2025 Start: 08-06-2024 End: 08-06-2025 Protein electrophoresis, urine (UPEP) Protein electrophoresis, urine (UPEP) Lab Routine Hypercalcemia Expected: 08/06/2024 (Approximate), Expires: 08/06/2025 [facility] Comment on above: Expected: 08/06/2024 (Approximate), Expires: 08/06/2025 Start: 08-06-2024 End: 08-06-2025 PTH-related peptide PTH-related peptide Lab Routine Hypercalcemia Expected: 08/06/2024 (Approximate), Expires: 08/06/2025 [facility] Comment on above: Expected: 08/06/2024 (Approximate), Expires: 08/06/2025 Start: 08-06-2024 End: 08-06-2025 Renal function panel Renal function panel Lab Routine Hypercalcemia Expected: 08/06/2024 (Approximate), Expires: 08/06/2025 [facility] Comment on above: Expected: 08/06/2024 (Approximate), Expires: 08/06/2025 Start: 07-10-2024 End: 07-10-2025 25-hydroxyvitamin D3 [Mass/volume] in Serum or Plasma Vitamin D 25 hydroxy Lab Routine Vitamin D deficiency Expected: 07/10/2024 (Approximate), Expires: 07/10/2025 [facility] Comment on above: Expected: 07/10/2024 (Approximate), Expires: 07/10/2025 Start: 07-10-2024 End: 07-10-2025 Comprehensive metabolic 2000 panel - Serum or Plasma Comprehensive metabolic panel Lab Routine Primary hypertension (CMS/HCC) Bilateral lower extremity edema Expected: 07/10/2024 (Approximate), Expires: 07/10/2025 [facility] Work Phone: Comment on above: Expected: 07/10/2024 (Approximate), Expires: 07/10/2025 Start: 07-10-2024 End: 07-10-2025 Magnesium [Mass/volume] in Serum or Plasma Magnesium Lab Routine Muscle cramps Expected: 07/10/2024 (Approximate), Expires: 07/10/2025 [facility] Comment on above: Expected: 07/10/2024 (Approximate), Expires: 07/10/2025 Start: 07-10-2024 End: 07-10-2025 Urate [Mass/volume] in Serum or Plasma Uric acid Lab Routine Chronic gout of multiple sites, unspecified cause Expected: 07/10/2024 (Approximate), Expires: 07/10/2025 [facility] Comment on above: Expected: 07/10/2024 (Approximate), Expires: 07/10/2025 BLOOD CULTURE 1 BLOOD CULTURE 1 Lab Routine 05/14/2024 8:43 PM EDT [facility] Payers Date Payer Category Payer Self-pay 2023 Private Health Insurance [facility] [id number] 2023 Private Health Insurance [id number] 1981 Unknown [id number] 1981 Unknown [id number] 1981 Unknown [id number] 1981 Unknown [id number] 1981 Unknown [id number] 1981 Unknown [id number] 1959 Unknown [id number] Unknown [id number] Social History Date Type Detail Facility Start: 03-20-2024 [facility] History of tobacco use Cigarette Smoker [facility] Start: 03-20-2024 Tobacco use and exposure Smoke less tobacco non-user [facility] Start: 07-10-2024 End: 08-29-2024 Alcoholic beverage intake Ex-drinker (finding) [facility] Start: 07-10-2024 End: 08-29-2024 History of Social function [facility] Start: 07-10-2024 End: 08-29-2024 Tobacco use panel [facility] Start: 03-20-2024 Alcohol Comment caffine: 12 pa ck of pop daily, 1 cup of coffee daily [facility] Start: 1980 Sex assigned at Not on file [facility] History of Present illness Narrative 08-29-2024 Alley Cruz NP - 08/29/2024 9:10 AM ASHLEY RODRIGUEZ - 08/29/2024 8:40 AM Rudy Cruz NP - 08/29/2024 8:40 AM Rudy Cruz NP - 08/29/2024 6:17 AM EST Note Date & Type Note Facility 08-29-2024 History of Presen t illness Narrative Associated Problem(s): Acute non-recurrent maxillary sinusitis Sxs ongoing over a week, green nasal secretions Possible COVID last week? No taste or smell, he is out side parameter to treat if + Fluids, rest, fu if not bettter Pt has been sick for about a week now. S/s include cough, foggy mind, runny nose, no taste for a couple days, fatigue, headaches, sinus pressure, scratchy throat, unable to smell for a few days ago Images from the original note were not included. Rafael Winkler is a 44 y.o. male presents with chief complaint of Congestive Heart Failure HPI: Pt has been sick for about a week now. S/s include cough, foggy mind, runny nose, no taste for a couple days, fatigue, headaches, sinus pressure, scratchy throat, unable to smell for a few days ago No fever, +green nasal, sl sore throat, +sinus pressure Congestive Heart Failure Presents for follow-up visit. Associated symptoms include edema, fatigue and shortness of breath. Pertinent negatives include no abdominal pain, chest pain, chest pressure, near-syncope, palpitations or unexpected weight change. The symptoms have been stable. Compliance with total regimen is 76-100%. Hypertension This is a chronic problem. The current episode started more than 1 year ago. The problem is unchanged. The problem is controlled. Associated symptoms include malaise/fatigue, peripheral edema and shortness of breath. Pertinent negatives include no chest pain or palpitations. There are no associated agents to hypertension. Risk factors for coronary artery disease include obesity and male gender. Past treatments include diuretics and beta blockers. The current treatment provides moderate improvement. There are no compliance problems. Hypertensive end-organ damage includes heart failure. There is no history of CAD/[place]. SUBJECTIVE: MEDICATIONS: Current Outpatient Medications Medication Instructions albuterol HFA 90 mcg/act inhaler INHALE 2 PUFFS BY MOUTH EVERY 6 HOURS NEEDED for SHORTNESS OF BREATH or FOR WHEEZING amoxicillin-clavulanate (Augmentin) 875-125 MG tablet 875 mg, Oral, 2 times daily, Take w food aspirin 81 mg, Daily bumetanide (BUMEX) 2 mg, Oral, 2 times daily carvedilol (COREG) 6.25 mg, Oral, 2 times daily with meals colchicine 0.6 mg, Every 12 hours PRN ibuprofen 200 mg, Every 6 hours spironolactone (ALDACTONE) 50 mg, Oral, Daily ALLERGIES: No Known Allergies REVIEW OF SYMPTOMS: Review of Systems Constitutional: Positive for fatigue and malaise/fatigue. Negative for activity change, appetite change and unexpected weight change. HENT: Positive for rhinorrhea and sinus pressure. Negative for ear pain, nosebleeds, sneezing, trouble swallowing and voice change. Eyes: Negative for pain, discharge and visual disturbance. Respiratory: Positive for shortness of breath. Negative for apnea, chest tightness and wheezing. Cardiovascular: Positive for leg swelling. Negative for chest pain, palpitations and near-syncope. Gastrointestinal: Negative for abdominal distention, abdominal pain, blood in stool, constipation and diarrhea. Genitourinary: Negative for decreased urine volume, difficulty urinating, dysuria and hematuria. Skin: Negative for color change. Neurological: Negative for dizziness, tremors and seizures. Psychiatric/Behavioral: Negative for agitation, decreased concentration, hallucinations, self-injury and suicidal ideas. The patient is not nervous/anxious. Hematological: Negative for adenopathy. Does not bruise/bleed easily. Endocrine: Negative for cold intolerance, heat intolerance, polydipsia and polyuria. Allergic/Immunologic: Negative for environmental allergies and food allergies. PAST MEDICAL HISTORY Past Medical History: Diagnosis Date Acanthosis nigricans Asthma ([facility]) At low risk for fall Diastolic heart failure ([facility]/HCC) Elevated WBC count Gallbladder disease Gout HTN (hypertension) ([facility]) Hypoxia Morbid obesity with BMI of 50.0-59.9, adult ([facility]) Obstructive sleep apnea, adult Primary hypertension ([facility]) 08/02/2023 Tobacco user History reviewed. No pertinent surgical history. family history includes Heart disease (age of onset: 35) in his mother; Heart disease (age of onset: 47) in his paternal grandfather; Thyroid disease in his sister. OBJECTIVE: Visit Vitals BP (!) 126/96 (BP Location: Left arm, Patient Position: Sitting, BP Cuff Size: Adult long) Pulse 79 Temp 98.1 F (Temporal) Resp 20 Wt (!) 424 lb SpO2 95% BMI 54.44 kg/m Smoking Status Every Day BSA 3.17 m Physical Exam Vitals and nursing note reviewed. Constitutional: Appearance: Normal appearance. He is obese. He is not ill-appearing or toxic-appearing. HENT: Head: Normocephalic. Right Ear: Tympanic membrane, ear canal and external ear normal. Left Ear: Tympanic membrane, ear canal and external ear normal. Nose: Congestion present. Comments: inflammed Mouth/Throat: Mouth: Mucous membranes are moist. Pharynx: Oropharynx is clear. No oropharyngeal exudate or posterior oropharyngeal erythema. Eyes: Extraocular Movements: Extraocular movements intact. Conjunctiva/sclera: Conjunctivae normal. Cardiovascular: Rate and Rhythm: Normal rate and regular rhythm. Pulses: Normal pulses. Heart sounds: Normal heart sounds. Pulmonary: Effort: Pulmonary effort is normal. Breath sounds: Normal breath sounds. No wheezing or rales. Comments: diminished Abdominal: General: Bowel sounds are normal. Palpations: Abdomen is soft. Tenderness: There is no abdominal tenderness. There is no guarding. Musculoskeletal: Cervical back: Neck supple. Right lower leg: Edema present. Left lower leg: Edema present. Comments: Trace-1+ bilat LE, +wearing compression stockings Lymphadenopathy: Cervical: No cervical adenopathy. Skin: General: Skin is warm and dry. Capillary Refill: Capillary refill takes 2 to 3 seconds. Neurological: General: No focal deficit present. Mental Status: He is alert. Psychiatric: Mood and Affect: Mood normal. Behavior: Behavior normal. Thought Content: Thought content normal. Judgment: Judgment normal. ASSESSMENT AND PLAN: Follow up in about 3 months (around 11/27/2024) for Recheck. Problem List Items Addressed This Visit Primary hypertension (CMS/HCC) - Primary Please check blood pressure daily and record DASH diet Limit caffeine Take medication as directed Contact office if chest pain, pressure, dizziness, shortness of breath, swelling legs Recommend slow position changes Current meds: Carvedilol, spironolactone Did not take meds yet this morning Relevant Medications bumetanide (Bumex) 2 MG tablet carvedilol (Coreg) 6.25 MG tablet spironolactone (Aldactone) 50 MG tablet Chronic diastolic (congestive) heart failure (CMS/HCC) Continue with cardiology Current meds: Bumetandie, carvedilol, sprinoloactone, and asa Relevant Medications bumetanide (Bumex) 2 MG tablet spironolactone (Aldactone) 50 MG tablet MI (obstructive sleep apnea) You have a diagnosis of obstructive sleep apnea. It is recommended that you wear your PAP device any time while in bed sleeping. Not using the PAP device can increase your risk of elevated/uncontrolled high blood pressure, atrial fibrillation, heart attack, stroke, or sudden . Currently compliant: yes Hours of use: 6 Notes improvement with use: feels great Morbid (severe) obesity due to excess calories (CMS/HCC) Discussed with patient their BMI (actual, verses recommended). We have also discussed lifestyle modifications: attempts to perform physical activity as chronic conditions allow, also to monitor dietary intake: increasing protein/fruits/veggies and lowering carb intake (unless contraindicated). Limit sodas, juices, and sugary drinks. Also discussed oral medications that can be utilized for weight loss, as well as surgical options for weight loss. Is working with weight management at [facility] Weight loss: approx 40 since last visit Body mass index (BMI) 50.0-59.9, adult (CMS/HCC) Bilateral lower extremity edema Continue diuretics Recommend compression stockings, continue with diuretics Elevated legs above level of the heart a few times daily Current meds: bumetanide, and spironolactone Check labs at minimum yearly and prn Vitamin D deficiency Check labs Former smoker Quit smoking since hospitalization Hx of tobacco: 30 years, 1ppd= 30 pack year Congratulations on quitting Stressed importance of stay quit Hypercalcemia Was referred to Endo Dr Mederos Acute non-recurrent maxillary sinusitis Sxs ongoing over a week, green nasal secretions Possible COVID last week? No taste or smell, he is out side parameter to treat if + Fluids, rest, fu if not bettter Relevant Medications amoxicillin-clavulanate (Augmentin) 875-125 MG tablet Other Visit Diagnoses Chronic diastolic heart failure (CMS/HCC) Relevant Medications bumetanide (Bumex) 2 MG tablet spironolactone (Aldactone) 50 MG tablet Associated Problem(s): Former smoker Quit smoking since hospitalization Hx of tobacco: 30 years, 1ppd= 30 pack year Congratulations on quitting Stressed importance of stay quit Associated Problem(s): Hypercalcemia Was referred to Endo Dr Mederos Associated Problem(s): Vitamin D deficiency Check labs Associated Problem(s): Morbid (severe) obesity due to excess calories ([facility]) Discussed with patient their BMI (actual, verses recommended). We have also discussed lifestyle modifications: attempts to perform physical activity as chronic conditions allow, also to monitor dietary intake: increasing protein/fruits/veggies and lowering carb intake (unless contraindicated). Limit sodas, juices, and sugary drinks. Also discussed oral medications that can be utilized for weight loss, as well as surgical options for weight loss. Is working with weight management at [facility] Weight loss: approx 40 since last visit Associated Problem(s): Bilateral lower extremity edema Continue diuretics Recommend compression stockings, continue with diuretics Elevated legs above level of the heart a few times daily Current meds: bumetanide, and spironolactone Check labs at minimum yearly and prn Associated Problem(s): Primary hypertension (CMS/HCC) Please check blood pressure daily and record DASH diet Limit caffeine Take medication as directed Contact office if chest pain, pressure, dizziness, shortness of breath, swelling legs Recommend slow position changes Current meds: Carvedilol, spironolactone Did not take meds yet this morning Associated Problem(s): Chronic diastolic (congestive) heart failure (CMS/HCC) Continue with cardiology Current meds: Bumetandie, carvedilol, sprinoloactone, and asa Associated Problem(s): MI (obstructive sleep apnea) You have a diagnosis of obstructive sleep apnea. It is recommended that you wear your PAP device any time while in bed sleeping. Not using the PAP device can increase your risk of elevated/uncontrolled high blood pressure, atrial fibrillation, heart attack, stroke, or sudden . Currently compliant: yes Hours of use: 6 Notes improvement with use: feels great documented in this encounter [facility] Instructions 08-29-2024 Patient Instructions Note Date & Type Note Facility 08-29-2024 Instructions Alley Cruz NP - 08/29/2024 8:40 AM EST Check labs, you can do them when get others done in 2 weeks Continue meds Sinus: atb, fluids, rest, follow up if not better documented in this encounter [facility] History of Present illness Narrative 08-06-2024 Fabricio Mederos MD - 08/06/2024 10:30 AM EST Note Date & Type Note Facility 08-06-2024 History of Presen t illness Narrative Rafael Winkler is a 44 y.o. male Alley Cruz NP presents with chief complaint of Abnormal Calcium (NEW REF/ SOME LAB) HPI: HPI 07/2024 Sent from Alley Cruz for hypercalcemia, lab done while he is in the hospital in April/2024, I do not know the number but PTH mentioned normal, they check 1, 25 vitamin-D 14.6 ( 24-81), 24 hour urine calcium to 11 ( 0-320), denies history of kidney stone or fracture, no family history of hypercalcemia, currently not taking any calcium or multivitamin or vitamin-D. SUBJECTIVE: MEDICATIONS: Current Outpatient Medications Medication Instructions albuterol HFA 90 mcg/act inhaler INHALE 2 PUFFS BY MOUTH EVERY 6 HOURS NEEDED for SHORTNESS OF BREATH or FOR WHEEZING aspirin 81 mg, Daily bumetanide (BUMEX) 2 mg, Oral, 2 times daily carvedilol (COREG) 6.25 mg, Oral, 2 times daily with meals colchicine 0.6 mg, Every 12 hours PRN ibuprofen 200 mg, Every 6 hours spironolactone (ALDACTONE) 50 mg, Oral, Daily Tirzepatide (Mounjaro) 2.5 MG/0.5ML solution auto-injector Inject under the skin ALLERGIES: No Known Allergies Past Medical History: Diagnosis Date Acanthosis nigricans Asthma ([facility]) At low risk for fall Diastolic heart failure ([facility]) Elevated WBC count Gallbladder disease Gout HTN (hypertension) ([facility]) Hypoxia Morbid obesity with BMI of 50.0-59.9, adult ([facility]) Obstructive sleep apnea, adult Primary hypertension ([facility]) 08/02/2023 Tobacco user No past surgical history on file. REVIEW OF SYMPTOMS: 14 POINT OF SYSTEM REVIEWED AND NEGATIVE OBJECTIVE: Visit Vitals BP 118/70 Pulse 84 Resp 18 Ht 6' 2 Wt (!) 437 lb BMI 56.11 kg/m Smoking Status Every Day BSA 3.22 m Physical Exam Constitutional: Appearance: Normal appearance. He is normal weight. HENT: Head: Normocephalic and atraumatic. Right Ear: External ear normal. Nose: Nose normal. Mouth/Throat: Pharynx: Oropharynx is clear. Eyes: Extraocular Movements: Extraocular movements intact. Pupils: Pupils are equal, round, and reactive to light. Cardiovascular: Rate and Rhythm: Normal rate and regular rhythm. Pulmonary: Effort: Pulmonary effort is normal. Abdominal: General: Abdomen is flat. Palpations: Abdomen is soft. Musculoskeletal: General: Normal range of motion. Skin: General: Skin is warm. Neurological: General: No focal deficit present. Mental Status: He is alert. Psychiatric: Mood and Affect: Mood normal. Behavior: Behavior normal. Morbidly obese body mass index 56 ASSESSMENT AND PLAN: Assessment/Plan Diagnoses and all orders for this visit: Hypercalcemia - Ambulatory referral to Endocrinology - Magnesium; Future - PTH, intact and calcium; Future - PTH-related peptide; Future - Renal function panel; Future - Vitamin D 25 hydroxy Total; Future - Protein electrophoresis, serum (SPEP); Future - Protein electrophoresis, urine (UPEP); Future Calcium high, PTH was normal in April/2024 while he was in the hospital, I will repeat all lab together, 24 hour urine calcium within normal limits so no familial hypercalciuric hypercalcemia, I will give further recommendation after reviewing lab in 3-4 weeks. Vitamin D deficiency Encounter for dietary consultation Diet and exercise reviewed with the patient Class 3 severe obesity due to excess calories without serious comorbidity with body mass index (BMI) of 50.0 to 59.9 in adult ([facility]) Follow up in about 4 weeks (around 09/03/2024). documented in this encounter [facility] History of Present illness Narrative 07-10-2024 Alley Cruz NP - 07/10/2024 11:35 AM Rudy Cruz NP - 07/10/2024 10:41 AM Rudy Cruz NP - 07/10/2024 10:39 AM Rudy Cruz NP - 07/10/2024 10:00 AM EST Note Date & Type Note Facility 07-10-2024 History of Presen t illness Narrative Associated Problem(s): Hypercalcemia Per discharge instructions from [facility], pt needed referral to Dr Mederos Will place referral Associated Problem(s): Former smoker Quit smoking since hospitalization Hx of tobacco: 30 years, 1ppd= 30 pack year Congratulations on quitting Stressed importance of stay quit Associated Problem(s): MI (obstructive sleep apnea) Wearing CPAP, is using it approximately 7 hours, feels more rested More energy Images from the original note were not included. Rafael Winkler is a 44 y.o. male presents with chief complaint of No chief complaint on file. HPI: Here for a fu from hospital, although it has been outside the window for [facility] Admission for heart failure, diuresed approx 50 pounds off. I have reviewed hospital discharge notes And reconciled meds Hypertension The current episode started more than 1 year ago. The problem has been gradually improving since onset. The problem is uncontrolled. Associated symptoms include peripheral edema and shortness of breath. Pertinent negatives include no palpitations. There are no associated agents to hypertension. Risk factors for coronary artery disease include obesity. Past treatments include beta blockers and diuretics. The current treatment provides moderate improvement. There are no compliance problems. Hypertensive end-organ damage includes heart failure. There is no history of kidney disease, CVA or PVD. Edema Presents with chronic edema. The current episode started more than 1 year ago. The onset of the episode was gradual. These episodes happen throughout the day. The problem presents itself daily. The problem has been rapidly improving. The edema is present on the both side(s). Risk factors for edema include no known risk factors. Pertinent negative symptoms include no abdominal swelling, no decreased urine volume, no palpitations and no weight change. Past medical history is significant for CHF. Treatments tried include diuretics. There has been significant improvement on treatment(s). SUBJECTIVE: MEDICATIONS: Current Outpatient Medications Medication Instructions albuterol HFA 90 mcg/act inhaler 2 puffs, Inhalation, Every 6 hours PRN bumetanide (BUMEX) 2 mg, Oral, 2 times daily carvedilol (COREG) 6.25 mg, Oral, 2 times daily with meals colchicine 0.6 mg, Every 12 hours PRN spironolactone (ALDACTONE) 50 mg, Oral, Daily ALLERGIES: No Known Allergies REVIEW OF SYMPTOMS: Review of Systems Constitutional: Negative for activity change, appetite change and unexpected weight change. HENT: Negative for ear pain, nosebleeds, sneezing, trouble swallowing and voice change. Eyes: Negative for pain, discharge and visual disturbance. Respiratory: Positive for shortness of breath. Negative for apnea, chest tightness and wheezing. Cardiovascular: Positive for leg swelling. Negative for palpitations. Gastrointestinal: Negative for abdominal distention, blood in stool, constipation and diarrhea. Genitourinary: Positive for urgency. Negative for decreased urine volume, difficulty urinating, dysuria and hematuria. Musculoskeletal: Positive for arthralgias (bilat foot pain). Skin: Negative for color change. Neurological: Negative for dizziness, tremors and seizures. Psychiatric/Behavioral: Negative for agitation, decreased concentration, hallucinations, self-injury and suicidal ideas. The patient is not nervous/anxious. Hematological: Negative for adenopathy. Does not bruise/bleed easily. Endocrine: Negative for cold intolerance, heat intolerance, polydipsia and polyuria. Allergic/Immunologic: Negative for environmental allergies and food allergies. PAST MEDICAL HISTORY Past Medical History: Diagnosis Date Acanthosis nigricans Asthma (CMS/HCC) At low risk for fall Diastolic heart failure (CMS/HCC) Elevated WBC count Gallbladder disease Gout HTN (hypertension) ([facility]) Hypoxia Morbid obesity with BMI of 50.0-59.9, adult (CMS/[facility]) Obstructive sleep apnea, adult Primary hypertension ([facility]/HCC) 08/02/2023 Tobacco user History reviewed. No pertinent surgical history. family history includes Heart disease (age of onset: 35) in his mother; Heart disease (age of onset: 47) in his paternal grandfather; Thyroid disease in his sister. OBJECTIVE: Visit Vitals BP (!) 138/94 (BP Location: Left arm, Patient Position: Sitting, BP Cuff Size: Large adult long) Pulse 71 Temp 97.8 F (Temporal) Resp 20 Ht 6' 4 Wt (!) 462 lb 6.4 oz SpO2 97% BMI 56.29 kg/m Smoking Status Every Day BSA 3.36 m Physical Exam Vitals and nursing note reviewed. Constitutional: Appearance: Normal appearance. He is obese. HENT: Head: Normocephalic. Right Ear: External ear normal. Left Ear: External ear normal. Nose: Nose normal. Mouth/Throat: Mouth: Mucous membranes are moist. Pharynx: Oropharynx is clear. Eyes: Extraocular Movements: Extraocular movements intact. Conjunctiva/sclera: Conjunctivae normal. Neck: Vascular: No carotid bruit. Cardiovascular: Rate and Rhythm: Normal rate and regular rhythm. Pulses: Normal pulses. Heart sounds: Normal heart sounds. Pulmonary: Effort: Pulmonary effort is normal. Breath sounds: Normal breath sounds. Abdominal: General: Bowel sounds are normal. Palpations: Abdomen is soft. Musculoskeletal: Cervical back: Neck supple. Right lower leg: Edema present. Left lower leg: Edema present. Comments: 1+ bilat LE Skin: General: Skin is warm and dry. Capillary Refill: Capillary refill takes 2 to 3 seconds. Neurological: General: No focal deficit present. Mental Status: He is alert. Psychiatric: Mood and Affect: Mood normal. Behavior: Behavior normal. Thought Content: Thought content normal. Judgment: Judgment normal. ASSESSMENT AND PLAN: Follow up in about 6 weeks (around 08/21/2024) for Recheck. Problem List Items Addressed This Visit Primary hypertension ([facility]) Consider adding losartan back, however needs labs first Please check blood pressure daily and record DASH diet Limit caffeine Take medication as directed Contact office if chest pain, pressure, dizziness, shortness of breath, swelling legs Recommend slow position changes Relevant Medications spironolactone (Aldactone) 50 MG tablet carvedilol (Coreg) 6.25 MG tablet bumetanide (Bumex) 2 MG tablet Other Relevant Orders Comprehensive metabolic panel Chronic diastolic (congestive) heart failure ([facility]) Hospitalization in the last few months, initially presented to [facility], there for a few days, then transferred to [facility] Continue with current meds, cardiology follow ups Low sodium diet, daily weights Relevant Medications spironolactone (Aldactone) 50 MG tablet bumetanide (Bumex) 2 MG tablet MI (obstructive sleep apnea) - Primary Wearing CPAP, is using it approximately 7 hours, feels more rested More energy RESOLVED: Tobacco user The patient has been advised of the risks of continued smoking: stroke, [place], all forms of cancer, lung disease, and . Options for quitting smoking include: cold turkey, hypnosis, acupuncture, nicotine replacement meds (gum, lozenges, and patches), Buproprion, and Varenicline. At this time pt is encouraged to evaluate their goals for wanting to quit smoking, and reach out to provider when ready to start this process Morbid (severe) obesity due to excess calories ([facility]) Body mass index (BMI) 50.0-59.9, adult ([facility]) Chronic gout of multiple sites Relevant Orders Uric acid Bilateral lower extremity edema Continue diuretics Recommend compression stockings, continue with diuretics Elevated legs above level of the heart a few times daily Relevant Orders Comprehensive metabolic panel Chronic obstructive pulmonary disease, unspecified ([facility]) No inhaler use outside of prn albuterol Vitamin D deficiency Relevant Orders Vitamin D 25 hydroxy Former smoker Quit smoking since hospitalization Hx of tobacco: 30 years, 1ppd= 30 pack year Congratulations on quitting Stressed importance of stay quit Muscle cramps Relevant Orders Magnesium Hypercalcemia Per discharge instructions from [facility], pt needed referral to Dr Mederos Will place referral Relevant Orders Ambulatory referral to Endocrinology Other Visit Diagnoses Chronic diastolic heart failure (CMS/HCC) Relevant Medications spironolactone (Aldactone) 50 MG tablet bumetanide (Bumex) 2 MG tablet Associated Problem(s): Tobacco user (Resolved 07/10/2024) The patient has been advised of the risks of continued smoking: stroke, WI, all forms of cancer, lung disease, and . Options for quitting smoking include: cold turkey, hypnosis, acupuncture, nicotine replacement meds (gum, lozenges, and patches), Buproprion, and Varenicline. At this time pt is encouraged to evaluate their goals for wanting to quit smoking, and reach out to provider when ready to start this process Associated Problem(s): Bilateral lower extremity edema Continue diuretics Recommend compression stockings, continue with diuretics Elevated legs above level of the heart a few times daily Associated Problem(s): Primary hypertension (CMS/HCC) Consider adding losartan back, however needs labs first Please check blood pressure daily and record DASH diet Limit caffeine Take medication as directed Contact office if chest pain, pressure, dizziness, shortness of breath, swelling legs Recommend slow position changes Associated Problem(s): Chronic diastolic (congestive) heart failure (CMS/HCC) Hospitalization in the last few months, initially presented to [facility], there for a few days, then transferred to [facility] Continue with current meds, cardiology follow ups Low sodium diet, daily weights Associated Problem(s): Chronic obstructive pulmonary disease, unspecified (CMS/HCC) No inhaler use outside of prn albuterol documented in this encounter [facility] Instructions 07-10-2024 Patient Instructions Note Date & Type Note Facility 07-10-2024 Instructions Alley Cruz NP - 07/10/2024 10:00 AM EST Keep lung doctor appt Endocrinology: Dr Mederos in [place], I will send this referral elevated calcium in urine Weight loss clinic: [facility] Get labs checked. 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 [facility] Evaluation note Note Date & Type Note Facility Evaluation note Diagnosis Primary hypertension (CMS/HCC)- Primary Unspecified essential hypertension Morbid (severe) obesity due to excess calories (CMS/HCC) Body mass index (BMI) 50.0-59.9, adult (CMS/HCC) Chronic diastolic (congestive) heart failure (CMS/HCC) MI (obstructive sleep apnea) Obstructive sleep apnea (adult) (pediatric) Leukocytosis, unspecified type Tobacco user Tobacco use disorder Chronic gout of multiple sites, unspecified cause Chronic diastolic heart failure (CMS/HCC) Chronic diastolic heart failure Mild intermittent asthma without complication (CMS/HCC) Bilateral lower extremity edema Chronic diastolic (congestive) heart failure (CMS/HCC)- Primary Chronic obstructive pulmonary disease, unspecified ([facility]) MI (obstructive sleep apnea) Obstructive sleep apnea (adult) (pediatric) Primary hypertension ([facility]/HCC) Unspecified essential hypertension Bilateral lower extremity edema Body mass index (BMI) 50.0-59.9, adult ([facility]) Morbid (severe) obesity due to excess calories ([facility]) Tobacco user Tobacco use disorder Vitamin D deficiency Chronic diastolic heart failure (CMS/HCC) Chronic diastolic heart failure Former smoker Personal history of tobacco use, presenting hazards to health Chronic gout of multiple sites, unspecified cause Muscle cramps Hypercalcemia documented in this encounter [facility] Evaluation note Note Date & Type Note Facility Evaluation note Diagnosis Primary hypertension ([facility]/HCC)- Primary Unspecified essential hypertension Morbid (severe) obesity due to excess calories ([facility]) Body mass index (BMI) 50.0-59.9, adult ([facility]) Chronic diastolic (congestive) heart failure ([facility]) MI (obstructive sleep apnea) Obstructive sleep apnea (adult) (pediatric) Leukocytosis, unspecified type Tobacco user Tobacco use disorder Chronic gout of multiple sites, unspecified cause Chronic diastolic heart failure (CMS/HCC) Chronic diastolic heart failure Mild intermittent asthma without complication ([facility]) Bilateral lower extremity edema Chronic diastolic (congestive) heart failure ([facility]/HCC)- Primary Chronic obstructive pulmonary disease, unspecified (CMS/[facility]) MI (obstructive sleep apnea) Obstructive sleep apnea (adult) (pediatric) Primary hypertension ([facility]) Unspecified essential hypertension Bilateral lower extremity edema Body mass index (BMI) 50.0-59.9, adult ([facility]) Morbid (severe) obesity due to excess calories ([facility]) Tobacco user Tobacco use disorder Vitamin D deficiency Chronic diastolic heart failure ([facility]/HCC) Chronic diastolic heart failure Former smoker Personal history of tobacco use, presenting hazards to health Chronic gout of multiple sites, unspecified cause Muscle cramps Hypercalcemia Hypercalcemia- Primary Vitamin D deficiency Encounter for dietary consultation Class 3 severe obesity due to excess calories without serious comorbidity with body mass index (BMI) of 50.0 to 59.9 in adult ([facility]) documented in this encounter [facility] Evaluation note Note Date & Type Note Facility Evaluation note Diagnosis Primary hypertension ([facility]/HCC)- Primary Unspecified essential hypertension Morbid (severe) obesity due to excess calories ([facility]) Body mass index (BMI) 50.0-59.9, adult ([facility]) Chronic diastolic (congestive) heart failure (CMS/HCC) MI (obstructive sleep apnea) Obstructive sleep apnea (adult) (pediatric) Leukocytosis, unspecified type Tobacco user Tobacco use disorder Chronic gout of multiple sites, unspecified cause Chronic diastolic heart failure (CMS/HCC) Chronic diastolic heart failure Mild intermittent asthma without complication ([facility]) Bilateral lower extremity edema Chronic diastolic (congestive) heart failure (CMS/HCC)- Primary Chronic obstructive pulmonary disease, unspecified (CMS/HCC) MI (obstructive sleep apnea) Obstructive sleep apnea (adult) (pediatric) Primary hypertension ([facility]) Unspecified essential hypertension Bilateral lower extremity edema Body mass index (BMI) 50.0-59.9, adult ([facility]) Morbid (severe) obesity due to excess calories ([facility]) Tobacco user Tobacco use disorder Vitamin D deficiency Chronic diastolic heart failure (CMS/HCC) Chronic diastolic heart failure Former smoker Personal history of tobacco use, presenting hazards to health Chronic gout of multiple sites, unspecified cause Muscle cramps Hypercalcemia Chronic diastolic (congestive) heart failure (CMS/HCC)- Primary Morbid (severe) obesity due to excess calories ([facility]) Body mass index (BMI) 50.0-59.9, adult ([facility]) MI (obstructive sleep apnea) Obstructive sleep apnea (adult) (pediatric) Primary hypertension ([facility]) Unspecified essential hypertension Bilateral lower extremity edema Vitamin D deficiency Hypercalcemia Former smoker Personal history of tobacco use, presenting hazards to health Acute non-recurrent maxillary sinusitis Chronic diastolic heart failure ([facility]) Chronic diastolic heart failure documented in this encounter [facility] Evaluation note Note Date & Type Note Facility Evaluation note Diagnosis Primary hypertension ([facility])- Primary Unspecified essential hypertension Morbid (severe) obesity due to excess calories ([facility]) Body mass index (BMI) 50.0-59.9, adult ([facility]) Chronic diastolic (congestive) heart failure (CMS/HCC) MI (obstructive sleep apnea) Obstructive sleep apnea (adult) (pediatric) Leukocytosis, unspecified type Tobacco user Tobacco use disorder Chronic gout of multiple sites, unspecified cause Chronic diastolic heart failure ([facility]/HCC) Chronic diastolic heart failure Mild intermittent asthma without complication ([facility]) Bilateral lower extremity edema Chronic diastolic (congestive) heart failure ([facility]/HCC)- Primary Chronic obstructive pulmonary disease, unspecified ([facility]) MI (obstructive sleep apnea) Obstructive sleep apnea (adult) (pediatric) Primary hypertension ([facility]/HCC) Unspecified essential hypertension Bilateral lower extremity edema Body mass index (BMI) 50.0-59.9, adult (CMS/HCC) Morbid (severe) obesity due to excess calories ([facility]/HCC) Tobacco user Tobacco use disorder Vitamin D deficiency Chronic diastolic heart failure (CMS/HCC) Chronic diastolic heart failure Former smoker Personal history of tobacco use, presenting hazards to health Chronic gout of multiple sites, unspecified cause Muscle cramps Hypercalcemia Chronic diastolic (congestive) heart failure ([facility]/HCC)- Primary Morbid (severe) obesity due to excess calories ([facility]) Body mass index (BMI) 50.0-59.9, adult ([facility]/HCC) MI (obstructive sleep apnea) Obstructive sleep apnea (adult) (pediatric) Primary hypertension ([facility]/HCC) Unspecified essential hypertension Bilateral lower extremity edema Vitamin D deficiency Hypercalcemia Former smoker Personal history of tobacco use, presenting hazards to health Acute non-recurrent maxillary sinusitis Chronic diastolic heart failure ([facility]/HCC) Chronic diastolic heart failure Acute idiopathic gout of ankle, unspecified laterality- Primary documented in this encounter [facility] Summary Purpose Family History No Family History Records FoundNo Family History Records FoundNo Family History Records Found Advance Directives No Advanced Directives Records FoundNo Advanced Directives Records FoundNo Advanced Directives Records Found Additional Source Comments (unrecognized sect ion and content) No Status Records FoundNo Status Records FoundNo Status Records Found INFORMATION SOURCE (unrecogn ized section and content) DATE CREATED AUTHOR 10/12/2022 [facility] DATE CREATED AUTHOR AUTHOR'S ORGANIZ ATION 08/22/2024 [facility] DATE CREATED AUTHOR AUTHOR'S ORGANIZ ATION 08/30/2024 [facility] EPIC Care Teams (unrecognized sec tion and content) Dice Table Person Relationship Specialty Start Date End Date Robert Doherty MD [address] [place] [address] PCP - General Family Medicine 03/20/24 Alley Cruz NP [address] [place] [phone] Nurse Practitioner Family Medicine 03/20/24 Dice Table Person Relationship Specialty Start Date End Date Robert Doherty MD [address] [place] [phone] PCP - General Family Medicine 03/20/24 Alley Cruz NP [address] [place] [phone] Nurse Practitioner Family Medicine 03/20/24 Dice Table Person Relationship Specialty Start Date End Date Robert Doherty MD [address] [place] [phone] PCP - General Family Medicine 03/20/24 Alley Cruz NP [address] [place] [phone] Nurse Practitioner Family Medicine 03/20/24 Dice Table Person Relationship Specialty Start Date End Date Robert Doherty MD [address] [place] [phone] PCP - General Family Medicine 03/20/24 Alley Cruz NP [address] [place] [phone] Nurse Practitioner Family Medicine 03/20/24 Dice Table Person Relationship Specialty Start Date End Date Robert Doherty MD [address] [place] [phone] PCP - General Family Medicine 03/20/24 Alley Cruz NP [address] [place] [phone] Nurse Practitioner Family Medicine 03/20/24 Dice Table Person Relationship Specialty Start Date End Date Robert Doherty MD [address] [place] [phone] PCP - General Family Medicine 03/20/24 Alley Cruz NP [address] [place] [phone] Nurse Practitioner Family Medicine 03/20/24 Dice Table Person Relationship Specialty Start Date End Date Robert Doherty MD [address] [place] [phone] PCP - General Family Medicine 03/20/24 Alley Cruz NP [address] [place] [phone] Nurse Practitioner Family Medicine 03/20/24 Dice Table Person Relationship Specialty Start Date End Date Robert Doherty MD [address] [place] [phone] PCP - General Family Medicine 03/20/24 Alley Cruz NP [address] [place] [phone] Nurse Practitioner Family Medicine 03/20/24 Reason for Visit (unrecogniz ed section and content) Reason Comments Abnormal Calcium NEW REF/ SOME LAB Specialty Diagnoses / Procedures Referred By Contchiara t Referred To Contact Endocrinology Diagnoses Hypercalcemia Procedures [place] OFFICE/OUTPATIENT NEW HIGH MDM Aichholz, Alley, GREG [address] [place] [address] Phone: tel: fax: Fabricio Mederos MD [address], [address] [place] [address] Phone: tel: fax: Referral ID Status Reason Start Date Expiration Date V isits Requested Visits Authorized [id number] Closed Specialty Services Required 07/10/2024 01/06/2025 1 1 Reason Comments Congestive Heart Failure FOR RECORDS PERTAINING TO PATIENTS WHO ARE [...] BE BASED ON THE PRIMARY CLINICAL RECORDS. [facility]. provides no warranty or guarantee of the accuracy or completeness of information in this document.
--- NOTE | 2024-11-06 20:03 | PC.NURSE ---
this patient complains of left side chest pain onset 3 days while at work, this pain increase with lifting boxes at work. this patient is better after taking Motrin
--- NOTE | 2024-11-06 20:10 | ECG_ITS ---
[facility] Test Date: 2024-11-06 Pat Name: RAFAEL WINKLER Department: Room: - Gender: Male Manager Technology: : 1980 Requested By: [id number] Order Number: [id number] Reading MD: DEYVI ALICEA M.D. Measurements Intervals [place] Rate: 73 P: 34 MA: 192 QRS: 38 QRSD: 122 T: 30 QT: 386 QTc: 412 Interpretive Statements 1100 Sinus rhythm 2320 Nonspecific intraventricular conduction delay 9130 borderline ECG Compared to ECG 07/15/2024 14:51:23 No significant changes Electronically Signed On 11-07-2024 20:23:56 EDT by DEYVI ALICEA M.D.
[2024-11-06 20:32] LABS: Basophils Percent Auto 0.3 % (0.2-2.0); Eosinophils Absolute Auto 0.2 10^3/uL (0.0-0.7); Eosinophils Percent Auto 1.8 % (0.9-7.0); Hematocrit 37.9 % (42.0-54.0); Hemoglobin 13.2 g/dL (14.0-18.0); Immature Granulocytes Abs Auto 0.03 10^3/uL (0.00-0.03); Immature Granulocytes Pct Auto 0.3 % (0.0-0.5); Lymphocytes Absolute Auto 3.3 10^3/uL (1.2-3.8); Lymphocytes Percent Auto 27.9 % (20.5-60.0); Mean Corpuscular HGB Conc 34.8 g/dL (29.9-35.2); Mean Corpuscular Hemoglobin 31.2 pg (25.9-34.0); Mean Corpuscular Volume 89.6 fL (80.0-94.0); Mean Platelet Volume 9.8 fL (9.5-13.5); Monocytes Absolute Auto 0.8 10^3/uL (0.3-0.8); Monocytes Percent Auto 7.2 % (1.7-12.0); Neutrophils Absolute Auto 7.3 10^3/uL (1.4-6.5); Neutrophils Percent Auto 62.5 % (43.0-75.0); Platelet Count 275 10^3/uL (150-450); Red Blood Count 4.23 10^6/uL (4.70-6.10); Red Cell Distribution Width 11.9 % (11.0-15.0); White Blood Count 11.7 10^3/uL (4.0-11.0)
--- NOTE | 2024-11-06 20:47 | PC.NURSE ---
this patient just got back from x-ray dept. this patient awake and alert sitting upright on the bed watching tv, and voices no concerns and shows no signs of distress. this patient aware that we are waiting on all of the test results to come back
--- NOTE | 2024-11-06 20:59 | ED_ITS ---
HPI HPI - General Adult General Chief complaint: Chest Pain Stated complaint: LEFT CHEST PAIN Time Seen by Provider: 11/06/24 19:46 Source: patient Mode of arrival: walk-in History of Present Illness HPI narrative: Patient is an extremely pleasant 44-year-old gentleman who presents to the emergency with left-sided chest pain. He states that he has been recently lifting up heavy boxes repetitively at work and he does not recall specifically injuring himself but his symptoms began 3 days ago after a long shift. The patient reports that he does have a history of congestive heart failure as well as acute respiratory failure. Patient states that he is compliant with all of his medications. Patient has not noticed any further lower extremity edema. He does not feel short of breath worse with laying flat. This chest pain feels different than his normal discomfort that he presents with to the hospital. Patient states he has been extremely motivated he is lost over 100 pounds in the last year. He states that he has been very mobile and moving around well. His discomfort is mild to moderate in severity. Nothing in particular makes it worse or better. He denies that there is any shortness of breath, nausea, diaphoresis, or radicular pain associated with his presentation today. Related Data Home Medications ?Medication ?Instructions ?Recorded ?Confirmed bumetanide 2 mg tablet 2 mg PO BID 04/30/23 07/15/24 losartan 100 mg tablet 100 mg PO DAILY 04/30/23 07/15/24 spironolactone 50 mg tablet 50 mg PO DAILY 04/30/23 07/15/24 albuterol sulfate 90 mcg/actuation 2 puff inhalation Q6H PRN 05/14/24 07/15/24 aerosol inhaler shortness of breath or wheezing aspirin 81 mg tablet,delayed 81 mg PO DAILY 05/14/24 07/15/24 release carvedilol 6.25 mg tablet 6.25 mg PO BID 05/15/24 07/15/24 Allergies Allergy/AdvReac Type Severity Reaction Status Date / Time No Known Drug Allergies Allergy Verified 07/15/24 14:49 Opioid HPI Opioid Management Most Recent Opioid Data: Last Pain Scale 7 11/06/24 20:02 11/06/24 Last ORT Total Score 1 05/14/24 23:47 05/14/24 Last ORT Risk Category Low Risk 05/14/24 23:47 05/14/24 Review of Systems ROS Status of ROS 10 or more systems reviewed and unremark able except as noted in history and below [facility] Medical History (Updated 11/06/24 @ 22:52 by Parvin Viramontes DO) Tobacco abuse ?Z72.0 - Tobacco use (ICD-10) Sleep apnea treated with nocturnal bilevel positive airway pressure (BPAP) ?G47.30 - Sleep apnea, unspecified (ICD-10) Primary hypertension ?I10 - Essential (primary) hypertension (ICD-10) Gout ?M10.9 - Gout, unspecified (ICD-10) Asthma ?J45.909 - Unspecified asthma, uncomplicated (ICD-10) COPD (chronic obstructive pulmonary disease) ?J44.9 - Chronic obstructive pulmonary disease, unspecified (ICD-10) Family History Other Family history of CHF (congestive heart failure) Family history of diabetes mellitus Family history of hypertension Family history of myocardial infarction Family history of stroke Social History Within the past year, how often did you have a drink containing alcohol: never Score interpretation: A score less than 4 is consistent with normal alcohol consumption. Smoking status: Current every day smoker Non-prescribed substance use: denies use Highest level of school completed/degree received: high school graduate Are you now , , , , never or living with a partner: never In a typical week, how many times do you talk on the telephone with family, fri ends, or neighbors: 3 or more times per week How often do you get together with friends or relatives: 3 or more times per week Little interest or pleasure in doing things: not at all Feeling down, depressed, or hopeless: not at all Do you think of yourself as: straight/heterosexual Gender Identity: male Exam Narrative Exam Narrative: Prior to examining the patient, I have washed with hospital approved and provided Antiseptic Hand Supervisor Product Inspection and have also applied gloves.? Prior to touching the patient, I asked for consent to examine the patient.? General: Alert and oriented, well nourished, mild distress. Increased BMI. Eye: PERRL, EOMI, normal conjunctiva. HENT: Normocephalic, normal hearing, moist oral mucosa, no scleral icterus Neck: Supple, non-tender, no carotid bruits, no JVD, no lymphadenopathy. Lungs: Clear to auscultation and percussion, non-labored respiration. No rhonchi, rales, wheezing Heart: Normal rate, regular rhythm, no murmur, gallop or edema. Patient has compression stockings on. Abdomen: Soft, non-tender, non-distended, normal bowel sounds, no masses. Musculoskeletal: Normal range of motion and strength, no tenderness or swelling. There is no component of reproducible chest pain. Skin: Skin is warm, dry and pink, no rashes or lesions. Neurologic: Awake, alert, and oriented X3, CN II-XII intact. Psychiatric: Cooperative, appropriate mood and affect.? Following the conclusion of the examination, I have washed my hands thoroughly after removing examination gloves. Constitutional Vital Signs, click to edit/add: Last Vital Signs Temp 98.1 F 11/06/24 19:39 Pulse 68 11/06/24 22:10 Resp 14 11/06/24 22:20 BP 119/73 11/06/24 22:01 Pulse Ox 97 11/06/24 22:20 O2 Del Method Room Air 11/06/24 19:51 Course Reevaluation(s) Reevaluation #1: I updated the patient who appears to be resting and is nontoxic and in no acute distress. He is aware that he is just waiting the result back for his CT angiogram. Time: 22:03 Reevaluation #2: Inform the patient that his CT PE study looked great. And that there was no evidence of any acute cardiopulmonary process. Patient seems reassured and is comfortable with the discharge disposition which would be to go home and follow- up with his major sales associate Time: 22:52 Consultations Consultation #1: Contacted by laboratory for critical result. D-dimer is 1.46. CT PE ordered Time: 21:15 Vital Signs Vital signs: Vital Signs Temperature 98.1 F 11/06/24 19:39 Pulse Rate 77 11/06/24 19:39 Respiratory Rate 18 11/06/24 19:39 Blood Pressure 162/95 H 11/06/24 19:39 Pulse Oximetry 96 11/06/24 19:39 Oxygen Delivery Method Room Air 11/06/24 19:39 Temperature 98.1 F 11/06/24 19:39 Pulse Rate 68 11/06/24 22:10 Respiratory Rate 14 11/06/24 22:20 Blood Pressure 119/73 11/06/24 22:01 Pulse Oximetry 97 11/06/24 22:20 Oxygen Delivery Method Room Air 11/06/24 19:51 Medical Decision Making MDM Narrative Medical decision making narrative: Patient is a 44-year-old gentleman with left-sided chest pain that is atypical for cardiac presentation. He is D-dimer is positive we did a CT PE was negative. Troponin was negative for acute coronary syndrome. He did not have any evidence of pneumonia on imaging. He did not have evidence of spontaneous pneumothorax on imaging. All the emergent medical conditions were ruled out essentially for this young man. He is safe to go home he will return to the ER if his symptoms worsen or change. Patient expresses verbal understanding. Differential Diagnosis Differential Diagnosis: Acute coronary syndrome, pulmonary embolism, pneumonia, spontaneous pneumot Medical Records Medical records reviewed: Yes I reviewed the patient's medical records Lab Data Lab results reviewed: Yes I reviewed the patient's lab results Labs: Lab Results 11/06/24 Range/Units 20:20 WBC 11.7 H (4.0-11.0) 10^3/uL RBC 4.23 L (4.70-6.10) 10^6/uL Hgb 13.2 L (14.0-18.0) g/dL Hct 37.9 L (42.0-54.0) % MCV 89.6 (80.0-94.0) fL MCH 31.2 (25.9-34.0) pg MCHC 34.8 (29.9-35.2) g/dL RDW 11.9 (11.0-15.0) % Plt Count 275 (150-450) 10^3/uL MPV 9.8 (9.5-13.5) fL Neut % (Auto) 62.5 (43.0-75.0) % Lymph % (Auto) 27.9 (20.5-60.0) % [place] % (Auto) 7.2 (1.7-12.0) % Eos % (Auto) 1.8 (0.9-7.0) % Baso % (Auto) 0.3 (0.2-2.0) % Neut # (Auto) 7.3 H (1.4-6.5) 10^3/uL Lymph # (Auto) 3.3 (1.2-3.8) 10^3/uL [place] # (Auto) 0.8 (0.3-0.8) 10^3/uL Eos # (Auto) 0.2 (0.0-0.7) 10^3/uL Baso # (Auto) 0.0 (0.0-0.1) 10^3/uL Abs Immat Gran (auto) 0.03 (0.00-0.03) 10^3/uL Imm/Tot Granulo (auto) 0.3 (0.0-0.5) % D-Dimer 1.46 H* (<=0.59) mg/L FEU Sodium 140 (136-145) mmol/L Potassium 3.8 (3.5-5.1) mmol/L Chloride 103 (98-107) mmol/L Carbon Dioxide 30.1 (21.0-32.0) mmol/L Anion Gap 10.7 BUN 21.0 H (7.0-18.0) mg/dL Creatinine 1.30 (0.70-1.30) mg/dL Est GFR ( Amer) >60 (>=60 mL/min/1.73m^2) Est GFR (Non-Af Amer) >60 (>=60 mL/min/1.73m^2) BUN/Creatinine Ratio 16.2 Glucose 107 H (74-106) mg/dL Calcium 9.5 (8.5-10.1) mg/dL Total Bilirubin 0.3 (0.2-1.0) mg/dL AST 20 (15-37) U/L ALT 32 (16-63) U/L Alkaline Phosphatase 70 (46-116) U/L Troponin I High Sens 4.8 (4.0-76.1) pg/mL NT-Pro-B Natriuret Pep 41.0 (<=450.0) pg/mL Total Protein 7.8 (6.4-8.2) g/dL Albumin 3.4 (3.4-5.0) g/dL Globulin 4.4 g/dL Albumin/Globulin Ratio 0.8 Imaging Data Chest x-ray: Radiologist's impression: Impression: 1. Heart size at upper limits of normal. 2. No lobar consolidation or edema 3. No pleural effusion or pneumothorax. 4. No fracture or foreign body. CT scan - chest: Attestation: I have reviewed the pertinent imaging results. Radiologist's impression: Impression: No pulmonary embolus ECG Data Attestation: I personally reviewed and interpreted this ECG as follows: Prior ECG tracings: available for review (EKG from July 15, 2024 has no change in the morphology.) Interpretation: Twelve-lead EKG reveals a sinus rhythm with a ventricular rate of 73 bpm. The patient's VA interval is normal. QRS duration is prolonged. Indicating that there is a nonspecific inner ventricular conduction delay that does not appear to be attributed to a right bundle branch block. The patient has a QTc that is normal. [place] is normal. No evidence of ST segment elevation or depression suggestive of infarction or ischemia. Inferior leads have an unusual QRS morphology. Summary: Nonspecific EKG. Discharge Plan Discharge Chief Complaint: Chest Pain Clinical Impression: Chest pain Patient Disposition: Home, Self-Care Time of Disposition Decision: 22:52 Condition: Good Mode of Transportation: Private Vehicle Prescriptions / Home Meds: No Action bumetanide 2 mg tablet 2 mg PO BID losartan 100 mg tablet 100 mg PO DAILY spironolactone 50 mg tablet 50 mg PO DAILY aspirin 81 mg tablet,delayed release (DR/EC) 81 mg PO DAILY albuterol sulfate 90 mcg/actuation HFA aerosol inhaler 2 puff INHALATION Q6H PRN (Reason: shortness of breath or wheezing) carvedilol 6.25 mg tablet 6.25 mg PO BID Print Language: Tristanian Instructions: Chest Pain (ED) Additional Instructions: Thank you very much for your time and patience. It was a pleasure taking care of you today. I hope our discussion exceeded her expectations. I am sorry that I was not able to determine definitively what was causing her chest discomfort. But I can tell you that we have ruled out some really dangerous causes. Please rest tomorrow and try to monitor your symptoms. It would be appropriate to follow-up with your major sales associate as soon as possible. Have a great evening. Referrals: Alley Cruz NP [Primary Care Provider] - 1 week Discharge Date/Time: 11/06/24 23:10
[2024-11-06 21:04] LABS: Alanine Aminotransferase 32 U/L (16-63); Albumin Globulin Ratio 0.8; Albumin Level 3.4 g/dL (3.4-5.0); Alkaline Phosphatase 70 U/L (46-116); Anion Gap 10.7; Aspartate Amino Transferase 20 U/L (15-37); BUN Creatinine Ratio 16.2; Bilirubin Total 0.3 mg/dL (0.2-1.0); Calcium 9.5 mg/dL (8.5-10.1); Carbon Dioxide 30.1 mmol/L (21.0-32.0); Chloride 103 mmol/L (98-107); Estimated GFR (African America >60 (>=60 mL/min/1.73m^2); Estimated GFR (Non-African Ame >60 (>=60 mL/min/1.73m^2); Globulin 4.4 g/dL; Glucose 107 mg/dL (74-106); Potassium 3.8 mmol/L (3.5-5.1); Sodium 140 mmol/L (136-145); Total Protein 7.8 g/dL (6.4-8.2); Troponin I High Sensitivity 4.8 pg/mL (4.0-76.1)
[2024-11-06 21:12] LABS: D Dimer 1.46 mg/L FEU (<=0.59)
== END 2024-11-06 23:10 | disposition home or self-care (01) ==
PROVIDERS: Emergency Provider Emergency Medicine; PCP Nurse Practitioner
DX: R07.9 Chest pain, unspecified (principal); I50.9 Heart failure, unspecified; F17.200 Nicotine dependence, unspecified, uncomplicated; R79.89 Other specified abnormal findings of blood chemistry
CPT/HCPCS: 36415; 71046; 71275; 80053; 83880; 84484; 85025; 85378; 93005; 99285; Q9967

== ENCOUNTER 2024-12-25 10:35 | Outpatient (OUT) | payer OTHER, SELFPAY ==
[2024-12-25 11:10] LABS: Basophils Percent Auto 0.4 % (0.2-2.0); Eosinophils Absolute Auto 0.2 10^3/uL (0.0-0.7); Eosinophils Percent Auto 1.8 % (0.9-7.0); Hematocrit 40.6 % (42.0-54.0); Hemoglobin 14.2 g/dL (14.0-18.0); Immature Granulocytes Abs Auto 0.03 10^3/uL (0.00-0.03); Immature Granulocytes Pct Auto 0.3 % (0.0-0.5); Lymphocytes Percent Auto 28.6 % (20.5-60.0); Mean Corpuscular Hemoglobin 30.1 pg (25.9-34.0); Mean Corpuscular Volume 86.2 fL (80.0-94.0); Mean Platelet Volume 9.6 fL (9.5-13.5); Monocytes Absolute Auto 0.8 10^3/uL (0.3-0.8); Monocytes Percent Auto 7.5 % (1.7-12.0); Neutrophils Absolute Auto 6.4 10^3/uL (1.4-6.5); Neutrophils Percent Auto 61.4 % (43.0-75.0); Platelet Count 388 10^3/uL (150-450); Red Blood Count 4.71 10^6/uL (4.70-6.10); Red Cell Distribution Width 12.3 % (11.0-15.0); White Blood Count 10.3 10^3/uL (4.0-11.0)
[2024-12-25 11:34] LABS: Bilirubin Urine NEGATIVE (NEGATIVE); Blood Urine NEGATIVE (NEGATIVE); Clarity Urine CLEAR (CLEAR); Color Urine YELLOW (YELLOW); Glucose Urine UA NEGATIVE (NEGATIVE); Ketones Urine NEGATIVE (NEGATIVE); Leukocyte Esterase Urine NEGATIVE (NEGATIVE); Nitrite Urine NEGATIVE (NEGATIVE); Protein Urine NEGATIVE (NEG/TRACE); Specific Gravity Urine 1.015 (1.005-1.025)
[2024-12-25 11:37] LABS: Alanine Aminotransferase 25 U/L (16-63); Albumin Globulin Ratio 0.8; Albumin Level 3.5 g/dL (3.4-5.0); Alkaline Phosphatase 76 U/L (46-116); Anion Gap 13.9; Aspartate Amino Transferase 19 U/L (15-37); BUN Creatinine Ratio 22.2; Bilirubin Total 0.5 mg/dL (0.2-1.0); Calcium 9.4 mg/dL (8.5-10.1); Chloride 104 mmol/L (98-107); Estimated GFR (African America >60 (>=60 mL/min/1.73m^2); Estimated GFR (Non-African Ame >60 (>=60 mL/min/1.73m^2); Globulin 4.2 g/dL; Glucose 89 mg/dL (74-106); Magnesium 1.8 mg/dL (1.8-2.4); Potassium 3.9 mmol/L (3.5-5.1); Sodium 142 mmol/L (136-145); Total Protein 7.7 g/dL (6.4-8.2); Uric Acid 9.4 mg/dL (3.5-7.2)
[2024-12-25 11:39] LABS: Chol HDL Ratio 3.5; Cholesterol 163 mg/dL (<=200); HDL Cholesterol 47 mg/dL (40-60); Triglycerides 105 mg/dL (<=150)
[2024-12-25 11:46] LABS: Urine Microscopic Indicated NO
[2024-12-25 12:17] LABS: Creatinine Urine Random 209.93 mg/dL (20.00-300.00); Microalbum Creatinine Ratio Ur 11.4 mg/g (0.0-29.9); Microalbumin Urine Random 2.4 mg/dL (<=30.0)
== END 2024-12-25 10:36 | disposition home or self-care (01) ==
LOC: LAB 10:39
PROVIDERS: PCP Nurse Practitioner; Visit Provider Nurse Practitioner
DX: I11.0 Hypertensive heart disease with heart failure (principal); I50.32 Chronic diastolic (congestive) heart failure; M1A.09X0 Idiopathic chronic gout, multiple sites, without tophus (tophi); R60.0 Localized edema; R25.2 Cramp and spasm; E66.01 Morbid (severe) obesity due to excess calories; E55.9 Vitamin D deficiency, unspecified; G47.30 Sleep apnea, unspecified; R73.03 Prediabetes
CPT/HCPCS: 36415; 80053; 80061; 81003; 82043; 82306; 82570; 83036; 83735; 84443; 84550; 85025

== ENCOUNTER 2024-12-25 10:42 | Outpatient (OUT) | payer OTHER, SELFPAY ==
[2024-12-25 11:31] LABS: Estimated Average Glucose 100 mg/dL; Glycohemoglobin A1C 5.1 % (4.5-6.2)
[2024-12-25 11:49] LABS: Thyroid Stimulating Hormone 2.702 uIU/mL (0.358-3.740)
== END 2024-12-25 10:43 | disposition home or self-care (01) ==
LOC: LAB 10:44
PROVIDERS: PCP Nurse Practitioner; Visit Provider Internal Medicine
DX: G47.30 Sleep apnea, unspecified (principal); I10 Essential (primary) hypertension; E66.01 Morbid (severe) obesity due to excess calories; R73.03 Prediabetes
CPT/HCPCS: 36415; 83036; 84443

== ENCOUNTER 2025-03-31 07:05 | Outpatient (OUT) | payer OTHER, SELFPAY ==
--- OUTSIDE RECORDS SUMMARY | 2025-03-31 07:09 | XMS_ITS | Encounter Summary ---
Author Organization [facility] Address [address] [place] [address] Care Team Providers Care Therapist'S Assistant Name Role Phone Robert Doherty MD Primary Care Provider [phone] Alley Cruz NP Unavailable [phone] Encounter Details Date Type Department Care Team (Late st Contact Info) Description 05/15/2024 Orders Only [facility] [address] [place] [address] Angelic Vasquez MD [address] [place] [address] Social History Tobacco Use Types Packs/Day Years Used Date Smoking Tobacco: Every Day Cigarettes Smokeless Tobacco: Never Alcohol Use Standard Drinks/Week Comments Not Currently 0 (1 standard drink = 0.6 oz pure alcohol) caffine: 12 pack of pop daily, 1 cup of coffee daily Sex and Gender Information Value Date Recorded Sex Assigned at Not on file Legal Sex Male 7:51 AM EDT Gender Identity Not on file Sexual Orientation Not on file documented as of this encounter Plan of Treatment Upcoming Encounters Date Type Department Care Team (Late st Contact Info) Description 04/01/2025 9:00 AM EDT Office Visit [facility] [address] [place] [address] Alley Cruz NP [address] [place] [address] documented as of this encounter Procedures Procedure Name Priority Date/Time Associated Diagnosis Comments ELECTROCARDIOGRAM REPORT Routine 024 12:49 PM EDT XR CHEST 2 VIEWS Routine 05/14/2024 12:4 2 PM EDT documented in this encounter Results * Electrocardiogram Report (05/14/2024 12:49 PM EDT) us Angelic Vasquez MD IN CLINIC/BEDSIDE ORDERABLES F inal Result * XR chest 2 views (05/14/2024 12:42 PM EDT) Anatomical Region Laterality Modality Chest Radiographic Yovana ging us Angelic Vasquez MD IMG XR PROCEDURES Final Result documented in this encounter Visit Diagnoses Not on filedocumented in this encounter Care Teams Therapist'S Assistant Relationship Specialty Start Date End Date Robert Doherty MD [address] [place] [address] PCP - General Family Medicine 03/20/24 Alley Cruz NP [address] [place] [address] Nurse Practitioner Family Medicine 03/20/24 documented as of this encounter
--- OUTSIDE RECORDS SUMMARY | 2025-03-31 07:09 | XMS_ITS | Encounter Summary ---
Author Organization [facility] Address [address] [place] [address] Care Team Providers Care Boiler Room Helper Name Role Phone Robert Doherty MD Primary Care Provider [phone] Alley Cruz NP Unavailable [phone] Encounter Details Date Type Department Care Team (Late st Contact Info) Description 05/16/2024 Orders Only [facility] [address] [place] [address] Linda Gann MD [address] [place] [address] Social History Tobacco Use Types Packs/Day Years [...] Visit [facility] [address] [place] [id number] Alley Cruz NP [address] [place] [phone] documented as of this encounter Procedures Procedure Name Priority Date/Time Associated Diagnosis Comments SCANNED LABS Routine 05/16/2024 11:[address] ANGIO CHEST W CONT(INCL WO) Routine 05/15/2024 10:14 AM EDT documented in this encounter Results * SCANNED LABS (05/16/2024 11:51 AM EDT) us Alley Cruz POTTERY DECORATOR LAB CHG PERFORMABLES Final Resu lt * CT ANGIO CHEST W CONT(INCL WO) (05/15/2024 10:14 AM EDT) Anatomical Region Laterality Modality Radiographic Yovana ging us Linda Gann MD IMG XR PROCEDURES Final Result documented in this encounter Visit Diagnoses Not on filedocumented in this encounter Care Teams Boiler Room Helper Relationship Specialty Start Date End Date Robert Doherty MD [address] [place] [address] PCP - General Family Medicine 03/20/24 Alley Cruz NP [address] [place] [address] Nurse Practitioner Family Medicine 03/20/24 documented as of this encounter
--- OUTSIDE RECORDS SUMMARY | 2025-03-31 07:09 | XMS_ITS | Encounter Summary ---
Author Organization [facility] Address [address] [place] [address] Care Team Providers Care Pipe Liner Name Role Phone Robert Doherty MD Primary Care Provider [phone] Alley Cruz NP Unavailable [phone] Encounter Details Date Type Department Care Team (Late Contact Info) Description 05/20/2024 Orders Only [facility] [address] [place] [address] Linda Gann MD [address] [place] [address] Social History Tobacco Use Types Packs/Day Years [...] 04/01/2025 9:00 AM EDT Office Visit [facility] [address] [place] [address] Alley Cruz NP [address] [place] [phone] documented as of this encounter Procedures Procedure Name Priority Date/Time Associated Diagnosis Comments XR CHEST 1 VIEW Routine 05/20/2024 11:16 AM EDT documented in this encounter Results * XR chest 1 view (05/20/2024 11:16 AM EDT) Anatomical Region Laterality Modality Chest Radiographic Yovana ging us Linda Gann MD IMG XR PROCEDURES Final Result documented in this encounter Visit Diagnoses Not on filedocumented in this encounter Care Teams Pipe Liner Relationship Specialty Start Date End Date Robert Doherty MD [address] [place] [address] PCP - General Family Medicine 03/20/24 Alley Cruz NP [address] [place] [address] Nurse Practitioner Family Medicine 03/20/24 documented as of this encounter
--- OUTSIDE RECORDS SUMMARY | 2025-03-31 07:09 | XMS_ITS | Continuity of Care Document ---
Author Organization [facility] Address [address] [place], [place] [id number] Insurance Providers Payer Plan Claims Address Claims Phone Policy Number Group Number Relation Employer Guarantor Name Guarantor Guarantor Address Guarantor Phone DARRENShila Patrice [employer] [employer] [address] [address], [place] [id number] Self Jack Castro 1980 [address], [address], [place], [place] [id number] Problems Condition ICD9 code ICD10 code SNOMED code Start Date End Date S tatus Encounter for screening for other metabolic disorders Z13.228 Results No Results Allergies, adverse reactions, alerts No known allergies and adverse reactions Medications No administered medications reported Vital Signs No vital signs reported Social History No smoking Hx information available
--- OUTSIDE RECORDS SUMMARY | 2025-03-31 07:09 | XMS_ITS | Clinical Summary ---
Author Organization [facility] Address [address] [place] [address] Phone Care Team Providers Care Restaurant Mgr Name Role Phone Fabricio Menchaca MD Unavailable [phone] Encounters Date Type Department Care Team Description 01/29/2025 Patient Risk Score [facility] Care Management [address] [place] [address] from Last 3 Months Social History Tobacco Use Types Packs/Day Years Used Date Smoking Tobacco: Never Assessed Sex and Gender Information Value Date Recorded Sex Assigned at Not on file Legal Sex Male 2:25 PM EDT Gender Identity Not on file Sexual Orientation Not on file Plan of Treatment Health Maintenance Due Date Last Done Comments HIV Screening 1981 Lipid Panel 1981 Yearly Adult Physical 1981 MMR Vaccines (1 of 1 - Stand celi series) 1982 Hepatitis C Screening 1999 Hepatitis B Vaccines (1 of 3 - 19+ 3-dose series) 2000 DTaP/Tdap/Td Vaccines (1 - Tdap) 2003 HPV Vaccines (1 - 3-dose sta ndard series) 2008 COVID-19 Vaccine ( - 2023-2 5 season) 2024 Influenza Vaccine (#1) 2025 Zoster Vaccines (1 of 2) 2031 HIB Vaccines Aged Out No longer eligi ble based on patient's age to complete this topic Hepatitis A Vaccines Aged Out No long er eligible based on patient's age to complete this topic IPV Vaccines Aged Out No longer eligi ble based on patient's age to complete this topic Meningococcal Vaccine Aged Out No gerhard tony eligible based on patient's age to complete this topic Pneumococcal Vaccine: Pediat rics and At-Risk Adult Patients Aged Out No longer moraima gible based on patient's age to complete this topic Rotavirus Vaccines Aged Out No longer eligible based on patient's age to complete this topic Care Teams Restaurant Mgr Relationship Specialty Start Date End Date Fabricio Menchaca MD [address] [address] PCP - Neon ACO PCP 07/28/24
--- OUTSIDE RECORDS SUMMARY | 2025-03-31 07:09 | XMS_ITS | Clinical Summary ---
Author Organization [facility] Healthcare Address [address] [place] [address] Care Team Providers Care Sorter Operator Name Role Phone Robert Doherty MD Primary Care Provider [phone] Alley Cruz NP Unavailable [phone] Allergies No known active allergies Medications albuterol HFA 90 mcg/act inhalerIndication s:Mild intermittent asthma without complication (HCC) INHALE 2 PUFFS BY MOUTH EVERY 6 HOURS NEEDED for SHORTNESS OF BREATH or FOR WHEEZING 18 g 1 4 Active aspirin 81 MG EC tablet Take 81 mg by mouth Daily Active ibuprofen 200 MG tablet Take 200 mg by mouth every 6 (six) hours Active bumetanide (Bumex) 2 MG tabletIndications :Primary hypertension,Art Director lam diastolic heart failure (HCC) Take 1 tablet (2 mg) by mouth in the morning and 1 tablet (2 mg) before bedtime. 180 tablet 1 5 Active spironolactone (Aldactone) 50 MG tabletIndications :Primary hypertension,Art Director lam diastolic heart failure (HCC) Take 1 tablet (50 mg) by mouth Daily 90 tablet 1 5 Active carvedilol (Coreg) 12.5 MG tabletIndications :Primary hypertension Take 1 tablet (12.5 mg) by mouth in the morning and 1 tablet (12.5 mg) in the evening. Take with meals. 180 tablet 5 Active cholecalciferol (Vitamin D-3) 125 MCG (5000 UT) capsuleIndication s:Vitamin D deficiency Take 1 capsule (125 mcg) by mouth Daily 90 capsule 5 03/26/20 25 allopurinol (Zyloprim) 100 MG tabletIndications :Idiopathic chronic gout, multiple sites, without tophus (tophi) Take 2 tablets (200 mg) by mouth Daily 180 tablet 03/26/20 25 Active Problems Problem Noted Date Diagnosed Date Acute idiopathic gout of ankle 09/09/2024 Chronic obstructive pulmonary disease, unspecifi ed 07/10/2024 Assessment & Plan (12/26/2024 6:16 AM EDT): No inhaler use outside of prn albuterol Assessment & Plan (07/10/2024 6:39 AM EST): No inhaler use outside of prn albuterol Vitamin D deficiency 07/10/2024 Assessment & Plan (12/26/2024 9:16 AM EDT): Start vit d3 5,000 Recheck in 3 months Assessment & Plan (08/29/2024 6:17 AM EST): Check labs Former smoker 07/10/2024 Assessment & Plan (08/29/2024 6:17 AM EST): Quit smoking since hospitalization Hx of tobacco: 30 years, 1ppd= 30 pack year Congratulations on quitting Stressed importance of stay quit Assessment & Plan (07/10/2024 10:41 AM EST): Quit smoking since hospitalization Hx of tobacco: 30 years, 1ppd= 30 pack year Congratulations on quitting Stressed importance of stay quit Muscle cramps 07/10/2024 Hypercalcemia 07/10/2024 Assessment & Plan (08/29/2024 6:17 AM EST): Was referred to Endo Dr Menchaca Assessment & Plan (07/10/2024 11:35 AM EST): Per discharge instructions from [facility], pt needed referral to Dr Menchaca Will place referral Acanthosis nigricans 03/20/2024 Mild intermittent asthma without complication 07 / Assessment & Plan (03/20/2024 10:46 AM EDT): Feels is stable prn use of albuterol Elevated white blood cell count 03/20/2024 MI (obstructive sleep apnea) 03/20/2024 Assessment & Plan (12/26/2024 6:16 AM EDT): You have a diagnosis of obstructive sleep apnea. It is recommended that you wear your PAP device any time while in bed sleeping. Not using the PAP device can increase your risk of elevated/uncontrolled high blood pressure, atrial fibrillation, heart attack, stroke, or sudden . Compliance with PAP: yes How many hours of use per night: 6 Do you feel more refreshed in the morning: yes Company that supplies your machine and tubing/filters etc:has had machine for about 3 years, has never ordered new equipment Doctor that manages your MI: PCP Assessment & Plan (11/26/2024 9:03 AM EDT): You have a diagnosis of obstructive sleep apnea. It is recommended that you wear your PAP device any time while in bed sleeping. Not using the PAP device can increase your risk of elevated/uncontrolled high blood pressure, atrial fibrillation, heart attack, stroke, or sudden . Compliance with PAP: yes How many hours of use per night: 6 Do you feel more refreshed in the morning: yes Company that supplies your machine and tubing/filters etc:has had machine for about 3 years, has never ordered new equipment Doctor that manages your MI: PCP Assessment & Plan (08/29/2024 9:09 AM EST): You have a diagnosis of obstructive sleep apnea. It is recommended that you wear your PAP device any time while in bed sleeping. Not using the PAP device can increase your risk of elevated/uncontrolled high blood pressure, atrial fibrillation, heart attack, stroke, or sudden . Currently compliant: yes Hours of use: 6 Notes improvement with use: feels great Assessment & Plan (07/10/2024 10:39 AM EST): Wearing CPAP, is using it approximately 7 hours, feels more rested More energy Assessment & Plan (03/20/2024 10:46 AM EDT): Continues w PAP 4-5 hours per day Morbid (severe) obesity due to excess calories 0 03/20/2024 Assessment & Plan (12/26/2024 6:17 AM EDT): Discussed with patient their BMI (actual, verses [...] loss. Is working with weight management at [facility] Assessment & Plan (11/26/2024 6:03 AM EDT): Discussed with patient their BMI (actual, verses [...] loss. Is working with weight management at [facility] Weight loss: approx 40 since last visit Assessment & Plan (08/29/2024 9:13 AM EST): Discussed with patient their BMI (actual, verses [...] loss. Is working with weight management at [facility] Weight loss: approx 40 since last visit Assessment & Plan (03/20/2024 10:51 AM EDT): Would like to see about bariatric surgery, pt is going to get phone number and let me know where at in [place] Body mass index (BMI) 50.0-59.9, adult 07/24/202 4 Chronic gout of multiple sites 03/20/2024 Assessment & Plan (12/26/2024 6:17 AM EDT): Elevation if uric acid levels Will start allopurinol Assessment & Plan (11/26/2024 6:03 AM EDT): Takes colchicine prn flares Assessment & Plan (03/20/2024 10:49 AM EDT): Check uric acid level Cont prn colchicine Bilateral lower extremity edema 03/20/2024 Assessment & Plan (11/26/2024 6:02 AM EDT): Continue diuretics Recommend compression stockings, continue with diuretics Elevated legs above level of the heart a few times daily Current meds: bumetanide, and spironolactone Check labs at minimum yearly and prn Assessment & Plan (08/29/2024 6:15 AM EST): Continue diuretics Recommend compression stockings, continue with diuretics Elevated legs above level of the heart a few times daily Current meds: bumetanide, and spironolactone Check labs at minimum yearly and prn Assessment & Plan (07/10/2024 10:40 AM EST): Continue diuretics Recommend compression stockings, continue with diuretics Elevated legs above level of the heart a few times daily Assessment & Plan (03/20/2024 10:50 AM EDT): Cont compression stockings as well as bumex and aldactone Has been out of water pills a few weeks Primary hypertension 08/02/2023 Assessment & Plan (12/26/2024 6:16 AM EDT): Please check blood pressure daily and record DASH diet Limit caffeine Take medication as directed Contact office if chest pain, pressure, dizziness, shortness of breath, swelling legs Recommend slow position changes Current meds: Carvedilol, spironolactone Assessment & Plan (11/26/2024 9:09 AM EDT): Please check blood pressure daily and record DASH diet Limit caffeine Take medication as directed Contact office if chest pain, pressure, dizziness, shortness of breath, swelling legs Recommend slow position changes Current meds: Carvedilol, spironolactone Increase carvedilol to 12.5mg BID Fu in 4 weeks Check blood pressure daily Assessment & Plan (08/29/2024 9:09 AM EST): Please check blood pressure daily and record DASH diet Limit caffeine Take medication as directed Contact office if chest pain, pressure, dizziness, shortness of breath, swelling legs Recommend slow position changes Current meds: Carvedilol, spironolactone Did not take meds yet this morning Assessment & Plan (07/10/2024 11:32 AM EST): Consider adding losartan back, however needs labs first Please check blood pressure daily and record DASH diet Limit caffeine Take medication as directed Contact office if chest pain, pressure, dizziness, shortness of breath, swelling legs Recommend slow position changes Assessment & Plan (03/20/2024 10:47 AM EDT): Has been out of losartan Will restart losartan as well as increase dose on carvedilol to 6.25mg BID Fu in 3 weeks Check labs gave hand out on direct acess testing Chronic diastolic (congestive) heart failure 01/2023 Assessment & Plan (11/26/2024 9:03 AM EDT): Is not following with cardiology anymore Current meds: Bumetandie, carvedilol, sprinoloactone, and asa Assessment & Plan (08/29/2024 6:14 AM EST): Continue with cardiology Current meds: Bumetandie, carvedilol, sprinoloactone, and asa Assessment & Plan (07/10/2024 6:40 AM EST): Hospitalization in the last few months, initially presented to [facility], there for a few days, then transferred to [facility] Continue with current meds, cardiology follow ups Low sodium diet, daily weights Assessment & Plan (03/20/2024 10:47 AM EDT): Restart ARB as well as increase dose on b gabriella Cont diuretics Resolved Problems Problem Noted Date Diagnosed Date Resolved Date Acute non-recurrent maxillary sinusitis 08/29/2024 11/26/2024 Assessment & Plan (08/29/2024 9:10 AM EST): Sxs ongoing over a week, green nasal secretions Possible COVID last week? No taste or smell, he is out side parameter to treat if + Fluids, rest, fu if not bettter Tobacco user 03/20/2024 07/10/2024 Assessment & Plan (07/10/2024 6:41 AM EST): The patient has been advised of the risks of continued smoking: stroke, CO, all forms of cancer, lung disease, and . Options for quitting smoking include: cold turkey, hypnosis, acupuncture, nicotine replacement meds (gum, lozenges, and patches), Buproprion, and Varenicline. At this time pt is encouraged to evaluate their goals for wanting to quit smoking, and reach out to provider when ready to start this process Acute idiopathic gout of multiple sites 08/17/2023 03/20/2024 Family History Medical History Relation Name Comments Heart disease Mother Heart disease Paternal Grandfather Thyroid disease Sister Relation Name Status Comments Father Mother Paternal Grandfather Sister Social History Tobacco Use Types Packs/Day Years Used Date Smoking Tobacco: Every Day Cigarettes Smokeless Tobacco: Never Tobacco Cessation:Ready to Q uit: Not Asked; Counseling Given: Not Answered Alcohol Use Standard Drinks/Week Comments Not Currently 0 (1 standard drink = 0.6 oz pure alcohol) caffine: 12 pack of pop daily, 1 cup of coffee daily Sex and Gender Information Value Date Recorded Sex Assigned at Not on file Legal Sex Male 7:51 AM EDT Gender Identity Not on file Sexual Orientation Not on file Last Filed Vital Signs Vital Sign Reading Time Taken Comments Blood Pressure 130/90 12/26/2024 9:04 AM EDT Pulse 74 12/26/2024 9:04 AM EDT Temperature 35.9 C (96.6 F) 12/26/2024 9:04 AM EDT Respiratory Rate 20 12/26/2024 9:04 AM EDT Oxygen Saturation 96% 12/26/2024 9:04 AM EDT Inhaled Oxygen Concentration - - Weight 173 kg (382 lb 6.4 oz) 12/26/2024 9:04 AM EDT Height 188 cm (6' 2 ) 11/26/2024 8:47 AM EDT Body Mass Index 49.1 11/26/2024 8:47 AM EDT Plan of Treatment Upcoming Encounters Date Type Department Care Team (Late st Contact Info) Description 04/01/2025 9:00 AM EDT Office Visit [facility] [address] [place] [address] Alley Cruz NP [address] [place] [address] Health Maintenance Due Date Last Done Comments Influenza Vaccine Discontinued Insurance [facility] Care Teams Sorter Operator Relationship Specialty Start Date End Date Robert Doherty MD [address] [place] [address] PCP - General Family Medicine 03/20/24 Alley Cruz NP [address] [place] [address] Nurse Practitioner Family Medicine 03/20/24
--- OUTSIDE RECORDS SUMMARY | 2025-03-31 07:09 | XMS_ITS | Encounter Summary ---
Author Organization [facility] Address [address] [place] [address] Care Team Providers Care Professor Of Literacy Name Role Phone Robert Doherty MD Primary Care Provider [phone] Alley rCuz NP Unavailable [phone] Encounter Details Date Type Department Care Team (Late st Contact Info) Description 07/16/2024 Orders Only [facility] [address] [place] [address] Alley Cruz, GREG [address] [place] [address] Social History Tobacco Use Types Packs/Day Years [...] 04/01/2025 9:00 AM EDT Office Visit [facility] [address] [place] [address] Alley Cruz NP [address] [place] [address] documented as of this encounter Procedures Procedure Name Priority Date/Time Associated Diagnosis Comments XR CHEST 1 VIEW Routine 07/16/2024 1:34 PM EST SCANNED LABS Routine 07/16/2024 8:32 AM EST documented in this encounter Results * XR chest 1 view (07/16/2024 1:34 PM EST) Anatomical Region Laterality Modality Chest Radiographic Yovana ging us Jimbo Reddy MD IMG XR PROCEDURES Final Resul t * SCANNED LABS (07/16/2024 8:32 AM EST) Alley Cruz TERMITE EXTERMINATOR LAB CHG PERFORMABLES Final Resu lt documented in this encounter Visit Diagnoses Not on filedocumented in this encounter Care Teams Professor Of Literacy Relationship Specialty Start Date End Date Robert Doherty MD [address] [place] [address] PCP - General Family Medicine 03/20/24 Alley Cruz NP [address] [place] [address] Nurse Practitioner Family Medicine 03/20/24 documented as of this encounter
--- OUTSIDE RECORDS SUMMARY | 2025-03-31 07:09 | XMS_ITS | Encounter Summary ---
Author Organization [facility] Address [address] [place] [address] Care Team Providers Care Supervisor Mold Yard Name Role Phone Robert Doherty MD Primary Care Provider [phone] Alley Cruz NP Unavailable [phone] Reason for Visit * Reason Comments Med Refill Encounter Details Date Type Department Care Team (Late st Contact Info) Description [facility]24 [facility] [address] [place] [address] Alley Cruz NP [address] [place] [address] Chronic gout of multiple sites, unspecified cause Social History Tobacco Use Types Packs/Day Years [...] on file documented as of this encounter Miscellaneous Notes * Telephone Encounter - Alley Cruz NP - 04/30/2024 8:34 AM EDT Please call pt to reschedule appt with me for some time in April documented in this encounter Plan of Treatment Upcoming Encounters Date Type Department Care Team (Late st Contact Info) Description 04/01/2025 9:00 AM EDT Office Visit [facility] [address] [place] [address] Alley Cruz, GREG [address] [place] [phone] documented as of this encounter Visit Diagnoses Diagnosis Chronic gout of multiple sites, unspecified cause documented in this encounter Care Teams Supervisor Mold Yard Relationship Specialty Start Date End Date Robert Doherty MD [address] [place] [address] PCP - General Family Medicine 03/20/24 Alley Cruz NP [address] [place] [address] Nurse Practitioner Family Medicine 03/20/24 documented as of this encounter
--- OUTSIDE RECORDS SUMMARY | 2025-03-31 07:09 | XMS_ITS | Encounter Summary ---
Author Organization [facility] Address [address] [place] [address] Care Team Providers Care Batt Machine Operator Name Role Phone Robert Doherty MD Primary Care Provider [phone] Robert Doherty MD Primary Care Provider [phone] Alley Cruz NP Unavailable [phone] Encounter Details Date Type Department Care Team (Late st Contact Info) Description 03/04/2024 Orders Only [facility] [address] [place] [address] Jimbo Reddy MD [address], [place] [id number] Social History Tobacco Use Types Packs/Day Years Used Date Smoking Tobacco: Every Day Cigarettes Sex and Gender Information Value Date Recorded Sex Assigned at Not on file Legal Sex Male 7:51 AM EDT Gender Identity Not on file Sexual Orientation Not on file documented as of this encounter Plan of Treatment Upcoming Encounters Date Type Department Care Team (Late st Contact Info) Description 04/01/2025 9:00 AM EDT Office Visit [facility] [address] [place] [address] Alley Cruz, GREG [address] [place] [address] documented as of this encounter Procedures Procedure Name Priority Date/Time Associated Diagnosis Comments XR ANKLE 3+ VIEWS RIGHT Routine 03/04/2024 5:58 PM EDT documented in this encounter Results * XR ankle 3+ views right (03/04/2024 5:58 PM EDT) Anatomical Region Laterality Modality Lower Extremities, Ankle Right Radiogr aphic Imaging us Jimbo Reddy MD IMG XR PROCEDURES Final Resul t documented in this encounter Visit Diagnoses Not on filedocumented in this encounter Care Teams Batt Machine Operator Relationship Specialty Start Date End Date Robert Doherty MD PCP - General Family Medicine 03/21/23 03/19/24 Robert Doherty MD [address] [place] [address] PCP - General Family Medicine 03/20/24 Alley Cruz NP [address] [place] [address] Nurse Practitioner Family Medicine 03/20/24 documented as of this encounter
--- OUTSIDE RECORDS SUMMARY | 2025-03-31 07:09 | XMS_ITS | Encounter Summary ---
Author Organization [facility] Address [address] [place] [address] Care Team Providers Care Certified Medical Coding Specialist Name Role Phone Robert Doherty MD Primary Care Provider [phone] Robert Doherty MD Primary Care Provider [phone] Alley Cruz NP Unavailable [phone] Encounter Details Date Type Department Care Team (Late Contact Info) Description 08/27/2023 Abstract [facility] [address] [place] [address] Alley Cruz NP [address] [place] [address] Social History Tobacco Use Types Packs/Day Years [...] 04/01/2025 9:00 AM EDT Office Visit [facility] [address] [place] [address] Alley Cruz NP [address] [place] [address] documented as of this encounter Visit Diagnoses Not on filedocumented in this encounter Care Teams Certified Medical Coding Specialist Relationship Specialty Start Date End Date Robert Doherty MD PCP - General Family Medicine 03/21/23 03/19/24 Robert Doherty MD [address] [place] [address] PCP - General Family Medicine 03/20/24 Alley Cruz NP [address] [place] [address] Nurse Practitioner Family Medicine 03/20/24 documented as of this encounter
--- OUTSIDE RECORDS SUMMARY | 2025-03-31 07:09 | XMS_ITS | CCD ---
Author Organization [facility] Care Team Providers Care Calf Skinner Name Role Phone DR RADHA LANDEROS Admitting Unavailable LETI, DR GARCIA Consulting Unavailable LETI, DR GARCIA Attending Unavailable AICHHOLZ, NEONATAL INTENSIVE CARE NURSE ALLEY Primary Care Unavailable AICHHOLZ, LUMA ALLEY Admitting Unavailable AICHHOLZ, NEONATAL INTENSIVE CARE NURSE ALLEY Primary Care Unavailable AICHHOLZ, NEONATAL INTENSIVE CARE NURSE ALLEY Consulting Unavailable AICHHOLZ, NEONATAL INTENSIVE CARE NURSE ALLEY Attending Unavailable WILLEM, DR RACQUEL Luis Consulting Unavailable AICHHOLZ, NEONATAL INTENSIVE CARE NURSE ALLEY Primary Care Unavailable SURI, DR JEANNETTE [...] Unavailable Robert Doherty MD Primary Care Provider [phone] Aichholz DIGITAL ASSET MANAGER, Alley Unavailable Alley Cruz Primary Care Unavailable Mariella Valderrama Consulting Unavailable Montrell Lima Admitting UnavailJavier Echavarria Attending Unavailable Ervin Calhoun Consulting Unavaila Shanice Arambula Consulting Unavailable Mark Reeves Consulting Unavailable Gerber Bond Consulting Unavailable SamKenneth prince Consulting Unavailable Christi Basem Consulting Unavailable Zbigniew Mckee Consulting Un available Harrold Baszbigniew Consulting Unavailable Tank Kumari Consulting Unavaila Amada Melton Consulting Unavailable ANTHONY ALLEY Attending Unavailable AICHSARY, ALLEY Attending Unavailable AICHHOLZ, ALLEY Attending Unavailable AICHHOLImani, ALLEY Attending Unavailable GATITO, AHMAD F Attending Unavailable ALLEY CRUZ Referring Unavailable ALLEY CRUZ Attending Unavailable Medications Current Medications Medication Drug Class(es) Dates Sig (Normalized) Sig (Original) [id number] 200 actuat albuterol 0.09 mg/actuat metered dose inhaler (19 sources) beta2-Adrenergic Agonist Start: 07-19-2024 take 2 [...] or wheezing 18 g 1 03/20/2024 Active allopurinol 100 mg oral tablet (2 sources) Xanthine Oxidase Inhibitor Start: 12-26-2024 End: 03-26-2025 take 2 tablets by mouth once daily allopurinol (Zyloprim) 100 MG tablet Indications: Idiopathic chronic gout, multiple sites, without tophus (tophi) Take 2 tablets (200 mg) by mouth Daily 180 tablet 12/26/2024 03/26/2025 Active amoxicillin 875 mg / clavulanate 125 mg oral tablet (2 sources) Penicillin-class Antibacterial Start: 08-29-2024 End: 09-08-2024 take 1 tablet by mouth in the morning amoxicillin-clavul anate (Augmentin) 875-125 MG tablet Indications: Acute non-recurrent maxillary sinusitis Take 1 tablet (875 mg) by mouth in the morning and 1 tablet (875 mg) before bedtime. Do all this for 10 days. Take w food. 20 tablet 08/29/2024 09/08/2024 Active aspirin 81 mg delayed release oral tablet (15 sources) Platelet Aggregation Inhibitor, Nonsteroidal Anti-inflammatory Drug take 1 tablet by mouth once daily aspirin 81 MG EC tablet Take 81 mg by mouth Daily Active bumetanide 2 mg oral tablet (20 sources) Loop Diuretic Start: 03-20-2024 End: 02-24-2025 take 1 tablet by mouth in the morning bumetanide (Bumex) 2 MG tablet Indications: Primary hypertension (CMS/HCC) , Chronic diastolic heart failure (CMS/HCC) Take 1 tablet (2 mg) by mouth in the morning and 1 tablet (2 mg) before bedtime. 180 tablet 1 11/26/2024 02/24/2025 Active carvedilol 12.5 mg oral tablet (20 sources) alpha-Adrenergic Mayra, beta-Adrenergic Mayra Start: 11-26-2024 End: 02-24-2025 take 1 tablet by mouth in the morning carvedilol (Coreg) 12.5 MG tablet Indications: Primary hypertension (CMS/HCC) Take 1 tablet (12.5 mg) by mouth in the morning and 1 tablet (12.5 mg) in the evening. Take with meals. 180 tablet 11/26/2024 02/24/2025 Active Start: 03-20-2024 End: 11-26-2024 take 1 tablet by mouth in the morning carvedilol (Coreg) 6.25 MG tablet Indications: Primary hypertension (CMS/HCC) Take 1 tablet (6.25 mg) by mouth in the morning and 1 tablet (6.25 mg) in the evening. Take with meals. 60 tablet 2 08/29/2024 11/26/2024 Discontinued (Reorder) cholecalciferol 0.125 mg oral capsule (2 sources) Vitamin D Start: 12-26-2024 End: 03-26-2025 take 1 capsule by mouth once daily cholecalciferol (Vitamin D-3) 125 MCG (5000 UT) capsule Indications: Vitamin D deficiency Take 1 capsule (125 mcg) by mouth Daily 90 capsule 12/26/2024 03/26/2025 Active colchicine 0.6 mg oral tablet (20 sources) Start: 07-04-2024 End: 01-01-2025 take 1 tablet by mouth once colchicine 0.6 MG tablet Indications: Idiopathic chronic gout, multiple sites, without tophus (tophi) Take 1 tablet (0.6 mg) by mouth every 12 (twelve) hours if needed for muscle/joint pain for up to 10 days 20 tablet 1 12/22/2024 01/01/2025 Active ibuprofen 200 mg oral tablet (15 sources) Nonsteroidal Anti-inflammatory Drug take 1 tablet by mouth every six hours ibuprofen 200 MG tablet Take 200 mg by mouth every 6 (six) hours Active predniSONE 20 mg oral tablet (4 sources) Start: 11-18-2024 End: 11-26-2024 take 1 tablet by mouth in the morning predniSONE (Deltasone) 20 MG tablet Indications: Acute idiopathic gout of ankle, unspecified laterality Take 1 tablet (20 mg) by mouth in the morning and 1 tablet (20 mg) in the evening. Take with meals. Do all this for 5 days. 10 tablet 11/18/2024 11/26/2024 Discontinued (Therapy completed) Start: 09-09-2024 End: 09-14-2024 take 1 tablet by mouth in the morning predniSONE (Deltasone) 20 MG tablet Indications: Acute idiopathic gout of ankle, unspecified laterality Take 1 tablet (20 mg) by mouth in the morning and 1 tablet (20 mg) in the evening. Take with meals. Do all this for 5 days. 10 tablet 09/09/2024 09/14/2024 Active spironolactone 50 mg oral tablet (20 sources) Aldosterone Antagonist Start: 03-20-2024 End: 02-24-2025 take 1 tablet by mouth once daily spironolactone (Aldactone) 50 MG tablet Indications: Primary hypertension (CMS/HCC) , Chronic diastolic heart failure (CMS/HCC) Take 1 tablet (50 mg) by mouth Daily 90 tablet 1 11/26/2024 02/24/2025 Active Tirzepatide (Mounjaro) 2.5 MG/0.5ML solution auto-injector [...] hours as needed for pain HYDROcodone-acetam inophen ([place]) 5-325 MG tablet TAKE 1 TABLET BY [...] [Dietary counseling and surveillance] 08-06-2024 Episodic Asthma (20 sources) Mild intermittent asthma; Translations: [Mild intermittent asthma, uncomplicated] Onset: 03-20-2024 03-20-2024 Chronic Chronic obstructive pulmonary disease and bronchiectasis (20 sources) Chronic obstructive lung disease; Translations: [Chronic obstructive pulmonary disease, unspecified] Onset: 07-10-2024 07-10-2024 Chronic Congestive heart failure; nonhypertensive (20 sources) Unspecified diastolic (congestive) heart failure; Translations: [Acute diastolic (congestive) heart failure] Onset: 07-19-2022 Chronic Diseases of white blood cells (20 sources) Leukocytosis; Translations: [Elevated white blood cell count, unspecified] Onset: 03-20-2024 03-20-2024 Chronic Essential hypertension (20 sources) Essential hypertension; Translations: [Essential (primary) hypertension] [...] source) Tinea unguium; Translations: [TINEA UNGUIUM] Onset: 01-17-2023 Episodic Nutritional deficiencies (20 sources) Mild protein-calorie malnutrition; Translations: [Vitamin D deficiency] Onset: 09-13-2022 07-10-2024 Chronic Other aftercare (1 source) long-term (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; Translations: [RESIDENTIAL CURRENT USE OF ASPIRIN] Onset: 09-26-2022 Episodic Other aftercare (1 source) Other jail (current) drug therapy; Translations: [OTH RESIDENTIAL CURRENT DRUG THERAPY] Onset: 09-26-2022 Episodic Other [...] Chronic Other nutritional; endocrine; and metabolic disorders (20 sources) Obesity caused by energy imbalance; Translations: [Morbid (severe) obesity due to excess calories] Onset: 03-20-2024 03-20-2024 Chronic Other nutritional; endocrine; and metabolic disorders (20 sources) Body mass index 40+ - severely obese; Translations: [Body mass index (BMI) 50.0-59.9, adult] Onset: 03-20-2024 03-20-2024 Chronic Other nutritional; endocrine; and metabolic disorders (20 sources) Hypercalcemia; Translations: [Hypercalcemia] Onset: 07-10-2024 07-10-2024 Chronic Other nutritional; endocrine; and metabolic disorders (2 sources) Severe obesity; Translations: [Class 3 severe obesity due to excess calories without serious comorbidity with body mass index (BMI) of 50.0 to 59.9 in adult ([facility])] 08-06-2024 Chronic Other nutritional; endocrine; and metabolic [...] APNEA] Onset: 09-26-2022 Chronic Residual codes; unclassified (20 sources) Obstructive sleep apnea syndrome; Translations: [Obstructive [...] of mental health and substance abuse codes (20 sources) Personal history of nicotine dependence; Translations: [...] [Hypo-osmolality and hyponatremia] Onset: 09-13-2022 Episodic Other connective tissue disease (20 sources) Cramp; Translations: [Cramp and spasm] Onset: 07-10-2024 07-10-2024 Episodic Other skin disorders (20 sources) Acanthosis nigricans; Translations: [Acanthosis nigricans] Onset: 03-20-2024 03-20-2024 Episodic Other upper respiratory infections (14 sources) Acute maxillary sinusitis; Translations: [Acute maxillary sinusitis, unspecified] Onset: 08-29-2024 Resolved: 11-26-2024 08-29-2024 Episodic Residual codes; unclassified (20 sources) Bilateral lower limb edema; Translations: [Localized edema] Onset: 03-20-2024 03-20-2024 Episodic Residual codes; unclassified (20 sources) Tobacco user; Translations: [Tobacco use] Onset: 03-20-2024 Resolved: 07-10-2024 07-10-2024 Episodic Results Test Name Value Interpretation Reference Range Facility ALL CBC WITH AUTO DIFFon BASOPHILS ABSOLUTE AUTO 0 [facility] Basophils/100 WBC (Bld) 0.4 % 0.2 - 2.0 % [facility] Eosinophils/100 WBC (Bld) 1.8 % 0.9 - 7.0 % [facility] Erythrocyte distribution width (RBC) [Ratio] 12.3 % 11.0 - 15.0 % [facility] Hematocrit (Bld) [Volume fraction] 40.6 % Low 42.0 - 54.0 % [facility] Hemoglobin (Bld) [Mass/Vol] 14.2 g/dL 14.0 - 18.0 g/dL [facility] IMMATURE [facility]OC[facility] granulocytes/100 WBC (Bld) 0.3 % 0.0 - 0.5 % [facility] Interpretation and review of laboratory results Abnormal [facility] LYMPHOCYTES ABSOLUTE AUTO 3 [facility] Lymphocytes/100 WBC (Bld) 28.6 % 20.5 - 60.0 % [facility] MCH (RBC) [Entitic mass] 30.1 pg 25.9 - 34.0 pg [facility] MCHC (RBC) [Mass/Vol] 35 g/dL 29.9 - 35.2 g/dL [facility] MCV (RBC) [Entitic vol] 86.2 fL 80.0 - 94.0 fL [facility] MONOCYTES ABSOLUTE AUTO 0.8 [facility] Monocytes/100 WBC (Bld) 7.5 % 1.7 - 12.0 % [facility] NEUTROPHILS ABSOLUTE AUTO 6.4 [facility] Neutrophils/100 WBC (Bld) 61.4 % 43.0 - 75.0 % [facility] Platelet mean volume (Bld) [Entitic vol] 9.6 fL 9.5 - 13.5 fL [facility] TBH EO # 0.2 [facility] TB PLT 388 [facility] TB RBC 4.71 [facility] WBC 10.3 [facility] Basic Metabolic Panelon 04-29 Anion gap [Moles/Vol] 12.4 mmol/L Normal 6.0-15.0 [facility] Comment on above: Performed By: #### B MP, MG #### [facility] [address] [place] [address] [place] Calcium [Mass/Vol] 10.2 mg/dL Normal 8.6-10.3 [facility] Comment on above: Performed By: #### B MP, MG #### [facility] [address] [place] [id number] [place] Chloride [Moles/Vol] 89 mmol/L Low 98-107 [facility] Comment on above: Performed By: #### B MP, MG #### [facility] [address] [place] [id number] [place] CO2 [Moles/Vol] 35.3 mmol/L High 21.0-31.0 [facility] Comment on above: Performed By: #### B MP, MG #### [facility] [address] [place] [id number] [place] Creatinine [Mass/Vol] 0.87 mg/dL Normal 0.70-1.30 [facility] Comment on above: Performed By: #### B MP, MG #### [place] [address] [place] Creatinine Clr Calc Pharmacy 216.24 Normal [facility] Comment on above: Result Comment: PERF ORMED BY: [place] [address] PATHOLOGIST BULL CHAIN OPERATOR SUSANNA SHAH M.D. Performed By: #### B MP, MG #### [place] [address] [place] GFR/1.73 sq M.predicted MDRD (S/P/Bld) [Vol rate/Area] mL/min/{1.73_m2} Normal [facility] Comment on above: Performed By: #### B MP, MG #### [address] Glucose [Mass/Vol] 94 mg/dL Normal 70-100 [facility] Comment on above: Result Comment: [place] Glucose Reference Range is dependent on time and content of last meal. Glucose of more than 200 mg/dL in a nonstressed, ambulatory subject supports the diagnosis of Diabetes Mellitus. ADA recommended reference range Performed By: #### B MP, MG #### [address] Potassium [Moles/Vol] 3.7 mmol/L Normal 3.5-5.1 [facility] Comment on above: Performed By: #### B MP, MG #### [place] [address] [place] Sodium [Moles/Vol] 133 mmol/L Low 136-145 [facility] Comment on above: Performed By: #### B MP, MG #### [place] [address] [place] Urea nitrogen [Mass/Vol] 32 mg/dL High 7-25 [facility] Comment on above: Performed By: #### B MP, MG #### [place] [address] [place] Calcium, 24Hr Urineon 2023 Calcium, Urine 6.8 mg/dL Normal Not Estab. [facility] Comment on above: Order Comment: TV=31 05 URINE VOLUME (MILLILTERS): 3105 List any foods/meds the pt has taken (see Test/Proc Notes):: no Performed By: #### N A #### [address] Calcium, Urine 24 Hr 211 Normal 0-320 [facility] Comment on above: Order Comment: TV=31 05 URINE VOLUME (MILLILTERS): 3105 List any foods/meds the pt has taken (see Test/Proc Notes):: no Result Comment: Perf ormed at: [facility] [id number] Senior Recruitment Consultant: Horace Lacey PhD, Phone: [phone] PERFORMED BY: [place] [address] PATHOLOGIST BULL CHAIN OPERATOR SUSANNA SHAH M.D. Performed By: #### N A #### [address] Stevan Time and Vol 24 hr uron 05-24-2024 Total Volume, Urine 3105 Normal [facility] Comment on above: Order Comment: URINE COLLECTION TIME (HRS): 24 URINE VOLUME (MILLILTERS): 3105 Result Comment: PERF ORMED BY: [place] [address] PATHOLOGIST BULL CHAIN OPERATOR SUSANNA SHAH M.D. Performed By: #### B MP, MG #### [address] Urine Collection Time 24 Normal [facility] Comment on above: Order Comment: URINE COLLECTION TIME (HRS): 24 URINE VOLUME (MILLILTERS): 3105 Performed By: #### B MP, MG #### [address] Diff and CBCon 05-24-2024 Anisocytosis Ql (Bld) Moderate Normal [facility] Comment on above: Performed By: #### N A #### [address] Erythrocyte distribution width (RBC) [Ratio] 17.0 % High 12.0-14.8 [facility] Comment on above: Performed By: #### N A #### [address] Hematocrit (Bld) [Volume fraction] 59.8 % High 38.8-50.0 [facility] Comment on above: Performed By: #### N A #### [address] Hemoglobin (Bld) [Mass/Vol] 19.5 g/dL High 13.0-17.0 [facility] Comment on above: Performed By: #### N A #### [address] Large Platelets Slight Normal [facility] Comment on above: Result Comment: PERF ORMED BY: [place] [address] PATHOLOGIST BULL CHAIN OPERATOR SUSANNA SHAH M.D. Performed By: #### N A #### [address] Lymphocytes/100 WBC (Bld) 9 % Low 18-42 [facility] Comment on above: Performed By: #### N A #### [address] MCH (RBC) [Entitic mass] 28.3 pg Normal 27.5-35.2 [facility] Comment on above: Performed By: #### N A #### [address] MCV (RBC) [Entitic vol] 86.6 fL Normal 83.5-101 [facility] Comment on above: Performed By: #### N A #### [address] Mean Corpuscular HGB Conc 32.7 g/dL Normal 32.5-35.6 [facility] Comment on above: Performed By: #### N A #### [address] Monocytes/100 WBC (Bld) 19 % High 2-11 [facility] Comment on above: Performed By: #### N A #### [address] Platelet Estimate Normal Normal Normal [facility] Comment on above: Performed By: #### N A #### [address] Platelet mean volume (Bld) [Entitic vol] 8.2 fL Normal 6.6-10.1 [facility] Comment on above: Result Comment: PERF ORMED BY: [place] [address] PATHOLOGIST BULL CHAIN OPERATOR SUSANNA SHAH M.D. Performed By: #### N A #### [address] Platelets (Bld) [#/Vol] 201 10*3/uL Normal 150-450 [facility] Comment on above: Performed By: #### N A #### [address] RBC (Bld) [#/Vol] 6.90 10*6/uL High 3.90-5.60 [facility] Comment on above: Performed By: #### N A #### [address] Segmented neutrophils/100 WBC (Bld) 72 % High 50-70 [facility] Comment on above: Performed By: #### N A #### [address] WBC (Bld) [#/Vol] 10.2 10*3/uL Normal 4.1-10.5 [facility] Comment on above: Performed By: #### N A #### [address] 1,25 Dihydroxy Vit D Calcitr olon 05-23-2024 1,25 Dihydroxy Vit D Calcitrol 14.6 pg/mL Low 24.8-81.5 [facility] Comment on above: Result Comment: Perf ormed at: - [facility] [address], [place], [place] [id number] Senior Recruitment Consultant: Jaycob Cook MD, Phone: [phone] PERFORMED BY: [place] [address] PATHOLOGIST BULL CHAIN OPERATOR SUSANNA SHAH M.D. Performed By: #### B MP, MG #### [address] Basic Metabolic Panelon 09-2 -2023 Anion gap [Moles/Vol] 11.3 mmol/L Normal 6.0-15.0 [facility] Comment on above: Performed By: #### B MP, MG #### [address] Calcium [Mass/Vol] 10.4 mg/dL High 8.6-10.3 [facility] Comment on above: Performed By: #### B MP, MG #### [place] [address] [place] Chloride [Moles/Vol] 88 mmol/L Low 98-107 [facility] Comment on above: Performed By: #### B MP, MG #### [address] CO2 [Moles/Vol] 33.3 mmol/L High 21.0-31.0 [facility] Comment on above: Performed By: #### B MP, MG #### [facility] [address] [place] [address] Creatinine [Mass/Vol] 0.71 mg/dL Normal 0.70-1.30 [facility] Comment on above: Performed By: #### B MP, MG #### [facility] [address] [place] [address] Creatinine Clr Calc Pharmacy 263.60 Normal [facility] Comment on above: Result Comment: PERF ORMED BY: [place] [address] PATHOLOGIST BULL CHAIN OPERATOR SUSANNA SHAH M.D. Performed By: #### B MP, MG #### [address] GFR/1.73 sq M.predicted MDRD (S/P/Bld) [Vol rate/Area] mL/min/{1.73_m2} Normal [facility] Comment on above: Performed By: #### B MP, MG #### [address] Glucose [Mass/Vol] 101 mg/dL High 70-100 [facility] Comment on above: Result Comment: [facility] Glucose Reference Range is dependent on time and content of last meal. Glucose of more than 200 mg/dL in a nonstressed, ambulatory subject supports the diagnosis of Diabetes Mellitus. ADA recommended reference range Performed By: #### B MP, MG #### [address] Potassium [Moles/Vol] 3.6 mmol/L Normal 3.5-5.1 [facility] Comment on above: Result Comment: Hemo lysis is present at a level that could interfere with the result. Contact lab if redraw is required Performed By: #### B MP, MG #### [address] Sodium [Moles/Vol] 129 mmol/L Low 136-145 [facility] Comment on above: Performed By: #### B MP, MG #### [address] Urea nitrogen [Mass/Vol] 36 mg/dL High 7-25 [facility] Comment on above: Performed By: #### B MP, MG #### [place] [address] [place] Diff and CBCon 05-23-2024 Anisocytosis Ql (Bld) Slight Normal [facility] Comment on above: Performed By: #### N A #### [place] [address] [place] Eosinophils/100 WBC (Bld) 1 % Normal 1-3 [facility] Comment on above: Performed By: #### N A #### [address] Erythrocyte distribution width (RBC) [Ratio] 16.8 % High 12.0-14.8 [facility] Comment on above: Performed By: #### N A #### [address] Hematocrit (Bld) [Volume fraction] 58.1 % High 38.8-50.0 [facility] Comment on above: Performed By: #### N A #### [address] Hemoglobin (Bld) [Mass/Vol] 18.9 g/dL High 13.0-17.0 [facility] Comment on above: Performed By: #### N A #### [address] Lymphocytes/100 WBC (Bld) 12 % Low 18-42 [facility] Comment on above: Performed By: #### N A #### [address] MCH (RBC) [Entitic mass] 28.4 pg Normal 27.5-35.2 [facility] Comment on above: Performed By: #### N A #### [address] MCV (RBC) [Entitic vol] 87.1 fL Normal 83.5-101 [facility] Comment on above: Performed By: #### N A #### [address] Mean Corpuscular HGB Conc 32.6 g/dL Normal 32.5-35.6 [facility] Comment on above: Performed By: #### N A #### [address] Microcytosis Slight Normal [facility] Comment on above: Performed By: #### N A #### [address] Monocytes/100 WBC (Bld) 11 % Normal 2-11 [facility] Comment on above: Performed By: #### N A #### [address] Platelet Estimate Normal Normal Normal [facility] Comment on above: Performed By: #### N A #### [address] Platelet mean volume (Bld) [Entitic vol] 8.2 fL Normal 6.6-10.1 [facility] Comment on above: Performed By: #### N A #### [address] Platelet Morphology Normal Normal Normal [facility] Comment on above: Result Comment: PERF ORMED BY: [place] [address] PATHOLOGIST BULL CHAIN OPERATOR SUSANNA SHAH M.D. Performed By: #### N A #### [address] Platelets (Bld) [#/Vol] 190 10*3/uL Normal 150-450 [facility] Comment on above: Performed By: #### N A #### [address] RBC (Bld) [#/Vol] 6.67 10*6/uL High 3.90-5.60 [facility] Comment on above: Performed By: #### N A #### [address] Reactive Lymphocytes 4 % Normal 0-12 [facility] Comment on above: Performed By: #### N A #### [address] Segmented neutrophils/100 WBC (Bld) 72 % High 50-70 [facility] Comment on above: Performed By: #### N A #### [address] Stomatocytes Slight Normal [facility] Comment on above: Performed By: #### N A #### [address] WBC (Bld) [#/Vol] 10.0 10*3/uL Normal 4.1-10.5 The [facility] Comment on above: Performed By: #### N A #### [address] Albumin Levelon 05-22-2024 Albumin [Mass/Vol] 3.8 g/dL Normal 3.5-5.7 The [facility] Comment on above: Performed By: #### B MP, MG #### [address] Basic Metabolic Panelon 04-29 Anion gap [Moles/Vol] 15.4 mmol/L High 6.0-15.0 The [facility] Comment on above: Performed By: #### B MP, MG #### [address] Calcium [Mass/Vol] 10.5 mg/dL High 8.6-10.3 The [facility] Comment on above: Performed By: #### B MP, MG #### [address] Chloride [Moles/Vol] 85 mmol/L Low 98-107 The [facility] Comment on above: Performed By: #### B MP, MG #### [address] CO2 [Moles/Vol] 31.6 mmol/L High 21.0-31.0 The [facility] Comment on above: Performed By: #### B MP, MG #### [address] Creatinine [Mass/Vol] 0.88 mg/dL Normal 0.70-1.30 The [facility] Comment on above: Performed By: #### B MP, MG #### [address] Creatinine Clr Calc Pharmacy 212.68 Normal The [facility] Comment on above: Performed By: #### B MP, MG #### [address] GFR/1.73 sq M.predicted MDRD (S/P/Bld) [Vol rate/Area] mL/min/{1.73_m2} Normal The [facility] Comment on above: Performed By: #### B MP, MG #### [address] Glucose [Mass/Vol] 89 mg/dL Normal 70-100 The [facility] Comment on above: Result Comment: [place] Glucose Reference Range is dependent on time and content of last meal. Glucose of more than 200 mg/dL in a nonstressed, ambulatory subject supports the diagnosis of Diabetes Mellitus. ADA recommended reference range Performed By: #### B MP, MG #### [address] Potassium [Moles/Vol] 4.0 mmol/L Normal 3.5-5.1 The [facility] Comment on above: Performed By: #### B MP, MG #### [address] Sodium [Moles/Vol] 128 mmol/L Low 136-145 The [facility] Comment on above: Performed By: #### B MP, MG #### [address] Urea nitrogen [Mass/Vol] 41 mg/dL High 7-25 The [facility] Comment on above: Performed By: #### B MP, MG #### [place] [address] [place] Diff and CBCon 05-22-2024 Anisocytosis Ql (Bld) Slight Normal The [facility] Comment on above: Order Comment: REDRA W Performed By: #### D IFF CBC #### [place] [address] [place] Basophils/100 WBC (Bld) 0 % Normal 0-2 [facility] Comment on above: Order Comment: REDRA W Performed By: #### D IFF CBC #### [address] Eosinophils/100 WBC (Bld) 2 % Normal 1-3 [facility] Comment on above: Order Comment: REDRA W Performed By: #### D IFF CBC #### [address] Erythrocyte distribution width (RBC) [Ratio] 17.2 % High 12.0-14.8 [facility] Comment on above: Order Comment: REDRA W Performed By: #### D IFF CBC #### [address] Hematocrit (Bld) [Volume fraction] 59.9 % High 38.8-50.0 [facility] Comment on above: Order Comment: REDRA W Performed By: #### D IFF CBC #### [address] Hemoglobin (Bld) [Mass/Vol] 19.0 g/dL High 13.0-17.0 [facility] Comment on above: Order Comment: REDRA W Performed By: #### D IFF CBC #### [address] Lymphocytes/100 WBC (Bld) 14 % Low 18-42 [facility] Comment on above: Order Comment: REDRA W Performed By: #### D IFF CBC #### [address] MCH (RBC) [Entitic mass] 28.2 pg Normal 27.5-35.2 [facility] Comment on above: Order Comment: REDRA W Performed By: #### D IFF CBC #### [address] MCV (RBC) [Entitic vol] 88.8 fL Normal 83.5-101 [facility] Comment on above: Order Comment: REDRA W Performed By: #### D IFF CBC #### [address] Mean Corpuscular HGB Conc 31.8 g/dL Low 32.5-35.6 [facility] Comment on above: Order Comment: REDRA W Performed By: #### D IFF CBC #### [facility] [address] [place] [address] [place] Monocytes/100 WBC (Bld) 2 % Normal 2-11 The [facility] Comment on above: Order Comment: REDRA W Performed By: #### D IFF CBC #### [facility] [address] Platelet Estimate Normal Normal Normal The [facility] Comment on above: Order Comment: REDRA W Performed By: #### D IFF CBC #### [facility] [address] Platelet mean volume (Bld) [Entitic vol] 9.4 fL Normal 6.6-10.1 The [facility] Comment on above: Order Comment: REDRA W Performed By: #### D IFF CBC #### [facility] [address] Platelet Morphology Normal Normal Normal The [facility] Comment on above: Order Comment: REDRA W Result Comment: PERF ORMED BY: [place] [address] PATHOLOGIST BULL CHAIN OPERATOR SUSANNA SHAH M.D. Performed By: #### D IFF CBC #### [facility] [address] [place] [address] [place] Platelets (Bld) [#/Vol] 197 10*3/uL Significant change down 150-450 The [facility] Comment on above: Order Comment: REDRA W Performed By: #### D IFF CBC #### [facility] [address] [place] [address] [place] RBC (Bld) [#/Vol] 6.75 10*6/uL High 3.90-5.60 The [facility] Comment on above: Order Comment: REDRA W Performed By: #### D IFF CBC #### [facility] [address] [place] [address] [place] Segmented neutrophils/100 WBC (Bld) 82 % High 50-70 The [facility] Comment on above: Order Comment: REDRA W Performed By: #### D IFF CBC #### [address] WBC (Bld) [#/Vol] 10.8 10*3/uL High 4.1-10.5 The [facility] Comment on above: Order Comment: REDRA W Performed By: #### D IFF CBC #### [address] Magnesiumon 05-22-2024 Magnesium [Mass/Vol] 2.4 mg/dL Normal 1.9-2.7 [facility] Comment on above: Result Comment: PERF ORMED BY: [place] [address] PATHOLOGIST BULL CHAIN OPERATOR SUSANNA SHAH M.D. Performed By: #### B MP, MG #### [address] Parathyroid Hormone Intacton 05-22-2024 Parathyroid Hormone Intact 30.2 pg/mL Normal 12-88 [facility] Comment on above: Result Comment: PERF ORMED BY: [place] [address] PATHOLOGIST BULL CHAIN OPERATOR SUSANNA SHAH M.D. Performed By: #### B MP, MG #### [address] Redraw Sodiumon 05-22-2024 Sodium [Moles/Vol] 131 mmol/L Low 136-145 The [facility] Comment on above: Result Comment: PERF ORMED BY: [place] [address] PATHOLOGIST BULL CHAIN OPERATOR SUSANNA SHAH M.D. Performed By: #### B MP, MG #### [address] Vitamin D 25 Hydroxy Totalon 05-22-2024 Vitamin D 25 Hydroxy Total 12.5 ng/mL Low 30-100 The [facility] Comment on above: Result Comment: Hemo lysis is present at a level that could interfere with the result. Contact lab if redraw is required VITAMIN D STATUS 25(OH)VITAMIN D RANGE (ng/mL) Deficient <20 Insufficient 20 to <30 Sufficient 30 to 100 Reference: Erika MF,Misty NC, Vonnie WOODSON, et al. Evaluation,treatment, and prevention of vitamin D deficiency; an Endocrine Society clinical practice guideline. JCEM. 2010; 96(7):1911-30. PERFORMED BY: [place] [address] PATHOLOGIST BULL CHAIN OPERATOR SUSANNA SHAH M.D. Performed By: #### B MP, MG #### [address] Basic Metabolic Panelon 09-2 Anion gap [Moles/Vol] 14.4 mmol/L Normal 6.0-15.0 [facility] Comment on above: Performed By: #### B MP, MG #### [address] Calcium [Mass/Vol] 10.1 mg/dL Normal 8.6-10.3 The [facility] Comment on above: Performed By: #### B MP, MG #### [address] Chloride [Moles/Vol] 77 mmol/L Low 98-107 The [facility] Comment on above: Performed By: #### B MP, MG #### [address] CO2 [Moles/Vol] 36.6 mmol/L High 21.0-31.0 The [facility] Comment on above: Performed By: #### B MP, MG #### [address] Creatinine [Mass/Vol] 1.10 mg/dL Normal 0.70-1.30 [facility] Comment on above: Performed By: #### B MP, MG #### [address] Creatinine Clr Calc Pharmacy 171.56 Normal [facility] Comment on above: Performed By: #### B MP, MG #### [address] GFR/1.73 sq M.predicted MDRD (S/P/Bld) [Vol rate/Area] mL/min/{1.73_m2} Normal [facility] Comment on above: Performed By: #### B MP, MG #### [address] Glucose [Mass/Vol] 87 mg/dL Normal 70-100 The [facility] Comment on above: Result Comment: [facility] Glucose Reference Range is dependent on time and content of last meal. Glucose of more than 200 mg/dL in a nonstressed, ambulatory subject supports the diagnosis of Diabetes Mellitus. ADA recommended reference range Performed By: #### B MP, MG #### [address] Potassium [Moles/Vol] 4.0 mmol/L Normal 3.5-5.1 [facility] Comment on above: Result Comment: Hemo lysis is present at a level that could interfere with the result. Contact lab if redraw is required Performed By: #### B MP, MG #### [address] Sodium [Moles/Vol] 124 mmol/L Invalid Interpretation Code 136-145 [facility] Comment on above: Result Comment: Crit ical Result Called to and read back by: JOSSE PUENTES at: 05/21/2024 07:21:17 by:MLG Performed By: #### B MP, MG #### [address] Urea nitrogen [Mass/Vol] 39 mg/dL High 7-25 [facility] Comment on above: Performed By: #### B MP, MG #### [place] [address] [place] Diff and CBCon 05-21-2024 Erythrocyte distribution width (RBC) [Ratio] 17.0 % High 12.0-14.8 [facility] Comment on above: Performed By: #### D IFF CBC #### [place] [address] [place] Giant Platelet Tally 1 /100{WBC} Normal [facility] Comment on above: Performed By: #### D IFF CBC #### [address] Hematocrit (Bld) [Volume fraction] 60.6 % Off scale high 38.8-50.0 [facility] Comment on above: Result Comment: Crit ical value result called at 1051 on 05/21/24 Performed By: #### D IFF CBC #### [address] Hemoglobin (Bld) [Mass/Vol] 19.5 g/dL High 13.0-17.0 [facility] Comment on above: Performed By: #### D IFF CBC #### [address] Lymphocytes/100 WBC (Bld) 7 % Low 18-42 [facility] Comment on above: Performed By: #### D IFF CBC #### [address] MCH (RBC) [Entitic mass] 28.2 pg Normal 27.5-35.2 [facility] Comment on above: Performed By: #### D IFF CBC #### [address] MCV (RBC) [Entitic vol] 87.7 fL Normal 83.5-101 [facility] Comment on above: Performed By: #### D IFF CBC #### [address] Mean Corpuscular HGB Conc 32.2 g/dL Low 32.5-35.6 [facility] Comment on above: Performed By: #### D IFF CBC #### [address] Monocytes/100 WBC (Bld) 9 % Normal 2-11 [facility] Comment on above: Performed By: #### D IFF CBC #### [place] [address] [place] Platelet Estimate Decreased Normal Normal [facility] Comment on above: Performed By: #### D IFF CBC #### [address] Platelet mean volume (Bld) [Entitic vol] 8.6 fL Normal 6.6-10.1 [facility] Comment on above: Result Comment: PERF ORMED BY: [place] [address] PATHOLOGIST BULL CHAIN OPERATOR SUSANNA SHAH M.D. Performed By: #### D IFF CBC #### [address] Platelet Morphology Normal Normal Normal The [facility] Comment on above: Result Comment: PERF ORMED BY: [place] [address] PATHOLOGIST BULL CHAIN OPERATOR SUSANNA SHAH M.D. Performed By: #### D IFF CBC #### [address] Platelets (Bld) [#/Vol] 140 10*3/uL Low 150-450 [facility] Comment on above: Performed By: #### D IFF CBC #### [address] RBC (Bld) [#/Vol] 6.91 10*6/uL High 3.90-5.60 [facility] Comment on above: Performed By: #### D IFF CBC #### [address] RBC morphology finding Nom (Bld) Normal Normal Normal [facility] Comment on above: Performed By: #### D IFF CBC #### [place] [address] [place] Segmented neutrophils/100 WBC (Bld) 85 % High 50-70 [facility] Comment on above: Performed By: #### D IFF CBC #### [address] WBC (Bld) [#/Vol] 11.6 10*3/uL High 4.1-10.5 [facility] Comment on above: Performed By: #### D IFF CBC #### [address] ECG 12 lead ECGon 05-21-2024 ECG 12 lead ECG [facility] [place] [address] [place] [address] Electrocardiograph Report Signed Patient: Rafael Winkler MR#: [id number] 606 : 1980 Acct:[id number] Age/Sex: 44 / M ADM Date: 05/17/24 Loc: Room: [address] [place] [address] Type: ADM IN Attending Dr: Jesse Lomax [...] MUS Signed By Asuncion Schumacher MD 0 05/21/2446 Normal [facility] Magnesiumon 05-21-2024 Magnesium [Mass/Vol] 2.3 mg/dL Normal 1.9-2.7 [facility] Comment on above: Result Comment: PERF ORMED BY: [place] [address] PATHOLOGIST BULL CHAIN OPERATOR SUSANNA SHAH M.D. Performed By: #### B MP, MG #### [address] Sodiumon 05-21-2024 Sodium [Moles/Vol] 129 mmol/L Low 136-145 [facility] Comment on above: Result Comment: PERF ORMED BY: [place] [address] PATHOLOGIST BULL CHAIN OPERATOR SUSANNA SHAH M.D. Performed By: #### B MP, MG #### [address] Sodium [Moles/Vol] 125 mmol/L Low 136-145 [facility] Comment on above: Result Comment: PERF ORMED BY: [place] [address] PATHOLOGIST BULL CHAIN OPERATOR SUSANNA SHAH M.D. Performed By: #### N A #### [address] US venous duplex LE BIon US venous duplex LE BI [facility] [place] [address] [place] [address] Ultrasound Report Signed Patient: Rafael Winkler MR#: [id number] 606 : 1980 Acct:[id number] Age/Sex: 44 / M ADM Date: 05/17/24 Loc: Room: [address] [place] [address] Type: ADM IN Attending Dr: Jesse Lomax [...] Jimbo Jackson M.D.05/21/2024 9:15 AM Dictation Location: [place] [address] Tech: Chrissie Ibrahim Transcribed By: CHRISTINA 09/24/24 0915 Dictated By: Jimbo Jackson MD 05/21/24914 Signed By: 05/21/24914 Normal [facility] Basic Metabolic Panelon 04-29 Anion gap [Moles/Vol] 19.8 mmol/L High 6.0-15.0 [facility] Comment on above: Performed By: #### B MP, MG #### [facility] [address] [place] [id number] [place] Calcium [Mass/Vol] 10.6 mg/dL High 8.6-10.3 The [facility] Comment on above: Performed By: #### B MP, MG #### [facility] [address] [place] [id number] [place] Chloride [Moles/Vol] 77 mmol/L Low 98-107 [facility] Comment on above: Performed By: #### B MP, MG #### [facility] [address] [place] [address] [place] CO2 [Moles/Vol] 36.4 mmol/L High 21.0-31.0 The [facility] Comment on above: Performed By: #### B MP, MG #### [facility] [address] [place] [address] [place] Creatinine [Mass/Vol] 1.06 mg/dL Normal 0.70-1.30 [facility] Comment on above: Performed By: #### B MP, MG #### [facility] [address] [place] [address] [place] Creatinine Clr Calc Pharmacy 179.97 Normal [facility] Comment on above: Performed By: #### B MP, MG #### [facility] [address] [place] [address] [place] GFR/1.73 sq M.predicted MDRD (S/P/Bld) [Vol rate/Area] mL/min/{1.73_m2} Normal [facility] Comment on above: Performed By: #### B MP, MG #### [facility] [address] [place] [address] [place] Glucose [Mass/Vol] 96 mg/dL Normal 70-100 [facility] Comment on above: Result Comment: [facility] Glucose Reference Range is dependent on time and content of last meal. Glucose of more than 200 mg/dL in a nonstressed, ambulatory subject supports the diagnosis of Diabetes Mellitus. ADA recommended reference range Performed By: #### B MP, MG #### [address] Potassium [Moles/Vol] 3.2 mmol/L Low 3.5-5.1 [facility] Comment on above: Performed By: #### B MP, MG #### [address] Sodium [Moles/Vol] 130 mmol/L Low 136-145 [facility] Comment on above: Performed By: #### B MP, MG #### [address] Urea nitrogen [Mass/Vol] 31 mg/dL High 7-25 [facility] Comment on above: Performed By: #### B MP, MG #### [address] Magnesiumon 05-20-2024 Magnesium [Mass/Vol] 1.9 mg/dL Normal 1.9-2.7 [facility] Comment on above: Result Comment: PERF ORMED BY: [place] [address] PATHOLOGIST BULL CHAIN OPERATOR SUSANNA SHAH M.D. Performed By: #### B MP, MG #### [address] Basic Metabolic Panelon 04-29 Anion gap [Moles/Vol] Not performed Normal 6.0-15.0 [facility] Comment on above: Performed By: #### B MP, MG #### [address] Calcium [Mass/Vol] 10.3 mg/dL Normal 8.6-10.3 [facility] Comment on above: Performed By: #### B MP, MG #### [address] Chloride [Moles/Vol] 79 mmol/L Low 98-107 [facility] Comment on above: Performed By: #### B MP, MG #### [facility] [address] CO2 [Moles/Vol] mmol/L High 21.0-31.0 The [facility] Comment on above: Performed By: #### B MP, MG #### [place] [address] [place] Creatinine [Mass/Vol] 1.05 mg/dL Normal 0.70-1.30 [facility] Comment on above: Performed By: #### B MP, MG #### [place] [address] [place] Creatinine Clr Calc Pharmacy 188.15 Normal [facility] Comment on above: Result Comment: PERF ORMED BY: [place] [address] PATHOLOGIST BULL CHAIN OPERATOR SUSANNA SHAH M.D. Performed By: #### B MP, MG #### [place] [address] [place] GFR/1.73 sq M.predicted MDRD (S/P/Bld) [Vol rate/Area] mL/min/{1.73_m2} Normal [facility] Comment on above: Performed By: #### B MP, MG #### [address] Glucose [Mass/Vol] 100 mg/dL Normal 70-100 [facility] Comment on above: Result Comment: [place] Glucose Reference Range is dependent on time and content of last meal. Glucose of more than 200 mg/dL in a nonstressed, ambulatory subject supports the diagnosis of Diabetes Mellitus. ADA recommended reference range Performed By: #### B MP, MG #### [address] Potassium [Moles/Vol] 4.1 mmol/L Normal 3.5-5.1 [facility] Comment on above: Result Comment: Hemo lysis is present at a level that could interfere with the result. Contact lab if redraw is required Performed By: #### B MP, MG #### [address] Sodium [Moles/Vol] 132 mmol/L Low 136-145 [facility] Comment on above: Performed By: #### B MP, MG #### [address] Urea nitrogen [Mass/Vol] 24 mg/dL Normal 7-25 [facility] Comment on above: Performed By: #### B MP, MG #### [address] A1C with Estimated Average Chel phelann 05-18-2024 Glucose [Mass/Vol] 131 mg/dL Normal [facility] Comment on above: Result Comment: PERF ORMED BY: [place] [address] PATHOLOGIST BULL CHAIN OPERATOR SUSANNA SHAH M.D. Performed By: #### B MP, MG #### [address] HbA1c (Bld) [Mass fraction] 6.2 % High 4.3-5.6 [facility] Comment on above: Result Comment: Incr eased risk for diabetes: 5.7 - 6.4 diabetes: >6.4 glycemic control for adults with diabetes: <7.0 Performed By: #### B MP, MG #### [address] B-Type Natriuretic Peptideon 05-18-2024 Natriuretic peptide B (Bld) [Mass/Vol] 111.0 pg/mL High 5-100 [facility] Comment on above: Result Comment: PERF ORMED BY: [place] [address] PATHOLOGIST BULL CHAIN OPERATOR SUSANNA SHAH M.D. Performed By: #### M G, PHOS, CMP, HS TROP, BNP, A1C WTH eA, PTT, PT #### [address] Comprehensive Metabolic Pane gerhard 05-18-2024 Albumin [Mass/Vol] 3.6 g/dL Normal 3.5-5.7 [facility] Comment on above: Performed By: #### M G, PHOS, CMP, HS TROP, BNP, A1C WTH eA, PTT, PT #### [facility] [address] Albumin/Globulin [Mass ratio] 1.0 {ratio} Normal [facility] Comment on above: Performed By: #### M G, PHOS, CMP, HS TROP, BNP, A1C WTH eA, PTT, PT #### [address] ALP [Catalytic activity/Vol] 63 U/L Normal 34-104 [facility] Comment on above: Performed By: #### M G, PHOS, CMP, HS TROP, BNP, A1C WTH eA, PTT, PT #### [address] ALT [Catalytic activity/Vol] 12 U/L Normal 7-52 [facility] Comment on above: Performed By: #### M G, PHOS, CMP, HS TROP, BNP, A1C WTH eA, PTT, PT #### [address] Anion gap [Moles/Vol] 9.2 mmol/L Normal 6.0-15.0 [facility] Comment on above: Performed By: #### M G, PHOS, CMP, HS TROP, BNP, A1C WTH eA, PTT, PT #### [address] AST [Catalytic activity/Vol] 20 U/L Normal 13-39 [facility] Comment on above: Performed By: #### M G, PHOS, CMP, HS TROP, BNP, A1C WTH eA, PTT, PT #### [address] Bilirubin [Mass/Vol] 1.7 mg/dL High 0.3-1.0 [facility] Comment on above: Result Comment: Samp les from patients who have taken Naproxen have shown spurious elevation in Total Bilirubin levels. A metabolite of Naproxen, O-desmethylnaproxen, has been shown to interfere with the Jendrassik-Grof method for measuring Total Bilirubin. Performed By: #### M G, PHOS, CMP, HS TROP, BNP, A1C WTH eA, PTT, PT #### [facility] [address] Calcium [Mass/Vol] 9.5 mg/dL Normal 8.6-10.3 [facility] Comment on above: Performed By: #### M G, PHOS, CMP, HS TROP, BNP, A1C WTH eA, PTT, PT #### [address] Chloride [Moles/Vol] 90 mmol/L Low 98-107 [facility] [facility] Comment on above: Performed By: #### M G, PHOS, CMP, HS TROP, BNP, A1C WTH eA, PTT, PT #### [address] CO2 [Moles/Vol] 39.9 mmol/L High 21.0-31.0 [facility] Comment on above: Performed By: #### M G, PHOS, CMP, HS TROP, BNP, A1C WTH eA, PTT, PT #### [place] [id number] [facility] Creatinine [Mass/Vol] 0.80 mg/dL Normal 0.70-1.30 [facility] Comment on above: Performed By: #### M G, PHOS, CMP, HS TROP, BNP, A1C WTH eA, PTT, PT #### [place] [address] [place] Creatinine Clr Calc Pharmacy 250.58 Normal [facility] Comment on above: Performed By: #### M G, PHOS, CMP, HS TROP, BNP, A1C WTH eA, PTT, PT #### [place] [address] [place] GFR/1.73 sq M.predicted MDRD (S/P/Bld) [Vol rate/Area] mL/min/{1.73_m2} Normal [facility] Comment on above: Performed By: #### M G, PHOS, CMP, HS TROP, BNP, A1C WTH eA, PTT, PT #### [facility] [address] Globulin (S) [Mass/Vol] 3.5 g/dL Normal [facility] Comment on above: Performed By: #### M G, PHOS, CMP, HS TROP, BNP, A1C WTH eA, PTT, PT #### [facility] [address] Glucose [Mass/Vol] 109 mg/dL High 70-100 The [facility] Comment on above: Result Comment: [facility] Glucose Reference Range is dependent on time and content of last meal. Glucose of more than 200 mg/dL in a nonstressed, ambulatory subject supports the diagnosis of Diabetes Mellitus. ADA recommended reference range Performed By: #### M G, PHOS, CMP, HS TROP, BNP, A1C WTH eA, PTT, PT #### [address] Potassium [Moles/Vol] 4.1 mmol/L Normal 3.5-5.1 [facility] Comment on above: Performed By: #### M G, PHOS, CMP, HS TROP, BNP, A1C WTH eA, PTT, PT #### [address] Protein [Mass/Vol] 7.1 g/dL Normal 6.4-8.9 The [facility] Comment on above: Performed By: #### M G, PHOS, CMP, HS TROP, BNP, A1C WTH eA, PTT, PT #### [place] [address] [place] Sodium [Moles/Vol] 135 mmol/L Low 136-145 The [facility] Comment on above: Performed By: #### M G, PHOS, CMP, HS TROP, BNP, A1C WTH eA, PTT, PT #### [place] [address] [place] Urea nitrogen [Mass/Vol] 15 mg/dL Normal 7-25 [facility] Comment on above: Performed By: #### M G, PHOS, CMP, HS TROP, BNP, A1C WTH eA, PTT, PT #### [place] [id number] [facility] Magnesiumon 05-18-2024 Magnesium [Mass/Vol] 2.0 mg/dL Normal 1.9-2.7 [facility] Comment on above: Result Comment: PERF ORMED BY: [place] [address] PATHOLOGIST BULL CHAIN OPERATOR SUSANNA SHAH M.D. Performed By: #### M G, PHOS, CMP, HS TROP, BNP, A1C WTH eA, PTT, PT #### [address] Partial Thromboplastin Timeo n 05-18-2024 aPTT Coag (Bld) [Time] 35.6 s Normal 25.1-36.5 [facility] Comment on above: Result Comment: A he matocrit value greater than 55% may lead to inaccurate results in coagulation testing. Patients having hematocrit values >55% require a special collection tube for coagulation studies. Please contact the laboratory at [phone] for redraw instructions. PERFORMED BY: [place] [address] PATHOLOGIST BULL CHAIN OPERATOR SUSANNA SHAH M.D. Performed By: #### B MP, MG #### [place] [id number] [facility] Phosphoruson 05-18-2024 Phosphate [Mass/Vol] 3.4 mg/dL Normal 2.5-4.5 [facility] Comment on above: Performed By: #### M G, PHOS, CMP, HS TROP, BNP, A1C WTH eA, PTT, PT #### [place] [id number] [facility] Prothrombin Time INRon 05-18 INR Coag (PPP) [Relative time] 1.1 {INR} Normal [facility] Comment on above: Result [...] Performed By: #### B MP, MG #### [place] [id number] [facility] PT Coag (PPP) [Time] 13.2 s High 9.0-12.9 [facility] Comment on above: Result Comment: A he matocrit value greater than 55% may lead to inaccurate results in coagulation testing. Patients having hematocrit values >55% require a special collection tube for coagulation studies. Please contact the laboratory at [phone] for redraw instructions. Performed By: #### B MP, MG #### [place] [id number] [facility] Troponin I High Sensitivityo n 05-18-2024 Troponin I High Sensitivity 9.4 pg/mL Normal 0.0-20.0 [facility] Comment on above: Result Comment: PERF ORMED BY: [place] [address] PATHOLOGIST BULL CHAIN OPERATOR SUSANNA SHAH M.D. Performed By: #### M G, PHOS, CMP, HS TROP, BNP, A1C WTH eA, PTT, PT #### [place] [id number] [place] PROF CHEM 8 (BAS METB)on Anion gap [Moles/Vol] 8.8 mmol/L Normal [facility] Comment on above: Performed By: #### C VDTBH #### [facility] [address] [place] [address] Dr. Gloria Gonzalez Calcium [Mass/Vol] 10.1 mg/dL Normal 8.5-10.1 [facility] Comment on above: Performed By: #### C VDTBH #### [facility] [address] [place] [address] [address] Gloria Gonzalez Chloride [Moles/Vol] 97 mmol/L Critically low 98-107 [facility] Comment on above: Performed By: #### C VDTBH #### [facility] [address] [place] [address] Dr. Gloria Gonzalez CO2 [Moles/Vol] 35.4 mmol/L Critically high 21.0-32.0 [facility] Comment on above: Performed By: #### C VDTBH #### [facility] [address] [place] [address] Dr. Gloria Gonzalez Creatinine [Mass/Vol] 0.98 mg/dL Normal 0.70-1.30 [facility] Comment on above: Performed By: #### C VDTBH #### [facility] [address] [place] [address] Dr. Gloria Gonzalez EGFR-AF PANAMANIAN >60 Normal >=60 [facility] Comment on above: Performed By: #### C VDTBH #### [facility] [address] [place] [address] Dr. Gloria Gonzalez EGFR-NON AF PANAMANIAN >60 Normal >=60 [facility] Comment on above: Performed By: #### C VDTBH #### [facility] [address] [place] [address] Dr. Gloria Gonzalez Glucose [Mass/Vol] 102 mg/dL Normal 74-106 [facility] Comment on above: Performed By: #### C VDTBH #### [facility] [address] [place] [address] Dr. Gloria Gonzalez Potassium [Moles/Vol] 4.2 mmol/L Normal 3.5-5.1 [facility] Comment on above: Performed By: #### C VDTBH #### [facility] [address] [place] [address] Dr. Gloria Gonzalez Sodium [Moles/Vol] 137 mmol/L Normal 136-145 [facility] Comment on above: Performed By: #### C VDTBH #### [facility] [address] [place] [address] Dr. Gloria Gonzalez Urea nitrogen [Mass/Vol] 24.0 mg/dL Critically high 7.0-18.0 [facility] Comment on above: Performed By: #### C VDTBH #### [facility] [address] [place] [address] Dr. Gloria Gonzalez Urea nitrogen/Creatinine [Mass ratio] 24.5 mg/mg Normal [facility] Comment on above: Performed By: #### C VDTBH #### [facility] [address] [place] [address] Dr. Gloria Gonzalez CBC AUTO DIFFon 07-15-2022 BASO # 0.0 103/ul Normal 0.0-0.1 [facility] Comment on above: Performed By: #### B DIGITAL ASSET MANAGER, HSTROPN #### [facility] [address] [place] [address] Dr. Gloria Gonzalez Basophils/100 WBC (Bld) 0.3 % Normal 0.2-2.0 [facility] Comment on above: Performed By: #### B DIGITAL ASSET MANAGER, HSTROPN #### [facility] [address] [place] [address] Dr. Gloria Gonzalez EO # 0.3 103/ul Normal 0.0-0.7 [facility] Comment on above: Performed By: #### B DIGITAL ASSET MANAGER, HSTROPN #### [facility] [address] [place] [address] Dr. Gloria Gonzalez Eosinophils/100 WBC (Bld) 3.1 % Normal 0.9-7.0 [facility] Comment on above: Performed By: #### B DIGITAL ASSET MANAGER, HSTROPN #### [facility] [address] [place] [address] Dr. Gloria Gonzalez Erythrocyte distribution width (RBC) [Ratio] 15.6 % Critically high 11.0-15.0 [facility] Comment on above: Performed By: #### B DIGITAL ASSET MANAGER, HSTROPN #### [facility] [address] [place] [address] Dr. Gloria Gonzalez Hematocrit (Bld) [Volume fraction] 54.8 % Critically high 42.0-54.0 [facility] Comment on above: Performed By: #### B DIGITAL ASSET MANAGER, HSTROPN #### [facility] [address] [place] [address] Dr. Gloria Gonzalez Hemoglobin (Bld) [Mass/Vol] 17.1 g/dL Normal 14.0-18.0 [facility] Comment on above: Performed By: #### B DIGITAL ASSET MANAGER, HSTROPN #### [facility] [address] [place] [address] Dr. Gloria Gonzalez IG # 0.02 10e3/ul Normal 0.00-0.03 [facility] Comment on above: Performed By: #### B DIGITAL ASSET MANAGER, HSTROPN #### [facility] [address] [place] [address] Dr. Gloria Gonzalez IG % 0.2 % Normal 0.0-0.5 [facility] Comment on above: Performed By: #### B DIGITAL ASSET MANAGER, HSTROPN #### [facility] [address] [place] [address] Dr. Gloria Gonzalez LYMPH # 1.2 103/ul Normal 1.2-3.8 [facility] Comment on above: Performed By: #### B DIGITAL ASSET MANAGER, HSTROPN #### [facility] [address] [place] [address] Dr. Gloria Gonzalez Lymphocytes/100 WBC (Bld) 11.9 % Critically low 20.5-60.0 [facility] Comment on above: Performed By: #### B DIGITAL ASSET MANAGER, HSTROPN #### [facility] [address] [place] [address] Dr. Gloria Gonzalez MANUAL DIFF REQ NO Normal [facility] Comment on above: Performed By: #### B DIGITAL ASSET MANAGER, HSTROPN #### [facility] [address] [place] [address] Dr. Gloria Gonzalez MCH (RBC) [Entitic mass] 28.8 pg Normal 25.9-34.0 [facility] Comment on above: Performed By: #### B DIGITAL ASSET MANAGER, HSTROPN #### [facility] [address] [place] [address] Dr. Gloria Gonzalez MCHC (RBC) [Mass/Vol] 31.2 g/dL Normal 29.9-35.2 [facility] Comment on above: Performed By: #### B DIGITAL ASSET MANAGER, HSTROPN #### [facility] [address] [place] [address] Dr. Gloria Gonzalez MCV (RBC) [Entitic vol] 92.4 fL Normal 80.0-94.0 [facility] Comment on above: Performed By: #### B DIGITAL ASSET MANAGER, HSTROPN #### [facility] [address] [place] [address] Dr. Gloria Gonzalez MONO # 1.3 103/ul Critically high 0.3-0.8 The [facility] Comment on above: Performed By: #### B DIGITAL ASSET MANAGER, HSTROPN #### [facility] [address] [place] [address] Dr. Gloria Gonzalez Monocytes/100 WBC (Bld) 12.1 % Critically high 1.7-12.0 [facility] Comment on above: Performed By: #### B DIGITAL ASSET MANAGER, HSTROPN #### [facility] [address] [place] [address] Dr. Gloria Gonzalez NEUT # 7.5 103/ul Critically high 1.4-6.5 [facility] Comment on above: Performed By: #### B DIGITAL ASSET MANAGER, HSTROPN #### [facility] [address] [place] [address] Dr. Gloria Gonzalez Neutrophils/100 WBC (Bld) 72.4 % Normal 43.0-75.0 [facility] Comment on above: Performed By: #### B DIGITAL ASSET MANAGER, HSTROPN #### [facility] [address] [place] [address] Dr. Gloria Gonzalez Platelet mean volume (Bld) [Entitic vol] 9.9 fL Normal 9.5-13.5 [facility] Comment on above: Performed By: #### B DIGITAL ASSET MANAGER, HSTROPN #### [facility] [address] [place] [address] Dr. Gloria Gonzalez PLT 181 103/ul Normal 150-450 [facility] Comment on above: Performed By: #### B DIGITAL ASSET MANAGER, HSTROPN #### [facility] [address] [place] [address] [address] Gloria Gonzalez RBC 5.93 106/ul Normal 4.70-6.10 [facility] Comment on above: Performed By: #### B DIGITAL ASSET MANAGER, HSTROPN #### [facility] [address] [place] [address] [address] Gloria Gonzalez WBC 10.4 103/ul Normal 4.0-11.0 [facility] Comment on above: Performed By: #### B DIGITAL ASSET MANAGER, HSTROPN #### [facility] [address] [place] [address] Dr. Gloria Gonzalez CULTURE WOUNDon 07-15-2022 CULTURE [...] S F Oxacillin <=0.25 S F Normal [facility] Comment on above: Performed By: #### B DIGITAL ASSET MANAGER, HSTROPN #### [facility] [address] [place] [address] Dr. Gloria Gonzalez PROF 14(COMP METB)on 022 Albumin [Mass/Vol] 2.8 g/dL Critically low 3.4-5.0 [facility] Comment on above: Performed By: #### C VDTBH #### [facility] [address] [place] [address] Dr. Gloria Gonzalez Albumin/Globulin [Mass ratio] 0.6 {ratio} Normal [facility] Comment on above: Performed By: #### C VDTBH #### [facility] [address] [place] [address] [address] Gloria Gonzalez ALP [Catalytic activity/Vol] 86 U/L Normal 46-116 [facility] Comment on above: Performed By: #### C VDTBH #### [facility] [address] [place] [address] [address] Gloria Gonzalez ALT [Catalytic activity/Vol] 16 U/L Normal 16-63 [facility] Comment on above: Performed By: #### C VDTBH #### [facility] [address] [place] [address] [address] Gloria Gonzalez Anion gap [Moles/Vol] 1.4 mmol/L Normal [facility] Comment on above: Performed By: #### C VDTBH #### [facility] [address] [place] [address] Dr. Gloria Gonzalez AST [Catalytic activity/Vol] 22 U/L Normal 15-37 [facility] Comment on above: Performed By: #### C VDTBH #### [facility] [address] [place] [address] [address] Gloria Gonzalez Bilirubin [Mass/Vol] 1.2 mg/dL Critically high 0.2-1.0 [facility] Comment on above: Performed By: #### C VDTBH #### [facility] [address] [place] [address] [address] Gloria Gonzalez Calcium [Mass/Vol] 8.9 mg/dL Normal 8.5-10.1 [facility] Comment on above: Performed By: #### C VDTBH #### [facility] [address] [address] [address] Gloria Gonzalez Chloride [Moles/Vol] 95 mmol/L Critically low 98-107 [facility] Comment on above: Performed By: #### C VDTBH #### [facility] [address] [address] [address] Gloria Gonzalez CO2 [Moles/Vol] 41.1 mmol/L Critically high 21.0-32.0 [facility] Comment on above: Performed By: #### C VDTBH #### [facility] [address] [address] [address] Gloria Gonzalez Creatinine [Mass/Vol] 0.92 mg/dL Normal 0.70-1.30 [facility] Comment on above: Performed By: #### C VDTBH #### [facility] [address] [address] [address] Gloria Gonzalez EGFR-AF PANAMANIAN >60 Normal >=60 [facility] Comment on above: Performed By: #### C VDTBH #### [facility] [address] [address] [address] Gloria Gonzalez EGFR-NON AF PANAMANIAN >60 Normal >=60 [facility] Comment on above: Performed By: #### C VDTBH #### [facility] [address] [place] [address] Dr. Gloria Gonzalez Globulin (S) [Mass/Vol] 5.0 g/dL Normal [facility] Comment on above: Performed By: #### C VDTBH #### [facility] [address] [address] [address] Gloria Gonzalez Glucose [Mass/Vol] 97 mg/dL Normal 74-106 [facility] Comment on above: Performed By: #### C VDTBH #### [facility] [address] [place] [address] [address] Gloria Gonzalez Potassium [Moles/Vol] 3.5 mmol/L Normal 3.5-5.1 [facility] Comment on above: Performed By: #### C VDTBH #### [facility] [address] [address] [address] Gloria Gonzalez Protein [Mass/Vol] 7.8 g/dL Normal 6.4-8.2 [facility] Comment on above: Performed By: #### C VDTBH #### [facility] [address] [place] [address] Dr. Gloria Gonzalez Sodium [Moles/Vol] 134 mmol/L Critically low 136-145 [facility] Comment on above: Performed By: #### C VDTBH #### [facility] [address] [place] [address] Dr. Gloria Gonzalez Urea nitrogen [Mass/Vol] 18.0 mg/dL Normal 7.0-18.0 [facility] Comment on above: Performed By: #### C VDTBH #### [facility] [address] [place] [address] Dr. Gloria Gonzalez Urea nitrogen/Creatinine [Mass ratio] 19.6 mg/mg Normal [facility] Comment on above: Performed By: #### C VDTBH #### [facility] [address] [place] [address] Dr. Gloria Gonzalez CBC AUTO DIFFon 07-14-2022 BASO # 0.0 103/ul Normal 0.0-0.1 [facility] Comment on above: Performed By: #### C BC #### [facility] [address] [place] [address] Dr. Gloria Gonzalez Basophils/100 WBC (Bld) 0.2 % Normal 0.2-2.0 [facility] Comment on above: Performed By: #### C BC #### [facility] [address] [place] [address] Dr. Gloria Gonzalez EO # 0.2 103/ul Normal 0.0-0.7 [facility] Comment on above: Performed By: #### C BC #### [facility] [address] [place] [address] Dr. Gloria Gonzalez Eosinophils/100 WBC (Bld) 2.2 % Normal 0.9-7.0 [facility] Comment on above: Performed By: #### C BC #### [facility] [address] [place] [address] Dr. Gloria Gonzalez Erythrocyte distribution width (RBC) [Ratio] 15.5 % Critically high 11.0-15.0 [facility] Comment on above: Performed By: #### C BC #### [facility] [address] [place] [address] Dr. Gloria Gonzalez Hematocrit (Bld) [Volume fraction] 57.2 % Critically high 42.0-54.0 [facility] Comment on above: Performed By: #### C BC #### [facility] [address] [address] [address] Gloria Gonzalez Hemoglobin (Bld) [Mass/Vol] 17.3 g/dL Normal 14.0-18.0 [facility] Comment on above: Performed By: #### C BC #### [facility] [address] [address] [address] Gloria Gonzalez IG # 0.02 10e3/ul Normal 0.00-0.03 [facility] Comment on above: Performed By: #### C BC #### [facility] [address] [address] [address] Gloria Gonzalez IG % 0.2 % Normal 0.0-0.5 [facility] Comment on above: Performed By: #### C BC #### [facility] [address] [address] [address] Gloria Gonzalez LYMPH # 0.9 103/ul Critically low 1.2-3.8 [facility] Comment on above: Performed By: #### C BC #### [facility] [address] [address] [address] Gloria Gonzalez Lymphocytes/100 WBC (Bld) 10.8 % Critically low 20.5-60.0 [facility] Comment on above: Performed By: #### C BC #### [facility] [address] [address] [address] Gloria Gonzalez MANUAL DIFF REQ NO Normal [facility] Comment on above: Performed By: #### C BC #### [facility] [address] [address] [address] Gloria Gonzalez MCH (RBC) [Entitic mass] 28.4 pg Normal 25.9-34.0 [facility] Comment on above: Performed By: #### C BC #### [facility] [address] [address] [address] Gloria Gonzalez MCHC (RBC) [Mass/Vol] 30.2 g/dL Normal 29.9-35.2 [facility] Comment on above: Performed By: #### C BC #### [facility] [address] [address] [address] Gloria Gonzalez MCV (RBC) [Entitic vol] 93.9 fL Normal 80.0-94.0 [facility] Comment on above: Performed By: #### C BC #### [facility] [address] [address] [address] Gloria Gonzalez MONO # 0.8 103/ul Normal 0.3-0.8 [facility] Comment on above: Performed By: #### C BC #### [facility] [address] [address] [address] Gloria Gonzalez Monocytes/100 WBC (Bld) 9.6 % Normal 1.7-12.0 [facility] Comment on above: Performed By: #### C BC #### [facility] [address] [address] [address] Gloria Gonzalez NEUT # 6.7 103/ul Critically high 1.4-6.5 [facility] Comment on above: Performed By: #### C BC #### [facility] [address] [address] [address] Gloria Gonzalez Neutrophils/100 WBC (Bld) 77.0 % Critically high 43.0-75.0 [facility] Comment on above: Performed By: #### C BC #### [facility] [address] [address] [address] Gloria Gonzalez Platelet mean volume (Bld) [Entitic vol] 10.0 fL Normal 9.5-13.5 [facility] Comment on above: Performed By: #### C BC #### [facility] [address] [address] [address] Gloria Gonzalez PLT 179 103/ul Normal 150-450 [facility] Comment on above: Performed By: #### C BC #### [facility] [address] [address] [address] Gloria Gonzalez RBC 6.09 106/ul Normal 4.70-6.10 [facility] Comment on above: Performed By: #### C BC #### [facility] [address] [place] [address] Dr. Gloria Gonzalez WBC 8.7 103/ul Normal 4.0-11.0 [facility] Comment on above: Performed By: #### C BC #### [facility] [address] [place] [address] Dr. Gloria Gonzalez PROF 14(COMP METB)on 022 Albumin [Mass/Vol] 3.0 g/dL Critically low 3.4-5.0 [facility] Comment on above: Performed By: #### C VDTBH #### [facility] [address] [place] [address] Dr. Gloria Gonzalez Albumin/Globulin [Mass ratio] 0.6 {ratio} Normal [facility] Comment on above: Performed By: #### C VDTBH #### [facility] [address] [place] [address] Dr. Gloria Gonzalez ALP [Catalytic activity/Vol] 92 U/L Normal 46-116 [facility] Comment on above: Performed By: #### C VDTBH #### [facility] [address] [place] [address] Dr. Gloria Gonzalez ALT [Catalytic activity/Vol] 13 U/L Critically low 16-63 [facility] Comment on above: Performed By: #### C VDTBH #### [facility] [address] [place] [address] Dr. Gloria Gonzalez Anion gap [Moles/Vol] 2.0 mmol/L Normal [facility] Comment on above: Performed By: #### C VDTBH #### [facility] [address] [place] [address] Dr. Gloria Gonzalez AST [Catalytic activity/Vol] 18 U/L Normal 15-37 [facility] Comment on above: Performed By: #### C VDTBH #### [facility] [address] [place] [address] Dr. Gloria Gonzalez Bilirubin [Mass/Vol] 1.2 mg/dL Critically high 0.2-1.0 [facility] Comment on above: Performed By: #### C VDTBH #### [facility] [address] [address] [address] Gloria Gonzalez Calcium [Mass/Vol] 8.9 mg/dL Normal 8.5-10.1 [facility] Comment on above: Performed By: #### C VDTBH #### [facility] [address] [address] [address] Gloria Gonzalez Chloride [Moles/Vol] 96 mmol/L Critically low 98-107 [facility] Comment on above: Performed By: #### C VDTBH #### [facility] [address] [address] [address] Gloria Gonzalez CO2 [Moles/Vol] 43.4 mmol/L Critically high 21.0-32.0 [facility] Comment on above: Performed By: #### C VDTBH #### [facility] [address] [place] [address] Dr. Gloria Gonzalez Creatinine [Mass/Vol] 0.86 mg/dL Normal 0.70-1.30 [facility] Comment on above: Performed By: #### C VDTBH #### [facility] [address] [place] [address] Dr. Gloria Gonzalez EGFR-AF PANAMANIAN >60 Normal >=60 [facility] Comment on above: Performed By: #### C VDTBH #### [facility] [address] [place] [address] Dr. Gloria Gonzalez EGFR-NON AF PANAMANIAN >60 Normal >=60 [facility] Comment on above: Performed By: #### C VDTBH #### [facility] [address] [place] [address] Dr. Gloria Gonzalez Globulin (S) [Mass/Vol] 5.0 g/dL Normal [facility] Comment on above: Performed By: #### C VDTBH #### [facility] [address] [place] [address] Dr. Gloria Gonzalez Glucose [Mass/Vol] 108 mg/dL Critically high 74-106 [facility] Comment on above: Performed By: #### C VDTBH #### [facility] [address] [place] [address] Dr. Gloria Gonzalez Potassium [Moles/Vol] 3.4 mmol/L Critically low 3.5-5.1 [facility] Comment on above: Performed By: #### C VDTBH #### [facility] [address] [place] [address] Dr. Gloria Gonzalez Protein [Mass/Vol] 8.0 g/dL Normal 6.4-8.2 [facility] Comment on above: Performed By: #### C VDTBH #### [facility] [address] [place] [address] Dr. Gloria Gonzalez Sodium [Moles/Vol] 138 mmol/L Normal 136-145 [facility] Comment on above: Performed By: #### C VDTBH #### [facility] [address] [place] [address] Dr. Gloria Gonzalez Urea nitrogen [Mass/Vol] 12.0 mg/dL Normal 7.0-18.0 [facility] Comment on above: Performed By: #### C VDTBH #### [facility] [address] [place] [address] Dr. Gloria Gonzalez Urea nitrogen/Creatinine [Mass ratio] 14.0 mg/mg Normal [facility] Comment on above: Performed By: #### C VDTBH #### [facility] [address] [place] [address] Dr. Gloria Gonzalez CBC AUTO DIFFon 07-13-2022 BASO # 0.0 103/ul Normal 0.0-0.1 [facility] Comment on above: Performed By: #### C VDTBH #### [facility] [address] [place] [address] Dr. Gloria Gonzalez Basophils/100 WBC (Bld) 0.4 % Normal 0.2-2.0 [facility] Comment on above: Performed By: #### C VDTBH #### [facility] [address] [place] [address] Dr. Gloria Gonzalez EO # 0.2 103/ul Normal 0.0-0.7 [facility] Comment on above: Performed By: #### C VDTBH #### [facility] [address] [place] [address] Dr. Gloria Gonzalez Eosinophils/100 WBC (Bld) 2.2 % Normal 0.9-7.0 [facility] Comment on above: Performed By: #### C VDTBH #### [facility] [address] [place] [address] Dr. Gloria Gonzalez Erythrocyte distribution width (RBC) [Ratio] 15.9 % Critically high 11.0-15.0 [facility] Comment on above: Performed By: #### C VDTBH #### [facility] [address] [place] [address] Dr. Gloria Gonzalez Hematocrit (Bld) [Volume fraction] 55.7 % Critically high 42.0-54.0 [facility] Comment on above: Performed By: #### C VDTBH #### [facility] [address] [place] [address] Dr. Gloria Gonzalez Hemoglobin (Bld) [Mass/Vol] 17.2 g/dL Normal 14.0-18.0 [facility] Comment on above: Performed By: #### C VDTBH #### [facility] [address] [place] [address] Dr. Gloria Gonzalez IG # 0.02 10e3/ul Normal 0.00-0.03 [facility] Comment on above: Performed By: #### C VDTBH #### [facility] [address] [place] [address] Dr. Gloria Gonzalez IG % 0.2 % Normal 0.0-0.5 [facility] Comment on above: Performed By: #### C VDTBH #### [facility] [address] [place] [address] Dr. Gloria Gonzalez LYMPH # 1.1 103/ul Critically low 1.2-3.8 [facility] Comment on above: Performed By: #### C VDTBH #### [facility] [address] [place] [address] Dr. Gloria Gonzalez Lymphocytes/100 WBC (Bld) 11.0 % Critically low 20.5-60.0 [facility] Comment on above: Performed By: #### C VDTBH #### [facility] [address] [place] [address] Dr. Gloria Gonzalez MANUAL DIFF REQ NO Normal [facility] Comment on above: Performed By: #### C VDTBH #### [facility] [address] [place] [address] Dr. Gloria Gonzalez MCH (RBC) [Entitic mass] 28.9 pg Normal 25.9-34.0 [facility] Comment on above: Performed By: #### C VDTBH #### [facility] [address] [place] [address] Dr. Gloria Gonzalez MCHC (RBC) [Mass/Vol] 30.9 g/dL Normal 29.9-35.2 [facility] Comment on above: Performed By: #### C VDTBH #### [facility] [address] [place] [address] Dr. Gloria Gonzalez MCV (RBC) [Entitic vol] 93.6 fL Normal 80.0-94.0 [facility] Comment on above: Performed By: #### C VDTBH #### [facility] [address] [place] [address] Dr. Gloria Gonzalez MONO # 1.1 103/ul Critically high 0.3-0.8 [facility] Comment on above: Performed By: #### C VDTBH #### [facility] [address] [place] [address] Dr. Gloria Gonzalez Monocytes/100 WBC (Bld) 11.0 % Normal 1.7-12.0 [facility] Comment on above: Performed By: #### C VDTBH #### [facility] [address] [place] [address] Dr. Gloria Gonzalez NEUT # 7.2 103/ul Critically high 1.4-6.5 [facility] Comment on above: Performed By: #### C VDTBH #### [facility] [address] [place] [address] Dr. Gloria Gonzalez Neutrophils/100 WBC (Bld) 75.2 % Critically high 43.0-75.0 [facility] Comment on above: Performed By: #### C VDTBH #### [facility] [address] [place] [address] Dr. Gloria Gonzalez Platelet mean volume (Bld) [Entitic vol] 9.9 fL Normal 9.5-13.5 [facility] Comment on above: Performed By: #### C VDTBH #### [facility] [address] [place] [address] Dr. Gloria Gonzalez PLT 160 103/ul Normal 150-450 [facility] Comment on above: Performed By: #### C VDTBH #### [facility] [address] [place] [address] Dr. Gloria Gonzalez RBC 5.95 106/ul Normal 4.70-6.10 [facility] Comment on above: Performed By: #### C VDTBH #### [facility] [address] [place] [address] Dr. Gloria Gonzalez WBC 9.6 103/ul Normal 4.0-11.0 [facility] Comment on above: Performed By: #### C VDTBH #### [facility] [address] [place] [address] Dr. Gloria Gonzalez PROF 14(COMP METB)on 022 Albumin [Mass/Vol] 2.9 g/dL Critically low 3.4-5.0 [facility] Comment on above: Performed By: #### C MP #### [facility] [address] [place] [address] Dr. Glroia Gonzalez Albumin/Globulin [Mass ratio] 0.6 {ratio} Normal [facility] Comment on above: Performed By: #### C MP #### [facility] [address] [place] [address] Dr. Gloria Gonzalez ALP [Catalytic activity/Vol] 85 U/L Normal 46-116 [facility] Comment on above: Performed By: #### C MP #### [facility] [address] [place] [address] Dr. Gloria Gonzalez ALT [Catalytic activity/Vol] 15 U/L Critically low 16-63 [facility] Comment on above: Performed By: #### C MP #### [facility] [address] [address] [address] Gloria Gonzalez Anion gap [Moles/Vol] 4.5 mmol/L Normal [facility] Comment on above: Performed By: #### C MP #### [facility] [address] [address] [address] Gloria Gonzalez AST [Catalytic activity/Vol] 20 U/L Normal 15-37 [facility] Comment on above: Performed By: #### C MP #### [facility] [address] [address] [address] Gloria Gonzalez Bilirubin [Mass/Vol] 0.9 mg/dL Normal 0.2-1.0 [facility] Comment on above: Performed By: #### C MP #### [facility] [address] [place] [address] Dr. Gloria Gonzalez Calcium [Mass/Vol] 8.7 mg/dL Normal 8.5-10.1 [facility] Comment on above: Performed By: #### C MP #### [facility] [address] [place] [address] Dr. Gloria Gonzalez Chloride [Moles/Vol] 100 mmol/L Normal 98-107 [facility] Comment on above: Performed By: #### C MP #### [facility] [address] [address] [address] Gloria Gonzalez CO2 [Moles/Vol] 39.0 mmol/L Critically high 21.0-32.0 [facility] Comment on above: Performed By: #### C MP #### [facility] [address] [address] [address] Gloria Gonzalez Creatinine [Mass/Vol] 0.81 mg/dL Normal 0.70-1.30 [facility] Comment on above: Performed By: #### C MP #### [facility] [address] [address] [address] Gloria Gonzalez EGFR-AF PANAMANIAN >60 Normal >=60 [facility] Comment on above: Performed By: #### C MP #### [facility] [address] [address] [address] Gloria Gonzalez EGFR-NON AF PANAMANIAN >60 Normal >=60 [facility] Comment on above: Performed By: #### C MP #### [facility] [address] [address] [address] Gloria Gonzalez Globulin (S) [Mass/Vol] 4.5 g/dL Normal [facility] Comment on above: Performed By: #### C MP #### [facility] [address] [address] [address] Gloria Gonzalez Glucose [Mass/Vol] 102 mg/dL Normal 74-106 [facility] Comment on above: Performed By: #### C MP #### [facility] [address] [address] [address] Gloria Gonzalez Potassium [Moles/Vol] 3.5 mmol/L Normal 3.5-5.1 [facility] Comment on above: Performed By: #### C MP #### [facility] [address] [address] [address] Gloria Gonzalez Protein [Mass/Vol] 7.4 g/dL Normal 6.4-8.2 [facility] Comment on above: Performed By: #### C MP #### [facility] [address] [address] [address] Gloria Gonzalez Sodium [Moles/Vol] 140 mmol/L Normal 136-145 [facility] Comment on above: Performed By: #### C MP #### [facility] [address] [address] [address] Gloria Gonzalez Urea nitrogen [Mass/Vol] 13.0 mg/dL Normal 7.0-18.0 [facility] Comment on above: Performed By: #### C MP #### [facility] [address] [address] [address] Gloria Gonzalez Urea nitrogen/Creatinine [Mass ratio] 16.0 mg/mg Normal [facility] Comment on above: Performed By: #### C MP #### [facility] [address] [place] [address] Dr. Gloria Gonzalez BNPon 07-12-2022 Natriuretic peptide B (Bld) [Mass/Vol] 760.0 pg/mL Critically high <=450.0 [facility] Comment on above: Performed By: #### B DIGITAL ASSET MANAGER, BMP, LIPID #### [facility] [address] [place] [address] Dr. Gloria Gonzalez CBC AUTO DIFFon 07-12-2022 BASO # 0.0 103/ul Normal 0.0-0.1 [facility] Comment on above: Performed By: #### B DIGITAL ASSET MANAGER, HSTROPN #### [facility] [address] [place] [address] Dr. Gloria Gonzalez Basophils/100 WBC (Bld) 0.2 % Normal 0.2-2.0 [facility] Comment on above: Performed By: #### B DIGITAL ASSET MANAGER, HSTROPN #### [facility] [address] [place] [address] Dr. Gloria Gonzalez EO # 0.2 103/ul Normal 0.0-0.7 [facility] Comment on above: Performed By: #### B DIGITAL ASSET MANAGER, HSTROPN #### [facility] [address] [place] [address] Dr. Gloria Gonzalez Eosinophils/100 WBC (Bld) 2.0 % Normal 0.9-7.0 [facility] Comment on above: Performed By: #### B DIGITAL ASSET MANAGER, HSTROPN #### [facility] [address] [place] [address] Dr. Gloria Gonzalez Erythrocyte distribution width (RBC) [Ratio] 15.6 % Critically high 11.0-15.0 [facility] Comment on above: Performed By: #### B DIGITAL ASSET MANAGER, HSTROPN #### [facility] [address] [place] [address] Dr. Gloria Gonzalez Hematocrit (Bld) [Volume fraction] 56.2 % Critically high 42.0-54.0 [facility] Comment on above: Performed By: #### B DIGITAL ASSET MANAGER, HSTROPN #### [facility] [address] [address] [address] Gloria Gonzalez Hemoglobin (Bld) [Mass/Vol] 17.1 g/dL Normal 14.0-18.0 [facility] Comment on above: Performed By: #### B DIGITAL ASSET MANAGER, HSTROPN #### [facility] [address] [place] [address] Dr. Gloria Gonzalez IG # 0.03 10e3/ul Normal 0.00-0.03 [facility] Comment on above: Performed By: #### B DIGITAL ASSET MANAGER, HSTROPN #### [facility] [address] [place] [address] Dr. Gloria Gonzalez IG % 0.3 % Normal 0.0-0.5 [facility] Comment on above: Performed By: #### B DIGITAL ASSET MANAGER, HSTROPN #### [facility] [address] [place] [address] Dr. Gloria Gonzalez LYMPH # 1.3 103/ul Normal 1.2-3.8 [facility] Comment on above: Performed By: #### B DIGITAL ASSET MANAGER, HSTROPN #### [facility] [address] [place] [address] Dr. Gloria Gonzalez Lymphocytes/100 WBC (Bld) 14.9 % Critically low 20.5-60.0 [facility] Comment on above: Performed By: #### B DIGITAL ASSET MANAGER, HSTROPN #### [facility] [address] [place] [address] Dr. Gloria Gonzalez MANUAL DIFF REQ NO Normal [facility] Comment on above: Performed By: #### B DIGITAL ASSET MANAGER, HSTROPN #### [facility] [address] [place] [address] Dr. Gloria Gonzalez MCH (RBC) [Entitic mass] 28.9 pg Normal 25.9-34.0 [facility] Comment on above: Performed By: #### B DIGITAL ASSET MANAGER, HSTROPN #### [facility] [address] [place] [address] Dr. Gloria Gonzalez MCHC (RBC) [Mass/Vol] 30.4 g/dL Normal 29.9-35.2 [facility] Comment on above: Performed By: #### B DIGITAL ASSET MANAGER, HSTROPN #### [facility] [address] [place] [address] Dr. Gloria Gnozalez MCV (RBC) [Entitic vol] 95.1 fL Critically high 80.0-94.0 [facility] Comment on above: Performed By: #### B DIGITAL ASSET MANAGER, HSTROPN #### [facility] [address] [place] [address] Dr. Gloria Gonzalez MONO # 0.9 103/ul Critically high 0.3-0.8 [facility] Comment on above: Performed By: #### B DIGITAL ASSET MANAGER, HSTROPN #### [facility] [address] [place] [address] Dr. Gloria Gonzalez Monocytes/100 WBC (Bld) 9.7 % Normal 1.7-12.0 [facility] Comment on above: Performed By: #### B DIGITAL ASSET MANAGER, HSTROPN #### [facility] [address] [place] [address] Dr. Gloria Gonzalez NEUT # 6.4 103/ul Normal 1.4-6.5 [facility] Comment on above: Performed By: #### B DIGITAL ASSET MANAGER, HSTROPN #### [facility] [address] [place] [address] Dr. Gloria Gonzalez Neutrophils/100 WBC (Bld) 72.9 % Normal 43.0-75.0 [facility] Comment on above: Performed By: #### B DIGITAL ASSET MANAGER, HSTROPN #### [facility] [address] [place] [address] Dr. Gloria Gonzalez Platelet mean volume (Bld) [Entitic vol] 10.1 fL Normal 9.5-13.5 [facility] Comment on above: Performed By: #### B DIGITAL ASSET MANAGER, HSTROPN #### [facility] [address] [place] [address] Dr. Gloria Gonzalez PLT 176 103/ul Normal 150-450 [facility] Comment on above: Performed By: #### B DIGITAL ASSET MANAGER, HSTROPN #### [facility] [address] [place] [address] Dr. Gloria Gonzalez RBC 5.91 106/ul Normal 4.70-6.10 [facility] Comment on above: Performed By: #### B JUNG GARZAN #### [facility] [address] [address] [address] Gloria Gonzalez WBC 8.8 103/ul Normal 4.0-11.0 [facility] Comment on above: Performed By: #### B GREG, HSTROPN #### [facility] [address] [address] [address] ABD/PELVIS WO CONon [...] JACK MCCORMACK Date: 2022-07-11 23:48 Normal [facility] Covid-19 PCR (CVDTBH)on 06-28 SARS-CoV-2 (COVID-19) RNA SADA+probe Ql (Unsp spec) Not detected Normal NOT DETECTED [facility] Comment on above: Result Comment: [...] for this test is supported by the [place] of Health and Human Service's declaration that [...] longer be used). Performed By: #### [facility] #### [facility] [address] [place] [address] Dr. lGoria Gonzalez ECHOCARDIO M/2D COMPLETEon 1 09-11-2021 ECHOCARDIO M/2D COMPLETE Patient: RAFAEL WINKLER Exam Date: 07/12/2022 : 1980 Gender:M Ordering : DR JEANNETTE MCCORD . Admission #: [id number] [facility] : [facility] Order #: [id number] CLICK HERE TO VIEW EXAM ECHOCARDIOGRAM REPORT [...] Nicolas M.D. on 07/13/2022 at 20:00 Normal [facility] LIPID PROFILEon 07-12-2022 CHOL-HDL RATIO NORM SEE BELOW Normal [facility] Comment on above: Result Comment: 3.3 - 4.4 LOW RISK 4.4 - 7.1 AVERAGE RISK 7.1 - 11.0 MODERATE RISK >11.0 HIGH RISK Performed By: #### B DIGITAL ASSET MANAGER, BMP, LIPID #### [facility] [address] [address] [address] Gloria Gonzalez Cholesterol [Mass/Vol] 119 mg/dL Normal <=200 [facility] Comment on above: Performed By: #### B DIGITAL ASSET MANAGER, BMP, LIPID #### [facility] [address] [address] [address] Gloria Gonzalez Cholesterol in HDL [Mass/Vol] 46 mg/dL Normal 40-60 [facility] Comment on above: Performed By: #### B DIGITAL ASSET MANAGER, BMP, LIPID #### [facility] [address] [address] [address] Gloria Gonzalez Cholesterol in LDL [Mass/Vol] 59.2 mg/dL Normal [facility] Comment on above: Performed By: #### B DIGITAL ASSET MANAGER, BMP, LIPID #### [facility] [address] [address] [address] Gloria Gonzalez Cholesterol.total/C holesterol in HDL [Mass ratio] 2.6 {ratio} Normal [facility] Comment on above: Performed By: #### B DIGITAL ASSET MANAGER, BMP, LIPID #### [facility] [address] [address] [address] Gloria Gonzalez HDL NORMAL > or = 60 mg/dl - LO W CARDIOVASCULAR RISK <40 mg/dl - HIGH CARDIOVASCULAR RISK Normal [facility] Comment on above: Performed By: #### B DIGITAL ASSET MANAGER, BMP, LIPID #### [facility] [address] [address] [address] Gloria Gonzalez LDL CALC NORMAL SEE BELOW Normal [facility] Comment on above: Result Comment: <100 mg/dl OPTIMAL 100 - 129 mg/dl NEAR OR ABOVE OPTIMAL 130 - 159 mg/dl BORDERLINE HIGH 160 - 189 mg/dl HIGH >190 mg/dl VERY HIGH Performed By: #### B DIGITAL ASSET MANAGER, BMP, LIPID #### [facility] [address] [place] [address] Dr. Gloria Gonzalez Triglyceride [Mass/Vol] 69 mg/dL Normal <=150 [facility] Comment on above: Performed By: #### B DIGITAL ASSET MANAGER, BMP, LIPID #### [facility] [address] [address] [address] Gloria Gonzalez VLDL CALC 13.8 mg/dL Normal [facility] Comment on above: Performed By: #### B DIGITAL ASSET MANAGER, BMP, LIPID #### [facility] [address] [place] [address] Dr. Gloria Gonzalez PROF CHEM 8 (BAS METB)on Anion gap [Moles/Vol] 5.0 mmol/L Normal [facility] Comment on above: Performed By: #### B DIGITAL ASSET MANAGER, BMP, LIPID #### [facility] [address] [place] [address] Dr. Gloria Gonzalez Calcium [Mass/Vol] 8.7 mg/dL Normal 8.5-10.1 [facility] Comment on above: Performed By: #### B DIGITAL ASSET MANAGER, BMP, LIPID #### [facility] [address] [address] [address] Gloria Gonzalez Chloride [Moles/Vol] 104 mmol/L Normal 98-107 [facility] Comment on above: Performed By: #### B DIGITAL ASSET MANAGER, BMP, LIPID #### [facility] [address] [address] [address] Gloria Gonzalez CO2 [Moles/Vol] 35.1 mmol/L Critically high 21.0-32.0 [facility] Comment on above: Performed By: #### B DIGITAL ASSET MANAGER, BMP, LIPID #### [facility] [address] [address] [address] Gloria Gonzalez Creatinine [Mass/Vol] 0.77 mg/dL Normal 0.70-1.30 [facility] Comment on above: Performed By: #### B DIGITAL ASSET MANAGER, BMP, LIPID #### [facility] [address] [address] [address] Gloria Gonzalez EGFR-AF PANAMANIAN >60 Normal >=60 [facility] Comment on above: Performed By: #### B DIGITAL ASSET MANAGER, BMP, LIPID #### [facility] [address] [address] [address] Gloria Gonzalez EGFR-NON AF PANAMANIAN >60 Normal >=60 [facility] Comment on above: Performed By: #### B DIGITAL ASSET MANAGER, BMP, LIPID #### [facility] [address] [address] [address] Gloria Gonzalez Glucose [Mass/Vol] 124 mg/dL Critically high 74-106 [facility] Comment on above: Performed By: #### B DIGITAL ASSET MANAGER, BMP, LIPID #### [facility] [address] [address] [address] Gloria Gonzalez Potassium [Moles/Vol] 4.1 mmol/L Normal 3.5-5.1 [facility] Comment on above: Performed By: #### B DIGITAL ASSET MANAGER, BMP, LIPID #### [facility] [address] [address] [address] Gloria Gonzalez Sodium [Moles/Vol] 140 mmol/L Normal 136-145 [facility] Comment on above: Performed By: #### B DIGITAL ASSET MANAGER, BMP, LIPID #### [facility] [address] [address] [address] Gloria Gonzalez Urea nitrogen [Mass/Vol] 12.0 mg/dL Normal 7.0-18.0 [facility] Comment on above: Performed By: #### B DIGITAL ASSET MANAGER, BMP, LIPID #### [facility] [address] [place] [address] Dr. Gloria Gonzalez Urea nitrogen/Creatinine [Mass ratio] 15.6 mg/mg Normal [facility] Comment on above: Performed By: #### B DIGITAL ASSET MANAGER, BMP, LIPID #### [facility] [address] [place] [address] Dr. Gloria Gonzalez BNPon 07-11-2022 Natriuretic peptide B (Bld) [Mass/Vol] 858.0 pg/mL Critically high <=450.0 [facility] Comment on above: Performed By: #### B DIGITAL ASSET MANAGER, HSTROPN #### [facility] [address] [place] [address] Dr. Gloria Gonzalez CBC AUTO DIFFon 07-11-2022 BASO # 0.0 103/ul Normal 0.0-0.1 [facility] Comment on above: Performed By: #### C BC #### [facility] [address] [place] [address] Dr. Gloria Gonzalez Basophils/100 WBC (Bld) 0.4 % Normal 0.2-2.0 [facility] Comment on above: Performed By: #### C BC #### [facility] [address] [place] [address] Dr. Gloria Gonzalez EO # 0.2 103/ul Normal 0.0-0.7 [facility] Comment on above: Performed By: #### C BC #### [facility] [address] [place] [address] Dr. Gloria Gonzalez Eosinophils/100 WBC (Bld) 2.3 % Normal 0.9-7.0 [facility] Comment on above: Performed By: #### C BC #### [facility] [address] [place] [address] Dr. Gloria Gonzalez Erythrocyte distribution width (RBC) [Ratio] 15.9 % Critically high 11.0-15.0 [facility] Comment on above: Performed By: #### C BC #### [facility] [address] [place] [address] Dr. Gloria Gonzalez Hematocrit (Bld) [Volume fraction] 57.5 % Critically high 42.0-54.0 [facility] Comment on above: Performed By: #### C BC #### [facility] [address] [place] [address] Dr. Gloria Gonzalez Hemoglobin (Bld) [Mass/Vol] 17.8 g/dL Normal 14.0-18.0 [facility] Comment on above: Performed By: #### C BC #### [facility] [address] [place] [address] Dr. Gloria Gonzalez IG # 0.02 10e3/ul Normal 0.00-0.03 [facility] Comment on above: Performed By: #### C BC #### [facility] [address] [place] [address] Dr. Gloria Gonzalez IG % 0.2 % Normal 0.0-0.5 [facility] Comment on above: Performed By: #### C BC #### [facility] [address] [place] [address] Dr. Gloria Gonzalez LYMPH # 2.0 103/ul Normal 1.2-3.8 [facility] Comment on above: Performed By: #### C BC #### [facility] [address] [place] [address] Dr. Gloria Gonzalez Lymphocytes/100 WBC (Bld) 21.2 % Normal 20.5-60.0 [facility] Comment on above: Performed By: #### C BC #### [facility] [address] [place] [address] Dr. Gloria Gonzalez MANUAL DIFF REQ NO Normal [facility] Comment on above: Performed By: #### C BC #### [facility] [address] [place] [address] Dr. Gloria Gonzalez MCH (RBC) [Entitic mass] 28.7 pg Normal 25.9-34.0 [facility] Comment on above: Performed By: #### C BC #### [facility] [address] [place] [address] Dr. Gloria Gonzalez MCHC (RBC) [Mass/Vol] 31.0 g/dL Normal 29.9-35.2 [facility] Comment on above: Performed By: #### C BC #### [facility] [address] [place] [address] Dr. Gloria Gonzalez MCV (RBC) [Entitic vol] 92.7 fL Normal 80.0-94.0 [facility] Comment on above: Performed By: #### C BC #### [facility] [address] [place] [address] Dr. Gloria Gonzalez MONO # 0.8 103/ul Normal 0.3-0.8 [facility] Comment on above: Performed By: #### C BC #### [facility] [address] [place] [address] Dr. Gloria Gonzalez Monocytes/100 WBC (Bld) 8.9 % Normal 1.7-12.0 [facility] Comment on above: Performed By: #### C BC #### [facility] [address] [place] [address] Dr. Gloria Gonzalez NEUT # 6.2 103/ul Normal 1.4-6.5 [facility] Comment on above: Performed By: #### C BC #### [facility] [address] [place] [address] Dr. Gloria Gonzalez Neutrophils/100 WBC (Bld) 67.0 % Normal 43.0-75.0 [facility] Comment on above: Performed By: #### C BC #### [facility] [address] [place] [address] Dr. Gloria Gonzalez Platelet mean volume (Bld) [Entitic vol] 10.6 fL Normal 9.5-13.5 [facility] Comment on above: Performed By: #### C BC #### [facility] [address] [place] [address] Dr. Gloria Gonzalez PLT 179 103/ul Normal 150-450 [facility] Comment on above: Performed By: #### C BC #### [facility] [address] [place] [address] Dr. Gloria Gonzalez RBC 6.20 106/ul Critically high 4.70-6.10 [facility] Comment on above: Performed By: #### C BC #### [facility] [address] [place] [address] Dr. Gloria Gonzalez WBC 9.3 103/ul Normal 4.0-11.0 [facility] Comment on above: Performed By: #### C BC #### [facility] [address] [place] [address] Dr. Gloria Gonzalez CULTURE BLOODon 07-11-2022 Microscopic examination of blood, culture Culture Observations: NO GROWTH AT 5 DAYS. Normal [facility] Comment on above: Performed By: #### B DIGITAL ASSET MANAGER, HSTROPN #### [facility] [address] [place] [address] Dr. Gloria Gonzalez Microscopic examination of blood, culture Culture Observations: NO GROWTH AT 5 DAYS. Normal [facility] Comment on above: Performed By: #### B DIGITAL ASSET MANAGER, HSTROPN #### [facility] [address] [place] [address] Dr. Gloria Gonzalez LACTATE/LACTIC ACIDon 2021 Lactate [Moles/Vol] 0.8 mmol/L Normal 0.4-1.9 [facility] Comment on above: Performed By: #### L ACT #### [facility] [address] [place] [address] Dr. Gloria Gonzalez PROF 14(COMP METB)on 022 Albumin [Mass/Vol] 3.1 g/dL Critically low 3.4-5.0 [facility] Comment on above: Performed By: #### C VDTBH #### [facility] [address] [place] [address] Dr. Gloria Gonzalez Albumin/Globulin [Mass ratio] 0.8 {ratio} [facility] Comment on above: Performed By: #### C VDTBH #### [facility] [address] [place] [address] Dr. Gloria Gonzalez ALP [Catalytic activity/Vol] 97 U/L Normal 46-116 [facility] Comment on above: Performed By: #### C VDTBH #### [facility] [address] [address] [address] Gloria Gonzalez ALT [Catalytic activity/Vol] 20 U/L Normal 16-63 [facility] Comment on above: Performed By: #### C VDTBH #### [facility] [address] [address] [address] Gloria Gonzalez Anion gap [Moles/Vol] 6.3 mmol/L Normal [facility] Comment on above: Performed By: #### C VDTBH #### [facility] [address] [address] [address] Gloria Gonzalez AST [Catalytic activity/Vol] 19 U/L Normal 15-37 [facility] Comment on above: Performed By: #### C VDTBH #### [facility] [address] [place] [address] Dr. Gloria Gonzalez Bilirubin [Mass/Vol] 0.5 mg/dL Normal 0.2-1.0 [facility] Comment on above: Performed By: #### C VDTBH #### [facility] [address] [address] [address] Gloria Gonzalez Calcium [Mass/Vol] 9.0 mg/dL Normal 8.5-10.1 [facility] Comment on above: Performed By: #### C VDTBH #### [facility] [address] [place] [address] Dr. Gloria Gonzalez Chloride [Moles/Vol] 104 mmol/L Normal 98-107 [facility] Comment on above: Performed By: #### C VDTBH #### [facility] [address] [address] [address] Gloria Gonzalez CO2 [Moles/Vol] 33.9 mmol/L Critically high 21.0-32.0 [facility] Comment on above: Performed By: #### C VDTBH #### [facility] [address] [place] [address] Dr. Gloria Gonzalez Creatinine [Mass/Vol] 0.77 mg/dL Normal 0.70-1.30 [facility] Comment on above: Performed By: #### C VDTBH #### [facility] [address] [address] [address] Gloria Gonzalez EGFR-AF PANAMANIAN >60 Normal >=60 [facility] Comment on above: Performed By: #### C VDTBH #### [facility] [address] [address] [address] Gloria Gonzalez EGFR-NON AF PANAMANIAN >60 Normal >=60 [facility] Comment on above: Performed By: #### C VDTBH #### [facility] [address] [address] [address] Gloria Gonzalez Globulin (S) [Mass/Vol] 4.1 g/dL Normal [facility] Comment on above: Performed By: #### C VDTBH #### [facility] [address] [place] [address] Dr. Gloria Gonzalez Glucose [Mass/Vol] 85 mg/dL Normal 74-106 [facility] Comment on above: Performed By: #### C VDTBH #### [facility] [address] [place] [address] Dr. Gloria Gonzalez Potassium [Moles/Vol] 4.2 mmol/L Normal 3.5-5.1 [facility] Comment on above: Performed By: #### C VDTBH #### [facility] [address] [place] [address] Dr. Gloria Gonzalez Protein [Mass/Vol] 7.2 g/dL Normal 6.4-8.2 [facility] Comment on above: Performed By: #### C VDTBH #### [facility] [address] [place] [address] Dr. Gloria Gonzalez Sodium [Moles/Vol] 140 mmol/L Normal 136-145 [facility] Comment on above: Performed By: #### C VDTBH #### [facility] [address] [place] [address] Dr. Gloria Gonzalez Urea nitrogen [Mass/Vol] 13.0 mg/dL Normal 7.0-18.0 [facility] Comment on above: Performed By: #### C VDTBH #### [facility] [address] [address] [address] Gloria Gonzalez Urea nitrogen/Creatinine [Mass ratio] 16.9 mg/mg Normal [facility] Comment on above: Performed By: #### C VDTBH #### [facility] [address] [address] [address] Gloria Gonzalez TROPONIN, HIGH SENSITIVITYon 07-11-2022 HSTROP 31.8 pg/mL Normal 4.0-76.1 [facility] Comment on above: Result Comment: CUT- OFF POINTS HAVE BEEN ESTABLISHED BASED ON THE FOURTH UNIVERSAL DEFINITIONS OF MYOCARDIAL INFARCTION. THE UPPER REFERENCE LIMIT (URL) OF TROPONIN, DEFINED THE 99TH PERCENTILE OF cTnI DISTRIBUTION IN A REFERENCE POPULATION, HAS BEEN CONFIRMED THE DECISION THRESHOLD FOR OK DIAGNOSIS. Performed By: #### B DIGITAL ASSET MANAGER, HSTROPN #### [facility] [address] [address] [address] Gloria Gonzalez US SCROTUM W VASCULAR [...] by: ALLEY FRIEDMAN Date: 2022-07-11 21:03 Normal [facility] XR CHEST 1 Von 07-11-2022 XR CHEST 1 V EXAM: XR CHEST 1 V HISTORY: SHORTNESS OF BREATH COMPARISON: None. TECHNIQUE: Portable chest FINDINGS: Poor inspiratory effort. No focal consolidation or infiltrate. No pneumothorax or pleural effusion. Questionable cardiac enlargement. The hilar and mediastinal contours are unremarkable IMPRESSION: Questionable cardiomegaly Electronically authenticated by: DIANNA SCHULTZ Date: 2022-07-11 21:07 Normal [facility] Vital Signs Date Time Vital Sign Value Performing Clinician [place] ballard 12-26-2024 09:04-0400 Body mass index (BMI) [Ratio] 49.1 kg/m2 Alley Guptaz DIGITAL ASSET MANAGER Work Phone: [facility] 12-26-2024 09:04-0400 Body temperature 96.6 [degF] Alley Hectorholz DIGITAL ASSET MANAGER Work Phone: [facility] 12-26-2024 09:04-0400 Body weight 173.46 kg Alley Hectorholz DIGITAL ASSET MANAGER Work Phone: [facility] 12-26-2024 09:04-0400 Diastolic blood pressure 90 mm[Hg] Alley Hectorholz DIGITAL ASSET MANAGER Work Phone: [facility] 12-26-2024 09:04-0400 Heart rate 74 /min Alley Hectorholz DIGITAL ASSET MANAGER Work Phone: [facility] 12-26-2024 09:04-0400 Respiratory rate 20 /min Alley Hectorholz DIGITAL ASSET MANAGER Work Phone: [facility] 12-26-2024 09:04-0400 SaO2% (BldA) [Mass fraction] 96 % Alley Alonsoz DIGITAL ASSET MANAGER Work Phone: [facility] 12-26-2024 09:04-0400 Systolic blood pressure 130 mm[Hg] Alley Alonsoz DIGITAL ASSET MANAGER Work Phone: [facility] 11-26-2024 08:47-0400 Body height 188 cm Alley Hectorholz DIGITAL ASSET MANAGER Work Phone: [facility] 11-26-2024 08:47-0400 Body mass index (BMI) [Ratio] 49.3 kg/m2 Alley Hectorholz DIGITAL ASSET MANAGER Work Phone: [facility] 11-26-2024 08:47-0400 Body temperature 97.81 [degF] Alley Aichholz DIGITAL ASSET MANAGER Work Phone: [facility] 11-26-2024 08:47-0400 Body weight 174.18 kg Alley Aichholz DIGITAL ASSET MANAGER Work Phone: [facility] 11-26-2024 08:47-0400 Diastolic blood pressure 104 mm[Hg] Alley Aichholz DIGITAL ASSET MANAGER Work Phone: [facility] 11-26-2024 08:47-0400 Heart rate 76 /min Alley Aichholz DIGITAL ASSET MANAGER Work Phone: [facility] 11-26-2024 08:47-0400 Respiratory rate 24 /min Alley Aichholz DIGITAL ASSET MANAGER Work Phone: [facility] 11-26-2024 08:47-0400 SaO2% (BldA) [Mass fraction] 96 % Alley Aichholz DIGITAL ASSET MANAGER Work Phone: [facility] 11-26-2024 08:47-0400 Systolic blood pressure 150 mm[Hg] Alley Aichholz DIGITAL ASSET MANAGER Work Phone: [facility] 08-29-2024 08:47-0500 Body mass index (BMI) [Ratio] 54.44 kg/m2 Alley Aichholz DIGITAL ASSET MANAGER Work Phone: [facility] 08-29-2024 08:47-0500 Body temperature 98.1 [degF] Alley Aichholz DIGITAL ASSET MANAGER Work Phone: [facility] 08-29-2024 08:47-0500 Body weight 192.32 kg Alley Aichholz DIGITAL ASSET MANAGER Work Phone: [facility] 08-29-2024 08:47-0500 Diastolic blood pressure 96 mm[Hg] Alley Aichholz DIGITAL ASSET MANAGER Work Phone: [facility] 08-29-2024 08:47-0500 Heart rate 79 /min Alley Aichholz DIGITAL ASSET MANAGER Work Phone: [facility] 08-29-2024 08:47-0500 Respiratory rate 20 /min Alley Anthony DIGITAL ASSET MANAGER Work Phone: [facility] 08-29-2024 08:47-0500 SaO2% (BldA) [Mass fraction] 95 % Alley Anthony DIGITAL ASSET MANAGER Work Phone: [facility] 08-29-2024 08:47-0500 Systolic blood pressure 126 mm[Hg] Alley Anthony DIGITAL ASSET MANAGER Work Phone: [facility] 08-06-2024 10:44-0500 Body height 188 cm Fabricio Mederos MD Work Phone: [facility] 08-06-2024 10:44-0500 Body mass index (BMI) [Ratio] 56.11 kg/m2 Fabricio Mederos MD Work Phone: [facility] 08-06-2024 10:44-0500 Body weight 198.22 kg Fabricio Mederso MD Work Phone: [facility] 08-06-2024 10:44-0500 Diastolic blood pressure 70 mm[Hg] Fabricio Mederos MD Work Phone: [facility] 08-06-2024 10:44-0500 Heart rate 84 /min Fabricio Mederos MD Work Phone: [facility] 08-06-2024 10:44-0500 Respiratory rate 18 /min Fabricio Mederos MD Work Phone: [facility] 08-06-2024 10:44-0500 Systolic blood pressure 118 mm[Hg] Fabricio Mederos MD Work Phone: [facility] 07-10-2024 10:09-0500 Body height 193 cm Alley Anthony DIGITAL ASSET MANAGER Work Phone: [facility] 07-10-2024 10:09-0500 Body mass index (BMI) [Ratio] 56.29 kg/m2 Alley Anthony DIGITAL ASSET MANAGER Work Phone: [facility] 07-10-2024 10:09-0500 Body temperature 97.81 [degF] Alley Youngsary DIGITAL ASSET MANAGER Work Phone: [facility] 07-10-2024 10:09-0500 Body weight 209.74 kg Alleyneha Youngholz DIGITAL ASSET MANAGER Work Phone: [facility] 07-10-2024 10:09-0500 Diastolic blood pressure 94 mm[Hg] Alley Hamhholz DIGITAL ASSET MANAGER Work Phone: [facility] 07-10-2024 10:09-0500 Heart rate 71 /min Alley Hamhholz DIGITAL ASSET MANAGER Work Phone: [facility] 07-10-2024 10:09-0500 Respiratory rate 20 /min Alley Hamhholz DIGITAL ASSET MANAGER Work Phone: [facility] 07-10-2024 10:09-0500 SaO2% (BldA) [Mass fraction] 97 % Alley Alonsoz DIGITAL ASSET MANAGER Work Phone: [facility] 07-10-2024 10:09-0500 Systolic blood pressure 138 mm[Hg] Alley Hectorboz DIGITAL ASSET MANAGER Work Phone: [facility] Encounters Encounter Date Encounter Type Care Provider Facility Start: 12-26-2024 End: 12-26-2024 Bamboo flowsheet Alley Alonsoz DIGITAL ASSET MANAGER Work Phone: [facility] Start: 12-26-2024 End: 12-26-2024 Bamboo flowsheet Alley Alonsoz DIGITAL ASSET MANAGER Work Phone: [facility] Start: 12-26-2024 End: 12-26-2024 ambulatory ALLEY ANTHONY Not Available Start: 12-26-2024 End: 12-26-2024 Office outpatient visit 25 minutes Alley Anthony DIGITAL ASSET MANAGER Work Phone: [facility] Comment on above: Primary hypertension (CMS/HCC) (Primary Dx); Chronic obstructive pulmonary disease, unspecified; MI (obstructive sleep apnea); Chronic gout of multiple sites, unspecified cause; Morbid (severe) obesity due to excess calories (CMS/HCC); Former smoker; Vitamin D deficiency; Idiopathic chronic gout, multiple sites, without tophus (tophi) Start: 12-25-2024 End: 12-25-2024 Clinisync Result Encounter Alley Cruz DIGITAL ASSET MANAGER Work Phone: [facility] External Department Unsolicited Start: 12-25-2024 End: 12-25-2024 Clinisync Result Encounter Alley Alonsoz DIGITAL ASSET MANAGER Work Phone: [facility] Unsolicited Start: 12-21-2024 End: 12-22-2024 Refill Alley Hectorholz DIGITAL ASSET MANAGER Work Phone: [facility] Comment on above: Idiopathic chronic g out, multiple sites, without tophus (tophi) Start: 11-26-2024 End: 11-26-2024 Bamboo flowsheet Alley Anthony DIGITAL ASSET MANAGER Work Phone: [facility] Start: 11-26-2024 End: 11-26-2024 Bamboo flowsheet Alley Hectorholz DIGITAL ASSET MANAGER Work Phone: [facility] Start: 11-26-2024 End: 11-26-2024 ambulatory ALLEY HECTORHOLZ Not Available Start: 11-26-2024 End: 11-26-2024 Office outpatient visit 25 minutes Alley Cruz DIGITAL ASSET MANAGER Work Phone: [facility] Comment on above: Primary hypertension (CMS/HCC) (Primary Dx); MI (obstructive sleep apnea); Chronic diastolic (congestive) heart failure; Bilateral lower extremity edema; Chronic gout of multiple sites, unspecified cause; Morbid (severe) obesity due to excess calories (CMS/HCC); Muscle cramps; Vitamin D deficiency; Chronic diastolic heart failure (CMS/HCC) Start: 11-18-2024 End: 11-18-2024 Refill Alley Aichholz DIGITAL ASSET MANAGER Work Phone: [facility] Comment on above: Acute idiopathic gou t of ankle, unspecified laterality (Primary Dx) Start: 09-09-2024 End: 09-09-2024 Refill Alley Aichholz DIGITAL ASSET MANAGER Work Phone: [facility] Comment on above: Acute idiopathic gou t of ankle, unspecified laterality (Primary Dx) Start: 08-29-2024 End: 08-29-2024 Bamboo flowsheet Alley Cruz DIGITAL ASSET MANAGER Work Phone: [facility] Start: 08-29-2024 End: 08-29-2024 Bamboo flowsheet Alley Cruz DIGITAL ASSET MANAGER Work Phone: [facility] Start: 08-29-2024 End: 08-29-2024 ambulatory ALLEY CRUZ Not Available Start: 08-29-2024 End: 08-29-2024 Office outpatient visit 25 minutes Alley Cruz DIGITAL ASSET MANAGER Work Phone: [facility] Comment on above: Chronic diastolic (c ongestive) heart failure (CMS/HCC) (Primary Dx); Morbid (severe) obesity due to excess calories (CMS/HCC); Body mass index (BMI) 50.0-59.9, adult (CMS/HCC); MI (obstructive sleep apnea); Primary hypertension (CMS/HCC); Bilateral lower extremity edema; Vitamin D deficiency; Hypercalcemia; Former smoker; Acute non-recurrent maxillary sinusitis; Chronic diastolic heart failure (CMS/HCC) Start: 08-06-2024 End: 08-06-2024 [employer] Fabricio Mederos MD Work Phone: [facility] Start: 08-06-2024 End: 08-06-2024 [employer] flow[employer] Fabricio Mederos MD Work Phone: [facility] Start: 08-06-2024 End: 08-06-2024 ambulatory FABRICIO MEDEROS Not Available Start: 08-06-2024 End: 08-06-2024 Office outpatient new 45 minutes Fabricio Mederos MD Work Phone: [facility] Comment on above: Hypercalcemia (Prima ry Dx); Vitamin D deficiency; Encounter for dietary consultation; Class 3 severe obesity due to excess calories without serious comorbidity with body mass index (BMI) of 50.0 to 59.9 in adult (CMS/HCC) Start: 07-10-2024 End: 07-10-2024 Bamboo flowsheet Alley Cruz DIGITAL ASSET MANAGER Work Phone: [facility] Start: 07-10-2024 End: 07-10-2024 Bamboo flowsheet Alley Cruz DIGITAL ASSET MANAGER Work Phone: [facility] Start: 07-10-2024 End: 07-10-2024 Office outpatient visit 25 minutes Alley Cruz DIGITAL ASSET MANAGER Work Phone: [facility] Comment on above: Chronic diastolic (c ongestive) heart failure (CMS/HCC) (Primary Dx); Chronic obstructive pulmonary disease, unspecified (CMS/[facility]); MI (obstructive sleep apnea); Primary hypertension ([facility]); Bilateral lower extremity edema; Body mass index (BMI) 50.0-59.9, adult (CMS/[facility]); Morbid (severe) obesity due to excess calories ([facility]); Tobacco user; Vitamin D deficiency; Chronic diastolic heart failure (CMS/HCC); Former smoker; Chronic gout of multiple sites, unspecified cause; Muscle cramps; Hypercalcemia Start: 07-10-2024 End: 07-10-2024 ambulatory ALLEY CRUZ Not Available Start: 05-17-2024 End: 05-24-2024 Evaluation and management of inpatient Alley Cruz Facility:[facility] Start: 05-14-2024 End: 05-17-2024 Clinisync Result Encounter Generic External Data Provider [facility] Unsolicited Start: 05-14-2024 End: 05-17-2024 Clinisync Result Encounter Generic External Data Provider [facility] External Department Unsolicited Start: 03-20-2024 End: 03-20-2024 ambulatory ALLEY CRUZ Not Available Start: 09-24-2022 End: 09-24-[address] RADHA LANDEROS Facility:[facility] Start: 07-19-2022 End: 07-20-2022 ambulatory LUMA CRUZ Facility:[facility] Start: 07-12-2022 End: 07-15-2022 Evaluation and management of inpatient DR RACQUEL BANGURA Facility:[facility] Procedures Date Procedure Procedure Detail Performing Clinician Start: 12-25-2024 ALL CBC WITH AUTO DIFF Alley Cruz DIGITAL ASSET MANAGER Work Phone: Start: 05-14-2024 BLOOD CULTURE 1 Generic External Data Provider Start: 07-13-2022 Insertion of Infusio n Device into Right Basilic Vein, Percutaneous Approach DR RADHA LANDEROS Plan of Treatment Date Care Activity Detail Author Start: 03-28-2025 End: 12-26-2025 25-hydroxyvitamin D3 [Mass/volume] in Serum or Plasma Vitamin D 25 hydroxy Lab Routine Vitamin D deficiency Expected: 03/28/2025 (Approximate), Expires: 12/26/2025 [facility] Work Phone: Comment on above: Expected: 03/28/2025 (Approximate), Expires: 12/26/2025 Start: 03-28-2025 End: 12-26-2025 Basic metabolic 1998 panel - Serum or Plasma Basic metabolic panel Lab Routine Idiopathic chronic gout, multiple sites, without tophus (tophi) Expected: 03/28/2025 (Approximate), Expires: 12/26/2025 [facility] Comment on above: Expected: 03/28/2025 (Approximate), Expires: 12/26/2025 Start: 03-28-2025 End: 12-26-2025 Urate [Mass/volume] in Serum or Plasma Uric acid Lab Routine Idiopathic chronic gout, multiple sites, without tophus (tophi) Expected: 03/28/2025 (Approximate), Expires: 12/26/2025 [facility] Comment on above: Expected: 03/28/2025 (Approximate), Expires: 12/26/2025 Start: 12-26-2024 End: 12-26-2024 Patient encounter procedure 12/26/2024 9:00 AM EDT Office Visit [facility] [address] [place] [id number] Alley Cruz NP [address] [place] [id number] [facility] Start: 11-26-2024 End: 11-26-2025 25-hydroxyvitamin D3 [Mass/volume] in Serum or Plasma Vitamin D 25 hydroxy Lab Routine Chronic diastolic (congestive) heart failure (CMS/HCC) Chronic gout of multiple sites, unspecified cause Muscle cramps Expected: 11/26/2024 (Approximate), Expires: 11/26/2025 [facility] Comment on above: Expected: 11/26/2024 (Approximate), Expires: 11/26/2025 Start: 11-26-2024 End: 11-26-2025 CBC W Auto Differential panel - Blood CBC and differential Lab Routine Chronic diastolic (congestive) heart failure (CMS/HCC) Chronic gout of multiple sites, unspecified cause Expected: 11/26/2024 (Approximate), Expires: 11/26/2025 [facility] Work Phone: Comment on above: Expected: 11/26/2024 (Approximate), Expires: 11/26/2025 Start: 11-26-2024 End: 11-26-2025 Comprehensive metabolic 2000 panel - Serum or Plasma Comprehensive metabolic panel Lab Routine Primary hypertension (CMS/HCC) Chronic diastolic (congestive) heart failure (CMS/HCC) Bilateral lower extremity edema Chronic gout of multiple sites, unspecified cause Expected: 11/26/2024 (Approximate), Expires: 11/26/2025 [facility] Comment on above: Expected: 11/26/2024 (Approximate), Expires: 11/26/2025 Start: 11-26-2024 End: 11-26-2025 Lipid 1996 panel - Serum or Plasma Lipid panel Lab Routine Morbid (severe) obesity due to excess calories (CMS/HCC) Expected: 11/26/2024 (Approximate), Expires: 11/26/2025 [facility] Comment on above: Expected: 11/26/2024 (Approximate), Expires: 11/26/2025 Start: 11-26-2024 End: 11-26-2025 Magnesium [Mass/volume] in Serum or Plasma Magnesium Lab Routine Muscle cramps Expected: 11/26/2024 (Approximate), Expires: 11/26/2025 [facility] Comment on above: Expected: 11/26/2024 (Approximate), Expires: 11/26/2025 Start: 11-26-2024 End: 11-26-2025 Microalbumin/Creatinine panel in random Urine Microalbumin / creatinine, urine ratio Lab Routine Primary hypertension (CMS/HCC) Expected: 11/26/2024 (Approximate), Expires: 11/26/2025 [facility] Comment on above: Expected: 11/26/2024 (Approximate), Expires: 11/26/2025 Start: 11-26-2024 End: 11-26-2025 Urate [Mass/volume] in Serum or Plasma Uric acid Lab Routine Chronic gout of multiple sites, unspecified cause Expected: 11/26/2024 (Approximate), Expires: 11/26/2025 [facility] Comment on above: Expected: 11/26/2024 (Approximate), Expires: 11/26/2025 Start: 11-26-2024 End: 11-26-2025 Urinalysis complete panel - Urine Urinalysis with reflex microscopic (clean catch) Lab Routine Primary hypertension (CMS/HCC) Chronic gout of multiple sites, unspecified cause Expected: 11/26/2024 (Approximate), Expires: 11/26/2025 [facility] Comment on above: Expected: 11/26/2024 (Approximate), Expires: 11/26/2025 Start: 11-26-2024 End: 11-26-2024 Patient encounter procedure 11/26/2024 8:40 AM EDT Office Visit [facility] [address] [address] Alley Cruz NP [address] [place] [address] [facility] Start: 09-17-2024 End: 09-17-2024 Patient encounter procedure 09/17/2024 10:40 AM EST Office Visit [facility] [address] [place] [address] Fabricio Mederos MD [address] [place] [address] [facility] Start: 08-29-2024 End: 08-29-2024 Patient encounter procedure 08/29/2024 8:40 AM EST Office Visit [facility] [address] [place] [address] Alley Cruz NP [address] [place] [address] [facility] Start: 08-06-2024 End: 08-06-2025 25-hydroxyvitamin D3 [Mass/volume] in Serum or Plasma Vitamin D 25 hydroxy Total Lab Routine Hypercalcemia Expected: 08/06/2024 (Approximate), Expires: 08/06/2025 [facility] Comment on above: Expected: 08/06/2024 (Approximate), Expires: 08/06/2025 Start: 08-06-2024 End: 08-06-2025 Magnesium [Mass/volume] in Serum or Plasma Magnesium Lab Routine Hypercalcemia Expected: 08/06/2024 (Approximate), Expires: 08/06/2025 [facility] Work Phone: Comment on above: Expected: 08/06/2024 (Approximate), Expires: 08/06/2025 Start: 08-06-2024 End: 08-06-2025 Parathyrin.intact and Calcium panel - Serum or Plasma PTH, intact and calcium Lab Routine Hypercalcemia Expected: 08/06/2024 (Approximate), Expires: 08/06/2025 [facility] Comment on above: Expected: 08/06/2024 (Approximate), Expires: 08/06/2025 Start: 08-06-2024 End: 08-06-2025 Protein electrophoresis, serum (SPEP) Protein electrophoresis, serum (SPEP) Lab Routine Hypercalcemia Expected: 08/06/2024 (Approximate), Expires: 08/06/2025 [facility] Comment on above: Expected: 08/06/2024 (Approximate), Expires: 08/06/2025 Start: 08-06-2024 End: 08-06-2025 Protein electrophoresis, urine (UPEP) Protein electrophoresis, urine (UPEP) Lab Routine Hypercalcemia Expected: 08/06/2024 (Approximate), Expires: 08/06/2025 [facility] Comment on above: Expected: 08/06/2024 (Approximate), Expires: 08/06/2025 Start: 08-06-2024 End: 08-06-2025 PTH-related peptide PTH-related peptide Lab Routine Hypercalcemia Expected: 08/06/2024 (Approximate), Expires: 08/06/2025 [facility] Comment on above: Expected: 08/06/2024 (Approximate), Expires: 08/06/2025 Start: 08-06-2024 End: 08-06-2025 Renal function panel Renal function panel Lab Routine Hypercalcemia Expected: 08/06/2024 (Approximate), Expires: 08/06/2025 [facility] Comment on above: Expected: 08/06/2024 (Approximate), Expires: 08/06/2025 Start: 07-10-2024 End: 07-10-2025 25-hydroxyvitamin D3 [Mass/volume] in Serum or Plasma Vitamin D 25 hydroxy Lab Routine Vitamin D deficiency Expected: 07/10/2024 (Approximate), Expires: 07/10/2025 [facility] Comment on above: Expected: 07/10/2024 (Approximate), Expires: 07/10/2025 Start: 07-10-2024 End: 07-10-2025 Comprehensive metabolic 2000 panel - Serum or Plasma Comprehensive metabolic panel Lab Routine Primary hypertension (CMS/HCC) Bilateral lower extremity edema Expected: 07/10/2024 (Approximate), Expires: 07/10/2025 [facility] Work Phone: Comment on above: Expected: 07/10/2024 (Approximate), Expires: 07/10/2025 Start: 07-10-2024 End: 07-10-2025 Magnesium [Mass/volume] in Serum or Plasma Magnesium Lab Routine Muscle cramps Expected: 07/10/2024 (Approximate), Expires: 07/10/2025 [facility] Comment on above: Expected: 07/10/2024 (Approximate), Expires: 07/10/2025 Start: 07-10-2024 End: 07-10-2025 Urate [Mass/volume] in Serum or Plasma Uric acid Lab Routine Chronic gout of multiple sites, unspecified cause Expected: 07/10/2024 (Approximate), Expires: 07/10/2025 [facility] Comment on above: Expected: 07/10/2024 (Approximate), Expires: 07/10/2025 BLOOD CULTURE 1 BLOOD CULTURE 1 Lab Routine 05/14/2024 8:43 PM EDT [facility] Payers Date Payer Category Payer Self-pay 2023 Private Health Insurance [facility] [id number] 2023 Private Health Insurance [id number] 1981 Unknown [id number] 1981 Unknown [id number] 1981 Unknown [id number] 1981 Unknown [id number] 1981 Unknown [id number] 1981 Unknown [id number] 1981 Unknown [id number] 1981 Unknown [id number] 1959 Unknown [id number] Unknown [id number] Social History Date Type Detail Facility Start: [facility]20-[facility]24 [facility] History of tobacco use Cigarette Smoker N [facility] Start: 03-20-2024 Tobacco use and exposure Smoke less tobacco non-user [facility] Start: 07-10-2024 End: 12-26-2024 Alcoholic beverage intake Ex-drinker (finding) [facility] Start: 07-10-2024 End: 11-26-2024 History of Social function [facility] Start: 07-10-2024 End: 11-26-2024 Tobacco use panel [facility] Start: 03-20-2024 Alcohol Comment caffine: 12 pa ck of pop daily, 1 cup of coffee daily [facility] Start: 1980 Sex assigned at Not on file N [facility] Clinical Notes 07-12-2022 to 12-26-2024 Alley Cruz NP - 12/26/2024 9:16 AM Annie Cruz NP - 12/26/2024 9:00 AM Annie Curz NP - 12/26/2024 6:17 AM Annie Cruz NP - 12/26/2024 6:17 AM EDTPatient Instructions Note Date & Type Note Facility 12-26-2024 History of Presen t illness Narrative Associated Problem(s): Vitamin D deficiency Start vit d3 5,000 Recheck in 3 months Images from the original note were not included. Rafael Winkler is a 44 y.o. male presents with chief complaint of Hypertension HPI: Gout: has had recent labs, elevated Uric acid, does take colchicine l Hypertension This is a chronic problem. The current episode started more than 1 year ago. The problem has been gradually improving since onset. The problem is controlled. Associated symptoms include orthopnea and peripheral edema. Pertinent negatives include no chest pain. There are no associated agents to hypertension. Risk factors for coronary artery disease include dyslipidemia, obesity and male gender. Past treatments include beta blockers and diuretics. The current treatment provides significant improvement. There are no compliance problems. Hypertensive end-organ damage includes heart failure. SUBJECTIVE: MEDICATIONS: Current Outpatient Medications Medication Instructions albuterol HFA 90 mcg/act inhaler INHALE 2 PUFFS BY MOUTH EVERY 6 HOURS NEEDED for SHORTNESS OF BREATH or FOR WHEEZING aspirin 81 mg, Daily bumetanide (BUMEX) 2 mg, Oral, 2 times daily carvedilol (COREG) 12.5 mg, Oral, 2 times daily with meals colchicine 0.6 mg, Oral, Every 12 hours PRN ibuprofen 200 mg, Every 6 hours spironolactone (ALDACTONE) 50 mg, Oral, Daily ALLERGIES: No Known Allergies REVIEW OF SYMPTOMS: Review of Systems Constitutional: Negative for activity change, appetite change and unexpected weight change. HENT: Negative for ear pain, nosebleeds, sneezing, trouble swallowing and voice change. Eyes: Negative for pain, discharge and visual disturbance. Respiratory: Negative for apnea, chest tightness and wheezing. Cardiovascular: Positive for orthopnea and leg swelling. Negative for chest pain. Gastrointestinal: Negative for abdominal distention, blood in stool, constipation and diarrhea. Genitourinary: Negative for decreased urine volume, difficulty urinating, dysuria and hematuria. Musculoskeletal: Positive for arthralgias. Skin: Negative for color change. Neurological: Negative [...] Medical History: Diagnosis Date Acanthosis nigricans Asthma At low risk for fall Diastolic heart failure (CMS/HCC) Elevated WBC count Gallbladder disease Gout HTN (hypertension) (CMS/[facility]) Hypoxia Morbid obesity with BMI of 50.0-59.9, adult (CMS/[facility]) Obstructive sleep apnea, adult Primary hypertension ([facility]/HCC) 08/02/2023 Tobacco user No past surgical history on file. family history includes Heart disease (age of onset: 35) in his mother; Heart disease (age of onset: 47) in his paternal grandfather; Thyroid disease in his sister. OBJECTIVE: Visit Vitals BP 130/90 (BP Location: Left arm, Patient Position: Sitting, BP Cuff Size: Large adult) Pulse 74 Temp 96.6 F (Temporal) Resp 20 Wt 382 lb 6.4 oz SpO2 96% BMI 49.10 kg/m Smoking Status Every Day BSA 3.01 m Physical Exam Vitals and nursing note reviewed. Constitutional: Appearance: Normal appearance. HENT: Head: Normocephalic. Right Ear: External ear normal. Left Ear: External ear normal. Nose: Nose normal. Mouth/Throat: Mouth: Mucous membranes are moist. Pharynx: Oropharynx is clear. Eyes: Extraocular Movements: Extraocular movements intact. Conjunctiva/sclera: Conjunctivae normal. Cardiovascular: Rate and Rhythm: Normal rate and regular rhythm. Pulses: Normal pulses. Heart sounds: Normal heart sounds. Pulmonary: Effort: Pulmonary effort is normal. Breath sounds: Normal breath sounds. Musculoskeletal: Cervical back: Neck supple. Right lower leg: No edema. Left lower leg: No edema. Skin: General: Skin is warm and dry. Capillary Refill: Capillary refill takes 2 to 3 seconds. Neurological: General: No focal deficit present. Mental Status: He is alert. Psychiatric: Mood and Affect: Mood normal. Behavior: Behavior normal. Thought Content: Thought content normal. Judgment: Judgment normal. ASSESSMENT AND PLAN: No follow-ups on file. Problem List Items Addressed This Visit Primary hypertension (CMS/[facility]) Please check blood pressure daily and record DASH diet Limit caffeine Take medication as directed Contact office if chest pain, pressure, dizziness, shortness of breath, swelling legs Recommend slow position changes Current meds: Carvedilol, spironolactone MI (obstructive sleep apnea) - Primary You have a diagnosis of obstructive sleep [...] equipment Doctor that manages your MI: PCP Morbid (severe) obesity due to excess calories [...] loss. Is working with weight management at [facility] Chronic gout of multiple sites Elevation if uric acid levels Will start allopurinol Chronic obstructive pulmonary disease, unspecified No inhaler use outside of prn albuterol Vitamin D deficiency Start vit d3 5,000 Recheck in 3 months Relevant Medications cholecalciferol (Vitamin D-3) 125 MCG (5000 UT) capsule Other Relevant Orders Vitamin D 25 hydroxy Former smoker Other Visit Diagnoses Idiopathic chronic gout, multiple sites, without tophus (tophi) Relevant Medications allopurinol (Zyloprim) 100 MG tablet Other Relevant Orders Basic metabolic panel Uric acid Associated Problem(s): Morbid (severe) obesity due to [...] loss. Is working with weight management at [facility] Associated Problem(s): Chronic gout of multiple sites Elevation if uric acid levels Will start allopurinol Associated Problem(s): Primary hypertension (CMS/HCC) Please check blood pressure daily and record DASH diet Limit caffeine Take medication as directed Contact office if chest pain, pressure, dizziness, shortness of breath, swelling legs Recommend slow position changes Current meds: Carvedilol, spironolactone Associated Problem(s): MI (obstructive sleep apnea) You [...] equipment Doctor that manages your MI: PCP Associated Problem(s): Chronic obstructive pulmonary disease, unspecified No inhaler use outside of prn albuterol documented in this encounter [facility] 12-26-2024 Instructions Alley Cruz NP - 12/26/2024 9:00 AM EDT Allopurinol: 100mg pill daily for about 2 weeks then increase 2 pills daily Adding vit d supplement 5,000 international units daily Recheck those labs 3 months for this documented in this encounter [facility] 11-26-2024 History of Presen t illness Narrative Rafael Winkler is a 44 y.o. male presents with chief complaint of No chief complaint on file. HPI: Gout: various joints, sometimes great toe, ankle, and hands at times. Takes colchicine, and steroids. Ususally flares more with weather changes? Hypertension This is a chronic problem. The current episode started more than 1 year ago. The problem is unchanged. The problem is controlled. Associated symptoms include peripheral edema. Pertinent negatives include no blurred vision, headaches or shortness of breath. There are no associated agents to hypertension. Risk factors for coronary artery disease include male gender and obesity. Past treatments include beta blockers and diuretics. The current treatment provides significant improvement. There are no compliance problems. Hypertensive end-organ damage includes heart failure. There is no history of CAD/OK. SUBJECTIVE: MEDICATIONS: Current Outpatient Medications Medication Instructions [...] swallowing and voice change. Eyes: Negative for blurred vision, pain, discharge and visual disturbance. Respiratory: Negative for apnea, chest tightness, shortness of breath and wheezing. Cardiovascular: Positive for leg swelling. Gastrointestinal: Negative for abdominal distention, blood in stool, constipation and diarrhea. Genitourinary: Negative for decreased urine volume, difficulty urinating, dysuria and hematuria. Musculoskeletal: Positive for arthralgias and joint swelling. Skin: Negative for color change. Neurological: Negative for dizziness, tremors, seizures and headaches. Psychiatric/Behavioral: Negative for agitation, decreased concentration, hallucinations, self-injury and suicidal ideas. The patient is not nervous/anxious. Hematological: Negative for adenopathy. Does not bruise/bleed easily. Endocrine: Negative for cold intolerance, heat intolerance, polydipsia and polyuria. Allergic/Immunologic: Negative for environmental allergies and food allergies. PAST MEDICAL HISTORY Past Medical History: Diagnosis Date Acanthosis nigricans Asthma ([facility]) At low risk for fall Diastolic heart failure ([facility]) Elevated WBC count Gallbladder disease Gout HTN (hypertension) ([facility]) Hypoxia Morbid obesity with BMI of 50.0-59.9, adult ([facility]) Obstructive sleep apnea, adult Primary hypertension (CMS/HCC) 08/02/2023 Tobacco user No past surgical history on file. family history includes Heart disease (age of onset: 35) in his mother; Heart disease (age of onset: 47) in his paternal grandfather; Thyroid disease in his sister. OBJECTIVE: Visit Vitals BP (!) 150/104 (BP Location: Left arm, Patient Position: Sitting, BP Cuff Size: Large adult) Pulse 76 Temp 97.8 F (Temporal) Resp 24 Ht 6' 2 Wt 384 lb SpO2 96% BMI 49.30 kg/m Smoking Status Every Day BSA 3.01 m Physical Exam Vitals and nursing note [...] soft. Tenderness: There is no abdominal tenderness. Musculoskeletal: Cervical back: Neck supple. Right lower leg: No edema. Left lower leg: No edema. Lymphadenopathy: Cervical: No cervical adenopathy. Skin: General: Skin is warm and dry. Capillary Refill: Capillary refill takes 2 to 3 seconds. Neurological: General: No focal deficit present. Mental Status: He is alert. Psychiatric: Mood and Affect: Mood normal. Behavior: Behavior normal. Thought Content: Thought content normal. Judgment: Judgment normal. ASSESSMENT AND PLAN: No follow-ups on file. Problem List Items Addressed This Visit Primary hypertension (CMS/HCC) Please check blood pressure daily and record DASH diet Limit caffeine Take medication as directed Contact office if chest pain, pressure, dizziness, shortness of breath, swelling legs Recommend slow position changes Current meds: Carvedilol, spironolactone Relevant Orders Comprehensive metabolic panel Urinalysis with reflex microscopic (clean catch) Microalbumin / creatinine, urine ratio Chronic diastolic (congestive) heart failure Is not following with cardiology anymore Current meds: Bumetandie, carvedilol, sprinoloactone, and asa Relevant Orders CBC and differential Comprehensive metabolic panel Vitamin D 25 hydroxy MI (obstructive sleep apnea) - Primary You have a diagnosis of obstructive sleep [...] equipment Doctor that manages your MI: PCP Morbid (severe) obesity due to excess calories [...] loss. Is working with weight management at [facility] Weight loss: approx 40 since last visit Relevant Orders Lipid panel Chronic gout of multiple sites Takes colchicine prn flares Relevant Orders CBC and differential Comprehensive metabolic panel Uric acid Vitamin D 25 hydroxy Urinalysis with reflex microscopic (clean catch) Bilateral lower extremity edema Continue diuretics Recommend compression stockings, continue with diuretics Elevated legs above level of the heart a few times daily Current meds: bumetanide, and spironolactone Check labs at minimum yearly and prn Relevant Orders Comprehensive metabolic panel Vitamin D deficiency Muscle cramps Relevant Orders Vitamin D 25 hydroxy Magnesium Associated Problem(s): Morbid (severe) obesity due to [...] loss. Is working with weight management at [facility] Weight loss: approx 40 since last visit Associated Problem(s): Chronic gout of multiple sites Takes colchicine prn flares Associated Problem(s): Bilateral lower extremity edema Continue [...] in 4 weeks Check blood pressure daily Associated Problem(s): Chronic diastolic (congestive) heart failure Is not following with cardiology anymore Current [...] equipment Doctor that manages your MI: PCP documented in this encounter [facility] 11-26-2024 Instructions Alley Cruz NP - 11/26/2024 8:40 AM EDT Please get labs completed!!!! Doing great on weight loss documented in this encounter [facility] 08-29-2024 History of Presen t illness Narrative [...] heart failure. There is no history of CAD/OK. SUBJECTIVE: MEDICATIONS: Current Outpatient Medications Medication Instructions [...] Medical History: Diagnosis Date Acanthosis nigricans Asthma ([facility]) At low risk for fall Diastolic heart failure ([facility]) Elevated WBC count Gallbladder disease Gout HTN (hypertension) ([facility]) Hypoxia Morbid obesity with BMI of 50.0-59.9, adult ([facility]) Obstructive sleep apnea, adult Primary hypertension ([facility]) 08/02/2023 Tobacco user History reviewed. No pertinent [...] loss. Is working with weight management at [facility] Weight loss: approx 40 since last visit [...] of stay quit Hypercalcemia Was referred to Heide Mederos Acute non-recurrent maxillary sinusitis Sxs ongoing over a week, green nasal secretions Possible COVID last week? No taste or smell, he is out side parameter to treat if + Fluids, rest, fu if not bettter Relevant Medications amoxicillin-clavulanate (Augmentin) 875-125 MG tablet Other Visit Diagnoses Chronic diastolic heart failure ([facility]) Relevant Medications bumetanide (Bumex) 2 MG tablet spironolactone (Aldactone) 50 MG tablet Associated Problem(s): Former smoker Quit smoking since hospitalization Hx of tobacco: 30 years, 1ppd= 30 pack year Congratulations on quitting Stressed importance of stay quit Associated Problem(s): Hypercalcemia Was referred to Heide Mederos Associated Problem(s): Vitamin D deficiency Check labs Associated Problem(s): Morbid (severe) obesity due to excess calories ([facility]) Discussed with patient their BMI (actual, verses [...] loss. Is working with weight management at [facility] Weight loss: approx 40 since last visit [...] use: feels great documented in this encounter [facility] 08-29-2024 Instructions Allye Cruz NP - 08/29/2024 8:40 AM EST Check labs, you can do them when get others done in 2 weeks Continue meds Sinus: atb, fluids, rest, follow up if not better documented in this encounter [facility] 08-06-2024 History of Presen t illness Narrative [...] Medical History: Diagnosis Date Acanthosis nigricans Asthma ([facility]) At low risk for fall Diastolic heart failure ([facility]) Elevated WBC count Gallbladder disease Gout HTN (hypertension) ([facility]) Hypoxia Morbid obesity with BMI of 50.0-59.9, adult ([facility]) Obstructive sleep apnea, adult Primary hypertension ([facility]) 08/02/2023 Tobacco user No past surgical history [...] (BMI) of 50.0 to 59.9 in adult ([facility]) Follow up in about 4 weeks (around 09/03/2024). documented in this encounter [facility] 07-10-2024 History of Presen t illness Narrative Associated Problem(s): Hypercalcemia Per discharge instructions from [facility], pt needed referral to Dr Mederos Will [...] WBC count Gallbladder disease Gout HTN (hypertension) (CMS/[facility]) Hypoxia Morbid obesity with BMI of 50.0-59.9, adult (CMS/[facility]) Obstructive sleep apnea, adult Primary hypertension ([facility]/HCC) 08/02/2023 Tobacco user History reviewed. No pertinent [...] Items Addressed This Visit Primary hypertension (CMS/HCC) Consider adding losartan back, [...] metabolic panel Chronic diastolic (congestive) heart failure (CMS/HCC) Hospitalization in the last few months, initially presented to [facility], there for a few days, then transferred to [facility] Continue with current meds, cardiology follow ups Low sodium diet, daily weights Relevant Medications spironolactone (Aldactone) 50 MG tablet bumetanide (Bumex) 2 MG tablet MI (obstructive sleep apnea) - Primary Wearing CPAP, is using it approximately 7 hours, feels more rested More energy RESOLVED: Tobacco user The patient has been advised of the risks of continued smoking: stroke, OK, all forms of cancer, lung disease, and . Options for quitting smoking include: cold turkey, hypnosis, acupuncture, nicotine replacement meds (gum, lozenges, and patches), Buproprion, and Varenicline. At this time pt is encouraged to evaluate their goals for wanting to quit smoking, and reach out to provider when ready to start this process Morbid (severe) obesity due to excess calories ([facility]) Body mass index (BMI) 50.0-59.9, adult ([facility]) Chronic gout of multiple sites Relevant Orders Uric acid Bilateral lower extremity edema Continue diuretics Recommend compression stockings, continue with diuretics Elevated legs above level of the heart a few times daily Relevant Orders Comprehensive metabolic panel Chronic obstructive pulmonary disease, unspecified ([facility]) No inhaler use outside of prn albuterol Vitamin D deficiency Relevant Orders Vitamin D 25 hydroxy Former smoker Quit smoking since hospitalization Hx of tobacco: 30 years, 1ppd= 30 pack year Congratulations on quitting Stressed importance of stay quit Muscle cramps Relevant Orders Magnesium Hypercalcemia Per discharge instructions from [facility], pt needed referral to Dr Mederos Will place referral Relevant Orders Ambulatory referral to Endocrinology Other Visit Diagnoses Chronic diastolic heart failure ([facility]) Relevant Medications spironolactone (Aldactone) 50 MG tablet bumetanide (Bumex) 2 MG tablet Associated Problem(s): Tobacco user (Resolved 07/10/2024) The patient has been advised of the risks of continued smoking: stroke, OK, all forms of cancer, lung disease, and [...] the last few months, initially presented to [facility], there for a few days, then transferred to [facility] Continue with current meds, cardiology follow ups Low sodium diet, daily weights Associated Problem(s): Chronic obstructive pulmonary disease, unspecified (CMS/HCC) No inhaler use outside of prn albuterol documented in this encounter [facility] 07-10-2024 Instructions Alley Cruz NP - 07/10/2024 10:00 AM EST Keep lung doctor appt Endocrinology: Dr Mederos in [place], I will send this referral elevated calcium in urine Weight loss clinic: [facility] Get labs checked. documented in this encounter [facility] 07-12-2022 Note CARDIOLOGY CONSULTAT ION CONSULTATION DATE: [...] He has previously not been evaluated by optoelectronics engineer and has no diagnosis of heart failure [...] continue to focus on weight loss for jail avoidance of cardiac issues. [facility] Evaluation note Diagnosis Primary hypertension (CMS/HCC)- Primary [...] Obstructive sleep apnea (adult) (pediatric) Primary hypertension (CMS/HCC) Unspecified essential hypertension Bilateral lower extremity edema Body mass index (BMI) 50.0-59.9, adult (CMS/HCC) Morbid (severe) obesity due to excess calories (CMS/HCC) Tobacco user Tobacco use disorder Vitamin D deficiency Chronic diastolic heart failure (CMS/HCC) Chronic diastolic heart failure Former smoker Personal history of tobacco use, presenting hazards to health Chronic gout of multiple sites, unspecified cause Muscle cramps Hypercalcemia [facility] Diagnosis Primary hypertension (CMS/HCC)- Primary Unspecified essential hypertension Morbid (severe) obesity due to excess calories (CMS/HCC) Body mass index (BMI) 50.0-59.9, adult (CMS/HCC) Chronic diastolic (congestive) heart failure (CMS/HCC) MI (obstructive sleep apnea) Obstructive sleep apnea (adult) (pediatric) Leukocytosis, unspecified type Tobacco user Tobacco use disorder Chronic gout of multiple sites, unspecified cause Chronic diastolic heart failure ([facility]/HCC) Chronic diastolic heart failure Mild intermittent asthma without complication (CMS/[facility]) Bilateral lower extremity edema Chronic diastolic (congestive) heart failure (CMS/HCC)- Primary Chronic obstructive pulmonary disease, unspecified (CMS/[facility]) MI (obstructive sleep apnea) Obstructive sleep apnea (adult) (pediatric) Primary hypertension ([facility]) Unspecified essential hypertension Bilateral lower extremity edema Body mass index (BMI) 50.0-59.9, adult ([facility]) Morbid (severe) obesity due to excess calories ([facility]) Tobacco user Tobacco use disorder Vitamin D deficiency Chronic diastolic heart failure ([facility]/HCC) Chronic diastolic heart failure Former smoker Personal history of tobacco use, presenting hazards to health Chronic gout of multiple sites, unspecified cause Muscle cramps Hypercalcemia Hypercalcemia- Primary Vitamin D deficiency Encounter for dietary consultation Class 3 severe obesity due to excess calories without serious comorbidity with body mass index (BMI) of 50.0 to 59.9 in adult ([facility]) [facility] Diagnosis Primary hypertension ([facility])- Primary Unspecified essential hypertension Morbid (severe) obesity due to excess calories ([facility]) Body mass index (BMI) 50.0-59.9, adult ([facility]) Chronic diastolic (congestive) heart failure ([facility]) MI (obstructive sleep apnea) Obstructive sleep apnea (adult) (pediatric) Leukocytosis, unspecified type Tobacco user Tobacco use disorder Chronic gout of multiple sites, unspecified cause Chronic diastolic heart failure ([facility]/HCC) Chronic diastolic heart failure Mild intermittent asthma without complication ([facility]) Bilateral lower extremity edema Chronic diastolic (congestive) heart failure ([facility])- Primary Chronic obstructive pulmonary disease, unspecified ([facility]) MI (obstructive sleep apnea) Obstructive sleep apnea (adult) (pediatric) Primary hypertension ([facility]) Unspecified essential hypertension Bilateral lower extremity edema Body mass index (BMI) 50.0-59.9, adult ([facility]) Morbid (severe) obesity due to excess calories ([facility]) Tobacco user Tobacco use disorder Vitamin D deficiency Chronic diastolic heart failure ([facility]/HCC) Chronic diastolic heart failure Former smoker Personal history of tobacco use, presenting hazards to health Chronic gout of multiple sites, unspecified cause Muscle cramps Hypercalcemia Chronic diastolic (congestive) heart failure (CMS/HCC)- Primary Morbid (severe) obesity due to excess calories (CMS/HCC) Body mass index (BMI) 50.0-59.9, adult (CMS/HCC) MI (obstructive sleep apnea) Obstructive sleep apnea (adult) (pediatric) Primary hypertension (CMS/HCC) Unspecified essential hypertension Bilateral lower extremity edema Vitamin D deficiency Hypercalcemia Former smoker Personal history of tobacco use, presenting hazards to health Acute non-recurrent maxillary sinusitis Chronic diastolic heart failure (CMS/HCC) Chronic diastolic heart failure documented in this encounter [facility]* Diagnosis Primary hypertension ([facility]/HCC)- Primary Unspecified essential hypertension Morbid (severe) obesity due to excess calories (CMS/[facility]) Body mass index (BMI) 50.0-59.9, adult (CMS/[facility]) Chronic diastolic (congestive) heart failure (CMS/HCC) MI (obstructive sleep apnea) Obstructive sleep apnea (adult) (pediatric) Leukocytosis, unspecified type Tobacco user Tobacco use disorder Chronic gout of multiple sites, unspecified cause Chronic diastolic heart failure (CMS/HCC) Chronic diastolic heart failure Mild intermittent asthma without complication (CMS/[facility]) Bilateral lower extremity edema Chronic diastolic (congestive) heart failure (CMS/HCC)- Primary Chronic obstructive pulmonary disease, unspecified (CMS/[facility]) MI (obstructive sleep apnea) Obstructive sleep apnea (adult) (pediatric) Primary hypertension (CMS/HCC) Unspecified essential hypertension Bilateral lower extremity edema Body mass index (BMI) 50.0-59.9, adult (CMS/[facility]) Morbid (severe) obesity due to excess calories (CMS/[facility]) Tobacco user Tobacco use disorder Vitamin D deficiency Chronic diastolic heart failure (CMS/HCC) Chronic diastolic heart failure Former smoker Personal history of tobacco use, presenting hazards to health Chronic gout of multiple sites, unspecified cause Muscle cramps Hypercalcemia Chronic diastolic (congestive) heart failure (CMS/HCC)- Primary Morbid (severe) obesity due to excess calories (CMS/[facility]) Body mass index (BMI) 50.0-59.9, adult (CMS/HCC) MI (obstructive sleep apnea) Obstructive sleep apnea (adult) (pediatric) Primary hypertension (CMS/HCC) Unspecified essential hypertension Bilateral lower extremity edema Vitamin D deficiency Hypercalcemia Former smoker Personal history of tobacco use, presenting hazards to health Acute non-recurrent maxillary sinusitis Chronic diastolic heart failure (CMS/HCC) Chronic diastolic heart failure Acute idiopathic gout of ankle, unspecified laterality- Primary [facility]* Diagnosis Primary hypertension ([facility]/HCC)- Primary Unspecified essential hypertension Morbid (severe) obesity due to excess calories ([facility]) Body mass index (BMI) 50.0-59.9, adult ([facility]) Chronic diastolic (congestive) heart failure ([facility]) MI (obstructive sleep apnea) Obstructive sleep apnea (adult) (pediatric) Leukocytosis, unspecified type Tobacco user Tobacco use disorder Chronic gout of multiple sites, unspecified cause Chronic diastolic heart failure (CMS/[facility]) Chronic diastolic heart failure Mild intermittent asthma without complication ([facility]) Bilateral lower extremity edema Chronic diastolic (congestive) heart failure ([facility])- Primary Chronic obstructive pulmonary disease, unspecified ([facility]) MI (obstructive sleep apnea) Obstructive sleep apnea (adult) (pediatric) Primary hypertension ([facility]) Unspecified essential hypertension Bilateral lower extremity edema Body mass index (BMI) 50.0-59.9, adult ([facility]) Morbid (severe) obesity due to excess calories ([facility]) Tobacco user Tobacco use disorder Vitamin D deficiency Chronic diastolic heart failure ([facility]) Chronic diastolic heart failure Former smoker Personal history of tobacco use, presenting hazards to health Chronic gout of multiple sites, unspecified cause Muscle cramps Hypercalcemia Chronic diastolic (congestive) heart failure ([facility])- Primary Morbid (severe) obesity due to excess calories ([facility]) Body mass index (BMI) 50.0-59.9, adult ([facility]) MI (obstructive sleep apnea) Obstructive sleep apnea (adult) (pediatric) Primary hypertension ([facility]) Unspecified essential hypertension Bilateral lower extremity edema Vitamin D deficiency Hypercalcemia Former smoker Personal history of tobacco use, presenting hazards to health Acute non-recurrent maxillary sinusitis Chronic diastolic heart failure ([facility]/HCC) Chronic diastolic heart failure Acute idiopathic gout of ankle, unspecified laterality- Primary [facility] Diagnosis Primary hypertension ([facility]/HCC)- Primary Unspecified essential hypertension Morbid (severe) obesity due to excess calories ([facility]) Body mass index (BMI) 50.0-59.9, adult ([facility]) Chronic diastolic (congestive) heart failure MI (obstructive sleep apnea) Obstructive sleep apnea (adult) (pediatric) Leukocytosis, unspecified type Tobacco user Tobacco use disorder Chronic gout of multiple sites, unspecified cause Chronic diastolic heart failure (CMS/HCC) Chronic diastolic heart failure Mild intermittent asthma without complication (CMS/HCC) Bilateral lower extremity edema Chronic diastolic (congestive) heart failure- Primary Chronic obstructive pulmonary disease, unspecified MI (obstructive sleep apnea) Obstructive sleep apnea (adult) (pediatric) Primary hypertension (CMS/HCC) Unspecified essential hypertension Bilateral lower extremity edema Body mass index (BMI) 50.0-59.9, adult (CMS/[facility]) Morbid (severe) obesity due to excess calories (CMS/HCC) Tobacco user Tobacco use disorder Vitamin D deficiency Chronic diastolic heart failure (CMS/HCC) Chronic diastolic heart failure Former smoker Personal history of tobacco use, presenting hazards to health Chronic gout of multiple sites, unspecified cause Muscle cramps Hypercalcemia Chronic diastolic (congestive) heart failure- Primary Morbid (severe) obesity due to excess calories ([facility]) Body mass index (BMI) 50.0-59.9, adult ([facility]) MI (obstructive sleep apnea) Obstructive sleep apnea (adult) (pediatric) Primary hypertension (CMS/HCC) Unspecified essential hypertension Bilateral lower extremity edema Vitamin D deficiency Hypercalcemia Former smoker Personal history of tobacco use, presenting hazards to health Acute non-recurrent maxillary sinusitis Chronic diastolic heart failure (CMS/[facility]) Chronic diastolic heart failure Primary hypertension ([facility]/HCC)- Primary Unspecified essential hypertension MI (obstructive sleep apnea) Obstructive sleep apnea (adult) (pediatric) Chronic diastolic (congestive) heart failure Bilateral lower extremity edema Chronic gout of multiple sites, unspecified cause Morbid (severe) obesity due to excess calories ([facility]) Muscle cramps Vitamin D deficiency Chronic diastolic heart failure ([facility]/HCC) Chronic diastolic heart failure documented in this encounter [facility]* Diagnosis Primary hypertension ([facility])- Primary Unspecified essential hypertension Morbid (severe) obesity due to excess calories ([facility]) Body mass index (BMI) 50.0-59.9, adult ([facility]) Chronic diastolic (congestive) heart failure MI (obstructive sleep apnea) Obstructive sleep apnea (adult) (pediatric) Leukocytosis, unspecified type Tobacco user Tobacco use disorder Chronic gout of multiple sites, unspecified cause Chronic diastolic heart failure (CMS/HCC) Chronic diastolic heart failure Mild intermittent asthma without complication (CMS/HCC) Bilateral lower extremity edema Chronic diastolic (congestive) heart failure- Primary Chronic obstructive pulmonary disease, unspecified MI (obstructive sleep apnea) Obstructive sleep apnea (adult) (pediatric) Primary hypertension ([facility]) Unspecified essential hypertension Bilateral lower extremity edema Body mass index (BMI) 50.0-59.9, adult ([facility]) Morbid (severe) obesity due to excess calories ([facility]) Tobacco user Tobacco use disorder Vitamin D deficiency Chronic diastolic heart failure ([facility]/HCC) Chronic diastolic heart failure Former smoker Personal history of tobacco use, presenting hazards to health Chronic gout of multiple sites, unspecified cause Muscle cramps Hypercalcemia Chronic diastolic (congestive) heart failure- Primary Morbid (severe) obesity due to excess calories ([facility]) Body mass index (BMI) 50.0-59.9, adult ([facility]) MI (obstructive sleep apnea) Obstructive sleep apnea (adult) (pediatric) Primary hypertension ([facility]) Unspecified essential hypertension Bilateral lower extremity edema Vitamin D deficiency Hypercalcemia Former smoker Personal history of tobacco use, presenting hazards to health Acute non-recurrent maxillary sinusitis Chronic diastolic heart failure ([facility]) Chronic diastolic heart failure Primary hypertension ([facility])- Primary Unspecified essential hypertension MI (obstructive sleep apnea) Obstructive sleep apnea (adult) (pediatric) Chronic diastolic (congestive) heart failure Bilateral lower extremity edema Chronic gout of multiple sites, unspecified cause Morbid (severe) obesity due to excess calories ([facility]) Muscle cramps Vitamin D deficiency Chronic diastolic heart failure ([facility]) Chronic diastolic heart failure Idiopathic chronic gout, multiple sites, without tophus (tophi) documented in this encounter [facility] HealthcareEvaluation note* Diagnosis Primary hypertension ([facility])- Primary Unspecified essential hypertension Morbid (severe) obesity due to excess calories ([facility]) Body mass index (BMI) 50.0-59.9, adult ([facility]) Chronic diastolic (congestive) heart failure MI (obstructive sleep apnea) Obstructive sleep apnea (adult) (pediatric) Leukocytosis, unspecified type Tobacco user Tobacco use disorder Chronic gout of multiple sites, unspecified cause Chronic diastolic heart failure ([facility]) Chronic diastolic heart failure Mild intermittent asthma without complication ([facility]) Bilateral lower extremity edema Chronic diastolic (congestive) heart failure- Primary Chronic obstructive pulmonary disease, unspecified MI (obstructive sleep apnea) Obstructive sleep apnea (adult) (pediatric) Primary hypertension ([facility]/HCC) Unspecified essential hypertension Bilateral lower extremity edema Body mass index (BMI) 50.0-59.9, adult (CMS/HCC) Morbid (severe) obesity due to excess calories (CMS/HCC) Tobacco user Tobacco use disorder Vitamin D deficiency Chronic diastolic heart failure (CMS/HCC) Chronic diastolic heart failure Former smoker Personal history of tobacco use, presenting hazards to health Chronic gout of multiple sites, unspecified cause Muscle cramps Hypercalcemia Chronic diastolic (congestive) heart failure- Primary Morbid (severe) obesity due to excess calories (CMS/HCC) Body mass index (BMI) 50.0-59.9, adult (CMS/HCC) MI (obstructive sleep apnea) Obstructive sleep apnea (adult) (pediatric) Primary hypertension (CMS/HCC) Unspecified essential hypertension Bilateral lower extremity edema Vitamin D deficiency Hypercalcemia Former smoker Personal history of tobacco use, presenting hazards to health Acute non-recurrent maxillary sinusitis Chronic diastolic heart failure (CMS/HCC) Chronic diastolic heart failure Primary hypertension (CMS/HCC)- Primary Unspecified essential hypertension MI (obstructive sleep apnea) Obstructive sleep apnea (adult) (pediatric) Chronic diastolic (congestive) heart failure Bilateral lower extremity edema Chronic gout of multiple sites, unspecified cause Morbid (severe) obesity due to excess calories (CMS/HCC) Muscle cramps Vitamin D deficiency Chronic diastolic heart failure (CMS/HCC) Chronic diastolic heart failure Primary hypertension ([facility])- Primary Unspecified essential hypertension Chronic obstructive pulmonary disease, unspecified MI (obstructive sleep apnea) Obstructive sleep apnea (adult) (pediatric) Chronic gout of multiple sites, unspecified cause Morbid (severe) obesity due to excess calories (CMS/HCC) Former smoker Personal history of tobacco use, presenting hazards to health Vitamin D deficiency Idiopathic chronic gout, multiple sites, without tophus (tophi) documented in this encounter [facility] Summary [...] and content) DATE CREATED AUTHOR 10/12/2022 [facility] DATE CREATED AUTHOR AUTHOR'S ORGANIZ ATION 08/22/2024 [facility] DATE CREATED AUTHOR AUTHOR'S ORGANIZ ATION 12/31/2024 [facility] Care Teams (unrecognized sec tion and content) Calf Skinner Relationship Specialty Start Date End Date Robert Doherty MD [address] [place] [address] PCP - General Family Medicine 03/20/24 Alley Cruz NP [address] [place] [address] Nurse Practitioner Family Medicine 03/20/24 Calf Skinner Relationship Specialty Start Date End Date Robert Doherty MD [address] [place] [address] PCP - General Family Medicine 03/20/24 Alley Cruz NP [address] [place] [address] Nurse Practitioner Family Medicine 03/20/24 Calf Skinner Relationship Specialty Start Date End Date Robert Doherty MD [address] [place] [address] PCP - General Family Medicine 03/20/24 Alley Cruz NP [address] [place] [address] Nurse Practitioner Family Medicine 03/20/24 Calf Skinner Relationship Specialty Start Date End Date Robert Doherty MD [address] [place] [address] PCP - General Family Medicine 03/20/24 Alley Cruz NP [address] [place] [address] Nurse Practitioner Family Medicine 03/20/24 Calf Skinner Relationship Specialty Start Date End Date Robert Doherty MD [address] [place] [address] PCP - General Family Medicine 03/20/24 Alley Cruz NP [address] [place] [address] Nurse Practitioner Family Medicine 03/20/24 Calf Skinner Relationship Specialty Start Date End Date Robert Doherty MD [address] [place] [address] PCP - General Family Medicine 03/20/24 Alley Cruz NP [address] [place] [address] Nurse Practitioner Family Medicine 03/20/24 Calf Skinner Relationship Specialty Start Date End Date Robert Doherty MD [address] [place] [address] PCP - General Family Medicine 03/20/24 Alley Cruz NP [address] [place] [address] Nurse Practitioner Family Medicine 03/20/24 Calf Skinner Relationship Specialty Start Date End Date Robert Doherty MD [address] [place] [address] PCP - General Family Medicine 03/20/24 Alley Cruz NP [address] [place] [address] Nurse Practitioner Family Medicine 03/20/24 Calf Skinner Relationship Specialty Start Date End Date Robert Doherty MD [address] [place] [address] PCP - General Family Medicine 03/20/24 Alley Cruz NP [address] [place] [address] Nurse Practitioner Family Medicine 03/20/24 Calf Skinner Relationship Specialty Start Date End Date Robert Doherty MD [address] [place] [address] PCP - General Family Medicine 03/20/24 Alley Cruz NP [address] [place] [address] Nurse Practitioner Family Medicine 03/20/24 Calf Skinner Relationship Specialty Start Date End Date Robert Doherty MD [address] [place] [address] PCP - General Family Medicine 03/20/24 Alley Cruz NP [address] [place] [address] Nurse Practitioner Family Medicine 03/20/24 Calf Skinner Relationship Specialty Start Date End Date Robert Doherty MD [address] [place] [address] PCP - General Family Medicine 03/20/24 Alley Cruz NP [address] [place] [address] Nurse Practitioner Family Medicine 03/20/24 Calf Skinner Relationship Specialty Start Date End Date Robert Doherty MD [address] [place] [address] PCP - General Family Medicine 03/20/24 Alley Cruz NP [address] [place] [address] Nurse Practitioner Family Medicine 03/20/24 Calf Skinner Relationship Specialty Start Date End Date Robert Doherty MD [address] [place] [address] PCP - General Family Medicine 03/20/24 Alley Cruz NP [address] [place] [address] Nurse Practitioner Family Medicine 03/20/24 Calf Skinner Relationship Specialty Start Date End Date Robert Doherty MD [address] [place] [address] PCP - General Family Medicine 03/20/24 Alley Cruz NP [address] [place] [address] Nurse Practitioner Family Medicine 03/20/24 Reason for Visit (unrecogniz ed section and content) Reason Comments Abnormal Calcium NEW REF/ SOME LAB Specialty Diagnoses / Procedures Referred By Contchiara t Referred To Contact Endocrinology Diagnoses Hypercalcemia Procedures NE OFFICE/OUTPATIENT NEW HIGH MDM Alley Cruz, GREG [address] [place] [address] Phone: tel: fax: Fabricio Mederos MD [address], [address] [place] [address] Phone: tel: fax: Referral ID Status Reason Start Date Expiration Date V isits Requested Visits Authorized [id number] Closed Specialty Services Required 07/10/2024 01/06/2025 1 1 Reason Comments Congestive Heart Failure Reason Comments Med Refill Reason Comments Hypertension FOR RECORDS PERTAINING TO PATIENTS WHO ARE [...] BE BASED ON THE PRIMARY CLINICAL RECORDS. [employer] provides no warranty or guarantee of the accuracy or completeness of information in this document.
--- OUTSIDE RECORDS SUMMARY | 2025-03-31 07:09 | XMS_ITS | Encounter Summary ---
Author Organization [facility] Address [address] [place] [address] Care Team Providers Care Driver Guide Name Role Phone Robert Doherty MD Primary Care Provider [phone] Alley Cruz NP Unavailable [phone] Reason for Visit * Reason Comments Med Refill Encounter Details Date Type Department Care Team (Late Contact Info) Description 07/24/2024 Refill [facility] [address] [place] [address] Alley Cruz NP [address] [place] [address] Primary hypertension ; Chronic diastolic heart failure (HCC) Social History Tobacco Use Types Packs/Day Years [...] Encounters Date Type Department Care Team (Late Contact Info) Description 04/01/2025 9:00 AM EDT Office Visit [facility] [address] [place] [address] Alley Cruz NP [address] [place] [address] documented as of this encounter Visit Diagnoses Diagnosis Primary hypertension Unspecified essential hypertension Chronic diastolic heart failure (HCC) Chronic diastolic heart failure documented in this encounter Care Teams Driver Guide Relationship Specialty Start Date End Date Robert Doherty MD [address] [place] [address] PCP - General Family Medicine 03/20/24 Alley Cruz NP [address] [place] [address] Nurse Practitioner Family Medicine 03/20/24 documented as of this encounter
--- OUTSIDE RECORDS SUMMARY | 2025-03-31 07:09 | XMS_ITS | Encounter Summary ---
Author Organization [facility] Address [address] [place] [address] Care Team Providers Care Pilot Manager Name Role Phone Robert Doherty MD Primary Care Provider [phone] Robert Doherty MD Primary Care Provider [phone] Alley Cruz NP Unavailable [phone] Reason for Visit * Reason Comments Med Refill Encounter Details Date Type Department Care Team (Late Contact Info) Description 08/01/2023 Refill [facility] [address] [place] [address] Alley Cruz NP [address] [place] [address] Essential (primary) hypertension Social History Tobacco Use Types Packs/Day Years Used Date Smoking Tobacco: Never Assessed Sex and Gender Information Value Date Recorded Sex Assigned at Not on file Legal Sex Male 7:51 AM EDT Gender Identity Not on file Sexual Orientation Not on file documented as of this encounter Miscellaneous Notes * Telephone Encounter - Alley Cruz NP - 08/02/2023 7:03 AM EST Already completed documented in this encounter Plan of Treatment Upcoming Encounters Date Type Department Care Team (Late Contact Info) Description 04/01/2025 9:00 AM EDT Office Visit [facility] [address] [place] [address] Alley Cruz, GREG [address] [place] [address] documented as of this encounter Visit Diagnoses Diagnosis Essential (primary) hypertension Unspecified essential hypertension documented in this encounter Care Teams Pilot Manager Relationship Specialty Start Date End Date Robert Doherty MD PCP - General Family Medicine 03/21/23 03/19/24 Robert Doherty MD [address] [place] [address] PCP - General Family Medicine 03/20/24 Alley Cruz NP [address] [place] [place] [address] Nurse Practitioner Family Medicine 03/20/24 documented as of this encounter
[2025-03-31 09:25] LABS: Anion Gap 12.0; Blood Urea Nitrogen 21.0 mg/dL (7.0-18.0); Calcium 9.1 mg/dL (8.5-10.1); Carbon Dioxide 24.7 mmol/L (21.0-32.0); Chloride 106 mmol/L (98-107); Estimated GFR (African America >60 (>=60 mL/min/1.73m^2); Estimated GFR (Non-African Ame >60 (>=60 mL/min/1.73m^2); Glucose 102 mg/dL (74-106); Potassium 3.7 mmol/L (3.5-5.1); Sodium 139 mmol/L (136-145); Uric Acid 7.6 mg/dL (3.5-7.2)
== END 2025-03-31 07:06 | disposition home or self-care (01) ==
LOC: LAB 07:07
PROVIDERS: PCP Nurse Practitioner; Visit Provider Nurse Practitioner
DX: M1A.09X0 Idiopathic chronic gout, multiple sites, without tophus (tophi) (principal); E55.9 Vitamin D deficiency, unspecified
CPT/HCPCS: 36415; 80048; 82306; 84550